=== PATIENT | female | born 1970 | race Hispanic/Latino ===

== ENCOUNTER 2017-02-13 13:48 | Emergency (ER) | payer MEDICAID, OTHER ==
[2017-02-13 13:48] VITALS: BMI 29.8
[2017-02-13 14:06] VITALS: RESP 18; O2SAT 100
[2017-02-13] MEDS ORDERED: Oxycodone/Acetaminophen 5/325 mg Tab PO STA (16:06)
--- NOTE | 2017-02-13 16:08 | ED PDOC ---
Arrival/HPI - General Chief Complaint: Female Genitourinary Time Seen by Provider: 02/13/17 14:59 Historian: Patient - History of Present Illness Narrative History of Present Illness (Text): 02/13/17 18:07 Patient past medical history of hypertension, UTI, kidney stones, migraine headaches, complains of sudden onset of bilateral flank and low back pain which started today when she was at the pharmacy picking up her prescription for Cipro. Patient states that she was recently seen yesterday at [facility]. States that she was evaluated for migraine headache and flank pain, states she had a CT done which showed small kidney stones, and was diagnosed with UTI, was prescribed Cipro. Patient states that she was not given any prescription for pain medication upon discharge yesterday. Otherwise: (+) nausea , (-) vomiting, (-) diarrhea, (-) fever, (+) hematuria, (-) melena, (-) hematochezia, (-) paresthesias, (-) weakness, (-) acute bowel or bladder dysfunction, (-) fall, (-) trauma. Of note patient's blood pressure is elevated at 182/122, patient admits taking her blood pressure medication today Norvasc and metoprolol today. Reports no chest pain, palpitations, shortness of breath, dizziness or headache. PMD Sayed Past Medical History - Provider Review Nursing Documentation Reviewed: Yes - Infectious Disease Hx of Infectious Diseases: None - Tetanus Immunization Tetanus Immunization: Unknown - Cardiac Hx Hypertension: Yes - Pulmonary Hx Asthma: Yes Hx Pneumonia: Yes - Neurological Hx Migraine: Yes Hx Seizures: No - HEENT Hx HEENT Disorder: Yes - Renal Hx Renal Disorder: Yes Hx Kidney Stones: Yes - Endocrine/Metabolic Hx Endocrine Disorders: Yes - Hematological/Oncological Hx Anemia: Yes - Integumentary Hx Dermatological Disorder: No - Musculoskeletal/Rheumatological Hx Arthritis: Yes (KNEE,HIP,SHOULDER) Hx Fractures: Yes (right hand 2009) - Gastrointestinal Hx Crohn's Disease: Yes Hx Gastritis: Yes Hx Gastrointestinal Ulcer: Yes - Genitourinary/Gynecological Hx Sexually Transmitted Diseases: No - Psychiatric Hx Anxiety: Yes Hx Depression: Yes Hx Substance Use: No - Surgical History Hx Section: Yes Hx Orthopedic Surgery: Yes (right wrist surgery) - Anesthesia Hx Anesthesia: Yes Hx Anesthesia Reactions: No Hx Malignant Hyperthermia: No - Suicidal Assessment Feels Threatened In Home Enviroment: No Family/Social History - Physician Review Nursing Documentation Reviewed: Yes Family/Social History: No Known Family HX Smoking Status: Never Smoked Hx Alcohol Use: No Hx Substance Use: No Hx Substance Use Treatment: No Allergies/Home Meds Allergies/Adverse Reactions: Allergies amoxicillin Allergy (Verified 01/29/17 07:55) RASH metronidazole [From Flagyl] Allergy (Verified 01/29/17 07:55) RASH NSAIDS (Non-Steroidal Anti-Inflamma Allergy (Verified 01/29/17 07:55) SWELLING peanut Allergy (Verified 01/29/17 07:55) ANAPHYLAXIS Home Medications: Home Meds Medication Instructions Recorded Confirmed amLODIPine [Norvasc] 20 mg PO DAILY #0 10/01/14 01/28/17 Topiramate [Topamax] 200 mg PO DAILY 01/09/16 01/28/17 Famotidine [Pepcid] 40 mg PO Q12 PRN 09/11/16 01/28/17 buPROPion [Wellbutrin] 1 tab PO DAILY 12/01/16 01/28/17 Review of Systems - Review of Systems Constitutional: Normal. absent: Fatigue, Weight Change, Fevers Respiratory: Normal. absent: SOB, Cough Cardiovascular: Normal. absent: Chest Pain, Palpitations, Edema Gastrointestinal: Normal, Other (flank pain). absent: Abdominal Pain, Stool Changes, Appetite Changes Genitourinary Female: Normal, Dysuria, Hematuria. absent: Frequency Musculoskeletal: Normal. absent: Arthralgias, Back Pain Skin: Normal. absent: Rash, Pruritis, Skin Lesions Neurological: Normal, Headache (h/o migraines). absent: Dizziness, Focal Weakness Physical Exam - Physical Exam Narrative Physical Exam (Text): 02/13/17 18:15 GENERAL APPEARANCE: Patient is awake, alert, oriented x 3, in no acute distress. SKIN: Warm, dry; (-) cyanosis. EYES: (-) conjunctival pallor, (-) scleral icterus. ENMT: Mucous membranes moist. NECK: (-) tenderness, (-) stiffness, (-) lymphadenopathy. CHEST AND RESPIRATORY: (-) rales, (-) rhonchi, (-) wheezes; breath sounds equal bilaterally. HEART AND CARDIOVASCULAR: (-) irregularity; (-) murmur, (-) gallop. ABDOMEN AND GI: (-) distention. Bowel sounds active; (-) tenderness, (+) mild flank tenderness, (-) guarding, (-) rebound, (-) palpable masses, (-) CVA tenderness. EXTREMITIES: (-) deformity, (-) edema, (+) distal pulses. NEURO AND PSYCH: Mental status as above; (-) focal findings. Vital Signs Temp Pulse Resp BP Pulse Ox 02/13/17 17:56 98.2 F 93 H 18 168/89 H 100 02/13/17 15:50 68 18 176/96 H 100 02/13/17 14:05 98.1 F 71 18 182/122 H 100 Medical Decision Making ED Course and Treatment: 02/13/17 16:07 46 yo F presents with back pain, and flank pain, was recently dx with UTI yesterday was Rx cipro. Previous medical records reviewed, patient was seen yesterday at [facility], had urine test and a CAT scan done of head and abdomen, was diagnosed with UTI and was prescribed Cipro and Tylenol. CT head showed no acute findings, CT of abdomen and pelvis showed nonobstructing renal calculus. Of note, the physician that saw her yesterday had stated on their note that the patient had recently filled 20 tabs tramadol on 02/10/17 and on 01/31 she filled 60 tabs vicodin and 120 tabs tramadol. Patient advised that she will be medicated with pain medication while she is in the emergency room however no narcotic medications will be prescribed or further medications will be dispensed to the patient. Patient medicated with Phenergan IM and Percocet by mouth. Repeat VS T 98.2 P 93 BP 168/87. On reevaluation, patient reports improvement of pain and denies any nausea, headache, chest pain or abdominal pain. Abdomen remains soft with no tenderness, no CVA tenderness. Based on history, exam and recent diagnostic results plan will be for outpatient follow-up. Patient states she fully agrees with and understands discharge instructions. States that she agrees with the plan and disposition. Verbalized and repeated discharge instructions and plan. I have given the patient opportunity to ask any additional questions. Follow up with primary care physician and urologist in 1-2 days without fail. Advised to take medication as prescribed. Return to the emergency room at any time for any new or worsening symptoms. - Medication Orders Current Medication Orders: Discontinued Medications Oxycodone/Acetaminophen (Percocet 5/325 Mg Tab) 1 tab PO STAT STA Stop: 02/13/17 16:07 Last Admin: 02/13/17 17:13 Dose: 1 tab Promethazine HCl (Phenergan Inj) 25 mg IM STAT STA Stop: 02/13/17 16:07 Last Admin: 02/13/17 17:13 Dose: 25 mg - PA / ATHLETIC MONITOR / Resident Statement MD/DO has reviewed & agrees with the documentation as recorded. Disposition/Present on Arrival - Present on Arrival Any Indicators Present on Arrival: No History of DVT/PE: No History of Uncontrolled Diabetes: No Urinary Catheter: No History of Decub. Ulcer: No History Surgical Site Infection Following: None - Disposition Have Diagnosis and Disposition been Completed?: Yes Diagnosis: Flank pain Disposition: HOME/ ROUTINE Disposition Time: 16:15 Patient Plan: Discharge Condition: STABLE Discharge Instructions (ExitCare): Flank Pain (ED) Print Language: CZECH Additional Instructions: Thank you for letting us take care of you today. You were treated for flank pain. The emergency medical care you received today was directed at your acute symptoms. Continue antibiotics and take pain medications that you have at home. It may take several days for your symptoms to resolve. Return to the Emergency Department if your symptoms worsen, do not improve, or if you have any other problems. Please contact your primary care doctor and urologist in 2 days for re- evaluation and follow up. Bring any paperwork you were given at discharge with you along with any medications you are taking to your follow up visit. Our treatment cannot replace ongoing medical care by a primary care provider (PCP) outside of the emergency department. Thank you for allowing the [facility] team to be part of your care today. Referrals: Mae Garsia MD [Primary Care Provider] - Follow up with primary
[2017-02-13 17:57] VITALS: BP 168/89
[2017-02-13 18:15] VITALS: PULSE 93; TEMP 98.2
== END 2017-02-13 18:45 | disposition home or self-care (01) ==
LOC: ED 13:48
DX: R10.9 Unspecified abdominal pain (principal); I10 Essential (primary) hypertension
CPT/HCPCS: 96372; 99283; J2550

== ENCOUNTER 2017-03-29 07:50 | Emergency (ER) | payer MEDICAID, OTHER ==
[2017-03-29 07:50] VITALS: BMI 29.8
[2017-03-29 08:25] VITALS: RESP 16
[2017-03-29 08:35] LABS: URINE BILIRUBIN NEGATIVE (NEGATIVE); URINE BLOOD LARGE (NEGATIVE); URINE GLUCOSE (UA) NEGATIVE (NEGATIVE); URINE KETONE NEGATIVE (NEGATIVE); URINE LEUKOCYTE ESTERASE TRACE Leu/uL (NEGATIVE); URINE PROTEIN TRACE mg/dL (<30 mg/dL); URINE UROBILINOGEN 0.2 E.U./dL (<1 E.U./dL)
[2017-03-29 08:37] LABS: URINE APPEARANCE TURBID (CLEAR); URINE COLOR YELLOW (YELLOW)
[2017-03-29 08:43] LABS: URINE RBC TNTC /hpf (0-2)
--- NOTE | 2017-03-29 09:58 | ED PDOC ---
Arrival/HPI - General Chief Complaint: Female Genitourinary Time Seen by Provider: 03/29/17 07:55 Historian: Patient - History of Present Illness Narrative History of Present Illness (Text): 03/29/17 09:54 Patient is a 46 year old female whose past medical history includes migraines, kidney stones, UTI presents to the emergency department complaining of worsening right flank pain for the past week. Patient was seen multiple times in the past week at [facility] for similar complaint. Patient states she finished her Cipro but did not fill her Macrobid due to insurance coverage issues. Patient reports one episode of non-bloody vomiting last night and discomfort when urinating. She states she has had urinary symptoms for over one month. No fevers or chills. Pain not colicky. Reports pain crampy. Denies vaginal bleeding or discharge, states that she has not had menstrual period for several months, denies being . States she has had multiple visits to [facility] over past several weeks for SIMILAR SYMPTOMS, denies change in character or location. Time/Duration: > week Symptom Onset: Gradual Symptom Course: Worsening Context: Home Past Medical History - Provider Review Nursing Documentation Reviewed: Yes - Infectious Disease Hx of Infectious Diseases: None - Tetanus Immunization Tetanus Immunization: Unknown - Cardiac Hx Hypertension: Yes - Pulmonary Hx Asthma: Yes Hx Pneumonia: Yes - Neurological Hx Migraine: Yes Hx Seizures: No - HEENT Hx HEENT Disorder: Yes - Renal Hx Renal Disorder: Yes Hx Kidney Stones: Yes - Endocrine/Metabolic Hx Endocrine Disorders: No - Hematological/Oncological Hx Anemia: Yes - Integumentary Hx Dermatological Disorder: No - Musculoskeletal/Rheumatological Hx Arthritis: Yes (KNEE,HIP,SHOULDER) Hx Fractures: Yes (right hand 2010) - Gastrointestinal Hx Crohn's Disease: Yes Hx Gastritis: Yes Hx Gastrointestinal Ulcer: Yes - Genitourinary/Gynecological Hx Sexually Transmitted Diseases: No - Psychiatric Hx Anxiety: Yes Hx Depression: Yes Hx Substance Use: No - Surgical History Hx Orthopedic Surgery: Yes - Anesthesia Hx Anesthesia: Yes Hx Anesthesia Reactions: No Hx Malignant Hyperthermia: No - Suicidal Assessment Feels Threatened In Home Enviroment: No Family/Social History - Physician Review Nursing Documentation Reviewed: Yes Family/Social History: Unknown Family HX Smoking Status: Former Smoker Hx Alcohol Use: No Hx Substance Use: No Hx Substance Use Treatment: No Allergies/Home Meds Allergies/Adverse Reactions: Allergies amoxicillin Allergy (Verified 03/29/17 08:23) RASH metronidazole [From Flagyl] Allergy (Verified 03/29/17 08:23) RASH NSAIDS (Non-Steroidal Anti-Inflamma Allergy (Verified 03/29/17 08:23) SWELLING peanut Allergy (Verified 03/29/17 08:23) ANAPHYLAXIS Home Medications: Home Meds Medication Instructions Recorded Confirmed amLODIPine [Norvasc] 20 mg PO DAILY #0 10/01/14 01/28/17 Topiramate [Topamax] 200 mg PO DAILY 01/09/16 01/28/17 Famotidine [Pepcid] 40 mg PO Q12 PRN 09/11/16 01/28/17 buPROPion [Wellbutrin] 1 tab PO DAILY 12/01/16 01/28/17 Review of Systems - Review of Systems Constitutional: absent: Fatigue, Fevers Eyes: absent: Vision Changes, Eye Pain ENT: absent: Hearing Changes, Tinnitus Respiratory: absent: SOB, Cough, Sputum Cardiovascular: absent: Chest Pain, Palpitations, Calf Pain, MAURER Gastrointestinal: Abdominal Pain, Vomiting Genitourinary Female: Dysuria. absent: Frequency, Hematuria, Urine Output Changes, Vaginal Bleeding, Vaginal Discharge Musculoskeletal: Back Pain, Other (Right flank pain). absent: Neck Pain Skin: absent: Rash Neurological: absent: Headache, Dizziness, Focal Weakness Endocrine: absent: Diaphoresis Hemo/Lymphatic: absent: Easy Bleeding Psychiatric: absent: Depression, Suicidal Ideation Physical Exam - Physical Exam Narrative Physical Exam (Text): Head: Atraumatic. Normocephalic. Eyes: PERRL. EOMI. Conjunctivae are not pale. ENT: Mucous membranes are moist and intact. Oropharynx is clear and symmetric. Neck: Supple. Full ROM. No JVD. No lymphadenopathy. Cardiovascular: Regular rate. Regular rhythm. No murmurs, rubs, or gallops. Distal pulses are 2+ and symmetric. Pulmonary/Chest: No evidence of respiratory distress. Clear to auscultation bilaterally. No wheezing, rales or rhonchi. Abdominal: Soft and non-distended. Very mild RUQ pain on palpation, negative Liu's signs. No rebound, guarding, or rigidity. No organomegaly. Good bowel sounds. Back: No CVA tenderness. Palpable paraspinal right sided back pain, worse with palpation. Patient with no midline pain or deformity. Patient with no pain with straight leg testing. Pelvic: patient deferred, denies vaginal discharge or bleeding Rectal: no gross blood reported Extremities: No edema. No cyanosis. No clubbing. Full range of motion in all extremities. No calf tenderness. Skin: Skin is warm and dry. No petechiae. No purpura. Neurological: Alert, awake, and oriented to person, place, time, and situation. Normal speech. Motor and sensory exam intact. Psychiatric: Good eye contact. Normal interaction, affect, and behavior. 03/29/17 17:58 Vital Signs Reviewed: Yes Vital Signs Temp Pulse Resp BP Pulse Ox 03/29/17 12:30 98.6 F 80 16 160/88 H 99 03/29/17 10:32 74 16 150/89 100 03/29/17 08:07 98.3 F 85 16 160/96 H 100 Temperature: Afebrile Pulse: Regular Respiratory Rate: Normal Appearance: Positive for: Non-Toxic Pain Distress: Mild Mental Status: Positive for: Alert and Oriented X 3 Medical Decision Making ED Course and Treatment: Differential Diagnosis include but are not limited to: kidney stone, UTI, cystitis, muscle strain, gastritis, biliary disease Plan: Will obtain ultrasound, administer Zofran and dose of Tramadol, and check labs. Prior Visits: Notes and results from previous visits were reviewed. As per previous note, patient's records were reviewed on [employer] which showed patient filled a prescription for 120 tablets of Tramadol on March and 78 prescriptions for monitor medications in the past year. She has had multiple recent ER evaluations at [facility] which I have reviewed. I have reviewed recent UA results from [facility] as well as recent urine cultures over past week which have been unremarkable. She had CT abdomen on 03/23 at [facility]: Previous CT reports from the past month showed the following: CT Abdomen and Pelvis without Oral or IV contrast. Neurologist : Silva Sheffield MD Report Date : 03/23/2017 12:43:54 IMPRESSION: 3 mm nonobstructing left lower pole calculus. No hydronephrosis identified Distended urinary bladder, otherwise unremarkable. Mild to moderate constipation. Moderate hiatal hernia. CT HEAD WITHOUT CONTRAST Neurologist : Frank Sanchez MD Report Date : 03/10/2017 16:22:42 IMPRESSION: No intracranial mass, hemorrhage or evidence of acute infarct. Progress Notes: Patient denies headache on current exam, is alert and oriented with no fever or meningeal signs. I have reviewed with her her symptoms, reported as similar in character and location as multiple recent prior visits. Denies urinary retention or vaginal discharge. UA negative. Given multiple recent CTs, I have discussed risks of persistent radiation, as symptoms similar in character but persistent, ultrasound ordered: Transvaginal Ultrasound Neurologist : Vira Pavon MD Report Date : 03/29/2017 11:24:23 IMPRESSION: No evidence of fibroid uterus or adnexal mass. Both ovaries are not visualized. Abdominal Ultrasound Neurologist : Vira Pavon MD Report Date : 03/29/2017 11:22:54 IMPRESSION: 1. Mild hepatomegaly. Diffuse increased echogenicity in the liver may reflect hepatic steatosis however parenchymal infectious/ inflammatory etiologies cannot be entirely excluded. Clinical and laboratory correlation is advised. 2. Gallbladder is contracted. No sonographic evidence for cholelithiasis. 03/29/17 18:02 I have discussed ultrasound findings with patient in laymen's terms as well as need for follow-up. UA reveals microscopic blood, I HAVE STRESSED TO PATIENT NEED FOR UROLOGIC AND GYNECOLOGY FOLLOW-UP. I HAVE DISCUSSED WITH HER HER URINALYSIS RESULTS INCLUDING blood, but no gross blood reported. No chest pain or sob. No fever in ED. She is comfortable on re-evaluation, tolerating po, with no nausea on discharge. Risks/side effects of medication reviewed with patient, risks of noncompliance with gynecologic and urologic follow-up d/w patient. Treatment plan reviewed in depth with patient. Anemia noted to be chornic when compared to previous labs, no active bleeding noted. Not hypotensive or tachycardic. - Lab Interpretations Lab Results: 03/29/17 11:00 03/29/17 11:00 Lab Results 03/29/17 11:00: Sodium 141, Potassium 3.9, Chloride 109 H, Carbon Dioxide 25, Anion Gap 11, BUN 12, Creatinine 0.7, Est GFR ( Amer) > 60, Est GFR (Non- Af Amer) > 60, Random Glucose 78, Calcium 9.2, Total Bilirubin 0.2, AST 16, ALT 26, Alkaline Phosphatase 70, Total Protein 6.5, Albumin 3.9, Globulin 2.6, Albumin/Globulin Ratio 1.5 03/29/17 11:00: WBC 4.7 D, RBC 3.88, Hgb 9.2 L, Hct 30.2 L, MCV 77.8 L, MCH 23.7 L, MCHC 30.5 L, RDW 15.0 H, Plt Count 251, MPV 8.5, Gran % 56.8, Lymph % ( Auto) 32.0, [place] % (Auto) 5.5, Eos % (Auto) 5.1 H, Baso % (Auto) 0.6, Gran # 2.66, Lymph # 1.5, [place] # 0.3, Eos # 0.2, Baso # 0.03 03/29/17 08:25: Urine Color Yellow, Urine Appearance Turbid, Urine pH 6.0, Ur Specific [place] >= 1.030, Urine Protein Trace H, Urine Glucose (UA) Negative, Urine Ketones Negative, Urine Blood Large H, Urine Nitrate Negative, Urine Bilirubin Negative, Urine Urobilinogen 0.2, Ur Leukocyte Esterase Trace H, Urine RBC Tntc, Urine WBC 2 - 5, Ur Epithelial Cells 3 - 4, Urine HCG, Qual Negative - RAD Interpretation Radiology Orders: 03/29/17 09:05 ABDOMEN COMPLETE [US] Stat TRANSVAGINAL [US] Stat - Medication Orders Current Medication Orders: Discontinued Medications Ondansetron HCl (Zofran Odt) 4 mg PO STAT STA Stop: 03/29/17 09:06 Last Admin: 03/29/17 09:15 Dose: 4 mg Tramadol HCl (Ultram) 50 mg PO STAT STA Stop: 03/29/17 09:07 Last Admin: 03/29/17 09:14 Dose: 50 mg Tramadol HCl (Ultram) 25 mg PO STAT STA Stop: 03/29/17 12:50 Last Admin: 03/29/17 13:09 Dose: 25 mg - Juliannaibe Statement The provider has reviewed the documentation as recorded by the Gurinder Wright Provider Scribe Attestation: All medical record entries made by the Juliannaibsoledad were at my direction and personally dictated by me. I have reviewed the chart and agree that the record accurately reflects my personal performance of the history, physical exam, medical decision making, and the department course for this patient. I have also personally directed, reviewed, and agree with the discharge instructions and disposition. Disposition/Present on Arrival - Present on Arrival Any Indicators Present on Arrival: No History of DVT/PE: No History of Uncontrolled Diabetes: No Urinary Catheter: No History of Decub. Ulcer: No History Surgical Site Infection Following: None - Disposition Have Diagnosis and Disposition been Completed?: Yes Diagnosis: Flank pain, Anemia, Abdominal pain Disposition: HOME/ ROUTINE Disposition Time: 12:38 Patient Plan: Discharge Condition: GOOD Discharge Instructions (ExitCare): Flank Pain (ED) Additional Instructions: For any fevers, any chest pain or shortness of breath, any abdominal pain, any abnormal vaginal bleeding, any rash, any lightheadedness or dizziness, any urinary symptoms, get rechecked. For any persistence, change, or worsening of any symptoms get rechecked. Follow-up with your tourism radio presenter in the next 2-3 days, follow-up with your primary care doctor to re-evaluate abdominal ultrasound findings. Take your Macrobid antibtiotic as directed. Prescriptions: Ondansetron ODT [Zofran ODT] 4 mg PO Q8 PRN #6 odt PRN Reason: Nausea/Vomiting Referrals: [facility] [Outside] - [facility] [Outside] - Follow up with primary
[2017-03-29 11:16] LABS: ADD MANUAL DIFF? NO
[2017-03-29 11:22] LABS: BASO # 0.03 K/mm3 (0.0-2.0); BASO % 0.6 % (0.0-3.0); EOS # 0.2 (0.0-0.7); EOS % 5.1 % (1.5-5.0); GRAN # 2.66 (1.4-6.5); GRAN % 56.8 % (50.0-68.0); HEMATOCRIT 30.2 % (36.0-48.0); LYMPH # 1.5 (1.2-3.4); MEAN CELL VOLUME 77.8 fL (80.0-105.0); MEAN CORPUSCULAR HEMOGLOBIN 23.7 pg (25.0-35.0); MEAN CORPUSCULAR HGB CONC 30.5 g/dl (31.0-37.0); MEAN PLATELET VOLUME 8.5 fl (7.0-11.0); MONO # 0.3 (0.1-0.6); MONO % 5.5 % (1.0-6.0); PLATELET COUNT 251 10^3/uL (120.0-450.0); WHITE BLOOD COUNT 4.7 10^3/ul (4.5-11.0)
--- NOTE | 2017-03-29 11:24 | US ---
HISTORY: upper abdominal pain COMPARISON: None. TECHNIQUE: Grayscale imaging was performed. FINDINGS: LIVER: Measures 16.6 cm. There is diffuse increased echogenicity of the liver parenchyma. No mass. No intrahepatic bile duct dilatation. GALLBLADDER: The gallbladder is contracted. No gallstones. COMMON BILE DUCT: Measures 5.4 mm. No stones. No dilatation. PANCREAS: Unremarkable as visualized. No mass. No ductal dilatation. RIGHT KIDNEY: Measures 12.0cm. Normal echogenicity. No calculus, mass, or hydronephrosis. LEFT KIDNEY: Measures 12.0cm. Normal echogenicity. No calculus, mass, or hydronephrosis. SPLEEN: Normal in size and contour. No mass. AORTA: No aneurysmal dilatation. IVC: Unremarkable. OTHER FINDINGS: None. IMPRESSION: 1. Mild hepatomegaly. Diffuse increased echogenicity in the liver may reflect hepatic steatosis however parenchymal infectious/ inflammatory etiologies cannot be entirely excluded. Clinical and laboratory correlation is advised. 2. Gallbladder is contracted. No sonographic evidence for cholelithiasis.
--- NOTE | 2017-03-29 11:26 | US ---
HISTORY: Abdominal pain COMPARISON: None available. TECHNIQUE: Transvaginal pelvic ultrasound was performed. FINDINGS: UTERUS: Measures 8.6 x 3.2 x 4.1 cm. Retroverted, normal in size and appearance. No fibroid or other mass lesion seen. ENDOMETRIUM: Measures 5.0 mm in diameter. Normal in appearance. CERVIX: No cervical abnormality identified. RIGHT OVARY: Not visualized. LEFT OVARY: Not visualized. FREE FLUID: No significant free fluid noted. OTHER FINDINGS: None. IMPRESSION: No evidence of fibroid uterus or adnexal mass. Both ovaries are not visualized.
[2017-03-29 11:31] LABS: ALB/GLOB RATIO 1.5 (1.1-1.8); ALKALINE PHOSPHATASE 70 U/L (38-133); ALT/SGPT 26 U/L (7-56); AST/SGOT 16 U/L (15-39); BILIRUBIN,TOTAL 0.2 mg/dL (0.2-1.3); BLOOD UREA NITROGEN 12 mg/dL (7-21); CALCIUM 9.2 mg/dL (8.4-10.5); CARBON DIOXIDE 25 mmol/L (21-33); CHLORIDE 109 mmol/L (98-107); GFR AFRICAN-AMERICAN > 60; GLUCOSE,RANDOM 78 mg/dL (70-110); POTASSIUM 3.9 mmol/L (3.6-5.0); SODIUM 141 mmol/L (132-148); TOTAL PROTEIN 6.5 g/dL (5.8-8.3)
[2017-03-29 13:16] VITALS: BP 160/88; PULSE 80; TEMP 98.6; O2SAT 99
== END 2017-03-29 13:16 | disposition home or self-care (01) ==
LOC: ED 07:50
DX: R10.9 Unspecified abdominal pain (principal); D64.9 Anemia, unspecified

== ENCOUNTER 2017-06-07 14:17 | Observation (INO) | payer MEDICAID ==
[2017-06-07 14:39] VITALS: BMI 29.8
--- NOTE | 2017-06-07 17:18 | ED PDOC ---
Arrival/HPI - General Chief Complaint: Abdominal Pain Time Seen by Provider: 06/07/17 17:13 Historian: Patient - History of Present Illness Narrative History of Present Illness (Text): 06/07/17 17:14 A 46 year old female, whose past medical history includes crohn's disease, presents to the emergency department complaining of intermittent right flank discomfort for the past 2 days. Patient notes nausea and non-bilious non-bloody vomiting. She reports she was seen at [facility] 2 days ago and had a CT done which showed a non-obstructing stone. Patient denies any fever, chills, diarrhea or any other complaints. Time/Duration: Other (2 days) Symptom Course: Intermittent Quality: Other Context: Home Past Medical History - Provider Review Nursing Documentation Reviewed: Yes - Infectious Disease Hx of Infectious Diseases: None - Tetanus Immunization Tetanus Immunization: Unknown - Cardiac Hx Cardiac Disorders: Yes Hx Hypertension: Yes - Pulmonary Hx Asthma: Yes Hx Pneumonia: Yes - Neurological Hx Migraine: Yes Hx Seizures: No - HEENT Hx HEENT Disorder: Yes - Renal Hx Renal Disorder: Yes Hx Kidney Stones: Yes - Endocrine/Metabolic Hx Endocrine Disorders: No - Hematological/Oncological Hx Anemia: Yes - Integumentary Hx Dermatological Disorder: No - Musculoskeletal/Rheumatological Hx Arthritis: Yes (KNEE,HIP,SHOULDER) Hx Fractures: Yes (right hand 2009) - Gastrointestinal Hx Crohn's Disease: Yes Hx Gastritis: Yes Hx Gastrointestinal Ulcer: Yes - Genitourinary/Gynecological Hx Sexually Transmitted Diseases: No - Psychiatric Hx Psychophysiologic Disorder: Yes Hx Anxiety: Yes Hx Depression: Yes Hx Substance Use: No - Surgical History Hx Orthopedic Surgery: Yes - Anesthesia Hx Anesthesia: Yes Hx Anesthesia Reactions: No Hx Malignant Hyperthermia: No - Suicidal Assessment Feels Threatened In Home Enviroment: No Family/Social History - Physician Review Nursing Documentation Reviewed: Yes Family/Social History: No Known Family HX Smoking Status: Former Smoker Hx Alcohol Use: No Hx Substance Use: No Hx Substance Use Treatment: No Allergies/Home Meds Allergies/Adverse Reactions: Allergies amoxicillin Allergy (Verified 06/07/17 14:39) RASH metronidazole [From Flagyl] Allergy (Verified 06/07/17 14:39) RASH NSAIDS (Non-Steroidal Anti-Inflamma Allergy (Verified 06/07/17 14:39) SWELLING peanut Allergy (Verified 06/07/17 14:39) ANAPHYLAXIS Home Medications: Home Meds Medication Instructions Recorded Confirmed amLODIPine [Norvasc] 20 mg PO DAILY #0 10/01/14 06/07/17 Topiramate [Topamax] 200 mg PO DAILY 01/09/16 06/07/17 SUMAtriptan [Imitrex] 50 mg PO DAILY PRN 06/07/17 06/07/17 Physical Exam - Physical Exam Narrative Physical Exam (Text): - Review of Systems Constitutional: Normal. absent: Fatigue, Weight Change, Fevers Eyes: Normal ENT: denies sore throat, denies tristhmus Respiratory: Normal. absent: SOB, Cough, Sputum Cardiovascular: absent: Chest Pain, Palpitations, Syncope Gastrointestinal: (+) Nausea, Vomiting absent: Abdominal Pain, Diarrhea Genitourinary: Normal. absent: Dysuria, Frequency, Hematuria, vaginal bleeding Musculoskeletal: (+) Right sided flank pain absent: Arthralgias, Neck Pain Skin: no rashes, no erythema Neurological: absent: Focal Weakness Endocrine: Normal Hemo/Lymphatic: Normal Psychiatric: No suicidal or homicidal ideations Physical exam Patient appears age appropriate in no distress, speaking full sentences without difficulty - Systems Exam Head: Present: Atraumatic, Normocephalic Pupils: Present: PERRL Extroacular Muscles: Present: EOMI Conjunctiva: Present: Normal Mouth: Present: Moist Mucous Membranes Neck: Present: Normal Range of Motion. No: MIDLINE TENDERNESS, Paraspinal Tenderness Respiratory/Chest: Present: Clear to Auscultation, Good Air Exchange. No: Respiratory Distress, Accessory Muscle Use, Tachypneic Cardiovascular: Present: Regular Rate and Rhythm, Normal S1, S2, Peripheal Pulses Present. No: Murmurs Abdomen: Present: Normal Bowel Sounds. No: Tenderness, Distention, Peritoneal Signs, Rebound, Guarding Back: Present: Normal Inspection. No: Midline Tenderness, Paraspinal Tenderness Upper Extremity: Present: Normal Inspection. No: Cyanosis, Edema Lower Extremity: Present: Normal Inspection. No: Edema Neurological: Present: GCS=15, Speech Normal, cranial nerves II through XII fully intact with no cerebellar abnormality, neurosensory fully intact. No focal neurological deficits. Skin: Present: Warm, Dry, Normal Color. No: Rashes Lymphatic: Present: OX3, NI, NC Psychiatric: Present: Alert, Oriented x 3, Normal Insight, Normal Concentration Vital Signs Reviewed: Yes Vital Signs Temp Pulse Resp BP Pulse Ox 06/07/17 14:42 98.3 F 68 18 167/93 H 99 Temperature: Afebrile Blood Pressure: Hypertensive Pulse: Regular Respiratory Rate: Normal Appearance: Positive for: Well-Appearing, Non-Toxic, Comfortable Pain Distress: None Mental Status: Positive for: Alert and Oriented X 3 Medical Decision Making ED Course and Treatment: 06/07/17 17:14 Impression: A 46 year old female with right sided flank pain, nausea and vomiting. Patients recent CT at [facility] showed a non-obstructing stone. pt is a vasculopath, states very difficult to get IV access attempted US guided UE b/l under sterile conditions, no success Plan: -- Abdomen and pelvis CT -- Labs -- Urinalysis -- Morphine, Reglan and Zofran -- Reassess and disposition Progress Notes: 06/07/17 20:59 pt still c/o nausea more anti-emetics ordered Report Date: 06/07/17 21:38 EXAM: CT Abdomen and Pelvis Without Intravenous Contrast Dictated and Authenticated by: James Hernandez MD IMPRESSION: 1. There is a stable moderate size hiatal hernia identified. 2. There is a small nonobstructing left renal calculus measuring 2 mm. 3. There is wall thickening of the right hemicolon, suggestive of incomplete distention or colitis. There is mild gaseous and fecal distention of the rectum. 4. Additional CT findings described above. 06/07/17 22:42 pt continues to have nausea and vomiting states she does not feel comfortable being dc'd home hernan resident, aware of admission Dr. Pavon paged 06/07/17 22:44 hernan Pavon, accepted admission - Lab Interpretations Lab Results: 06/07/17 18:42 06/07/17 18:42 Lab Results 06/07/17 18:42: Sodium 145, Potassium 3.3 L, Chloride 111 H, Carbon Dioxide 23, Anion Gap 14, BUN 13, Creatinine 0.7, Est GFR ( Amer) > 60, Est GFR (Non- Af Amer) > 60, Random Glucose 94, Calcium 9.1, Total Bilirubin 0.3, AST 43 H, ALT 37, Alkaline Phosphatase 79, Total Protein 7.2, Albumin 4.2, Globulin 2.9, Albumin/Globulin Ratio 1.4 06/07/17 18:42: PT 10.7, INR 0.99, APTT 23.3 L 06/07/17 18:42: WBC 5.8 D, RBC 4.18, Hgb 9.1 L, Hct 31.6 L, MCV 75.6 L, MCH 21.8 L, MCHC 28.8 L, RDW 15.8 H, Plt Count 269, MPV 9.3, Gran % 64.9, Lymph % ( Auto) 27.8, [place] % (Auto) 6.6 H, Eos % (Auto) 0.5 L, Baso % (Auto) 0.2, Gran # 3.76, Lymph # 1.6, [place] # 0.4, Eos # 0.0, Baso # 0.01 - RAD Interpretation Radiology Orders: 06/07/17 17:49 ABD & PELVIS W/O PO OR IV CONT [CT] Stat - Medication Orders Current Medication Orders: Discontinued Medications Metoclopramide HCl (Reglan) 10 mg IM STAT STA Stop: 06/07/17 20:54 Last Admin: 06/07/17 21:20 Dose: 10 mg Morphine Sulfate (Morphine) 4 mg IM STAT STA Stop: 06/07/17 19:00 Last Admin: 06/07/17 19:33 Dose: 4 mg Ondansetron HCl (Zofran Odt) 4 mg PO STAT STA Stop: 06/07/17 17:50 Last Admin: 06/07/17 18:36 Dose: 4 mg Ondansetron HCl (Zofran Odt) 4 mg PO STAT STA Stop: 06/07/17 19:32 Last Admin: 06/07/17 19:33 Dose: 4 mg - Scribe Statement The provider has reviewed the documentation as recorded by the Gurinder Yee Provider Scribe Attestation: All medical record entries made by the Juliannaibsoledad were at my direction and personally dictated by me. I have reviewed the chart and agree that the record accurately reflects my personal performance of the history, physical exam, medical decision making, and the department course for this patient. I have also personally directed, reviewed, and agree with the discharge instructions and disposition. Disposition/Present on Arrival - Present on Arrival Any Indicators Present on Arrival: No History of DVT/PE: No History of Uncontrolled Diabetes: No Urinary Catheter: No History of Decub. Ulcer: No History Surgical Site Infection Following: None - Disposition Have Diagnosis and Disposition been Completed?: Yes Diagnosis: Intractable nausea and vomiting Disposition: HOSPITALIZED Disposition Time: 22:45 Patient Plan: Admission Condition: FAIR Referrals: Mae Garsia MD [Primary Care Provider] - Follow up with primary Forms: [employer] (Albanian)
[2017-06-07 18:52] LABS: BASO # 0.01 K/mm3 (0.0-2.0); BASO % 0.2 % (0.0-3.0); EOS % 0.5 % (1.5-5.0); GRAN # 3.76 (1.4-6.5); GRAN % 64.9 % (50.0-68.0); HEMATOCRIT 31.6 % (36.0-48.0); LYMPH # 1.6 (1.2-3.4); LYMPH % 27.8 % (22.0-35.0); MEAN CELL VOLUME 75.6 fl (80.0-105.0); MEAN CORPUSCULAR HEMOGLOBIN 21.8 pg (25.0-35.0); MEAN CORPUSCULAR HGB CONC 28.8 g/dl (31.0-37.0); MEAN PLATELET VOLUME 9.3 fl (7.0-11.0); MONO # 0.4 (0.1-0.6); MONO % 6.6 % (1.0-6.0); RED CELL DISTRIBUTION WIDTH 15.8 % (11.5-14.5); WHITE BLOOD COUNT 5.8 10^3/ul (4.5-11.0)
[2017-06-07 18:57] LABS: INR 0.99 (0.93-1.08); PARTIAL THROMBOPLASTIN TIME 23.3 Seconds (23.7-30.8)
[2017-06-07] MEDS ORDERED: Morphine 4 mg/ml ISec IM STA (18:59)
[2017-06-07 19:03] LABS: ALB/GLOB RATIO 1.4 (1.1-1.8); ALKALINE PHOSPHATASE 79 U/L (38-126); ALT/SGPT 37 U/L (7-56); AST/SGOT 43 U/L (14-36); BILIRUBIN,TOTAL 0.3 mg/dL (0.2-1.3); BLOOD UREA NITROGEN 13 mg/dL (7-21); CALCIUM 9.1 mg/dL (8.4-10.5); CARBON DIOXIDE 23 mmol/L (21-33); CHLORIDE 111 mmol/L (98-107); GFR AFRICAN-AMERICAN > 60; GLUCOSE,RANDOM 94 mg/dL (70-110); POTASSIUM 3.3 mmol/L (3.6-5.0); SODIUM 145 mmol/L (132-148); TOTAL PROTEIN 7.2 g/dL (5.8-8.3)
--- NOTE | 2017-06-07 21:38 | CT ---
EXAM: CT Abdomen and Pelvis Without Intravenous Contrast EXAM DATE/TIME: 06/07/2017 5:49 PM CLINICAL HISTORY: The patient age is 46 years old and is female; Pain; Abdominal pain; Colic; Additional info: Renal colic Facility exam id and description: Ct abdpelscon abd pelvis w/o po or iv cont TECHNIQUE: Axial computed tomography images of the abdomen and pelvis without intravenous contrast. All CT scans at this facility use one or more dose reduction techniques, viz.: automated exposure control; ma/kV adjustment per patient size (including targeted exams where dose is matched to indication; i.e. head); or iterative reconstruction technique. Coronal and sagittal reformatted images were created and reviewed. COMPARISON: CT - ABD PELVIS PO IV CONTRAST 07/30/2015 1:45:46 AM FINDINGS: Lower thorax: There is a moderate size hiatal hernia identified. ABDOMEN: Liver: Unremarkable. No mass. Gallbladder and bile ducts: No calcified stones. No ductal dilation. Pancreas: Normal contour. No ductal dilation. Spleen: No splenomegaly. Adrenals: No mass. Kidneys and ureters: There is a small nonobstructing left renal calculus measuring 2 mm. There is no hydronephrosis bilaterally. Stomach and bowel: There is wall thickening of the right hemicolon, suggestive of incomplete distention or colitis. There is mild gaseous and fecal distention of the rectum. Evaluation of bowel is limited by the absence of oral contrast. Appendix: No findings to suggest acute appendicitis. PELVIS: Bladder: No stones. Reproductive: A small calcification is identified in the region of the cervix. This is stable. ABDOMEN and PELVIS: Intraperitoneal space: No free air. Bones/joints: Hypertrophic degenerative changes are noted within the spine. There is slight retrolisthesis of L5 on S1. Vasculature: No abdominal aortic aneurysm. Lymph nodes: No enlarged lymph nodes. IMPRESSION: 1. There is a stable moderate size hiatal hernia identified. 2. There is a small nonobstructing left renal calculus measuring 2 mm. 3. There is wall thickening of the right hemicolon, suggestive of incomplete distention or colitis. There is mild gaseous and fecal distention of the rectum. 4. Additional CT findings described above.
[2017-06-08] MEDS ORDERED: HYDROmorphone 0.5 mg/0.5 ml ISec IVP STA (00:50)
[2017-06-08 00:57] LABS: PH,URINE 6.5 (4.7-8.0); URINE BILIRUBIN NEGATIVE (NEGATIVE); URINE BLOOD LARGE (NEGATIVE); URINE GLUCOSE (UA) NEGATIVE (NEGATIVE); URINE KETONE NEGATIVE (NEGATIVE); URINE LEUKOCYTE ESTERASE NEGATIVE Leu/uL (NEGATIVE); URINE PROTEIN TRACE mg/dL (<30 mg/dL); URINE UROBILINOGEN 0.2 E.U./dL (<1 E.U./dL)
--- NOTE | 2017-06-08 00:58 | CP.PCM.PN ---
Subjective - Date & Time of Evaluation Date of Evaluation: 06/08/17 Time of Evaluation: 00:55 - Subjective Subjective: S:It was requested by ER nurse to insert a heparin lock. Complains of abdominal pain. No other complaints now. Pertinent medical record was reviewed. O: Last Vital Signs 3 Temp 98.3 F 06/07/17 14:42 Pulse 69 06/07/17 23:28 Resp 16 06/07/17 23:28 BP 172/103 H 06/07/17 23:28 Pulse Ox 97 06/07/17 23:28 Awake, alert , not in distress. LUNGS: Normal breathing pattern. A: Poor venous access. abdominal pain. Crohn's disease. P: # 22 angiocath was inserted in left hand dorsum. Dilaudid 0.5 mg IV now. Objective - Vital Signs/Intake and Output Vital Signs (last 24 hours): Temp Pulse Resp BP Pulse Ox 98.3 F 69 16 172/103 H 97 06/07/17 14:42 06/07/17 23:28 06/07/17 23:28 06/07/17 23:28 06/07/17 23:28 - Labs Labs: PT 10.7 Seconds (9.9-11.8) 06/07/17 18:42 INR 0.99 (0.93-1.08) 06/07/17 18:42 APTT 23.3 Seconds (23.7-30.8) L 06/07/17 18:42
--- NOTE | 2017-06-08 01:01 | CP.PCM.HP ---
<Marquise Suarez - Last Filed: 06/08/17 00:48> History of Present Illness - History of Present Illness History of Present Illness: 46 y/o F with PMH of HTN, Asthma, avascular necrosis of the right hip?, Migraines, and Crohns disease for 3 day hx of right sided flank pain. Pt states she gets chronic UTI's and her symptoms currently are similar to her symptoms when she has a UTI. Pt states she gradually developed right sided flank pain wrapping around to her right groin which she now rates a 10/10. Pt describes pain as sharp. There are no alleviating or exacerbating factors. Pt did go to [facility] [place] several days ago and they did not give her anything for her pain. In addition to her abdominal pain, pt states she has been nauseous and vomiting multiple times daily. Vomit is nonbloody, nonbilious in nature. She admits to decreased PO intake during this time secondary to dehydration. Pt states when she gets these symptoms she goes on a course of abx and it usually goes away. Pt does mention she has been under a great deal of stress with her job and partner recently. Pt denies pyuria, hematuria, or increased urinary frequency, but admits to mild discomfort when urinating. No changes in bowel habits. Denies CP, SOB, diarrhea, syncope, recent sick contacts, fever, chills, changes in vision. PMH: HTN, Asthma, avascular necrosis of the right hip?, Migraines, and Crohns disease Surgical Hx: C- section, Sinus surgery FMH: Breast Cancer, CAD Social Hx: Former smoker, 10 years x 1ppd. Denies alcohol or illicit drug use. One sexual partner Allergies: NSAIDS (Hives), Nuts (Anaphylaxis), Flagyl, Amoxicillin Medications: Reviewed, as per MAR Present on Admission - Present on Admission Any Indicators Present on Admission: No Review of Systems - Review of Systems Review of Systems: 12 point review of systems as per HPI, otherwise negative Past Patient History - Infectious Disease Hx of Infectious Diseases: None - Tetanus Immunizations Tetanus Immunization: Unknown - Past Medical History & Family History Past Medical History?: Yes - Past Social History Smoking Status: Former Smoker - CARDIAC Hx Cardiac Disorders: Yes Hx Hypertension: Yes - PULMONARY Hx Asthma: Yes Hx Pneumonia: Yes - NEUROLOGICAL Hx Migraine: Yes Hx Seizures: No - HEENT Hx HEENT Problems: Yes - RENAL Hx Chronic Kidney Disease: Yes Hx Kidney Stones: Yes - ENDOCRINE/METABOLIC Hx Endocrine Disorders: No - HEMATOLOGICAL/ONCOLOGICAL Hx Anemia: Yes - INTEGUMENTARY Hx Dermatological Problems: No - MUSCULOSKELETAL/RHEUMATOLOGICAL Hx Arthritis: Yes (KNEE,HIP,SHOULDER) Hx Fractures: Yes (right hand 2010) - GASTROINTESTINAL Hx Crohn's Disease: Yes Hx Gastritis: Yes - GENITOURINARY/GYNECOLOGICAL Hx Sexually Transmitted Disorders: No - PSYCHIATRIC Hx Psychophysiologic Disorder: Yes Hx Anxiety: Yes Hx Depression: Yes Hx Substance Use: No - SURGICAL HISTORY Hx Orthopedic Surgery: Yes - ANESTHESIA Hx Anesthesia: Yes Hx Anesthesia Reactions: No Hx Malignant Hyperthermia: No Meds Allergies/Adverse Reactions: Allergies Allergy/AdvReac Type Severity Reaction Status Date / Time amoxicillin Allergy RASH Verified 06/07/17 14:39 metronidazole [From Flagyl] Allergy RASH Verified 06/07/17 14:39 NSAIDS (Non-Steroidal Allergy SWELLING Verified 06/07/17 14:39 Anti-Inflamma peanut Allergy ANAPHYLAXIS Verified 06/07/17 14:39 Physical Exam - Constitutional Appears: Non-toxic, No Acute Distress - Head Exam Head Exam: ATRAUMATIC, NORMAL INSPECTION - Eye Exam Eye Exam: EOMI - ENT Exam ENT Exam: Mucous Membranes Moist - Neck Exam Neck exam: Positive for: Normal Inspection. Negative for: Lymphadenopathy - Respiratory Exam Respiratory Exam: Clear to Auscultation Bilateral, NORMAL BREATHING PATTERN. absent: Rales, Rhonchi, Wheezes - Cardiovascular Exam Cardiovascular Exam: RRR, +S1, +S2 - GI/Abdominal Exam GI & Abdominal Exam: Normal Bowel Sounds, Soft, Tenderness (Right groin/flank tenderness). absent: Distended, Guarding - Extremities Exam Extremities exam: Positive for: normal inspection. Negative for: calf tenderness, pedal edema - Back Exam Back exam: CVA tenderness (R) - Neurological Exam Neurological exam: Alert, CN II-XII Intact, Oriented x3 - Psychiatric Exam Psychiatric exam: Normal Affect, Normal Mood - Skin Skin Exam: Intact, Normal Color, Warm Results - Vital Signs Recent Vital Signs: Last Vital Signs Temp 98.3 F 06/07/17 14:42 Pulse 69 06/07/17 23:28 Resp 16 06/07/17 23:28 BP 172/103 H 06/07/17 23:28 Pulse Ox 97 06/07/17 23:28 - Labs Result Diagrams: 06/07/17 18:42 06/07/17 18:42 Assessment & Plan - Assessment and Plan (Free Text) Plan: 46 y/o F with PMH of HTN, Asthma, avascular necrosis of the right hip?, Migraines, and Crohns disease for dehydration and intractable pain. Pt found to have nonobstructing 2 mm renal calculus on the left, which can be seen on previous Abdomen/Pelvis CT's dating back to 2013. In addition, these CT scans also show colonic changes consistent with recent findings. UA does not indicate any infection. Patient will be observed overnight and receive IV hydration as well as pain medication. 1. Dehydration NS @ 100 Zofran for N/V Replete electrolytes as needed 2. Left Nonobstructing stone, Chronic IVF Morphine 1 mg q4h prn for pain 3. HTN Restart home meds 4. Migraines Restart home meds 5. PPX Protonix Zofran Heparin Daniela, PGY-2 <Tiburcio Pavon - Last Filed: 06/08/17 08:49> Results - Vital Signs Recent Vital Signs: Last Vital Signs Temp 97.8 F 06/08/17 02:04 Pulse 68 06/08/17 02:04 Resp 18 06/08/17 02:04 BP 180/114 H 06/08/17 02:04 Pulse Ox 97 06/07/17 23:28 - Labs Result Diagrams: 06/08/17 06:45 06/08/17 06:45 Labs: Laboratory Results - last 24 hr 06/08/17 06/08/17 06/08/17 00:30 06:45 06:45 WBC 3.9 L D RBC 3.68 Hgb 8.0 L Hct 27.7 L MCV 75.3 L MCH 21.7 L MCHC 28.9 L RDW 15.7 H Plt Count 223 MPV 8.9 Sodium 146 Potassium 3.0 L Chloride 115 H Carbon Dioxide 23 Anion Gap 11 BUN 11 Creatinine 0.6 Est GFR ( Amer) > 60 Est GFR (Non-Af Amer) > 60 Random Glucose 88 Calcium 8.3 L Total Bilirubin 0.1 L AST 32 ALT 43 Alkaline Phosphatase 66 Total Protein 6.0 Albumin 3.4 Globulin 2.5 Albumin/Globulin Ratio 1.4 Urine Color Dark yellow Urine Appearance Cloudy Urine pH 6.5 Ur Specific [place] 1.025 Urine Protein Trace H Urine Glucose (UA) Negative Urine Ketones Negative Urine Blood Large H Urine Nitrate Negative Urine Bilirubin Negative Urine Urobilinogen 0.2 Ur Leukocyte Esterase Negative Urine RBC Tntc Urine WBC 0 - 2 Ur Epithelial Cells 0 - 2 Attending/Attestation - Attestation I have personally seen and examined this patient.: Yes I have fully participated in the care of the patient.: Yes I have reviewed all pertinent clinical information: Yes Notes (Text): 06/08/17 08:49 Patient was seen when she was in bed ## [phone]. Agree with history ,physical examination, assessment and plan.
[2017-06-08 01:04] LABS: URINE APPEARANCE CLOUDY (CLEAR); URINE COLOR DARK YELLOW (YELLOW)
[2017-06-08 01:05] LABS: URINE EPITHELIAL CELLS 0 - 2 /hpf (0-5); URINE RBC TNTC /hpf (0-2); URINE WBC 0 - 2 /hpf (0-6)
[2017-06-08] MEDS ORDERED: Potassium Chloride 40 mEq/30 ml LIQ UD PO STA (02:10)
[2017-06-08] MEDS: Sodium Chloride 0.9% 1,000 ML IV SCH ×2 (02:30→20:34)
[2017-06-08] MEDS: Morphine 2 mg/ml ISec IVP PRN ×4 (02:49→20:33)
[2017-06-08] MEDS: Pantoprazole 40 mg EC Tab PO SCH (06:56)
[2017-06-08 07:15] LABS: HEMATOCRIT 27.7 % (36.0-48.0); MEAN CELL VOLUME 75.3 fl (80.0-105.0); MEAN CORPUSCULAR HEMOGLOBIN 21.7 pg (25.0-35.0); MEAN CORPUSCULAR HGB CONC 28.9 g/dl (31.0-37.0); MEAN PLATELET VOLUME 8.9 fl (7.0-11.0); RED CELL DISTRIBUTION WIDTH 15.7 % (11.5-14.5); WHITE BLOOD COUNT 3.9 10^3/ul (4.5-11.0)
[2017-06-08 07:26] LABS: ALB/GLOB RATIO 1.4 (1.1-1.8); ALKALINE PHOSPHATASE 66 U/L (38-126); ALT/SGPT 43 U/L (7-56); AST/SGOT 32 U/L (14-36); BILIRUBIN,TOTAL 0.1 mg/dL (0.2-1.3); BLOOD UREA NITROGEN 11 mg/dL (7-21); CALCIUM 8.3 mg/dL (8.4-10.5); CARBON DIOXIDE 23 mmol/L (21-33); CHLORIDE 115 mmol/L (98-107); GFR AFRICAN-AMERICAN > 60; GLUCOSE,RANDOM 88 mg/dL (70-110); SODIUM 146 mmol/L (132-148)
[2017-06-08] MEDS: DiphenhydrAMINE 50 mg/ml Inj IVP PRN ×3 (08:08→22:25)
--- NOTE | 2017-06-08 09:15 | CP.PCM.CON ---
<Kyrie Turk - Last Filed: 06/08/17 13:49> History of Present Illness - History of Present Illness History of Present Illness: GI Consult Note: 46 F with PMH of non compliance, HTN, Asthma, Migraines, and Crohn's disease ( non compliant to Apriso) presents with 4-5 days of R flank pain and severe abd pain. Pt states that her pain was initially very severe and she went to [facility] 4 days ago which told her she has a renal stone and was sent home. Now she states that her flank pain has got significantly worse. The pain is sharp, starts from her R flank and radiates to her suprapubic region and is 9/10 in severity. Denies alleviating or exacerbating factors. Pt does complains of 10 episodes of NBNB vomiting in the past 2 days and complains of 3 episodes of diarrhea x 1 day. Pt denies pyuria, hematuria, or increased urinary frequency. Denies fever , chills, CP, SOB, palpitations. 12 Point ROS performed and negative other than stated above. PMH: HTN, Asthma, Migraines, and Crohn's disease Surgical Hx: C- section, Sinus surgery, hand surgery Allergies: NSAIDS (Hives), Nuts (Anaphylaxis), Flagyl, Amoxicillin Medications: per [facility]: father with Crohns dx, Breast Cancer, CAD Social Hx: Former smoker of 1PPF x 10 years. Denies alcohol or drug use. Endo Hx: 08/20/15 - mod size hiatal hernia and gastric ulcer with clean base Review of Systems - Review of Systems All systems: reviewed and no additional remarkable complaints except (HPI) Past Patient History - Infectious Disease Hx of Infectious Diseases: None - Tetanus Immunizations Tetanus Immunization: Unknown - Past Medical History & Family History Past Medical History?: Yes - Past Social History Smoking Status: Former Smoker - CARDIAC Hx Cardiac Disorders: Yes Hx Hypertension: Yes - PULMONARY Hx Asthma: Yes Hx Pneumonia: Yes - NEUROLOGICAL Hx Migraine: Yes - HEENT Hx HEENT Problems: Yes - RENAL Hx Chronic Kidney Disease: Yes Hx Kidney Stones: Yes - ENDOCRINE/METABOLIC Hx Endocrine Disorders: No - HEMATOLOGICAL/ONCOLOGICAL Hx Anemia: Yes - INTEGUMENTARY Hx Dermatological Problems: No - MUSCULOSKELETAL/RHEUMATOLOGICAL Hx Falls: No - GASTROINTESTINAL Hx Crohn's Disease: Yes - GENITOURINARY/GYNECOLOGICAL Hx Sexually Transmitted Disorders: No - PSYCHIATRIC Hx Psychophysiologic Disorder: Yes Hx Anxiety: Yes Hx Depression: Yes - SURGICAL HISTORY Hx Orthopedic Surgery: Yes - ANESTHESIA Hx Anesthesia: Yes Hx Anesthesia Reactions: No Hx Malignant Hyperthermia: No Meds Allergies/Adverse Reactions: Allergies Allergy/AdvReac Type Severity Reaction Status Date / Time amoxicillin Allergy RASH Verified 06/07/17 14:39 metronidazole [From Flagyl] Allergy RASH Verified 06/07/17 14:39 NSAIDS (Non-Steroidal Allergy SWELLING Verified 06/07/17 14:39 Anti-Inflamma peanut Allergy ANAPHYLAXIS Verified 06/07/17 14:39 - Medications Medications: Current Medications Amlodipine Besylate (Norvasc) 20 mg PO DAILY [facility] Diphenhydramine HCl (Benadryl) 25 mg IVP Q6H PRN PRN Reason: Allergy symptoms Last Admin: 06/08/17 08:08 Dose: 25 mg Heparin Sodium (Porcine) (Heparin) 5,000 units SC Q12 [facility] PRN Reason: Protocol Sodium Chloride (Sodium Chloride 0.9%) 1,000 mls @ 100 mls/hr IV .Q10H [facility] Last Admin: 06/08/17 02:30 Dose: 100 mls/hr Metoprolol Tartrate (Lopressor) 25 mg PO DAILY [facility] Morphine Sulfate (Morphine) 1 mg IVP Q4H PRN PRN Reason: Pain, moderate (4-7) Last Admin: 06/08/17 08:02 Dose: 1 mg Ondansetron HCl (Zofran Inj) 4 mg IVP Q4H PRN PRN Reason: Nausea/Vomiting Last Admin: 06/08/17 02:48 Dose: 4 mg Pantoprazole Sodium (Protonix Ec Tab) 40 mg PO 0600 [facility] Last Admin: 06/08/17 06:56 Dose: 40 mg Sumatriptan Succinate (Imitrex Tab) 50 mg PO DAILY PRN PRN Reason: Headache Topiramate (Topamax) 200 mg PO DAILY [facility] PRN Reason: Protocol Physical Exam - Constitutional Appears: No Acute Distress - Head Exam Head Exam: ATRAUMATIC, NORMOCEPHALIC - Eye Exam Eye Exam: EOMI, PERRL - ENT Exam ENT Exam: Mucous Membranes Moist - Neck Exam Neck exam: Negative for: Tenderness - Respiratory Exam Respiratory Exam: Clear to Auscultation Bilateral. absent: Rales, Wheezes - Cardiovascular Exam Cardiovascular Exam: REGULAR RHYTHM, RRR, +S1, +S2 - GI/Abdominal Exam GI & Abdominal Exam: Normal Bowel Sounds, Soft, Tenderness Additional comments: Suprapubic region tenderness - Extremities Exam Extremities exam: Negative for: calf tenderness, pedal edema - Back Exam Back exam: CVA tenderness (R). absent: paraspinal tenderness, tenderness, vertebral tenderness - Neurological Exam Neurological exam: Alert, CN II-XII Intact, Oriented x3 - Psychiatric Exam Psychiatric exam: Normal Affect, Normal Mood - Skin Skin Exam: Dry, Intact, Normal Color, Warm Results - Vital Signs Recent Vital Signs: Last Vital Signs Temp 97.8 F 06/08/17 02:04 Pulse 68 06/08/17 02:04 Resp 18 06/08/17 02:04 BP 180/114 H 06/08/17 02:04 Pulse Ox 97 06/07/17 23:28 - Labs Result Diagrams: 06/08/17 06:45 06/08/17 06:45 Labs: Laboratory Results - last 24 hr 06/08/17 06/08/17 06/08/17 00:30 06:45 06:45 WBC 3.9 L D RBC 3.68 Hgb 8.0 L Hct 27.7 L MCV 75.3 L MCH 21.7 L MCHC 28.9 L RDW 15.7 H Plt Count 223 MPV 8.9 Sodium 146 Potassium 3.0 L Chloride 115 H Carbon Dioxide 23 Anion Gap 11 BUN 11 Creatinine 0.6 Est GFR ( Amer) > 60 Est GFR (Non-Af Amer) > 60 Random Glucose 88 Calcium 8.3 L Total Bilirubin 0.1 L AST 32 ALT 43 Alkaline Phosphatase 66 Total Protein 6.0 Albumin 3.4 Globulin 2.5 Albumin/Globulin Ratio 1.4 Urine Color Dark yellow Urine Appearance Cloudy Urine pH 6.5 Ur Specific [place] 1.025 Urine Protein Trace H Urine Glucose (UA) Negative Urine Ketones Negative Urine Blood Large H Urine Nitrate Negative Urine Bilirubin Negative Urine Urobilinogen 0.2 Ur Leukocyte Esterase Negative Urine RBC Tntc Urine WBC 0 - 2 Ur Epithelial Cells 0 - 2 Assessment & Plan - Assessment and Plan (Free Text) Assessment: 46 F with PMH of non compliance, HTN, Asthma, Migraines, and Crohn's disease ( non compliant to Apriso) presents with 4-5 days of R flank pain and severe lower abd pain found to have 2mm non obstructing R renal stone. - Cont medical management as per primary - Pain control - IV fluids - Stool infectious work up for diarrhea - Out pt GI work up for possible CT or MR enterography, endoscopy, and colonoscopy - Continue Protonix 40mg daily Case and plan was reviewed and discussed in detail with GI team. Thank you for allowing us to participate in the care of the patient. <Maikel Reed MD - Last Filed: 06/08/17 16:34> Meds - Medications Medications: Current Medications Amlodipine Besylate (Norvasc) 20 mg PO DAILY [facility] Last Admin: 06/08/17 10:58 Dose: 20 mg Diphenhydramine HCl (Benadryl) 25 mg IVP Q6H PRN PRN Reason: Allergy symptoms Last Admin: 06/08/17 16:26 Dose: 25 mg Heparin Sodium (Porcine) (Heparin) 5,000 units SC Q12 [facility] PRN Reason: Protocol Last Admin: 06/08/17 11:02 Dose: Not Given Sodium Chloride (Sodium Chloride 0.9%) 1,000 mls @ 100 mls/hr IV .Q10H [facility] Last Admin: 06/08/17 02:30 Dose: 100 mls/hr Metoprolol Tartrate (Lopressor) 25 mg PO DAILY [facility] Last Admin: 06/08/17 10:58 Dose: 25 mg Morphine Sulfate (Morphine) 1 mg IVP Q4H PRN PRN Reason: Pain, moderate (4-7) Last Admin: 06/08/17 16:21 Dose: 1 mg Ondansetron HCl (Zofran Inj) 4 mg IVP Q4H PRN PRN Reason: Nausea/Vomiting Last Admin: 06/08/17 02:48 Dose: 4 mg Pantoprazole Sodium (Protonix Ec Tab) 40 mg PO 0600 [facility] Last Admin: 06/08/17 06:56 Dose: 40 mg Sumatriptan Succinate (Imitrex Tab) 50 mg PO DAILY PRN PRN Reason: Headache Tamsulosin HCl (Flomax) 0.4 mg PO DAILY [facility] Topiramate (Topamax) 200 mg PO DAILY [facility] PRN Reason: Protocol Last Admin: 06/08/17 10:51 Dose: 200 mg Results - Vital Signs Recent Vital Signs: Last Vital Signs Temp 98 F 06/08/17 07:00 Pulse 79 06/08/17 10:58 Resp 20 06/08/17 07:00 BP 171/108 H 06/08/17 10:58 Pulse Ox 97 06/08/17 07:00 - Labs Result Diagrams: 06/08/17 06:45 06/08/17 06:45 Labs: Laboratory Results - last 24 hr 06/08/17 06/08/17 06/08/17 00:30 06:45 06:45 WBC 3.9 L D RBC 3.68 Hgb 8.0 L Hct 27.7 L MCV 75.3 L MCH 21.7 L MCHC 28.9 L RDW 15.7 H Plt Count 223 MPV 8.9 Sodium 146 Potassium 3.0 L Chloride 115 H Carbon Dioxide 23 Anion Gap 11 BUN 11 Creatinine 0.6 Est GFR ( Amer) > 60 Est GFR (Non-Af Amer) > 60 Random Glucose 88 Calcium 8.3 L Total Bilirubin 0.1 L AST 32 ALT 43 Alkaline Phosphatase 66 Total Protein 6.0 Albumin 3.4 Globulin 2.5 Albumin/Globulin Ratio 1.4 Urine Color Dark yellow Urine Appearance Cloudy Urine pH 6.5 Ur Specific [place] 1.025 Urine Protein Trace H Urine Glucose (UA) Negative Urine Ketones Negative Urine Blood Large H Urine Nitrate Negative Urine Bilirubin Negative Urine Urobilinogen 0.2 Ur Leukocyte Esterase Negative Urine RBC Tntc Urine WBC 0 - 2 Ur Epithelial Cells 0 - 2 Urine Bacteria 06/08/17 13:00 WBC RBC Hgb Hct MCV MCH MCHC RDW Plt Count MPV Sodium Potassium Chloride Carbon Dioxide Anion Gap BUN Creatinine Est GFR ( Amer) Est GFR (Non-Af Amer) Random Glucose Calcium Total Bilirubin AST ALT Alkaline Phosphatase Total Protein Albumin Globulin Albumin/Globulin Ratio Urine Color Yellow Urine Appearance Clear Urine pH 8.0 Ur Specific [place] 1.010 Urine Protein Trace H Urine Glucose (UA) Negative Urine Ketones Negative Urine Blood Trace-intact H Urine Nitrate Negative Urine Bilirubin Negative Urine Urobilinogen 0.2 Ur Leukocyte Esterase Trace H Urine RBC 0 - 2 Urine WBC 1 - 3 Ur Epithelial Cells 1 - 3 Urine Bacteria Few Attending/Attestation - Attestation I have personally seen and examined this patient.: Yes I have fully participated in the care of the patient.: Yes I have reviewed all pertinent clinical information: Yes Notes (Text): 06/08/17 16:31 This is a 46 year old F with PMH of non compliance, HTN, Asthma, Migraines, and Crohn's disease (non compliant to Apriso and colonoscopies) presents with 4-5 days of R flank pain and severe lower abdominal pain found to have 2cmm non obstructing R renal stone. Most of her pain is back flank related to renal calculi. Denies abdominal pain linked to Crohns flare. Tolerating regular diet. If has loose stools will benefit from stool infectious work up. Supportive care. Outpatient MRE or CTE recommnded with her primary GI and an updated colonoscopy
[2017-06-08] MEDS ORDERED: Morphine 2 mg/ml ISec IM ONE (11:20)
[2017-06-08] MEDS ORDERED: Potassium Chloride 40 mEq/30 ml LIQ UD PO ONE (11:28)
[2017-06-08] MEDS ORDERED: Morphine 2 mg/ml ISec IVP ONE (11:42)
[2017-06-08] MEDS ORDERED: Morphine 2 mg/ml ISec IVP SCH (11:45)
[2017-06-08 13:13] LABS: URINE APPEARANCE CLEAR (CLEAR); URINE BILIRUBIN NEGATIVE (NEGATIVE); URINE BLOOD TRACE-INTACT (NEGATIVE); URINE COLOR YELLOW (YELLOW); URINE GLUCOSE (UA) NEGATIVE (NEGATIVE); URINE KETONE NEGATIVE (NEGATIVE); URINE LEUKOCYTE ESTERASE TRACE Leu/uL (NEGATIVE); URINE PROTEIN TRACE mg/dL (<30 mg/dL); URINE UROBILINOGEN 0.2 E.U./dL (<1 E.U./dL)
[2017-06-08 13:25] LABS: URINE BACTERIA FEW (NEG); URINE RBC 0 - 2 /hpf (0-2)
[2017-06-09 00:15] VITALS: RESP 20
[2017-06-09] MEDS: Morphine 2 mg/ml ISec IVP PRN ×6 (01:10→20:46)
[2017-06-09] MEDS: Sodium Chloride 0.9% 1,000 ML IV SCH (05:24)
[2017-06-09] MEDS: DiphenhydrAMINE 50 mg/ml Inj IVP PRN ×3 (05:25→20:46)
[2017-06-09] MEDS: Pantoprazole 40 mg EC Tab PO SCH (05:33)
--- NOTE | 2017-06-09 07:48 | CP.PCM.PN ---
<Kyrie Turk - Last Filed: 06/09/17 09:39> Subjective - Date & Time of Evaluation Date of Evaluation: 06/09/17 Time of Evaluation: 07:15 - Subjective Subjective: GI progress note: Pt seen and examined at bedside. No acute events overnight. Pt c/o of 9/10 flank and abd pain. Still complains of few episodes of non bloody diarrhea. 12 Point ROS performed and negative other than stated above. Objective - Vital Signs/Intake and Output Vital Signs (last 24 hours): Temp Pulse Resp BP Pulse Ox 98.3 F 70 20 171/108 H 97 06/09/17 07:24 06/09/17 07:24 06/09/17 07:24 06/09/17 07:24 06/09/17 07:24 Intake and Output: 06/09/17 06/09/17 06:59 18:59 Intake Total 3260 Balance 3260 - Medications Medications: Current Medications Amlodipine Besylate (Norvasc) 20 mg PO DAILY [facility] Last Admin: 06/08/17 10:58 Dose: 20 mg Diphenhydramine HCl (Benadryl) 25 mg IVP Q6H PRN PRN Reason: Allergy symptoms Last Admin: 06/09/17 05:25 Dose: 25 mg Heparin Sodium (Porcine) (Heparin) 5,000 units SC Q12 [facility] PRN Reason: Protocol Last Admin: 06/08/17 22:23 Dose: Not Given Sodium Chloride (Sodium Chloride 0.9%) 1,000 mls @ 100 mls/hr IV .Q10H [facility] [place] Last Admin: 06/09/17 05:24 Dose: 100 mls/hr Metoprolol Tartrate (Lopressor) 25 mg PO DAILY [facility] [place] Last Admin: 06/09/17 06:56 Dose: 25 mg Morphine Sulfate (Morphine) 1 mg IVP Q4H PRN PRN Reason: Pain, moderate (4-7) Last Admin: 06/09/17 05:25 Dose: 1 mg Ondansetron HCl (Zofran Inj) 4 mg IVP Q4H PRN PRN Reason: Nausea/Vomiting Last Admin: 06/08/17 02:48 Dose: 4 mg Pantoprazole Sodium (Protonix Ec Tab) 40 mg PO 0600 [facility] [place] Last Admin: 06/09/17 05:33 Dose: 40 mg Sumatriptan Succinate (Imitrex Tab) 50 mg PO DAILY PRN PRN Reason: Headache Tamsulosin HCl (Flomax) 0.4 mg PO DAILY [facility] Topiramate (Topamax) 200 mg PO DAILY [facility] PRN Reason: Protocol Last Admin: 06/08/17 10:51 Dose: 200 mg - Labs Labs: PT 10.7 Seconds (9.9-11.8) 06/07/17 18:42 INR 0.99 (0.93-1.08) 06/07/17 18:42 APTT 23.3 Seconds (23.7-30.8) L 06/07/17 18:42 - Constitutional Appears: No Acute Distress - Head Exam Head Exam: ATRAUMATIC, NORMOCEPHALIC - Eye Exam Eye Exam: EOMI, PERRL - ENT Exam ENT Exam: Mucous Membranes Moist - Respiratory Exam Respiratory Exam: Clear to Ausculation Bilateral. absent: Rales, Rhonchi, Wheezes - Cardiovascular Exam Cardiovascular Exam: REGULAR RHYTHM, RRR, +S1, +S2 - GI/Abdominal Exam GI & Abdominal Exam: Soft. absent: Distended, Tenderness - Extremities Exam Extremities Exam: absent: Calf Tenderness, Pedal Edema - Neurological Exam Neurological Exam: Alert, Awake, Oriented x3 - Psychiatric Exam Psychiatric exam: Normal Affect, Normal Mood - Skin Skin Exam: Dry, Intact, Warm Assessment and Plan - Assessment and Plan (Free Text) Assessment: 46 F with PMH of non compliance, HTN, Asthma, Migraines, and Crohn's disease ( non compliant to Apriso) presents with 4-5 days of R flank pain and severe lower abd pain. - Continue supportive care - Follow up with stool infectious work up for diarrhea - IV fluids - NS @ 100 - Pain control - Out pt GI work up for possible CT or MR enterography, endoscopy, and colonoscopy - Continue Protonix 40mg daily - Cont medical management as per primary Case and plan was reviewed and discussed in detail with GI team. <Haider Goodman - Last Filed: 06/09/17 19:37> Objective - Vital Signs/Intake and Output Vital Signs (last 24 hours): Temp Pulse Resp BP Pulse Ox 98.8 F 86 20 152/96 H 97 06/09/17 16:00 06/09/17 16:00 06/09/17 16:00 06/09/17 16:00 06/09/17 16:00 Intake and Output: 06/09/17 06/10/17 18:59 06:59 Intake Total 540 Output Total 1 Balance 539 - Medications Medications: Current Medications Amlodipine Besylate (Norvasc) 20 mg PO DAILY [facility] Last Admin: 06/09/17 10:04 Dose: 20 mg Diphenhydramine HCl (Benadryl) 25 mg IVP Q6H PRN PRN Reason: Allergy symptoms Last Admin: 06/09/17 12:41 Dose: 25 mg Gabapentin (Neurontin) 300 mg PO DAILY [facility] PRN Reason: Protocol Heparin Sodium (Porcine) (Heparin) 5,000 units SC Q12 [facility] PRN Reason: Protocol Last Admin: 06/09/17 10:03 Dose: 5,000 units Metoprolol Tartrate (Lopressor) 25 mg PO DAILY [facility] [place] Last Admin: 06/09/17 10:03 Dose: Not Given Morphine Sulfate (Morphine) 2 mg IVP Q4H PRN PRN Reason: Pain, severe (8-10) Last Admin: 06/09/17 16:45 Dose: 2 mg Ondansetron HCl (Zofran Inj) 4 mg IVP Q4H PRN PRN Reason: Nausea/Vomiting Last Admin: 06/08/17 02:48 Dose: 4 mg Pantoprazole Sodium (Protonix Ec Tab) 40 mg PO 0600 [facility] [place] Last Admin: 06/09/17 05:33 Dose: 40 mg Sumatriptan Succinate (Imitrex Tab) 50 mg PO DAILY PRN PRN Reason: Headache Last Admin: 06/09/17 16:34 Dose: 50 mg Tamsulosin HCl (Flomax) 0.4 mg PO DAILY [facility] Last Admin: 06/09/17 09:59 Dose: 0.4 mg Topiramate (Topamax) 200 mg PO DAILY [facility] PRN Reason: Protocol Last Admin: 06/09/17 09:59 Dose: 200 mg - Labs Labs: 06/09/17 08:30 06/09/17 08:30 PT 10.7 Seconds (9.9-11.8) 06/07/17 18:42 INR 0.99 (0.93-1.08) 06/07/17 18:42 APTT 23.3 Seconds (23.7-30.8) L 06/07/17 18:42 Attending/Attestation - Attestation I have personally seen and examined this patient.: Yes I have fully participated in the care of the patient.: Yes I have reviewed all pertinent clinical information, including history, physical exam and plan: Yes Notes (Text): 06/09/17 19:35 46 year old female with h/o HTN, Asthma, Crohn's diseae, migraines admitted with abdominal pain, unremarkable CT scan, nephrolithiasis. 1. Abdominal pain 2. History of Crohn's disease Plan: -CT abdomen unremarkable -abdominal pain doesn't appear consistent with nephrolithisis -possible drug seeking behavior -recommend supportive measures -stool studies to r/o infectious diarrhea -outpatient follow up re: Crohn's -she may restart apriso outpatient with her GI
[2017-06-09 09:01] LABS: HEMATOCRIT 31.2 % (36.0-48.0); MEAN CELL VOLUME 76.5 fl (80.0-105.0); MEAN CORPUSCULAR HEMOGLOBIN 22.3 pg (25.0-35.0); MEAN CORPUSCULAR HGB CONC 29.2 g/dl (31.0-37.0); MEAN PLATELET VOLUME 9.6 fl (7.0-11.0); RED CELL DISTRIBUTION WIDTH 15.8 % (11.5-14.5); WHITE BLOOD COUNT 4.5 10^3/ul (4.5-11.0)
[2017-06-09 09:14] LABS: ALB/GLOB RATIO 1.3 (1.1-1.8); ALKALINE PHOSPHATASE 76 U/L (38-126); ALT/SGPT 32 U/L (7-56); AST/SGOT 35 U/L (14-36); BILIRUBIN,TOTAL 0.4 mg/dL (0.2-1.3); BLOOD UREA NITROGEN 7 mg/dL (7-21); CALCIUM 9.1 mg/dL (8.4-10.5); CARBON DIOXIDE 18 mmol/L (21-33); CHLORIDE 113 mmol/L (98-107); GFR AFRICAN-AMERICAN > 60; GLUCOSE,RANDOM 103 mg/dL (70-110); POTASSIUM 3.7 mmol/L (3.6-5.0); SODIUM 143 mmol/L (132-148); TOTAL PROTEIN 6.8 g/dL (5.8-8.3)
--- NOTE | 2017-06-09 18:25 | CP.PCM.PN ---
"<Britta Castro - Last Filed: 06/09/17 18:20> Subjective - Date & Time of Evaluation Date of Evaluation: 06/09/17 Time of Evaluation: 18:21 - Subjective Subjective: Patient has been seen and examined. She still complains of suprapubic tenderness and CVA tenderness that has not improved. SHe also complains of a headache. Patient denies fever, chills, N/V, and constipation. She does complain of loose stools. Objective - Vital Signs/Intake and Output Vital Signs (last 24 hours): Temp Pulse Resp BP Pulse Ox 98.8 F 86 20 152/96 H 97 06/09/17 16:00 06/09/17 16:00 06/09/17 16:00 06/09/17 16:00 06/09/17 16:00 Intake and Output: 06/09/17 06/09/17 06:59 18:59 Intake Total 3260 540 Output Total 1 Balance 3260 539 - Medications Medications: Current Medications Amlodipine Besylate (Norvasc) 20 mg PO DAILY [facility] Last Admin: 06/09/17 10:04 Dose: 20 mg Diphenhydramine HCl (Benadryl) 25 mg IVP Q6H PRN PRN Reason: Allergy symptoms Last Admin: 06/09/17 12:41 Dose: 25 mg Gabapentin (Neurontin) 300 mg PO DAILY [facility] PRN Reason: Protocol Heparin Sodium (Porcine) (Heparin) 5,000 units SC Q12 [facility] PRN Reason: Protocol Last Admin: 06/09/17 10:03 Dose: 5,000 units Metoprolol Tartrate (Lopressor) 25 mg PO DAILY [facility] Last Admin: 06/09/17 10:03 Dose: Not Given Morphine Sulfate (Morphine) 2 mg IVP Q4H PRN PRN Reason: Pain, severe (8-10) Last Admin: 06/09/17 16:45 Dose: 2 mg Ondansetron HCl (Zofran Inj) 4 mg IVP Q4H PRN PRN Reason: Nausea/Vomiting Last Admin: 06/08/17 02:48 Dose: 4 mg Pantoprazole Sodium (Protonix Ec Tab) 40 mg PO 0600 [facility] Last Admin: 06/09/17 05:33 Dose: 40 mg Sumatriptan Succinate (Imitrex Tab) 50 mg PO DAILY PRN PRN Reason: Headache Last Admin: 06/09/17 16:34 Dose: 50 mg Tamsulosin HCl (Flomax) 0.4 mg PO DAILY [facility] Last Admin: 06/09/17 09:59 Dose: 0.4 mg Topiramate (Topamax) 200 mg PO DAILY [facility] PRN Reason: Protocol Last Admin: 06/09/17 09:59 Dose: 200 mg - Labs Labs: 06/09/17 08:30 06/09/17 08:30 PT 10.7 Seconds (9.9-11.8) 06/07/17 18:42 INR 0.99 (0.93-1.08) 06/07/17 18:42 APTT 23.3 Seconds (23.7-30.8) L 06/07/17 18:42 - Constitutional Appears: Non-toxic, In Acute Distress - Head Exam Head Exam: ATRAUMATIC, NORMAL INSPECTION, NORMOCEPHALIC - Eye Exam Eye Exam: EOMI, Normal appearance - Respiratory Exam Respiratory Exam: Clear to Ausculation Bilateral, NORMAL BREATHING PATTERN. absent: Rales, Rhonchi, Wheezes, Stridor - Cardiovascular Exam Cardiovascular Exam: +S1, +S2. absent: Tachycardia, Murmur - GI/Abdominal Exam GI & Abdominal Exam: Soft, Tenderness, Normal Bowel Sounds - Back Exam Back Exam: CVA tenderness (L), CVA tenderness (R) - Neurological Exam Neurological Exam: Alert, Awake, Oriented x3 - Psychiatric Exam Psychiatric exam: Normal Affect, Normal Mood Assessment and Plan - Assessment and Plan (Free Text) Assessment: 46 y/o F with PMH of HTN, Asthma, Migraines, and Crohns disease admitted for dehydration and intractable pain. Pt found to have non-obstructing 2 mm renal calculus on the left, which can be seen on previous Abdomen/Pelvis CT's dating back to 2013. In addition, these CT scans also show colonic changes consistent with recent findings. UA does not indicate any infection. Patient will be observed overnight and receive IV hydration as well as pain medication. Plan: 1. Abdominal Pain 2/2 possible Colitis (Chronic) -Zofran for N/V -Morphine 2 Q4 | Benadryl for morphine associated pruritus -Protonix -Gamaliel OvA/parasite/Cdiff and toxin/Culture per GI 2. Left 2mm Nonobstructing stone, Chronic -Fluids -Morphine for pain control -Urine Culture normal -UA showed trace Leuk Es, blood, protein -Urine Strain for Calculi 3. HTN Restart home meds: -Norvasc 20, Metoprolol 25mg Daily. 4. Migraines -Sumatriptan 50 mg PO Daily PRN -Topamax 200 -Tylenol 5. PPX Protonix Zofran Heparin Dispo: Patient showing some pain med seeking behavior. Started Neurontin. GI signed of and recommended OP CRE, MRE, and colonoscopy. Possibly readjustment of BP medications if patients remains hypertensive on current ones. Patient seen, reviewed, and discussed with Attending Britta Castro PGY-1 <Juan Celeste - Last Filed: 06/18/17 15:27> Objective - Vital Signs/Intake and Output Vital Signs (last 24 hours): Temp Pulse Resp BP Pulse Ox 97.2 F L 74 20 121/64 99 06/10/17 07:30 06/10/17 07:30 06/10/17 07:30 06/10/17 09:30 06/10/17 07:30 - Labs Labs: 06/09/17 08:30 06/09/17 08:30 PT 10.7 Seconds (9.9-11.8) 06/07/17 18:42 INR 0.99 (0.93-1.08) 06/07/17 18:42 APTT 23.3 Seconds (23.7-30.8) L 06/07/17 18:42 Attending/Attestation - Attestation I have personally seen and examined this patient.: Yes I have fully participated in the care of the patient.: Yes I have reviewed all pertinent clinical information, including history, physical exam and plan: Yes Notes (Text): I have seen and examined patient at bedside. Agree with the above note with the following additions/ exceptions: Briefly this is 46 year old female with history of HTN, asthma, migraines, crohn's disease who was admitted for dehydration and intractable abdominal pain. She was found to have non obstructing 2 mm stone. Urine culture is negative. Patient reports that she has diarrhea however nursing staff has not witnessed that. Stool studies are pending. GI recommended CRE, MRE and colonoscopy as an outpatient. Patient states that pain is severe and is requesting to have pain medications increased. Patient is showing pain medication seeking behavior. Dr Juan Celeste"
[2017-06-10] MEDS: Morphine 2 mg/ml ISec IVP PRN ×4 (00:55→13:39)
[2017-06-10] MEDS: DiphenhydrAMINE 50 mg/ml Inj IVP PRN ×2 (05:28→13:39)
[2017-06-10] MEDS: Pantoprazole 40 mg EC Tab PO SCH (05:39)
[2017-06-10 07:39] VITALS: PULSE 74; TEMP 97.2; O2SAT 99
[2017-06-10 09:36] VITALS: BP 121/64
--- NOTE | 2017-06-10 16:45 | CP.PCM.DIS ---
<Britta Castro - Last Filed: 06/10/17 16:42> Provider - Provider Date of Admission: 06/08/17 19:03 Attending physician: Juan Celeste MD Primary care physician: Mae Garsia MD Time Spent in preparation of Discharge (in minutes): 45 Diagnosis - Discharge Diagnosis (1) Intractable nausea and vomiting Status: Acute (2) Abdominal pain Status: Acute Hospital Course - Lab Results Lab Results: Micro Results 06/09/17 13:30 Stool C. difficile Antigen & Toxin A,B (M - Final Most Recent Lab Values WBC 4.5 10^3/ul (4.5-11.0) 06/09/17 08:30 RBC 4.08 10^6/uL (3.5-6.1) 06/09/17 08:30 Hgb 9.1 g/dL (12.0-16.0) L 06/09/17 08:30 Hct 31.2 % (36.0-48.0) L 06/09/17 08:30 MCV 76.5 fl (80.0-105.0) L 06/09/17 08:30 MCH 22.3 pg (25.0-35.0) L 06/09/17 08:30 MCHC 29.2 g/dl (31.0-37.0) L 06/09/17 08:30 RDW 15.8 % (11.5-14.5) H 06/09/17 08:30 Plt Count 191 10^3/uL (120.0-450.0) 06/09/17 08:30 MPV 9.6 fl (7.0-11.0) 06/09/17 08:30 Gran % 64.9 % (50.0-68.0) 06/07/17 18:42 Lymph % (Auto) 27.8 % (22.0-35.0) 06/07/17 18:42 [place] % (Auto) 6.6 % (1.0-6.0) H 06/07/17 18:42 Eos % (Auto) 0.5 % (1.5-5.0) L 06/07/17 18:42 Baso % (Auto) 0.2 % (0.0-3.0) 06/07/17 18:42 Gran # 3.76 (1.4-6.5) 06/07/17 18:42 Lymph # 1.6 (1.2-3.4) 06/07/17 18:42 [place]gle # 0.4 (0.1-0.6) 06/07/17 18:42 Eos # 0.0 (0.0-0.7) 06/07/17 18:42 Baso # 0.01 K/mm3 (0.0-2.0) 06/07/17 18:42 PT 10.7 Seconds (9.9-11.8) 06/07/17 18:42 INR 0.99 (0.93-1.08) 06/07/17 18:42 APTT 23.3 Seconds (23.7-30.8) L 06/07/17 18:42 Sodium 143 mmol/L (132-148) 06/09/17 08:30 Potassium 3.7 mmol/L (3.6-5.0) 06/09/17 08:30 Chloride 113 mmol/L (98-107) H 06/09/17 08:30 Carbon Dioxide 18 mmol/L (21-33) L 06/09/17 08:30 Anion Gap 16 (10-20) 06/09/17 08:30 BUN 7 mg/dL (7-21) 06/09/17 08:30 Creatinine 0.5 mg/dL (0.5-1.4) 06/09/17 08:30 Est GFR ( Amer) > 60 06/09/17 08:30 Est GFR (Non-Af Amer) > 60 06/09/17 08:30 Random Glucose 103 mg/dL (70-110) 06/09/17 08:30 Calcium 9.1 mg/dL (8.4-10.5) 06/09/17 08:30 Total Bilirubin 0.4 mg/dL (0.2-1.3) 06/09/17 08:30 AST 35 U/L (14-36) 06/09/17 08:30 ALT 32 U/L (7-56) 06/09/17 08:30 Alkaline Phosphatase 76 U/L (38-126) 06/09/17 08:30 Total Protein 6.8 g/dL (5.8-8.3) 06/09/17 08:30 Albumin 3.9 g/dL (3.0-4.8) 06/09/17 08:30 Globulin 2.9 gm/dL 06/09/17 08:30 Albumin/Globulin Ratio 1.3 (1.1-1.8) 06/09/17 08:30 Urine Color Yellow (YELLOW) 06/08/17 13:00 Urine Appearance Clear (CLEAR) 06/08/17 13:00 Urine pH 8.0 (4.7-8.0) 06/08/17 13:00 Ur Specific [place] 1.010 (1.005-1.035) 06/08/17 13:00 Urine Protein Trace mg/dL (<30 mg/dL) H 06/08/17 13:00 Urine Glucose (UA) Negative mg/dL (NEGATIVE) 06/08/17 13:00 Urine Ketones Negative mg/dL (NEGATIVE) 06/08/17 13:00 Urine Blood Trace-intact (NEGATIVE) H 06/08/17 13:00 Urine Nitrate Negative (NEGATIVE) 06/08/17 13:00 Urine Bilirubin Negative (NEGATIVE) 06/08/17 13:00 Urine Urobilinogen 0.2 E.U./dL (<1 E.U./dL) 06/08/17 13:00 Ur Leukocyte Esterase Trace Clarita/uL (NEGATIVE) H 06/08/17 13:00 Urine RBC 0 - 2 /hpf (0-2) 06/08/17 13:00 Urine WBC 1 - 3 /hpf (0-6) 06/08/17 13:00 Ur Epithelial Cells 1 - 3 /hpf (0-5) 06/08/17 13:00 Urine Bacteria Few (NEG) 06/08/17 13:00 Stool Occult Blood Negative (NEGATIVE) 06/09/17 13:30 - Hospital Course Hospital Course: Pt is a 46 yo F with PMH significant for recurrent kidney stones, Crohn's disease noncompliant on medications, HTN, asthma, migraines, and DJD of the hip , who presented to the hospital for complaints of R sided flank pain x 3 days. Pt has a history of chronic UTI's and reported that symptoms felt similar. She state that she gradually developed R sided flank pain wrapping around to the groin that became very severe and sharp. She was reportedly [place] [facility] [place] prior but was no given anything for her pain at that time. Pt additionally reported nausea and nonbloody, nonbilious vomiting of multiple episodes daily, causing her to have decreased PO intake. She reported slight discomfort when urinating, but denied pyuria, hematuria, or increased urinary frequency at that time. Pt was given IV Zofran, Reglan, and Morphine in the ED, had a CT of the abdomen showing a 2mm nonobstructing L renal calculus, and was admitted for IV fluids and pain control. Pt was given IVF and Morphine 1 mg IV for pain, which was increased to 2 mg due to persistent pain. She was given Flomax for nephrolithiasis in addition to her usual home medications. Pt was also followed by GI team who recommended continued fluids and pain control, ordered stool infectious work up for diarrhea , continued Protonix, outpatient GI workup for possible CT, or MR enterography, endoscopy, and colonoscopy, and continue Apriso outpatient for Crohn's disease. At the time of discharge, patient reports improvement of pain, including decreased flank pain and decreased abdominal pain. She denies N/V/D/F/C/CP/SOB at the time of discharge. CBC remained stable (no leukocytosis, Hgb 9.1 but unchanged from the time of admission), electrolytes WNL. Repeat UA showed trace protein, trace blood (improved), and trace leukocyte esterase. Stool occult blood was negative. Urine cx was negative, and stool cx was negative for C- diff. Vital signs remain stable, pt is afebrile, nontachycardic, normotensive, non-hypoxic. CT abdomen/pelvis: 1. There is a stable moderate size hiatal hernia identified 2. There is a small nonobstructing left renal calculus measuring 2 mm 3. There is wall thickening of the right hemicolon, suggestive of incomplete distention or colitis. There is mild gaseous and fecal distention of the rectum. 4. Additional findings: Kidneys and ureters: There is a small nonobstructing left renal calculus measuring 2mm. There is no hydronephrosis bilaterally. Patient seen, examined, and discussed with Attending Britta Castro PGY-1 - Date & Time of H&P Date of H&P: 06/10/17 Time of H&P: 16:42 Discharge Exam - Head Exam Head Exam: ATRAUMATIC, NORMAL INSPECTION, NORMOCEPHALIC - Eye Exam Eye Exam: EOMI, Normal appearance - ENT Exam ENT Exam: Mucous Membranes Moist - Neck Exam Neck exam: Normal Inspection - Respiratory Exam Respiratory Exam: Clear to PA & Lateral - Cardiovascular Exam Cardiovascular Exam: RRR, +S1, +S2 - GI/Abdominal Exam GI & Abdominal Exam: Soft Additional comments: improved tenderness - Back Exam Additional comments: improved CVA tenderness - Neurological Exam Neurological exam: Alert, Oriented x3 - Psychiatric Exam Psychiatric exam: Normal Affect, Normal Mood - Skin Skin Exam: Dry, Intact, Normal Color, Warm Discharge Plan - Follow Up Plan Condition: FAIR Disposition: HOME/ ROUTINE Instructions: Chronic Pain (DC), Fall Prevention (DC) Additional Instructions: Follow up with your primary physician within 1 week Please follow up with GI physician within 1-2 weeks. Referrals: Haider Goodman MD [Staff Provider] - Mae Garsia MD [Primary Care Provider] - <Juan Celeste - Last Filed: 06/18/17 15:32> Provider - Provider Date of Admission: 06/07/17 22:45 Attending physician: Juan Celeste MD Primary care physician: Mae Garsia MD Hospital Course - Lab Results Lab Results: Micro Results 06/09/17 13:30 Stool Stool Culture - Final NO SALMONELLA, SHIGELLA OR CAMPYLOBACTER ISOLATED. 06/09/17 13:30 Stool C. difficile Antigen & Toxin A,B (M - Final 06/08/17 13:00 Urine Urine Culture - Final No Growth (<1,000 CFU/ML) Most Recent Lab Values WBC 4.5 10^3/ul (4.5-11.0) 06/09/17 08:30 RBC 4.08 10^6/uL (3.5-6.1) 06/09/17 08:30 Hgb 9.1 g/dL (12.0-16.0) L 06/09/17 08:30 Hct 31.2 % (36.0-48.0) L 06/09/17 08:30 MCV 76.5 fl (80.0-105.0) L 06/09/17 08:30 MCH 22.3 pg (25.0-35.0) L 06/09/17 08:30 MCHC 29.2 g/dl (31.0-37.0) L 06/09/17 08:30 RDW 15.8 % (11.5-14.5) H 06/09/17 08:30 Plt Count 191 10^3/uL (120.0-450.0) 06/09/17 08:30 MPV 9.6 fl (7.0-11.0) 06/09/17 08:30 Gran % 64.9 % (50.0-68.0) 06/07/17 18:42 Lymph % (Auto) 27.8 % (22.0-35.0) 06/07/17 18:42 Ogle % (Auto) 6.6 % (1.0-6.0) H 06/07/17 18:42 Eos % (Auto) 0.5 % (1.5-5.0) L 06/07/17 18:42 Baso % (Auto) 0.2 % (0.0-3.0) 06/07/17 18:42 Gran # 3.76 (1.4-6.5) 06/07/17 18:42 Lymph # 1.6 (1.2-3.4) 06/07/17 18:42 Ogle # 0.4 (0.1-0.6) 06/07/17 18:42 Eos # 0.0 (0.0-0.7) 06/07/17 18:42 Baso # 0.01 K/mm3 (0.0-2.0) 06/07/17 18:42 PT 10.7 Seconds (9.9-11.8) 06/07/17 18:42 INR 0.99 (0.93-1.08) 06/07/17 18:42 APTT 23.3 Seconds (23.7-30.8) L 06/07/17 18:42 Sodium 143 mmol/L (132-148) 06/09/17 08:30 Potassium 3.7 mmol/L (3.6-5.0) 06/09/17 08:30 Chloride 113 mmol/L (98-107) H 06/09/17 08:30 Carbon Dioxide 18 mmol/L (21-33) L 06/09/17 08:30 Anion Gap 16 (10-20) 06/09/17 08:30 BUN 7 mg/dL (7-21) 06/09/17 08:30 Creatinine 0.5 mg/dL (0.5-1.4) 06/09/17 08:30 Est GFR ( Amer) > 60 06/09/17 08:30 Est GFR (Non-Af Amer) > 60 06/09/17 08:30 Random Glucose 103 mg/dL (70-110) 06/09/17 08:30 Calcium 9.1 mg/dL (8.4-10.5) 06/09/17 08:30 Total Bilirubin 0.4 mg/dL (0.2-1.3) 06/09/17 08:30 AST 35 U/L (14-36) 06/09/17 08:30 ALT 32 U/L (7-56) 06/09/17 08:30 Alkaline Phosphatase 76 U/L (38-126) 06/09/17 08:30 Total Protein 6.8 g/dL (5.8-8.3) 06/09/17 08:30 Albumin 3.9 g/dL (3.0-4.8) 06/09/17 08:30 Globulin 2.9 gm/dL 06/09/17 08:30 Albumin/Globulin Ratio 1.3 (1.1-1.8) 06/09/17 08:30 Urine Color Yellow (YELLOW) 06/08/17 13:00 Urine Appearance Clear (CLEAR) 06/08/17 13:00 Urine pH 8.0 (4.7-8.0) 06/08/17 13:00 Ur Specific [place] 1.010 (1.005-1.035) 06/08/17 13:00 Urine Protein Trace mg/dL (<30 mg/dL) H 06/08/17 13:00 Urine Glucose (UA) Negative mg/dL (NEGATIVE) 06/08/17 13:00 Urine Ketones Negative mg/dL (NEGATIVE) 06/08/17 13:00 Urine Blood Trace-intact (NEGATIVE) H 06/08/17 13:00 Urine Nitrate Negative (NEGATIVE) 06/08/17 13:00 Urine Bilirubin Negative (NEGATIVE) 06/08/17 13:00 Urine Urobilinogen 0.2 E.U./dL (<1 E.U./dL) 06/08/17 13:00 Ur Leukocyte Esterase Trace Clarita/uL (NEGATIVE) H 06/08/17 13:00 Urine RBC 0 - 2 /hpf (0-2) 06/08/17 13:00 Urine WBC 1 - 3 /hpf (0-6) 06/08/17 13:00 Ur Epithelial Cells 1 - 3 /hpf (0-5) 06/08/17 13:00 Urine Bacteria Few (NEG) 06/08/17 13:00 Stool Occult Blood Negative (NEGATIVE) 06/09/17 13:30 Attending/Attestation - Attestation I have personally seen and examined this patient.: Yes I have fully participated in the care of the patient.: Yes I have reviewed all pertinent clinical information, including history, physical exam and plan: Yes Notes (Text): I have seen and examined patient at bedside. Agree with the above note with the following additions/ exceptions: Briefly this is 46 year old female with history of HTN, asthma, migraines, crohn's disease who was admitted for dehydration and intractable abdominal pain. She was found to have non obstructing 2 mm stone. Urine culture is negative. Patient reports that she had diarrhea yesterday however nursing staff has not witnessed that. Stool studies were not sent. GI recommended CRE, MRE and colonoscopy as an outpatient. Patient states that pain is better today. She is agreeable to go home today. Patient is showing pain medication seeking behavior. Counselling provided. Upon discharge patient will follow up with Dr Mae Garsia and Dr Goodman. Dr Juan Celeste
== END 2017-06-10 18:18 | disposition home or self-care (01) ==
LOC: ED 14:17 → ERH 22:45 → 5RNO 06-08 01:53 → OBSVTOIN 06-08 19:03 → INTOOBSV 06-08 19:03
PROVIDERS: ADMIT Internal Medicine; ATTEND Hospitalist
DX: K50.90 Crohn's disease, unspecified, without complications (principal); N20.0 Calculus of kidney; E86.0 Dehydration; I10 Essential (primary) hypertension; K44.9 Diaphragmatic hernia without obstruction or gangrene; G43.909 Migraine, unspecified, not intractable, without status migrainosus; M16.10 Unilateral primary osteoarthritis, unspecified hip; J45.909 Unspecified asthma, uncomplicated; Z87.11 Personal history of peptic ulcer disease; Z87.01 Personal history of pneumonia (recurrent); Z91.19 Patient's noncompliance with other medical treatment and regimen; Z87.891 Personal history of nicotine dependence; Z80.3 Family history of malignant neoplasm of breast; Z82.49 Family history of ischemic heart disease and other diseases of the circulatory system
CPT/HCPCS: 36415; 74176; 80053; 81001; 85025; 85027; 85610; 85730; 87045; 87086; 87324; 96372; 96374; 99284; G0328; G0378; J0360; J1170; J1200; J1644; J2270; J2405; J2765; J3480; J7040

== ENCOUNTER 2017-06-29 13:55 | Emergency (ER) | payer MEDICAID ==
[2017-06-29 13:55] VITALS: BMI 29.8
[2017-06-29 14:07] VITALS: RESP 18; TEMP 98.2
[2017-06-29] MEDS ORDERED: TraMADol/Apap 37.5/325 mg Tab PO STA (14:24)
[2017-06-29] MEDS ORDERED: Sodium Chloride 0.9% 1,000 ML IV STA (14:25)
--- NOTE | 2017-06-29 14:51 | ED PDOC ---
Arrival/HPI - General Chief Complaint: GI Problem Time Seen by Provider: 06/29/17 14:08 Historian: Patient - History of Present Illness Narrative History of Present Illness (Text): 06/29/17 14:35 46 year old female, whose past medical history includes chronic knee pain, presents to the emergency department complaining of abdominal pain, diarrhea, vomiting (vomited yesterday, not today), and joint pains, including jaw pain. Patient states she has been experiencing symptoms for the past few days. She reports today she was at [employer], she began to experience generalized weakness and nausea. Patient then fell, hitting the wall and hitting the ground. Patient denies any head trauma, LOC, or any other complaints. Also, patient mentions she has kept herself hydrated and has been taking medications prescribed to her by PMD. PMD: Dr. Mae Garsia Strip Machine Operator: Dr. Feliciano Nascimento Time/Duration: Prior to Arrival, Other ([facility]) Symptom Onset: Sudden Symptom Course: Unchanged Past Medical History - Provider Review Nursing Documentation Reviewed: Yes - Infectious Disease Hx of Infectious Diseases: None - Tetanus Immunization Tetanus Immunization: Unknown - Cardiac Hx Hypertension: Yes - Pulmonary Hx Asthma: Yes Hx Pneumonia: Yes - Neurological Hx Migraine: Yes Hx Seizures: No - HEENT Hx HEENT Disorder: No - Renal Hx Renal Disorder: Yes Hx Kidney Stones: Yes - Endocrine/Metabolic Hx Endocrine Disorders: No - Hematological/Oncological Hx Anemia: Yes - Integumentary Hx Dermatological Disorder: No - Musculoskeletal/Rheumatological Hx Arthritis: Yes (KNEE,HIP,SHOULDER) Hx Fractures: Yes (right hand 2009) - Gastrointestinal Hx Crohn's Disease: Yes Hx Gastritis: Yes Hx Gastrointestinal Ulcer: Yes - Genitourinary/Gynecological Hx Sexually Transmitted Diseases: No - Psychiatric Hx Anxiety: Yes Hx Depression: Yes Hx Substance Use: No - Surgical History Hx Orthopedic Surgery: Yes - Anesthesia Hx Anesthesia: Yes Hx Anesthesia Reactions: No Hx Malignant Hyperthermia: No - Suicidal Assessment Feels Threatened In Home Enviroment: No Family/Social History - Physician Review Nursing Documentation Reviewed: Yes Family/Social History: No Known Family HX Smoking Status: Former Smoker Hx Alcohol Use: No Hx Substance Use: No Hx Substance Use Treatment: No Allergies/Home Meds Allergies/Adverse Reactions: Allergies amoxicillin Allergy (Verified 06/29/17 14:07) RASH metronidazole [From Flagyl] Allergy (Verified 06/29/17 14:07) RASH NSAIDS (Non-Steroidal Anti-Inflamma Allergy (Verified 06/29/17 14:07) SWELLING peanut Allergy (Verified 06/29/17 14:07) ANAPHYLAXIS chickpeas Allergy (Uncoded 06/29/17 14:07) RASH Home Medications: Home Meds Medication Instructions Recorded Confirmed amLODIPine [Norvasc] 10 mg PO DAILY #0 10/01/14 06/29/17 Topiramate [Topamax] 200 mg PO BID 01/09/16 06/29/17 SUMAtriptan [Imitrex] 50 mg PO PRN PRN 06/07/17 06/29/17 Metoprolol Tartrate 25 mg PO BID 06/29/17 06/29/17 traMADol [Ultram] 100 mg PO Q6 PRN 06/29/17 06/29/17 Review of Systems - Physician Review All systems were reviewed & negative as marked: Yes - Review of Systems Constitutional: absent: Other (no head trauma) Gastrointestinal: Abdominal Pain, Diarrhea, Nausea, Vomiting Neurological: Focal Weakness. absent: Other (no LOC) Physical Exam Vital Signs Reviewed: Yes Vital Signs Temp Pulse Resp BP Pulse Ox 06/29/17 16:16 79 18 155/84 H 98 06/29/17 14:04 98.2 F 82 18 157/90 H 99 Temperature: Afebrile Blood Pressure: Hypertensive Pulse: Regular Respiratory Rate: Normal Appearance: Positive for: Well-Appearing Pain Distress: None Mental Status: Positive for: Alert and Oriented X 3 - Systems Exam Head: Present: Atraumatic, Normocephalic Pupils: Present: PERRL Conjunctiva: Present: Normal Mouth: Present: Moist Mucous Membranes Pharnyx: Present: Normal. No: ERYTHEMA, EXUDATE Neck: Present: Normal Range of Motion Respiratory/Chest: Present: Clear to Auscultation, Good Air Exchange. No: Respiratory Distress, Accessory Muscle Use Cardiovascular: Present: Regular Rate and Rhythm, Normal S1, S2. No: Murmurs Abdomen: Present: Normal Bowel Sounds. No: Tenderness, Distention, Peritoneal Signs Back: Present: Normal Inspection Upper Extremity: Present: Normal Inspection. No: Cyanosis, Edema Lower Extremity: Present: Normal Inspection. No: Edema Neurological: Present: GCS=15, CN II-XII Intact, Speech Normal Skin: Present: Warm, Dry, Normal Color. No: Rashes Psychiatric: Present: Alert, Oriented x 3, Normal Insight, Normal Concentration Medical Decision Making ED Course and Treatment: 06/29/17 14:40 Impression: 46 year old female with abdominal pain, nausea, vomiting, diarrhea, and weakness. No acute findings in physical exam. Plan: -- EKG -- Labs -- Urinalysis -- Protonix -- Ultracet -- IV Fluids -- Reassess and disposition Prior Visits: Notes and results from previous visits were reviewed. Patient was last seen in the emergency department on 06/14/2017 for itchiness on chest and back. Patient was dicharged home. Progress Notes: EKG: Ordered, reviewed, and independently interpreted the EKG. Rate : 80 BPM Rhythm : NSR Interpretation : No ST-segment elevations or depressions, no T-wave inversions, normal intervals. Comparison : No previous EKG for comparison. 06/29/17 16:46 [place] [employer] FINISHER checked on patient: she received 120 tramadol tabs on 06/21 and has been receiving that amount nearly every two weeks since 04/17. She also received 60 hydrocodone tabs on 06/16 and 06/02. Patient with noted history with no acute findings on exam and nontender abdomen. Blood work was unremarkable with baseline anemia. Urine suggests UTI. IV was not established on patient; offered to have midline placement for IVF, but she refused. The patient was seen in the hospital about 3 weeks ago, and at that time, CT a/p was done as well as GI consult with a recommendation to continue meds and f/u outpatient GI for further management, but the patient admits today that she still has not done that. Patient on pain meds as noted, per TEXTILE FINISHER - will need to f/u pain management outpatient. She is not vomiting and abdomen is nontender with unremarkable vitals - no indication for admission or further workup at this time - ok for d/c to f/u her GI doctor. - Lab Interpretations Lab Results: 06/29/17 15:20 06/29/17 15:20 Lab Results 06/29/17 15:20: Sodium 147, Potassium 3.8, Chloride 114 H, Carbon Dioxide 19 L, Anion Gap 18, BUN 13, Creatinine 0.7, Est GFR ( Amer) > 60, Est GFR (Non- Af Amer) > 60, Random Glucose 94, Calcium 9.1, Total Bilirubin 0.3, AST 21, ALT 29, Alkaline Phosphatase 79, Total Protein 6.9, Albumin 4.2, Globulin 2.7, Albumin/Globulin Ratio 1.6, Amylase 76, Lipase 135 06/29/17 15:20: Urine Color Yellow, Urine Appearance Sl cloudy, Urine pH 6.0, Ur Specific [place] >= 1.030, Urine Protein Negative, Urine Glucose (UA) Negative, Urine Ketones Negative, Urine Blood Moderate H, Urine Nitrate Negative , Urine Bilirubin Negative, Urine Urobilinogen 0.2, Ur Leukocyte Esterase Trace H, Urine RBC 5 - 10, Urine WBC 5 - 10, Ur Epithelial Cells 6 - 8, Calcium Oxalate Crystal Occ, Urine Bacteria Few 06/29/17 15:20: WBC 5.8 D, RBC 4.16, Hgb 9.0 L, Hct 31.2 L, MCV 75.0 L, MCH 21.6 L, MCHC 28.8 L, RDW 16.3 H, Plt Count 303, MPV 9.2, Gran % 70.1 H, Lymph % (Auto) 22.6, [place] % (Auto) 6.0, Eos % (Auto) 1.0 L, Baso % (Auto) 0.3, Gran # 4.08, Lymph # 1.3, [place] # 0.4, Eos # 0.1, Baso # 0.02 I have reviewed the lab results: Yes - Medication Orders Current Medication Orders: Famotidine (Pepcid) 40 mg PO STAT STA Stop: 06/29/17 16:42 Nitrofurantoin Macrocrystals (Macrobid) 100 mg PO Q12 STA Stop: 06/29/17 16:41 Discontinued Medications Sodium Chloride (Sodium Chloride 0.9%) 1,000 mls @ 999 mls/hr IV .Q1H1M STA Stop: 06/29/17 15:25 Pantoprazole Sodium (Protonix Inj) 40 mg IVP ONCE STA Stop: 06/29/17 14:26 Tramadol/Acetaminophen (Ultracet 37.5/325 Mg) 2 tab PO STAT STA Stop: 06/29/17 14:25 Last Admin: 06/29/17 15:55 Dose: 2 tab MAR Pain Assessment Document 06/29/17 15:55 IT (Rec: 06/29/17 15:55 IT [id number]) Pain Reassessment Is this a pain reassessment? No Sleep Is patient sleeping during reassessment? No Presence of Pain Presence of Pain Yes Pain Scale Used Pain Scale Used Numeric Location Left, Right or Bilateral Bilateral Pain Location Body Site Abdomen Description Description Intermittent Intensity of Pain at present 8 - Scribe Statement The provider has reviewed the documentation as recorded by the Juliannaibe Christiane Li Provider Scribe Attestation: All medical record entries made by the Scribe were at my direction and personally dictated by me. I have reviewed the chart and agree that the record accurately reflects my personal performance of the history, physical exam, medical decision making, and the department course for this patient. I have also personally directed, reviewed, and agree with the discharge instructions and disposition. Disposition/Present on Arrival - Present on Arrival Any Indicators Present on Arrival: No History of DVT/PE: No History of Uncontrolled Diabetes: No Urinary Catheter: No History of Decub. Ulcer: No History Surgical Site Infection Following: None - Disposition Have Diagnosis and Disposition been Completed?: Yes Diagnosis: UTI (urinary tract infection), Abdominal pain Disposition: HOME/ ROUTINE Disposition Time: 16:50 Patient Plan: Discharge Condition: GOOD Discharge Instructions (ExitCare): Crohn Disease (ED) Additional Instructions: Drink plenty of fluids and take the medications as prescribed. Follow up with your GI doctor for further management as well as pain medicine. Return to the emergency department if any new concerning symptoms. Prescriptions: Nitrofurantoin Macrocrystals [Macrobid] 100 mg PO BID #14 cap Referrals: Mae Garsia MD [Primary Care Provider] - Follow up with primary Feliciano Nascimento Jr., MD [Medical Doctor] - Follow up with primary Forms: [employer] (Cameroonian)
[2017-06-29 15:40] LABS: URINE BILIRUBIN NEGATIVE (NEGATIVE); URINE BLOOD MODERATE (NEGATIVE); URINE GLUCOSE (UA) NEGATIVE (NEGATIVE); URINE KETONE NEGATIVE (NEGATIVE); URINE LEUKOCYTE ESTERASE TRACE Leu/uL (NEGATIVE); URINE PROTEIN NEGATIVE mg/dL (<30 mg/dL); URINE UROBILINOGEN 0.2 E.U./dL (<1 E.U./dL)
[2017-06-29 15:41] LABS: BASO # 0.02 K/mm3 (0.0-2.0); BASO % 0.3 % (0.0-3.0); EOS # 0.1 (0.0-0.7); GRAN # 4.08 (1.4-6.5); GRAN % 70.1 % (50.0-68.0); HEMATOCRIT 31.2 % (36.0-48.0); LYMPH # 1.3 (1.2-3.4); LYMPH % 22.6 % (22.0-35.0); MEAN CORPUSCULAR HEMOGLOBIN 21.6 pg (25.0-35.0); MEAN CORPUSCULAR HGB CONC 28.8 g/dl (31.0-37.0); MEAN PLATELET VOLUME 9.2 fl (7.0-11.0); MONO # 0.4 (0.1-0.6); RED CELL DISTRIBUTION WIDTH 16.3 % (11.5-14.5); WHITE BLOOD COUNT 5.8 10^3/ul (4.5-11.0)
[2017-06-29 15:43] LABS: URINE APPEARANCE SL CLOUDY (CLEAR); URINE COLOR YELLOW (YELLOW)
[2017-06-29 15:48] LABS: ALB/GLOB RATIO 1.6 (1.1-1.8); ALKALINE PHOSPHATASE 79 U/L (38-126); ALT/SGPT 29 U/L (7-56); AMYLASE 76 U/L (35-125); AST/SGOT 21 U/L (14-36); BILIRUBIN,TOTAL 0.3 mg/dL (0.2-1.3); BLOOD UREA NITROGEN 13 mg/dL (7-21); CALCIUM 9.1 mg/dL (8.4-10.5); CARBON DIOXIDE 19 mmol/L (21-33); CHLORIDE 114 mmol/L (98-107); GFR AFRICAN-AMERICAN > 60; GLUCOSE,RANDOM 94 mg/dL (70-110); LIPASE 135 U/L (23-300); POTASSIUM 3.8 mmol/L (3.6-5.0); SODIUM 147 mmol/L (132-148); TOTAL PROTEIN 6.9 g/dL (5.8-8.3)
[2017-06-29 16:04] LABS: URINE BACTERIA FEW (NEG); URINE CALCIUM OXALATE CRYSTALS OCC /hpf
[2017-06-29 16:16] VITALS: O2SAT 98
[2017-06-29 17:20] VITALS: BP 150/72; PULSE 80
--- NOTE | 2017-06-30 08:45 | CARD ---
APPROVED REPORT EKG Measurement Heart [id number] <Conclusion> Normal sinus rhythm Normal ECG No change
== END 2017-06-29 17:23 | disposition home or self-care (01) ==
LOC: ED 13:55
DX: N39.0 Urinary tract infection, site not specified (principal); R10.9 Unspecified abdominal pain; I10 Essential (primary) hypertension; Z87.891 Personal history of nicotine dependence

== ENCOUNTER 2017-07-07 20:21 | Inpatient (IN) | payer MEDICAID ==
--- NOTE | 2017-07-07 20:56 | ED PDOC ---
Arrival/HPI - General Historian: Patient - History of Present Illness Symptom Onset: Gradual Symptom Course: Unchanged <Cameron Alvarez - Last Filed: 07/07/17 22:19> <Luis E Vasques - Last Filed: 07/08/17 00:37> - General Chief Complaint: Shortness Of Breath Time Seen by Provider: 07/07/17 20:29 - History of Present Illness Narrative History of Present Illness (Text): 07/07/17 20:45 A 46 year old female, whose past medical history includes chronic knee pain, presents to the emergency department complaining of shortness of breath. Patient states a while ago, she was running, had tripped, and hit onto concrete ground. Since then, her right eye developed a blackened bruise with associated pressure behind the eye. Also, she had been feeling fatigue for 1 week. Patient states later she was experiencing a fever and became concerned. On her way to visit PMD for fever, she began experiencing shortness of breath. Patient then was brought to ER for complaint. She has no other complaints at this time. PMD: Dr. Salvatore Pollack (Cameron Alvarez) Past Medical History - Provider Review Nursing Documentation Reviewed: Yes - Infectious Disease Hx of Infectious Diseases: None - Tetanus Immunization Tetanus Immunization: Unknown - Cardiac Hx Hypertension: Yes - Pulmonary Hx Asthma: Yes Hx Pneumonia: Yes - Neurological Hx Migraine: Yes Hx Seizures: No - HEENT Hx HEENT Disorder: No - Renal Hx Renal Disorder: Yes Hx Kidney Stones: Yes - Endocrine/Metabolic Hx Endocrine Disorders: No - Hematological/Oncological Hx Anemia: Yes - Integumentary Hx Dermatological Disorder: No - Musculoskeletal/Rheumatological Hx Arthritis: Yes (KNEE,HIP,SHOULDER) Hx Fractures: Yes (right hand 2009) - Gastrointestinal Hx Crohn's Disease: Yes Hx Gastritis: Yes Hx Gastrointestinal Ulcer: Yes - Genitourinary/Gynecological Hx Sexually Transmitted Diseases: No - Psychiatric Hx Anxiety: Yes Hx Depression: Yes Hx Substance Use: No - Surgical History Hx Orthopedic Surgery: Yes - Anesthesia Hx Anesthesia: Yes Hx Anesthesia Reactions: No Hx Malignant Hyperthermia: No - Suicidal Assessment Feels Threatened In Home Enviroment: No <Cameron Alvarez - Last Filed: 07/07/17 22:19> Family/Social History - Physician Review Nursing Documentation Reviewed: Yes Family/Social History: No Known Family HX Smoking Status: Former Smoker Hx Alcohol Use: No Hx Substance Use: No Hx Substance Use Treatment: No <Cameron Alvarez - Last Filed: 07/07/17 22:19> Allergies/Home Meds <Cameron Alvarez - Last Filed: 07/07/17 22:19> <VasquesRon colerodriguez Shetty - Last Filed: 07/08/17 00:37> Allergies/Adverse Reactions: Allergies amoxicillin Allergy (Verified 06/29/17 14:07) RASH metronidazole [From Flagyl] Allergy (Verified 06/29/17 14:07) RASH NSAIDS (Non-Steroidal Anti-Inflamma Allergy (Verified 06/29/17 14:07) SWELLING peanut Allergy (Verified 06/29/17 14:07) ANAPHYLAXIS chickpeas Allergy (Uncoded 06/29/17 14:07) RASH Home Medications: Home Meds Medication Instructions Recorded Confirmed amLODIPine [Norvasc] 10 mg PO DAILY #0 10/01/14 07/07/17 Topiramate [Topamax] 200 mg PO BID 01/09/16 07/07/17 SUMAtriptan [Imitrex] 50 mg PO PRN PRN 06/07/17 07/07/17 Metoprolol Tartrate 25 mg PO BID 06/29/17 07/07/17 traMADol [Ultram] 100 mg PO Q6 PRN 06/29/17 07/07/17 Review of Systems - Physician Review All systems were reviewed & negative as marked: Yes - Review of Systems Constitutional: Fevers Eyes: Other (pressure behind the eye) Respiratory: SOB, Cough <Cameron Alvarez - Last Filed: 07/07/17 22:19> Physical Exam Vital Signs Reviewed: Yes Temperature: Afebrile Blood Pressure: Normal Pulse: Regular Respiratory Rate: Normal Appearance: Positive for: Well-Appearing Pain Distress: None Mental Status: Positive for: Alert and Oriented X 3 - Systems Exam Head: Present: Ecchymosis (right eye) Pupils: Present: PERRL Extroacular Muscles: Present: EOMI Conjunctiva: Present: Normal Mouth: Present: Moist Mucous Membranes Neck: Present: Normal Range of Motion Respiratory/Chest: Present: Decreased Breath Sounds (diffused breathing) Cardiovascular: Present: Regular Rate and Rhythm, Normal S1, S2. No: Murmurs Abdomen: Present: Normal Bowel Sounds. No: Tenderness, Distention, Peritoneal Signs Back: Present: Normal Inspection Upper Extremity: Present: Normal Inspection. No: Cyanosis, Edema Lower Extremity: Present: Normal Inspection. No: Edema Neurological: Present: GCS=15, CN II-XII Intact, Speech Normal Skin: Present: Warm, Dry, Normal Color. No: Rashes Psychiatric: Present: Alert, Oriented x 3, Normal Insight, Normal Concentration <Cameron Alvarez - Last Filed: 07/07/17 22:19> Vital Signs Temp Pulse Resp BP Pulse Ox 07/07/17 20:22 97.9 F 90 20 149/88 97 Medical Decision Making - Lab Interpretations I have reviewed the lab results: Yes <Cameron Alvarez - Last Filed: 07/07/17 22:19> <Luis E Vasques - Last Filed: 07/08/17 00:37> ED Course and Treatment: 07/07/17 20:49 Impression: 46 year old female with shortness of breath. Physical exam shows ecchymosis to right eye; diffused breathing. Plan: -- EKG -- Head CT -- Maxillofacial CT -- Chest X-ray -- Labs -- Urinalysis -- Duoneb -- Solu-Medrol -- Reassess and disposition Prior Visits: Notes and results from previous visits were reviewed. Patient was last seen in the emergency department on 06/29/2017 for abdominal pain, diarrhea, vomiting, and joint pains, inlcuding jaw pain. Patient was discharged home. Progress Notes: EKG: Ordered, reviewed, and independently interpreted the EKG. Rate : 85 BPM Rhythm : NSR Interpretation : No ST-segment elevations or depressions, no T-wave inversions, normal intervals. Comparison : No previous EKG for comparison. 07/07/17 22:19 pt wheezing improving, but persistent. (Cameron Alvarez) 07/08/17 00:31 On reexamination the patient still dyspneic with diffuse wheezing.. A CAT scan of the head and face are negative. Chest x-ray is also negative. We will admit for asthma observation she is asking for any chest for headache which is reasonable. (Luis E Vasques) - Lab Interpretations Lab Results: 07/07/17 21:10 07/07/17 21:10 Lab Results 07/07/17 21:10: Sodium 144, Potassium 3.2 L, Chloride 111 H, Carbon Dioxide 21, Anion Gap 15, BUN 11, Creatinine 0.7, Est GFR ( Amer) > 60, Est GFR (Non- Af Amer) > 60, Random Glucose 122 H, Calcium 8.5, Magnesium 1.9, Total Bilirubin 0.2, AST 28, ALT 36, Alkaline Phosphatase 77, Lactate Dehydrogenase 599, Total Creatine Kinase 124, Troponin I < 0.01, Total Protein 6.7, Albumin 3.9, Globulin 2.8, Albumin/Globulin Ratio 1.4 07/07/17 21:10: PT 10.3, INR 0.95, APTT 23.9 07/07/17 21:10: WBC 5.6, RBC 3.67, Hgb 8.0 L, Hct 28.1 L, MCV 76.6 L, MCH 21.8 L , MCHC 28.5 L, RDW 17.5 H, Plt Count 240, MPV 9.1, Gran % 67.3, Lymph % (Auto) 19.3 L, [place] % (Auto) 7.5 H, Eos % (Auto) 5.7 H, Baso % (Auto) 0.2, Gran # 3.78 , Lymph # 1.1 L, [place] # 0.4, Eos # 0.3, Baso # 0.01 - RAD Interpretation Radiology Orders: 07/07/17 20:44 CHEST PORTABLE [RAD] Stat 07/07/17 20:46 HEAD W/O CONTRAST [CT] Stat MAXILLOFACIAL W/O CONTRAST [CT] Stat - Medication Orders Current Medication Orders: Discontinued Medications Acetaminophen (Tylenol 325mg Tab) 650 mg PO STAT STA Stop: 07/07/17 20:54 Last Admin: 07/07/17 23:42 Dose: 650 mg MAR Pain/Vitals Document 07/07/17 23:42 YP (Rec: 07/07/17 23:42 YP [id number] Pain Reassessment Is This A Pain ReAssessment? Yes Sleep Is patient sleeping during reassessment? No Presence of Pain Presence of Pain Yes Albuterol/Ipratropium (Duoneb 3 Mg/0.5 Mg (3 Ml) Ud) 3 ml IH Q15M SUZAN Stop: 07/07/17 21:16 Last Admin: 07/07/17 21:20 Dose: 3 ml Methylprednisolone (Solu-Medrol) 125 mg IVP STAT STA Stop: 07/07/17 20:46 Last Admin: 07/07/17 21:15 Dose: 125 mg IVP Administration Document 07/07/17 21:15 YP (Rec: 07/07/17 23:44 YP [id number] Charges for Administration # of IVP Administrations 1 Potassium Chloride (K-Dur 20 Meq Er Tab) 40 meq PO STAT STA Stop: 07/07/17 21:40 - Scribe Statement The provider has reviewed the documentation as recorded by the Scribe <Cameron Alvarez - Last Filed: 07/07/17 22:19> <Luis E Vasques - Last Filed: 07/08/17 00:37> - Scribe Statement Christiane Li Provider Scribe Attestation: All medical record entries made by the Scribe were at my direction and personally dictated by me. I have reviewed the chart and agree that the record accurately reflects my personal performance of the history, physical exam, medical decision making, and the department course for this patient. I have also personally directed, reviewed, and agree with the discharge instructions and disposition. (Cameron Alvarez) Disposition/Present on Arrival - Present on Arrival History of DVT/PE: No History of Uncontrolled Diabetes: No Urinary Catheter: No History of Decub. Ulcer: No History Surgical Site Infection Following: None <aCmeron Alvarez - Last Filed: 07/07/17 22:19> - Present on Arrival Any Indicators Present on Arrival: No History of DVT/PE: No History of Uncontrolled Diabetes: No Urinary Catheter: No History of Decub. Ulcer: No - Disposition Have Diagnosis and Disposition been Completed?: Yes Disposition Time: 00:32 Patient Plan: Observation <Luis E Vasques - Last Filed: 07/08/17 00:37> - Disposition Diagnosis: Migraine, Acute asthma exacerbation, Asthmatic bronchitis Condition: STABLE Referrals: Salvatore Pollack MD [Primary Care Provider] - Follow up with primary Forms: [employer] (J[place]ican)
[2017-07-07] MEDS: Albuterol-Ipratrop 3 mg / 0.5 (3 ml) UD IH SCH (21:20)
[2017-07-07 21:26] LABS: BASO # 0.01 K/mm3 (0.0-2.0); BASO % 0.2 % (0.0-3.0); EOS # 0.3 (0.0-0.7); EOS % 5.7 % (1.5-5.0); GRAN # 3.78 (1.4-6.5); GRAN % 67.3 % (50.0-68.0); HEMATOCRIT 28.1 % (36.0-48.0); LYMPH # 1.1 (1.2-3.4); LYMPH % 19.3 % (22.0-35.0); MEAN CELL VOLUME 76.6 fl (80.0-105.0); MEAN CORPUSCULAR HEMOGLOBIN 21.8 pg (25.0-35.0); MEAN CORPUSCULAR HGB CONC 28.5 g/dl (31.0-37.0); MEAN PLATELET VOLUME 9.1 fl (7.0-11.0); MONO # 0.4 (0.1-0.6); MONO % 7.5 % (1.0-6.0); RED CELL DISTRIBUTION WIDTH 17.5 % (11.5-14.5); WHITE BLOOD COUNT 5.6 10^3/ul (4.5-11.0)
[2017-07-07 21:31] LABS: ALB/GLOB RATIO 1.4 (1.1-1.8); ALKALINE PHOSPHATASE 77 U/L (38-126); ALT/SGPT 36 U/L (7-56); AST/SGOT 28 U/L (14-36); BILIRUBIN,TOTAL 0.2 mg/dL (0.2-1.3); BLOOD UREA NITROGEN 11 mg/dL (7-21); CALCIUM 8.5 mg/dL (8.4-10.5); CARBON DIOXIDE 21 mmol/L (21-33); CHLORIDE 111 mmol/L (98-107); GFR AFRICAN-AMERICAN > 60; GLUCOSE,RANDOM 122 mg/dL (70-110); MAGNESIUM 1.9 mg/dL (1.7-2.2); POTASSIUM 3.2 mmol/L (3.6-5.0); SODIUM 144 mmol/L (132-148); TOTAL PROTEIN 6.7 g/dL (5.8-8.3)
[2017-07-07 21:32] LABS: INR 0.95 (0.93-1.08); PARTIAL THROMBOPLASTIN TIME 23.9 Seconds (23.7-30.8)
[2017-07-07] MEDS ORDERED: Potassium Chloride 20 mEq ER Tab PO STA (21:39)
[2017-07-07 21:50] LABS: TROPONIN I < 0.01 ng/mL
--- NOTE | 2017-07-08 00:13 | CT ---
EXAM: CT Head Without Intravenous Contrast CLINICAL HISTORY: 46 years old, female; Injury or trauma; Fall; Initial encounter; Concussion / head injury TECHNIQUE: Axial computed tomography images of the head/brain without intravenous contrast. All CT scans at this facility use one or more dose reduction techniques, viz.: automated exposure control; ma/kV adjustment per patient size (including targeted exams where dose is matched to indication; i.e. head); or iterative reconstruction technique. COMPARISON: No relevant prior studies available. FINDINGS: Brain: No acute intracranial hemorrhage. No significant white matter disease. No edema. Ventricles: No significant ventriculomegaly. Bones: No acute displaced fracture. Sinuses: Unremarkable as visualized. No acute sinusitis. Mastoid air cells: Unremarkable as visualized. No mastoid effusion. IMPRESSION: No acute intracranial hemorrhage, or suspicious mass effect.
--- NOTE | 2017-07-08 00:22 | CT ---
EXAM: CT Maxillofacial Without Intravenous Contrast CLINICAL HISTORY: 46 years old, female; Injury or trauma; Fall; Initial encounter; Concussion /head injury; Loss of consciousness not known TECHNIQUE: Axial computed tomography images of the face without intravenous contrast. All CT scans at this facility use one or more dose reduction techniques, viz.: automated exposure control; ma/kV adjustment per patient size (including targeted exams where dose is matched to indication; i.e. head); or iterative reconstruction technique. Coronal and sagittal reformatted images were created and reviewed. COMPARISON: No relevant prior studies available. FINDINGS: Bones/joints: No acute fracture. Soft tissues: Symmetric. Orbits: Preservation of the retro-orbital fat. The globes are intact. Sinuses: Mucoperiosteal thickening within the left ethmoid sinuses. No air-fluid levels. IMPRESSION: Inflammatory sinus disease. No acute fracture.
[2017-07-08] MEDS ORDERED: Albuterol 0.5% Inhal Sol (5 mg/ ml) 20 ml IH STA (00:32)
[2017-07-08] MEDS: Albuterol-Ipratrop 3 mg / 0.5 (3 ml) UD IH SCH ×3 (02:51→20:19)
--- NOTE | 2017-07-08 03:17 | CP.PCM.HP ---
<Jeramie Augustin - Last Filed: 07/08/17 07:09> History of Present Illness - History of Present Illness History of Present Illness: Chief Complaint Shortness of breath HPI Patient is a 46 year old female with a past medical history of asthma and chronic migraines who presents to [facility] 07/07/17 with complaints of shortness of breath. Patient went to her PMD Dr. Pollack today for further evaluation of sob. Patient states she received two breathing treatments in the outpatient setting. Due to no relief of symptoms s/p administration of breathing treatments , ambulance was called by patient's PMD. She states that three days prior, she was running at a park and tripped and fell face down on concrete without losing consciousness. Patient states she didn't have any bleeding and decided to not go for further evaluation. Patient states that three days later after trauma, she began experiencing pressure behind her right eye as well as swelling. Patient also complaints of a right sided migraine admitting that she hasn't taken her migraine medications which include topomax and imitrex since the night of 07/06/17. Patient denies dizziness, n/v/d, abdominal pain, weakness, chest pain. PMD: Dr. Pollack Surgical history: , Sinus surgery FMH: Breast Cancer, CAD Social history: former smoker, 10 years x 1 ppd. Denies alcohol or illicit drug use Allergies: NSAIDs (hives), Flagyl, Amoxicillin Present on Admission - Present on Admission Any Indicators Present on Admission: No Review of Systems - Constitutional Constitutional: Headache (right sided). absent: Chills, Fever - EENT Eyes: Pain (periorbital). absent: Blurred Vision, Change in Vision - Cardiovascular Cardiovascular: absent: Chest Pain, Dyspnea - Respiratory Respiratory: Cough, Dyspnea, Wheezing - Gastrointestinal Gastrointestinal: absent: Abdominal Pain, Diarrhea, Nausea, Vomiting - Genitourinary Genitourinary: absent: Difficulty Urinating, Dysuria - Musculoskeletal Musculoskeletal: Arthralgias (right knee). absent: Neck Pain, Numbness - Integumentary Integumentary: absent: Bleeding Lesions, Dry Skin - Neurological Neurological: Headaches. absent: Dizziness, Numbness, Focal Weakness, Weakness - Psychiatric Psychiatric: absent: Behavioral Changes, Hallucinations - Endocrine Endocrine: absent: Fatigue, Polydipsia Past Patient History - Infectious Disease Hx of Infectious Diseases: None - Tetanus Immunizations Tetanus Immunization: Unknown - Past Medical History & Family History Past Medical History?: Yes - Past Social History Smoking Status: Former Smoker - CARDIAC Hx Hypertension: Yes - PULMONARY Hx Asthma: Yes Hx Pneumonia: Yes - NEUROLOGICAL Hx Migraine: Yes Hx Seizures: No - HEENT Hx HEENT Problems: No - RENAL Hx Chronic Kidney Disease: Yes Hx Kidney Stones: Yes - ENDOCRINE/METABOLIC Hx Endocrine Disorders: No - HEMATOLOGICAL/ONCOLOGICAL Hx Anemia: Yes - INTEGUMENTARY Hx Dermatological Problems: No - MUSCULOSKELETAL/RHEUMATOLOGICAL Hx Arthritis: Yes (KNEE,HIP,SHOULDER) Hx Fractures: Yes (right hand 2010) - GASTROINTESTINAL Hx Crohn's Disease: Yes Hx Gastritis: Yes - GENITOURINARY/GYNECOLOGICAL Hx Sexually Transmitted Disorders: No - PSYCHIATRIC Hx Anxiety: Yes Hx Depression: Yes Hx Substance Use: No - SURGICAL HISTORY Hx Orthopedic Surgery: Yes - ANESTHESIA Hx Anesthesia: Yes Hx Anesthesia Reactions: No Hx Malignant Hyperthermia: No Meds Allergies/Adverse Reactions: Allergies Allergy/AdvReac Type Severity Reaction Status Date / Time amoxicillin Allergy RASH Verified 06/29/17 14:07 metronidazole [From Flagyl] Allergy RASH Verified 06/29/17 14:07 NSAIDS (Non-Steroidal Allergy SWELLING Verified 06/29/17 14:07 Anti-Inflamma peanut Allergy ANAPHYLAXIS Verified 06/29/17 14:07 chickpeas Allergy RASH Uncoded 06/29/17 14:07 Physical Exam - Constitutional Appears: Non-toxic - Head Exam Head Exam: ATRAUMATIC, NORMAL INSPECTION, NORMOCEPHALIC - Eye Exam Eye Exam: EOMI. absent: Normal appearance (periorbital ecchymoses of right eye) Pupil Exam: NORMAL ACCOMODATION, PERRL - ENT Exam ENT Exam: Mucous Membranes Moist, Normal Exam - Neck Exam Neck exam: Positive for: Normal Inspection - Respiratory Exam Respiratory Exam: Wheezes (B/L upper and lower lobes). absent: Clear to Auscultation Bilateral - Cardiovascular Exam Cardiovascular Exam: REGULAR RHYTHM, +S1, +S2 - GI/Abdominal Exam GI & Abdominal Exam: Normal Bowel Sounds, Soft - Extremities Exam Extremities exam: Positive for: normal inspection - Expanded Lower Extremities Exam Right Knee exam: deformity (fixed flexion deformity) - Back Exam Back exam: NORMAL INSPECTION - Neurological Exam Neurological exam: Alert, CN II-XII Intact, Oriented x3 - Psychiatric Exam Psychiatric exam: Normal Affect, Normal Mood - Skin Skin Exam: Normal Color, Warm Results - Vital Signs Recent Vital Signs: Last Vital Signs Temp 97.6 F 07/08/17 02:43 Pulse 92 H 07/08/17 02:43 Resp 20 07/08/17 02:43 BP 151/87 H 07/08/17 02:43 Pulse Ox 96 07/08/17 02:43 - Labs Result Diagrams: 07/07/17 21:10 07/07/17 21:10 Assessment & Plan - Assessment and Plan (Free Text) Plan: Assessment 46 year old female with history of poorly controlled asthma presenting with shortness of breath Plan 1. Asthma Exacerbation - duonebs - solu-medrol - NC O2 as needed 2. HTN - Norvasc - Metoprolol 3. Chronic Migraines - Topomax 4. Anemia - H&H 8&28.1 - Type and Screen - Monitor, administer PRBC if hematocrit <8 5. Hypokalemic - Potassium level 3.2 - KDUR, f/u on levels DVT/GI prophylaxis - Lovenox/Protonix <Delilah Ring - Last Filed: 07/08/17 09:17> Results - Vital Signs Recent Vital Signs: Last Vital Signs Temp 98.0 F 07/08/17 08:00 Pulse 97 H 07/08/17 08:00 Resp 20 07/08/17 08:00 BP 130/80 07/08/17 08:00 Pulse Ox 95 07/08/17 08:00 - Labs Result Diagrams: 07/08/17 07:36 07/08/17 07:36 Labs: Laboratory Results - last 24 hr 07/08/17 07/08/17 07:36 07:36 WBC 5.1 RBC 3.67 Hgb 8.1 L Hct 28.1 L MCV 76.6 L MCH 22.1 L MCHC 28.8 L RDW 17.5 H Plt Count 275 MPV 9.5 Gran % 86.3 H Lymph % (Auto) 9.6 L [place] % (Auto) 3.9 Eos % (Auto) 0.2 L Baso % (Auto) 0.0 Gran # 4.42 Lymph # 0.5 L [place] # 0.2 Eos # 0.0 Baso # 0.00 Sodium 144 Potassium 4.4 Chloride 111 H Carbon Dioxide 21 Anion Gap 16 BUN 10 Creatinine 0.6 L Est GFR ( Amer) > 60 Est GFR (Non-Af Amer) > 60 Random Glucose 148 H Calcium 8.9 Attending/Attestation - Attestation I have personally seen and examined this patient.: Yes I have fully participated in the care of the patient.: Yes I have reviewed all pertinent clinical information: Yes Notes (Text): 07/08/17 09:14 Agree with documentation and plan. Ordered work up for anemia.
[2017-07-08] MEDS ORDERED: Oxycodone/Acetaminophen 5/325 mg Tab PO STA (03:46)
[2017-07-08] MEDS ORDERED: MethylPREDNISolone 40 mg Vial IVP STA (03:55)
[2017-07-08] MEDS ORDERED: Albuterol 0.5% Inhal Sol (2.5 mg/0.5 ml) UD IH PRN (03:56)
[2017-07-08] MEDS ORDERED: Albuterol-Ipratrop 3 mg / 0.5 (3 ml) UD IH SCH (04:00)
[2017-07-08 05:14] VITALS: BMI 30.7
[2017-07-08] MEDS: Sodium Chloride 0.9% 1,000 ML IV SCH ×3 (06:31→14:58)
[2017-07-08 07:39] LABS: EOS % 0.2 % (1.5-5.0); GRAN # 4.42 (1.4-6.5); GRAN % 86.3 % (50.0-68.0); HEMATOCRIT 28.1 % (36.0-48.0); LYMPH # 0.5 (1.2-3.4); LYMPH % 9.6 % (22.0-35.0); MEAN CELL VOLUME 76.6 fl (80.0-105.0); MEAN CORPUSCULAR HEMOGLOBIN 22.1 pg (25.0-35.0); MEAN CORPUSCULAR HGB CONC 28.8 g/dl (31.0-37.0); MEAN PLATELET VOLUME 9.5 fl (7.0-11.0); MONO # 0.2 (0.1-0.6); MONO % 3.9 % (1.0-6.0); RED CELL DISTRIBUTION WIDTH 17.5 % (11.5-14.5); WHITE BLOOD COUNT 5.1 10^3/ul (4.5-11.0)
[2017-07-08 07:50] LABS: BLOOD UREA NITROGEN 10 mg/dL (7-21); CALCIUM 8.9 mg/dL (8.4-10.5); CARBON DIOXIDE 21 mmol/L (21-33); CHLORIDE 111 mmol/L (98-107); GFR AFRICAN-AMERICAN > 60; GLUCOSE,RANDOM 148 mg/dL (70-110); POTASSIUM 4.4 mmol/L (3.6-5.0); SODIUM 144 mmol/L (132-148)
--- NOTE | 2017-07-08 08:26 | RAD ---
HISTORY: sob COMPARISON: 11/02/2014 FINDINGS: LUNGS: No active pulmonary disease. PLEURA: No significant pleural effusion identified, no pneumothorax apparent. CARDIOVASCULAR: Normal. OSSEOUS STRUCTURES: No significant abnormalities. VISUALIZED UPPER ABDOMEN: Normal. OTHER FINDINGS: None. IMPRESSION: No active disease.
[2017-07-08 09:59] LABS: BASO # 0.01 K/mm3 (0.0-2.0); BASO % 0.2 % (0.0-3.0); EOS % 0.2 % (1.5-5.0); GRAN # 4.12 (1.4-6.5); GRAN % 91.6 % (50.0-68.0); HEMATOCRIT 28.9 % (36.0-48.0); LYMPH # 0.3 (1.2-3.4); LYMPH % 5.6 % (22.0-35.0); MEAN CELL VOLUME 76.7 fl (80.0-105.0); MEAN CORPUSCULAR HEMOGLOBIN 21.5 pg (25.0-35.0); MEAN PLATELET VOLUME 9.2 fl (7.0-11.0); MONO # 0.1 (0.1-0.6); MONO % 2.4 % (1.0-6.0); PLATELET COUNT 268 10^3/uL (120.0-450.0); RED CELL DISTRIBUTION WIDTH 17.4 % (11.5-14.5); WHITE BLOOD COUNT 4.5 10^3/ul (4.5-11.0)
[2017-07-08 10:15] LABS: IRON 22 ug/dL (45-180)
[2017-07-08] MEDS ORDERED: Albuterol-Ipratrop 3 mg / 0.5 (3 ml) UD IH PRN (10:39)
[2017-07-08] MEDS ORDERED: MethylPREDNISolone 40 mg Vial IVP SCH (10:45)
[2017-07-08] MEDS: levoFLOXacin 500 mg in D5W 500 MG/100 ML BAG IVPB SCH (11:11)
[2017-07-08 11:13] LABS: NEUTROPHIL 90 % (50.0-70.0)
[2017-07-08] MEDS: oxyCODONE 5 mg Immediate Release Tab PO PRN ×3 (11:13→23:56)
[2017-07-08 11:14] LABS: ANISOCYTOSIS 1+; HYPOCHROMIA 1+; MICROCYTOSIS 1+; OVALOCYTES SLIGHT; PLATELET ESTIMATE NORMAL (NORMAL); POIKILOCYTOSIS SLIGHT; POLYCHROMASIA SLIGHT; TEAR DROP CELLS SLIGHT
[2017-07-08] MEDS: MethylPREDNISolone 40 mg Vial IVP SCH ×2 (14:51→23:08)
--- NOTE | 2017-07-08 23:02 | CARD ---
APPROVED REPORT EKG Measurement Heart [id number] <Conclusion> Normal sinus rhythm Normal ECG
[2017-07-09] MEDS: Albuterol-Ipratrop 3 mg / 0.5 (3 ml) UD IH SCH ×4 (01:18→20:07)
[2017-07-09] MEDS: MethylPREDNISolone 40 mg Vial IVP SCH ×3 (05:42→21:06)
[2017-07-09] MEDS: oxyCODONE 5 mg Immediate Release Tab PO PRN ×2 (05:46→21:06)
[2017-07-09] MEDS ORDERED: MethylPREDNISolone 40 mg Vial IM SCH (10:00)
[2017-07-09] MEDS: levoFLOXacin 500 mg in D5W 500 MG/100 ML BAG IVPB SCH (11:27)
[2017-07-09] MEDS: Oxycodone/Acetaminophen 10/325 mg Tab PO PRN ×3 (12:02→23:46)
[2017-07-09] MEDS: guaiFENesin 100 mg/5 ml Syrup UD PO PRN ×3 (12:08→23:46)
--- NOTE | 2017-07-09 12:10 | CP.PCM.PN ---
<Marquise Suarez - Last Filed: 07/09/17 12:05> Subjective - Date & Time of Evaluation Date of Evaluation: 07/09/17 Time of Evaluation: 12:05 - Subjective Subjective: Pt seen and examined at beside. Pt with no acute complaints overnight. Pt complaining of worsening back pain this morning. Also states, no improvement in her breathing. Denies CP, N/V/D, fever, chills. Objective - Vital Signs/Intake and Output Vital Signs (last 24 hours): Temp Pulse Resp BP Pulse Ox 97.6 F 69 20 120/75 100 07/09/17 08:12 07/09/17 08:12 07/09/17 08:12 07/09/17 08:12 07/09/17 08:12 Intake and Output: 07/09/17 07/09/17 06:59 18:59 Intake Total 960 Balance 960 - Medications Medications: Current Medications Acetaminophen (Tylenol 325mg Tab) 650 mg PO Q4H PRN PRN Reason: Pain, Mild (1-3) Albuterol/Ipratropium (Duoneb 3 Mg/0.5 Mg (3 Ml) Ud) 3 ml IH [id number] [facility] Last Admin: 07/09/17 09:26 Dose: 3 ml Albuterol/Ipratropium (Duoneb 3 Mg/0.5 Mg (3 Ml) Ud) 3 ml IH Q2H PRN PRN Reason: Shortness of Breath Amlodipine Besylate (Norvasc) 10 mg PO DAILY [facility] Last Admin: 07/08/17 11:10 Dose: 10 mg Gabapentin (Neurontin) 800 mg PO TID [facility] PRN Reason: Protocol Last Admin: 07/08/17 17:31 Dose: 800 mg Guaifenesin (Robitussin) 100 mg PO Q4H PRN PRN Reason: Cough Sodium Chloride (Sodium Chloride 0.9%) 1,000 mls @ 100 mls/hr IV .Q10H [facility] Last Admin: 07/08/17 14:58 Dose: Not Given Levofloxacin/Dextrose (Levaquin 500mg) 500 mg in 100 mls @ 100 mls/hr IVPB DAILY [facility] Last Admin: 07/08/17 11:11 Dose: 100 mls/hr Methylprednisolone (Solu-Medrol) 40 mg IVP Q8 [facility] Last Admin: 07/09/17 05:42 Dose: 40 mg Metoprolol Tartrate (Lopressor) 25 mg PO BID [facility] Last Admin: 07/08/17 17:31 Dose: 25 mg Oxycodone HCl (Oxycodone Immediate Release Tab) 5 mg PO Q6H PRN PRN Reason: Pain, moderate (4-7) Last Admin: 07/09/17 05:46 Dose: 5 mg Oxycodone/Acetaminophen (Percocet 10/325 Mg Tab) 1 tab PO Q6H PRN PRN Reason: Pain, severe (8-10) Pantoprazole Sodium (Protonix Inj) 40 mg IVP DAILY [facility] Last Admin: 07/08/17 11:13 Dose: 40 mg Sumatriptan Succinate (Imitrex Tab) 50 mg PO Q6 PRN PRN Reason: Headache Topiramate (Topamax) 200 mg PO BID [facility] PRN Reason: Protocol Last Admin: 07/08/17 17:31 Dose: 200 mg - Labs Labs: 07/08/17 09:45 07/08/17 07:36 PT 10.3 Seconds (9.9-11.8) 07/07/17 21:10 INR 0.95 (0.93-1.08) 07/07/17 21:10 APTT 23.9 Seconds (23.7-30.8) 07/07/17 21:10 - Constitutional Appears: Non-toxic, No Acute Distress - Head Exam Head Exam: ATRAUMATIC, NORMAL INSPECTION, NORMOCEPHALIC - Respiratory Exam Respiratory Exam: Wheezes (diffuse b/l), NORMAL BREATHING PATTERN. absent: Rales, Rhonchi - Cardiovascular Exam Cardiovascular Exam: RRR, +S1, +S2 - GI/Abdominal Exam GI & Abdominal Exam: Soft, Normal Bowel Sounds. absent: Tenderness - Extremities Exam Extremities Exam: Normal Inspection. absent: Calf Tenderness, Pedal Edema - Neurological Exam Neurological Exam: Alert, Awake, Oriented x3 - Psychiatric Exam Psychiatric exam: Normal Affect, Normal Mood - Skin Skin Exam: Intact, Normal Color, Warm Assessment and Plan - Assessment and Plan (Free Text) Plan: 46 y/o F PMH of poorly controlled asthma, HTN, anemia, and chronic back pain presenting with asthma exacerbation. Pt started on IV steroids at this time and will continue breathing treatments. Pt will have pain medication increased for chronic back pain. Will continue to monitor closely. 1. Asthma Exacerbation - duonebs - solu-medrol 40 mg q8h - Robitussin added - Continue NC O2 prn 2. HTN - Continue Norvasc - Continue Metoprolol 3. Chronic Migraines - Topomax - Imitrex restared 4. Anemia - hg 8.1 - Will order Venofer today - Monitor closely 5. Chronic back pain - Percocet added 6. DVT/GI prophylaxis - Lovenox - Protonix Daniela, PGY-2 <Huber Orosco - Last Filed: 07/09/17 14:31> Objective - Vital Signs/Intake and Output Vital Signs (last 24 hours): Temp Pulse Resp BP Pulse Ox 97.6 F 69 20 120/75 100 07/09/17 08:12 07/09/17 11:52 07/09/17 08:12 07/09/17 11:52 07/09/17 08:12 - Medications Medications: Current Medications Acetaminophen (Tylenol 325mg Tab) 650 mg PO Q4H PRN PRN Reason: Pain, Mild (1-3) Albuterol/Ipratropium (Duoneb 3 Mg/0.5 Mg (3 Ml) Ud) 3 ml IH [id number] [facility] Last Admin: 07/09/17 09:26 Dose: 3 ml Albuterol/Ipratropium (Duoneb 3 Mg/0.5 Mg (3 Ml) Ud) 3 ml IH Q2H PRN PRN Reason: Shortness of Breath Amlodipine Besylate (Norvasc) 10 mg PO DAILY [facility] Last Admin: 07/09/17 11:38 Dose: 10 mg Gabapentin (Neurontin) 800 mg PO TID [facility] PRN Reason: Protocol Last Admin: 07/09/17 14:14 Dose: 800 mg Guaifenesin (Robitussin) 100 mg PO Q4H PRN PRN Reason: Cough Last Admin: 07/09/17 12:08 Dose: 100 mg Levofloxacin/Dextrose (Levaquin 500mg) 500 mg in 100 mls @ 100 mls/hr IVPB DAILY [facility] Last Admin: 07/09/17 11:27 Dose: 100 mls/hr Methylprednisolone (Solu-Medrol) 40 mg IVP Q8 [facility] Last Admin: 07/09/17 14:14 Dose: 40 mg Metoprolol Tartrate (Lopressor) 25 mg PO BID [facility] Last Admin: 07/09/17 11:52 Dose: 25 mg Oxycodone/Acetaminophen (Percocet 10/325 Mg Tab) 1 tab PO Q6H PRN PRN Reason: Pain, severe (8-10) Last Admin: 07/09/17 12:02 Dose: 1 tab Pantoprazole Sodium (Protonix Inj) 40 mg IVP DAILY [facility] Last Admin: 07/09/17 11:53 Dose: 40 mg Sumatriptan Succinate (Imitrex Tab) 50 mg PO Q6 PRN PRN Reason: Headache Last Admin: 07/09/17 11:36 Dose: 50 mg Topiramate (Topamax) 200 mg PO BID [facility] PRN Reason: Protocol Last Admin: 07/09/17 11:37 Dose: 200 mg - Labs Labs: PT 10.3 Seconds (9.9-11.8) 07/07/17 21:10 INR 0.95 (0.93-1.08) 07/07/17 21:10 APTT 23.9 Seconds (23.7-30.8) 07/07/17 21:10 Attending/Attestation - Attestation I have personally seen and examined this patient.: Yes I have fully participated in the care of the patient.: Yes I have reviewed all pertinent clinical information, including history, physical exam and plan: Yes Notes (Text): 07/09/17 14:29 Attending note: Patient seen and examined with resident. Patient is a 46-year-old female admitted with acute asthma exacerbation. Continue DuoNeb and IV Solu-Medrol. Started on Robitussin. Status post fall; CT head and maxillary sinus is negative for any fracture. Chronic opiate dependency. Monitor closely. Upon discharge the patient will follow-up with PMD Dr. Pollack. 07/09/17 14:31
[2017-07-10] MEDS: Albuterol-Ipratrop 3 mg / 0.5 (3 ml) UD IH SCH ×4 (01:25→20:10)
[2017-07-10] MEDS: oxyCODONE 5 mg Immediate Release Tab PO PRN ×4 (03:51→21:38)
[2017-07-10] MEDS: Oxycodone/Acetaminophen 10/325 mg Tab PO PRN ×3 (06:08→18:37)
[2017-07-10] MEDS: MethylPREDNISolone 40 mg Vial IVP SCH ×3 (06:09→21:37)
[2017-07-10] MEDS: levoFLOXacin 500 mg in D5W 500 MG/100 ML BAG IVPB SCH (09:38)
[2017-07-10] MEDS: guaiFENesin 100 mg/5 ml Syrup UD PO PRN (09:39)
--- NOTE | 2017-07-10 11:17 | CP.PCM.PN ---
<Marquise Suarez - Last Filed: 07/10/17 11:13> Subjective - Date & Time of Evaluation Date of Evaluation: 07/10/17 Time of Evaluation: 11:13 - Subjective Subjective: Pt seen and examined at bedside. Pt doing well overnight with no acute events. Pt complaining of increased cough despite Robitussin. Admits to mild improvement of SOB. Denies CP, N/V/D, fever, chills. Objective - Vital Signs/Intake and Output Vital Signs (last 24 hours): Temp Pulse Resp BP Pulse Ox 97.7 F 69 20 121/73 99 07/10/17 07:34 07/10/17 09:41 07/10/17 07:34 07/10/17 09:41 07/10/17 07:34 Intake and Output: 07/10/17 07/10/17 06:59 18:59 Intake Total 740 Balance 740 - Medications Medications: Current Medications Acetaminophen (Tylenol 325mg Tab) 650 mg PO Q4H PRN PRN Reason: Pain, Mild (1-3) Albuterol/Ipratropium (Duoneb 3 Mg/0.5 Mg (3 Ml) Ud) 3 [id number] Last Admin: 07/10/17 09:30 Dose: 3 ml Albuterol/Ipratropium (Duoneb 3 Mg/0.5 Mg (3 Ml) Ud) 3 ml IH Q2H PRN PRN Reason: Shortness of Breath Amlodipine Besylate (Norvasc) 10 mg PO DAILY [facility] Last Admin: 07/10/17 09:40 Dose: 10 mg Gabapentin (Neurontin) 800 mg PO TID [facility] PRN Reason: Protocol Last Admin: 07/10/17 09:40 Dose: 800 mg Guaifenesin (Robitussin) 100 mg PO Q4H PRN PRN Reason: Cough Last Admin: 07/10/17 09:39 Dose: 100 mg Levofloxacin/Dextrose (Levaquin 500mg) 500 mg in 100 mls @ 100 mls/hr IVPB DAILY [facility] Last Admin: 07/10/17 09:38 Dose: 100 mls/hr Iron Sucrose 200 mg/ Sodium (Chloride) 110 mls @ 110 mls/hr IVPB ONCE ONE Stop: 07/10/17 11:18 Methylprednisolone (Solu-Medrol) 30 mg IVP Q8 [facility] Metoprolol Tartrate (Lopressor) 25 mg PO BID [facility] Last Admin: 07/10/17 09:41 Dose: 25 mg Oxycodone HCl (Oxycodone Immediate Release Tab) 5 mg PO Q6H PRN PRN Reason: Pain, moderate (4-7) Last Admin: 07/10/17 09:39 Dose: 5 mg Oxycodone/Acetaminophen (Percocet 10/325 Mg Tab) 1 tab PO Q6H PRN PRN Reason: Pain, severe (8-10) Last Admin: 07/10/17 06:08 Dose: 1 tab Pantoprazole Sodium (Protonix Inj) 40 mg IVP DAILY [facility] Last Admin: 07/10/17 09:38 Dose: 40 mg Promethazine HCl (Phenergan Syrup) 12.5 mg PO Q4H PRN PRN Reason: Cough Sumatriptan Succinate (Imitrex Tab) 50 mg PO Q6 PRN PRN Reason: Headache Last Admin: 07/09/17 11:36 Dose: 50 mg Topiramate (Topamax) 200 mg PO BID [facility] PRN Reason: Protocol Last Admin: 07/10/17 09:39 Dose: 200 mg - Labs Labs: PT 10.3 Seconds (9.9-11.8) 07/07/17 21:10 INR 0.95 (0.93-1.08) 07/07/17 21:10 APTT 23.9 Seconds (23.7-30.8) 07/07/17 21:10 - Constitutional Appears: Non-toxic, No Acute Distress - Head Exam Head Exam: ATRAUMATIC, NORMAL INSPECTION, NORMOCEPHALIC - Respiratory Exam Respiratory Exam: Clear to Ausculation Bilateral, Rhonchi, Wheezes, NORMAL BREATHING PATTERN. absent: Rales Additional comments: Improving wheezes and rhonchi - Cardiovascular Exam Cardiovascular Exam: RRR, +S1, +S2 - GI/Abdominal Exam GI & Abdominal Exam: Soft, Normal Bowel Sounds. absent: Tenderness - Extremities Exam Extremities Exam: absent: Calf Tenderness, Pedal Edema - Neurological Exam Neurological Exam: Alert, Awake, Oriented x3 - Psychiatric Exam Psychiatric exam: Normal Affect, Normal Mood - Skin Skin Exam: Intact, Normal Color, Warm Assessment and Plan - Assessment and Plan (Free Text) Plan: 46 y/o F PMH of poorly controlled asthma, HTN, anemia, and chronic back pain presenting with asthma exacerbation. Pt on IV steroids at this time and will begin to taper. We will continue breathing treatments as needed. Pt will have pain medication increased for chronic back pain. Pt with improvement in breathing status, will continue to monitor. 1. Asthma Exacerbation - Continue duonebs - solu-medrol tapered to 30 mg q8h - Robitussin and Pro - Continue NC O2 prn 2. HTN - BP stable - Continue Norvasc - Continue Metoprolol 3. Chronic Migraines - Topomax - Imitrex restared 4. Anemia - Hg stable - Received Venofer yesterday 5. Chronic back pain - Percocet added, dosage increased to 6. DVT/GI prophylaxis - Lovenox - Protonix Daniela, PGY-2 <Huber Orosco - Last Filed: 07/10/17 14:22> Objective - Vital Signs/Intake and Output Vital Signs (last 24 hours): Temp Pulse Resp BP Pulse Ox 97.7 F 69 20 121/73 99 07/10/17 07:34 07/10/17 09:41 07/10/17 07:34 07/10/17 09:41 07/10/17 07:34 Intake and Output: 07/10/17 07/10/17 06:59 18:59 Intake Total 740 Balance 740 - Medications Medications: Current Medications Acetaminophen (Tylenol 325mg Tab) 650 mg PO Q4H PRN PRN Reason: Pain, Mild (1-3) Albuterol/Ipratropium (Duoneb 3 Mg/0.5 Mg (3 Ml) Ud) 3 ml IH [id number] [facility] Last Admin: 07/10/17 09:30 Dose: 3 ml Albuterol/Ipratropium (Duoneb 3 Mg/0.5 Mg (3 Ml) Ud) 3 ml IH Q2H PRN PRN Reason: Shortness of Breath Amlodipine Besylate (Norvasc) 10 mg PO DAILY [facility] Last Admin: 07/10/17 09:40 Dose: 10 mg Gabapentin (Neurontin) 800 mg PO TID [facility] PRN Reason: Protocol Last Admin: 07/10/17 13:43 Dose: 800 mg Guaifenesin (Robitussin) 100 mg PO Q4H PRN PRN Reason: Cough Last Admin: 07/10/17 09:39 Dose: 100 mg Levofloxacin/Dextrose (Levaquin 500mg) 500 mg in 100 mls @ 100 mls/hr IVPB DAILY [facility] Last Admin: 07/10/17 09:38 Dose: 100 mls/hr Methylprednisolone (Solu-Medrol) 30 mg IVP Q8 [facility] Metoprolol Tartrate (Lopressor) 25 mg PO BID [facility] Last Admin: 07/10/17 09:41 Dose: 25 mg Oxycodone HCl (Oxycodone Immediate Release Tab) 5 mg PO Q6H PRN PRN Reason: Pain, moderate (4-7) Last Admin: 07/10/17 09:39 Dose: 5 mg Oxycodone/Acetaminophen (Percocet 10/325 Mg Tab) 1 tab PO Q6H PRN PRN Reason: Pain, severe (8-10) Last Admin: 07/10/17 12:28 Dose: 1 tab Pantoprazole Sodium (Protonix Inj) 40 mg IVP DAILY [facility] Last Admin: 07/10/17 09:38 Dose: 40 mg Promethazine HCl (Phenergan Syrup) 12.5 mg PO Q4H PRN PRN Reason: Cough Last Admin: 07/10/17 12:22 Dose: 12.5 mg Sumatriptan Succinate (Imitrex Tab) 50 mg PO Q6 PRN PRN Reason: Headache Last Admin: 07/09/17 11:36 Dose: 50 mg Topiramate (Topamax) 200 mg PO BID [facility] PRN Reason: Protocol Last Admin: 07/10/17 09:39 Dose: 200 mg - Labs Labs: PT 10.3 Seconds (9.9-11.8) 07/07/17 21:10 INR 0.95 (0.93-1.08) 07/07/17 21:10 APTT 23.9 Seconds (23.7-30.8) 07/07/17 21:10 Attending/Attestation - Attestation I have personally seen and examined this patient.: Yes I have fully participated in the care of the patient.: Yes I have reviewed all pertinent clinical information, including history, physical exam and plan: Yes Notes (Text): 07/10/17 14:21 Attending note: Patient seen and examined with resident. Patient is a 46-year-old female admitted with acute asthma exacerbation. Continue DuoNeb and IV Solu-Medrol. on tapering dose of steroids. on Robitussin. Status post fall; CT head and maxillary sinus is negative for any fracture. Chronic opiate dependency. possible discharge home tomorrow if patient is clinically stable. Upon discharge the patient will follow-up with PMD Dr. Pollack.
[2017-07-10] MEDS: Promethazine 6.25 MG/5 ML CUP PO PRN ×2 (12:22→20:49)
[2017-07-11] MEDS: Promethazine 6.25 MG/5 ML CUP PO PRN ×4 (00:46→21:30)
[2017-07-11] MEDS: Oxycodone/Acetaminophen 10/325 mg Tab PO PRN ×4 (00:46→21:25)
[2017-07-11] MEDS: Albuterol-Ipratrop 3 mg / 0.5 (3 ml) UD IH SCH ×4 (01:23→21:00)
[2017-07-11] MEDS: oxyCODONE 5 mg Immediate Release Tab PO PRN ×4 (05:05→23:29)
[2017-07-11] MEDS: MethylPREDNISolone 40 mg Vial IVP SCH ×3 (05:05→21:25)
[2017-07-11] MEDS: Pantoprazole 40 mg EC Tab PO SCH (05:05)
[2017-07-11 07:35] LABS: HEMATOCRIT 31.1 % (36.0-48.0); MEAN CELL VOLUME 77.6 fl (80.0-105.0); MEAN CORPUSCULAR HEMOGLOBIN 22.2 pg (25.0-35.0); MEAN CORPUSCULAR HGB CONC 28.6 g/dl (31.0-37.0); MEAN PLATELET VOLUME 9.9 fl (7.0-11.0); RED CELL DISTRIBUTION WIDTH 18.4 % (11.5-14.5); WHITE BLOOD COUNT 10.5 10^3/ul (4.5-11.0)
[2017-07-11 07:40] LABS: ALB/GLOB RATIO 1.6 (1.1-1.8); ALKALINE PHOSPHATASE 86 U/L (38-126); ALT/SGPT 124 U/L (7-56); AST/SGOT 62 U/L (14-36); BILIRUBIN,TOTAL 0.3 mg/dL (0.2-1.3); BLOOD UREA NITROGEN 15 mg/dL (7-21); CALCIUM 9.4 mg/dL (8.4-10.5); CARBON DIOXIDE 19 mmol/L (21-33); CHLORIDE 111 mmol/L (98-107); GFR AFRICAN-AMERICAN > 60; GLUCOSE,RANDOM 113 mg/dL (70-110); POTASSIUM 4.4 mmol/L (3.6-5.0); SODIUM 143 mmol/L (132-148); TOTAL PROTEIN 6.7 g/dL (5.8-8.3)
[2017-07-11] MEDS: levoFLOXacin 500 MG TAB PO SCH (09:03)
--- NOTE | 2017-07-11 11:28 | CP.PCM.PN ---
<Meseret Alonso - Last Filed: 07/11/17 13:36> Subjective - Date & Time of Evaluation Date of Evaluation: 07/11/17 Time of Evaluation: 11:25 - Subjective Subjective: Hospitalist Service Progress Note: Patient seen and examined at bedside. Per nursing no acute events overnight. Patient still wheezing, coughing and short of breath. States that when walking yesterday in the hallway it was hard to breath after a few steps. Still having headache but chronic. Offers no other complaints at this time. Denies dizziness , cp, palpitations, urinary symptoms, changes in bowel habits. Objective - Vital Signs/Intake and Output Vital Signs (last 24 hours): Temp Pulse Resp BP Pulse Ox 97.1 F L 75 18 127/75 97 07/11/17 07:37 07/11/17 09:03 07/11/17 07:37 07/11/17 09:03 07/11/17 07:37 Intake and Output: 07/11/17 07/11/17 06:59 18:59 Intake Total 1040 400 Balance 1040 400 - Medications Medications: Current Medications Acetaminophen (Tylenol 325mg Tab) 650 mg PO Q4H PRN PRN Reason: Pain, Mild (1-3) Albuterol/Ipratropium (Duoneb 3 Mg/0.5 Mg (3 Ml) Ud) 3 ml IH [id number] [facility] Last Admin: 07/11/17 07:17 Dose: 3 ml Albuterol/Ipratropium (Duoneb 3 Mg/0.5 Mg (3 Ml) Ud) 3 ml IH Q2H PRN PRN Reason: Shortness of Breath Amlodipine Besylate (Norvasc) 10 mg PO DAILY [facility] Last Admin: 07/11/17 09:03 Dose: 10 mg Gabapentin (Neurontin) 800 mg PO TID [facility] PRN Reason: Protocol Last Admin: 07/11/17 09:02 Dose: 800 mg Guaifenesin (Robitussin) 100 mg PO Q4H PRN PRN Reason: Cough Last Admin: 07/10/17 09:39 Dose: 100 mg Levofloxacin (Levaquin) 500 mg PO DAILY [facility] Last Admin: 07/11/17 09:03 Dose: 500 mg Methylprednisolone (Solu-Medrol) 30 mg IVP Q8 [facility] Last Admin: 07/11/17 05:05 Dose: 30 mg Oxycodone HCl (Oxycodone Immediate Release Tab) 5 mg PO Q6H PRN PRN Reason: Pain, moderate (4-7) Last Admin: 07/11/17 11:21 Dose: 5 mg Oxycodone/Acetaminophen (Percocet 10/325 Mg Tab) 1 tab PO Q6H PRN PRN Reason: Pain, severe (8-10) Last Admin: 07/11/17 08:10 Dose: 1 tab Pantoprazole Sodium (Protonix Ec Tab) 40 mg PO 0600 [facility] Last Admin: 07/11/17 05:05 Dose: 40 mg Promethazine HCl (Phenergan Syrup) 12.5 mg PO Q4H PRN PRN Reason: Cough Last Admin: 07/11/17 08:11 Dose: 12.5 mg Sumatriptan Succinate (Imitrex Tab) 50 mg PO Q6 PRN PRN Reason: Headache Last Admin: 07/11/17 11:22 Dose: 50 mg Topiramate (Topamax) 200 mg PO BID [facility] PRN Reason: Protocol Last Admin: 07/11/17 09:02 Dose: 200 mg - Labs Labs: 07/11/17 07:20 07/11/17 06:45 PT 10.3 Seconds (9.9-11.8) 07/07/17 21:10 INR 0.95 (0.93-1.08) 07/07/17 21:10 APTT 23.9 Seconds (23.7-30.8) 07/07/17 21:10 - Constitutional Appears: Non-toxic, No Acute Distress - Head Exam Head Exam: ATRAUMATIC, NORMAL INSPECTION - Eye Exam Eye Exam: EOMI, Normal appearance Pupil Exam: NORMAL ACCOMODATION Additional comments: R Periorbital bruising - improving - ENT Exam ENT Exam: Mucous Membranes Moist - Neck Exam Neck Exam: Full ROM - Respiratory Exam Respiratory Exam: Rhonchi, Wheezes. absent: Decreased Breath Sounds, Rales, Respiratory Distress - Cardiovascular Exam Cardiovascular Exam: REGULAR RHYTHM, +S1, +S2 - GI/Abdominal Exam GI & Abdominal Exam: Soft, Normal Bowel Sounds. absent: Guarding, Rigid, Tenderness - Extremities Exam Extremities Exam: Full ROM, Normal Inspection. absent: Calf Tenderness, Tenderness - Back Exam Back Exam: NORMAL INSPECTION - Neurological Exam Neurological Exam: Alert, Awake, Normal Gait, Oriented x3 - Psychiatric Exam Psychiatric exam: Normal Affect, Normal Mood - Skin Skin Exam: Normal Color, Warm Assessment and Plan - Assessment and Plan (Free Text) Assessment: 46 y/o F PMH of poorly controlled asthma, HTN, anemia, and chronic back pain presenting with asthma exacerbation. Pt on IV steroids at this time and will begin to taper. We will continue breathing treatments as needed. Pt will have pain medication increased for chronic back pain. Pt with improvement in breathing status, will continue to monitor. Plan: 1. Asthma Exacerbation - Continue Duonebs - Continue Solu-medrol 30 mg q8h - CT chest ordered, f/u results - Robitussin and Pro - Continue NC O2 prn - Mag sulfate 2gm ordered 2. Sinusitis - CT maxillofacial showing inflammatory sinsus disease - On levofloxacin (day 4) 3. HTN - BP stable - Continue Norvasc - Discontinue Metoprolol for bronchospasm 4. Chronic Migraines - Continue Topomax - Continue Imitrex 5. Anemia - Hg stable - Received Venofer over the weekend 6. Chronic back pain - Percocet 10/325 prn - Oxycodone prn - Gabapentin 800mg TID 7. DVT/GI prophylaxis - Lovenox - Protonix <Juan Celeste - Last Filed: 07/11/17 18:35> Objective - Vital Signs/Intake and Output Vital Signs (last 24 hours): Temp Pulse Resp BP Pulse Ox 98.2 F 69 18 139/83 99 07/11/17 16:00 07/11/17 16:00 07/11/17 16:00 07/11/17 16:00 07/11/17 16:00 Intake and Output: 07/11/17 07/11/17 06:59 18:59 Intake Total 1040 400 Balance 1040 400 - Medications Medications: Current Medications Acetaminophen (Tylenol 325mg Tab) 650 mg PO Q4H PRN PRN Reason: Pain, Mild (1-3) Albuterol/Ipratropium (Duoneb 3 Mg/0.5 Mg (3 Ml) Ud) 3 ml IH [id number] [facility] Last Admin: 07/11/17 14:16 Dose: 3 ml Albuterol/Ipratropium (Duoneb 3 Mg/0.5 Mg (3 Ml) Ud) 3 ml IH Q2H PRN PRN Reason: Shortness of Breath Amlodipine Besylate (Norvasc) 10 mg PO DAILY [facility] Last Admin: 07/11/17 09:03 Dose: 10 mg Gabapentin (Neurontin) 800 mg PO TID [facility] PRN Reason: Protocol Last Admin: 07/11/17 16:59 Dose: 800 mg Guaifenesin (Robitussin) 100 mg PO Q4H PRN PRN Reason: Cough Last Admin: 07/10/17 09:39 Dose: 100 mg Levofloxacin (Levaquin) 500 mg PO DAILY [facility] Last Admin: 07/11/17 09:03 Dose: 500 mg Methylprednisolone (Solu-Medrol) 40 mg IVP Q12 [facility] Oxycodone HCl (Oxycodone Immediate Release Tab) 5 mg PO Q6H PRN PRN Reason: Pain, moderate (4-7) Last Admin: 07/11/17 17:21 Dose: 5 mg Oxycodone/Acetaminophen (Percocet 10/325 Mg Tab) 1 tab PO Q6H PRN PRN Reason: Pain, severe (8-10) Last Admin: 07/11/17 14:56 Dose: 1 tab Pantoprazole Sodium (Protonix Ec Tab) 40 mg PO 0600 [facility] Last Admin: 07/11/17 05:05 Dose: 40 mg Promethazine HCl (Phenergan Syrup) 12.5 mg PO Q4H PRN PRN Reason: Cough Last Admin: 07/11/17 14:57 Dose: 12.5 mg Sumatriptan Succinate (Imitrex Tab) 50 mg PO Q6 PRN PRN Reason: Headache Last Admin: 07/11/17 11:22 Dose: 50 mg Topiramate (Topamax) 200 mg PO BID [facility] PRN Reason: Protocol Last Admin: 07/11/17 16:59 Dose: 200 mg - Labs Labs: 07/11/17 07:20 07/11/17 06:45 PT 10.3 Seconds (9.9-11.8) 07/07/17 21:10 INR 0.95 (0.93-1.08) 07/07/17 21:10 APTT 23.9 Seconds (23.7-30.8) 07/07/17 21:10 Attending/Attestation - Attestation I have personally seen and examined this patient.: Yes I have fully participated in the care of the patient.: Yes I have reviewed all pertinent clinical information, including history, physical exam and plan: Yes Notes (Text): I have seen and examined the patient at bedside. Agree with the above note with the following additions/ exceptions: Briefly this is 46 year old female with history of HTN, asthma, migraines, crohn's disease, opiate seeking behavior, former tobacco user who was admitted for evaluation of acute asthma exacerbation vs COPD exacerbation. Patient continues to have wheezing. Continue DuoNeb and taper IV Solu-Medrol. Mag was also given. CT chest ordered. Plan to dc patient home in 1-2 days. Upon discharge the patient will follow-up with PMD Dr. Pollack. Dr Juan Celeste
[2017-07-11] MEDS ORDERED: Magnesium Sulfate 2 GM in Sodium Chloride 0.9% 100 ML IVPB ONE (11:50)
--- NOTE | 2017-07-11 14:21 | CT ---
PROCEDURE: CT Chest without contrast HISTORY: sob COMPARISON: None. TECHNIQUE: Contiguous axial images were obtained through the chest without intravenous contrast enhancement. Sagittal and coronal reconstructions were performed. Radiation dose (DLP): 388 mGy-cm. This CT exam was performed using one or more of the following dose reduction techniques: Automated exposure control, adjustment of the mA and/or kV according to patient size, and/or use of iterative reconstruction technique. FINDINGS: LUNGS: Clear lungs. Visualized airway clear. There is a minimal ground-glass density in the right upper lobe seen on image 65 series 4. This is of doubtful significance. MEDIASTINUM: Unremarkable thoracic aorta. No aneurysm. Normal sized heart. Main pulmonary artery unremarkable. No vascular congestion. No lymphadenopathy. PLEURA: No pleural fluid. No pneumothorax. BONES: No fracture. No destructive lesion. UPPER ABDOMEN: Grossly unremarkable. OTHER FINDINGS: None. IMPRESSION: No acute findings
[2017-07-11] MEDS: guaiFENesin 100 mg/5 ml Syrup UD PO PRN (21:25)
[2017-07-12] MEDS: Oxycodone/Acetaminophen 10/325 mg Tab PO PRN ×4 (03:06→22:05)
[2017-07-12] MEDS: Albuterol-Ipratrop 3 mg / 0.5 (3 ml) UD IH SCH ×4 (03:07→21:15)
[2017-07-12] MEDS: Pantoprazole 40 mg EC Tab PO SCH (05:36)
[2017-07-12] MEDS: oxyCODONE 5 mg Immediate Release Tab PO PRN ×3 (05:38→19:20)
[2017-07-12 07:07] LABS: BASO # 0.01 K/mm3 (0.0-2.0); BASO % 0.1 % (0.0-3.0); EOS % 0.1 % (1.5-5.0); GRAN # 8.77 (1.4-6.5); GRAN % 78.2 % (50.0-68.0); HEMATOCRIT 32.5 % (36.0-48.0); LYMPH # 1.6 (1.2-3.4); LYMPH % 14.6 % (22.0-35.0); MEAN CELL VOLUME 77.6 fl (80.0-105.0); MEAN CORPUSCULAR HGB CONC 28.3 g/dl (31.0-37.0); MEAN PLATELET VOLUME 9.4 fl (7.0-11.0); MONO # 0.8 (0.1-0.6); RED CELL DISTRIBUTION WIDTH 18.4 % (11.5-14.5); WHITE BLOOD COUNT 11.2 10^3/ul (4.5-11.0)
[2017-07-12 07:21] LABS: ALB/GLOB RATIO 1.5 (1.1-1.8); ALKALINE PHOSPHATASE 96 U/L (38-126); ALT/SGPT 149 U/L (7-56); AST/SGOT 56 U/L (14-36); BILIRUBIN,TOTAL 0.2 mg/dL (0.2-1.3); BLOOD UREA NITROGEN 17 mg/dL (7-21); CARBON DIOXIDE 23 mmol/L (21-33); CHLORIDE 110 mmol/L (98-107); GFR AFRICAN-AMERICAN > 60; GLUCOSE,RANDOM 107 mg/dL (70-110); MAGNESIUM 2.1 mg/dL (1.7-2.2); POTASSIUM 3.7 mmol/L (3.6-5.0); SODIUM 144 mmol/L (132-148); TOTAL PROTEIN 6.5 g/dL (5.8-8.3)
[2017-07-12 07:37] VITALS: RESP 20
[2017-07-12] MEDS ORDERED: POLYETHYLENE GLYCOL 3350 17 GM/Dose PACKET PO ONE (08:35)
[2017-07-12] MEDS: MethylPREDNISolone 40 mg Vial IVP SCH ×2 (09:19→22:04)
[2017-07-12] MEDS: levoFLOXacin 500 MG TAB PO SCH (09:20)
[2017-07-12] MEDS: Promethazine 6.25 MG/5 ML CUP PO PRN ×3 (09:22→22:05)
[2017-07-12] MEDS ORDERED: Benzocaine/Menthol (Cepacol) Lozenge MT PRN (11:13)
--- NOTE | 2017-07-12 16:07 | CP.PCM.DIS ---
Provider - Provider Date of Admission: 07/09/17 13:27 Attending physician: Juan Celeste MD Primary care physician: Salvatore Pollack MD Consults: Neurology: [place] Time Spent in preparation of Discharge (in minutes): 31 Hospital Course - Lab Results Lab Results: Most Recent Lab Values WBC 11.2 10^3/ul (4.5-11.0) H 07/12/17 06:44 RBC 4.19 10^6/uL (3.5-6.1) 07/12/17 06:44 Hgb 9.2 g/dL (12.0-16.0) L 07/12/17 06:44 Hct 32.5 % (36.0-48.0) L 07/12/17 06:44 MCV 77.6 fl (80.0-105.0) L 07/12/17 06:44 MCH 22.0 pg (25.0-35.0) L 07/12/17 06:44 MCHC 28.3 g/dl (31.0-37.0) L 07/12/17 06:44 RDW 18.4 % (11.5-14.5) H 07/12/17 06:44 Plt Count 293 10^3/uL (120.0-450.0) 07/12/17 06:44 MPV 9.4 fl (7.0-11.0) 07/12/17 06:44 Gran % 78.2 % (50.0-68.0) H 07/12/17 06:44 Lymph % (Auto) 14.6 % (22.0-35.0) L 07/12/17 06:44 [place] % (Auto) 7.0 % (1.0-6.0) H 07/12/17 06:44 Eos % (Auto) 0.1 % (1.5-5.0) L 07/12/17 06:44 Baso % (Auto) 0.1 % (0.0-3.0) 07/12/17 06:44 Gran # 8.77 (1.4-6.5) H 07/12/17 06:44 Lymph # 1.6 (1.2-3.4) 07/12/17 06:44 [place] # 0.8 (0.1-0.6) H 07/12/17 06:44 Eos # 0.0 (0.0-0.7) 07/12/17 06:44 Baso # 0.01 K/mm3 (0.0-2.0) 07/12/17 06:44 Neutrophils % (Manual) 90 % (50.0-70.0) H 07/08/17 09:45 Lymphocytes % (Manual) 6 % (22.0-35.0) L 07/08/17 09:45 Monocytes % (Manual) 4 % (1.0-6.0) 07/08/17 09:45 Platelet Evaluation Normal (NORMAL) 07/08/17 09:45 Polychromasia Slight 07/08/17 09:45 Hypochromasia 1+ 07/08/17 09:45 Poikilocytosis (manual Slight 07/08/17 09:45 Anisocytosis (manual) 1+ 07/08/17 09:45 Microcytosis (manual) 1+ 07/08/17 09:45 Tear Drop Cells Slight 07/08/17 09:45 Ovalocytes Slight 07/08/17 09:45 PT 10.3 Seconds (9.9-11.8) 07/07/17 21:10 INR 0.95 (0.93-1.08) 07/07/17 21:10 APTT 23.9 Seconds (23.7-30.8) 07/07/17 21:10 Sodium 144 mmol/L (132-148) 07/12/17 06:44 Potassium 3.7 mmol/L (3.6-5.0) 07/12/17 06:44 Chloride 110 mmol/L (98-107) H 07/12/17 06:44 Carbon Dioxide 23 mmol/L (21-33) 07/12/17 06:44 Anion Gap 15 (10-20) 07/12/17 06:44 BUN 17 mg/dL (7-21) 07/12/17 06:44 Creatinine 0.6 mg/dL (0.7-1.2) L 07/12/17 06:44 Est GFR ( Amer) > 60 07/12/17 06:44 Est GFR (Non-Af Amer) > 60 07/12/17 06:44 Random Glucose 107 mg/dL (70-110) 07/12/17 06:44 Calcium 9.0 mg/dL (8.4-10.5) 07/12/17 06:44 Phosphorus 4.0 mg/dL (2.5-4.5) 07/12/17 06:44 Magnesium 2.1 mg/dL (1.7-2.2) 07/12/17 06:44 Iron 22 ug/dL (45-180) L 07/08/17 09:45 TIBC 338 ug/dL (265-497) 07/08/17 09:45 % Saturation 7 % (20-55) L 07/08/17 09:45 Ferritin 5.4 ng/mL 07/08/17 09:45 Total Bilirubin 0.2 mg/dL (0.2-1.3) 07/12/17 06:44 AST 56 U/L (14-36) H 07/12/17 06:44 ALT 149 U/L (7-56) H 07/12/17 06:44 Alkaline Phosphatase 96 U/L (38-126) 07/12/17 06:44 Lactate Dehydrogenase 599 U/L (333-699) 07/07/17 21:10 Total Creatine Kinase 124 U/L (35-230) 07/07/17 21:10 Troponin I < 0.01 ng/mL 07/07/17 21:10 Total Protein 6.5 g/dL (5.8-8.3) 07/12/17 06:44 Albumin 3.9 g/dL (3.0-4.8) 07/12/17 06:44 Globulin 2.6 gm/dL 07/12/17 06:44 Albumin/Globulin Ratio 1.5 (1.1-1.8) 07/12/17 06:44 Blood Type B POSITIVE 07/08/17 09:45 Antibody Screen Negative 07/08/17 09:45 BBK History Checked Patient has bt 07/08/17 09:45 - Hospital Course Hospital Course: Patient is a 46 year old female with history of HTN, asthma, anemia, chronic migraines, crohn's disease, opiate seeking behavior, former tobacco user who was admitted for evaluation of acute asthma exacerbation vs COPD exacerbation. Patient was wheezing and coughing on admission. CXR showed Patient was started on Solu-medrol, IV magnesium was also given. Duonebs was added. Mag was also given. CT maxillofacial showed inflammatory sinuses. Patient was started on Levaquin 500mg daily. Patient was still wheezing, CT chest ordered and showed no acute findings. Peak flow was 280 pre treatment and 330 post treatment. For chronic migraine, patient was started on Imitrex and Topiramate. Hgb on admission was 8.0, anemia workup ordered. Patient was given IV iron with improvement. Liver enzymes were elevated during admission, currently stable. Hepatitis panel ordered and was negative. PT was ordered to evaluate ambulatory 02 sats. While ambulating with PT, patient was having dizziness. Neurology consulted. Orthostatics ordered and were within normal limits. Percocet discontinued. On day of discharge, patient was requesting more pain medication. Informed the patient that percocet was discontinued due to dizziness and elevated LFTs. Patient requesting increasing oxycodone however advised patient that it was necessary to avoid giving more pain medication. Patient was medically stable and clear for discharge home. Medications were reconciled. Prescriptions for Doxycycline, Ventolin, Protonix, Medrol dose pack, promethazine were sent to pharmacy. Upon discharge the patient will follow-up with PMD Dr. Pollack. Patient also to follow up with Neurology. All questions and concerns were addressed Discharge Exam - Head Exam Head Exam: ATRAUMATIC, NORMAL INSPECTION - Eye Exam Eye Exam: EOMI, Normal appearance Pupil Exam: NORMAL ACCOMODATION - ENT Exam ENT Exam: Mucous Membranes Moist - Neck Exam Neck exam: Full Rom - Respiratory Exam Respiratory Exam: Rhonchi, Wheezes, NORMAL BREATHING PATTERN. absent: Decreased Breath Sounds, Clear to PA & Lateral, Respiratory Distress, UNREMARKABLE - Cardiovascular Exam Cardiovascular Exam: REGULAR RHYTHM, +S1, +S2 - GI/Abdominal Exam GI & Abdominal Exam: Normal Bowel Sounds, Soft. absent: Guarding, Rebound, Rigid, Tenderness - Rectal Exam Rectal Exam: Deferred - Extremities Exam Extremities exam: normal inspection, pedal pulses present - Back Exam Back exam: NORMAL INSPECTION - Neurological Exam Neurological exam: Alert, Oriented x3 - Psychiatric Exam Psychiatric exam: Normal Affect, Normal Mood - Skin Skin Exam: Normal Color, Warm Discharge Plan - Discharge Medications Prescriptions: Albuterol HFA [Ventolin HFA 90 mcg/actuation (8 g)] 2 puff IH Q6H PRN #1 inhaler PRN Reason: Shortness Of Breath Doxycycline Hyclate [Doryx] 100 mg PO BID #6 cap Methylprednisolone [Medrol Dose Pack (21 tabs)] 4 mg PO DAILY #21 mg Pantoprazole [Protonix EC Tab] 40 mg PO 0600 #30 ect Promethazine [Phenergan Syrup] 12.5 mg PO Q6H PRN #1 dose PRN Reason: Cough - Follow Up Plan Condition: STABLE Disposition: HOME/ ROUTINE Instructions: Asthma (DC), Pneumococcal Vaccine for Adults (DC) Additional Instructions: 1. Patient to follow up with PMD within 1 week 2. Advised to avoid asthma/COPD triggers (avoid being around people who smoke cigarettes) 3. Continue Medrol dose pack, continue Doxycycline 100mg BID x 3 days 4. Continue Protonix 40mg daily 5. Repeat LFTs in 1 week; avoid drinking alcohol/tylenol use 6. Please Hold Metoprolol at this time, f/u with PMD Referrals: Salvatore Pollack MD [Primary Care Provider] -
--- NOTE | 2017-07-12 16:23 | CP.PCM.PN ---
Subjective - Date & Time of Evaluation Date of Evaluation: 07/12/17 Time of Evaluation: 16:21 - Subjective Subjective: Hospitalist Service Progress Note: Patient seen and examined at bedside. Per nursing no acute event overnight. Patient is doing well, shortness of breath and coughing improving. Does complain of sore throat. Denies headaches, dizziness, cp, palpitations, abdominal pain, urinary symptoms. Objective - Vital Signs/Intake and Output Vital Signs (last 24 hours): Temp Pulse Resp BP Pulse Ox 97.6 F 81 20 146/85 97 07/12/17 07:30 07/12/17 07:30 07/12/17 07:30 07/12/17 09:19 07/12/17 07:30 Intake and Output: 07/12/17 07/12/17 06:59 18:59 Intake Total 1240 540 Balance 1240 540 - Medications Medications: Current Medications Acetaminophen (Tylenol 325mg Tab) 650 mg PO Q4H PRN PRN Reason: Pain, Mild (1-3) Albuterol/Ipratropium (Duoneb 3 Mg/0.5 Mg (3 Ml) Ud) 3 ml IH [id number] [facility] Last Admin: 07/12/17 13:31 Dose: 3 ml Albuterol/Ipratropium (Duoneb 3 Mg/0.5 Mg (3 Ml) Ud) 3 ml IH Q2H PRN PRN Reason: Shortness of Breath Amlodipine Besylate (Norvasc) 10 mg PO DAILY [facility] Last Admin: 07/12/17 09:19 Dose: 10 mg Benzocaine/Menthol (Cepacol Sore Throat) 1 pascual MT Q2H PRN PRN Reason: Sore Throat Last Admin: 07/12/17 12:33 Dose: 1 pascual Gabapentin (Neurontin) 800 mg PO TID SUZAN PRN Reason: Protocol Last Admin: 07/12/17 14:28 Dose: 800 mg Guaifenesin (Robitussin) 100 mg PO Q4H PRN PRN Reason: Cough Last Admin: 07/10/17 09:39 Dose: 100 mg Levofloxacin (Levaquin) 500 mg PO DAILY [facility] Last Admin: 07/12/17 09:20 Dose: 500 mg Methylprednisolone (Solu-Medrol) 40 mg IVP Q12 [facility] Last Admin: 07/12/17 09:19 Dose: 40 mg Oxycodone HCl (Oxycodone Immediate Release Tab) 5 mg PO Q6H PRN PRN Reason: Pain, moderate (4-7) Last Admin: 07/12/17 11:53 Dose: 5 mg Oxycodone/Acetaminophen (Percocet 10/325 Mg Tab) 1 tab PO Q6H PRN PRN Reason: Pain, severe (8-10) Last Admin: 07/12/17 14:36 Dose: 1 tab Pantoprazole Sodium (Protonix Ec Tab) 40 mg PO 0600 SUZAN Last Admin: 07/12/17 05:36 Dose: 40 mg Promethazine HCl (Phenergan Syrup) 12.5 mg PO Q4H PRN PRN Reason: Cough Last Admin: 07/12/17 14:36 Dose: 12.5 mg Topiramate (Topamax) 200 mg PO BID SUZAN PRN Reason: Protocol Last Admin: 07/12/17 09:20 Dose: 200 mg - Labs Labs: 07/12/17 06:44 07/12/17 06:44 PT 10.3 Seconds (9.9-11.8) 07/07/17 21:10 INR 0.95 (0.93-1.08) 07/07/17 21:10 APTT 23.9 Seconds (23.7-30.8) 07/07/17 21:10 - Constitutional Appears: Non-toxic, No Acute Distress - Head Exam Head Exam: ATRAUMATIC, NORMAL INSPECTION - Eye Exam Eye Exam: EOMI, Normal appearance Pupil Exam: NORMAL ACCOMODATION - ENT Exam ENT Exam: Mucous Membranes Moist - Neck Exam Neck Exam: Full ROM - Respiratory Exam Respiratory Exam: Rhonchi, Wheezes, NORMAL BREATHING PATTERN. absent: Clear to Ausculation Bilateral, Respiratory Distress - Cardiovascular Exam Cardiovascular Exam: REGULAR RHYTHM, +S1, +S2 - GI/Abdominal Exam GI & Abdominal Exam: Soft. absent: Guarding, Rigid, Tenderness, Rebound - Extremities Exam Extremities Exam: Normal Inspection. absent: Calf Tenderness - Back Exam Back Exam: NORMAL INSPECTION - Neurological Exam Neurological Exam: Alert, Awake, Normal Gait, Oriented x3 - Psychiatric Exam Psychiatric exam: Normal Affect, Normal Mood - Skin Skin Exam: Normal Color, Warm Assessment and Plan - Assessment and Plan (Free Text) Assessment: 46 y/o F PMH of poorly controlled asthma, HTN, anemia, and chronic back pain presenting with asthma exacerbation. Pt on IV steroids at this time and will begin to taper. We will continue breathing treatments as needed. Pt will have pain medication increased for chronic back pain. Pt with improvement in breathing status, will continue to monitor. Plan: 1. Asthma/COPD Exacerbation - Continue Duonebs Q6H SUZAN, Q2H prn - Continue Solu-medrol 40 mg q12H - CT chest showing no active disease - Robitussin and Pro - Continue NC O2 prn - PT to evaluate ambulatory 02 sats - [place] ordered for sore throat 2. Sinusitis - CT maxillofacial showing inflammatory sinsus disease - On levofloxacin (day 5) 3. HTN - BP stable - Continue Norvasc - Metoprolol held for bronchospasm 4. Chronic Migraines - Continue Topomax - Continue Imitrex 5. Anemia - Hg stable 6. Chronic back pain - Percocet 10/325 prn - Oxycodone prn - Gabapentin 800mg TID 7. Transaminitis - AST/ALT 56/149 - Will continue to monitor 8. DVT/GI prophylaxis - Lovenox - Protonix
[2017-07-13] MEDS: oxyCODONE 5 mg Immediate Release Tab PO PRN ×3 (01:43→15:14)
[2017-07-13] MEDS: Albuterol-Ipratrop 3 mg / 0.5 (3 ml) UD IH SCH ×3 (02:50→13:24)
[2017-07-13] MEDS: Oxycodone/Acetaminophen 10/325 mg Tab PO PRN (03:31)
[2017-07-13] MEDS: Promethazine 6.25 MG/5 ML CUP PO PRN (03:31)
[2017-07-13 06:53] LABS: BASO # 0.01 K/mm3 (0.0-2.0); BASO % 0.1 % (0.0-3.0); EOS % 0.1 % (1.5-5.0); GRAN # 6.34 (1.4-6.5); GRAN % 76.5 % (50.0-68.0); LYMPH # 1.4 (1.2-3.4); LYMPH % 16.4 % (22.0-35.0); MEAN CELL VOLUME 77.8 fl (80.0-105.0); MEAN CORPUSCULAR HEMOGLOBIN 22.2 pg (25.0-35.0); MEAN CORPUSCULAR HGB CONC 28.5 g/dl (31.0-37.0); MEAN PLATELET VOLUME 9.1 fl (7.0-11.0); MONO # 0.6 (0.1-0.6); MONO % 6.9 % (1.0-6.0); RED CELL DISTRIBUTION WIDTH 19.1 % (11.5-14.5); WHITE BLOOD COUNT 8.3 10^3/ul (4.5-11.0)
[2017-07-13 07:08] LABS: ALB/GLOB RATIO 1.4 (1.1-1.8); ALKALINE PHOSPHATASE 79 U/L (38-126); ALT/SGPT 179 U/L (7-56); AST/SGOT 65 U/L (14-36); BILIRUBIN,TOTAL 0.3 mg/dL (0.2-1.3); BLOOD UREA NITROGEN 14 mg/dL (7-21); CALCIUM 9.2 mg/dL (8.4-10.5); CARBON DIOXIDE 24 mmol/L (21-33); CHLORIDE 108 mmol/L (98-107); GFR AFRICAN-AMERICAN > 60; GLUCOSE,RANDOM 102 mg/dL (70-110); POTASSIUM 4.1 mmol/L (3.6-5.0); SODIUM 145 mmol/L (132-148); TOTAL PROTEIN 6.7 g/dL (5.8-8.3)
[2017-07-13 08:30] VITALS: PULSE 85; TEMP 98.1; O2SAT 98
--- NOTE | 2017-07-13 09:21 | CP.PCM.CON ---
<Lois Wen - Last Filed: 07/13/17 12:34> History of Present Illness - History of Present Illness History of Present Illness: Neurology Consult Note for Jaelyn Baez PGY2 Reason for consult: Dizziness This is a 47Y F with PMH asthma, HTN and chronic migraines who was admitted to [facility] on 07/08/17 for asthma exacerbation. Patient was walking with physical therapy yesterday and became dizzy. She reports that she felt light headed, but it was transient. She did not pass out or hit her head. She reports she was feeling "de-conditioned" because she has not been out of bed that much since her hospitalization and felt "overwhelmed" when she was getting up to walk. She denies having any vertigo, sensation of passing out, CP, SOB, n/v/d, numbness/ tingling, headache, vision changes or weakness. She reports that she does see Dr. Gudino for her migraines. PMH: Asthma, chronic migraines, HTN PSH: , Sinus surgery Home meds: As per MAR All: NSAIDs, Flagyl, Amoxicillin, peanuts SH: Former smoker (10 pack yr), Denies EtOH or drug use FH: CAD, breast cancer Neurologist: Dr. Gudino Review of Systems - Review of Systems All systems: reviewed and no additional remarkable complaints except Review of Systems: + dizziness Past Patient History - Infectious Disease Hx of Infectious Diseases: None - Tetanus Immunizations Tetanus Immunization: Unknown - Past Medical History & Family History Past Medical History?: Yes - Past Social History Smoking Status: Former Smoker Alcohol: None Drugs: Denies - CARDIAC Hx Hypertension: Yes - PULMONARY Hx Asthma: Yes Hx Pneumonia: Yes - NEUROLOGICAL Hx Migraine: Yes Hx Seizures: No - HEENT Hx HEENT Problems: No - RENAL Hx Chronic Kidney Disease: Yes Hx Kidney Stones: Yes - ENDOCRINE/METABOLIC Hx Endocrine Disorders: No - HEMATOLOGICAL/ONCOLOGICAL Hx Anemia: Yes - INTEGUMENTARY Hx Dermatological Problems: No - MUSCULOSKELETAL/RHEUMATOLOGICAL Hx Arthritis: Yes (KNEE,HIP,SHOULDER) - GASTROINTESTINAL Hx Crohn's Disease: Yes Hx Gastritis: Yes - GENITOURINARY/GYNECOLOGICAL Hx Sexually Transmitted Disorders: No - PSYCHIATRIC Hx Anxiety: Yes Hx Depression: Yes Hx Substance Use: No - SURGICAL HISTORY Hx Orthopedic Surgery: Yes - ANESTHESIA Hx Anesthesia: Yes Hx Anesthesia Reactions: No Hx Malignant Hyperthermia: No Meds Home Medications: Home Medication List Medication Instructions Recorded Confirmed Type Albuterol HFA [Ventolin HFA 90 2 puff IH Q6H PRN #1 inhaler 07/12/17 Rx mcg/actuation (8 g)] Doxycycline Hyclate [Doryx] 100 mg PO BID #6 cap 07/12/17 Rx Gabapentin [Neurontin] 800 mg PO TID cap 07/12/17 Rx Methylprednisolone [Medrol Dose 4 mg PO DAILY #21 mg 07/12/17 Rx Pack (21 tabs)] Pantoprazole [Protonix EC Tab] 40 mg PO 0600 #30 ect 07/12/17 Rx Promethazine [Phenergan Syrup] 12.5 mg PO Q6H PRN #1 dose 07/13/17 Rx Allergies/Adverse Reactions: Allergies Allergy/AdvReac Type Severity Reaction Status Date / Time amoxicillin Allergy RASH Verified 06/29/17 14:07 metronidazole [From Flagyl] Allergy RASH Verified 06/29/17 14:07 NSAIDS (Non-Steroidal Allergy SWELLING Verified 06/29/17 14:07 Anti-Inflamma peanut Allergy ANAPHYLAXIS Verified 06/29/17 14:07 chickpeas Allergy RASH Uncoded 06/29/17 14:07 - Medications Medications: Current Medications Albuterol/Ipratropium (Duoneb 3 Mg/0.5 Mg (3 Ml) Ud) 3 ml IH [id number] [facility] Last Admin: 07/13/17 07:32 Dose: 3 ml Albuterol/Ipratropium (Duoneb 3 Mg/0.5 Mg (3 Ml) Ud) 3 ml IH Q2H PRN PRN Reason: Shortness of Breath Amlodipine Besylate (Norvasc) 10 mg PO DAILY [facility] Last Admin: 07/12/17 09:19 Dose: 10 mg Benzocaine/Menthol (Cepacol Sore Throat) 1 pascual MT Q2H PRN PRN Reason: Sore Throat Last Admin: 07/12/17 12:33 Dose: 1 pascual Gabapentin (Neurontin) 800 mg PO TID [facility] PRN Reason: Protocol Last Admin: 07/12/17 19:19 Dose: 800 mg Guaifenesin (Robitussin) 100 mg PO Q4H PRN PRN Reason: Cough Last Admin: 07/10/17 09:39 Dose: 100 mg Levofloxacin (Levaquin) 500 mg PO DAILY [facility] Last Admin: 07/12/17 09:20 Dose: 500 mg Methylprednisolone (Solu-Medrol) 40 mg IVP DAILY [facility] Oxycodone HCl (Oxycodone Immediate Release Tab) 5 mg PO Q6H PRN PRN Reason: Pain, moderate (4-7) Last Admin: 07/13/17 08:43 Dose: 5 mg Pantoprazole Sodium (Protonix Ec Tab) 40 mg PO 0600 [facility] Last Admin: 07/12/17 05:36 Dose: 40 mg Topiramate (Topamax) 200 mg PO BID [facility] PRN Reason: Protocol Last Admin: 07/12/17 09:20 Dose: 200 mg Physical Exam - Constitutional Appears: No Acute Distress - Head Exam Head Exam: ATRAUMATIC, NORMAL INSPECTION, NORMOCEPHALIC - Eye Exam Eye Exam: Normal appearance, PERRL Pupil Exam: NORMAL ACCOMODATION, PERRL - ENT Exam ENT Exam: Mucous Membranes Moist - Neck Exam Neck exam: Positive for: Normal Inspection - Respiratory Exam Respiratory Exam: Wheezes (RUL ), NORMAL BREATHING PATTERN. absent: Rales, Rhonchi - Cardiovascular Exam Cardiovascular Exam: REGULAR RHYTHM, +S1, +S2. absent: Gallop, Rubs, Systolic Murmur - GI/Abdominal Exam GI & Abdominal Exam: Normal Bowel Sounds, Soft. absent: Rebound, Rigid, Tenderness - Extremities Exam Extremities exam: Positive for: normal inspection. Negative for: calf tenderness, pedal edema - Neurological Exam Neurological exam: Alert, CN II-XII Intact, Oriented x3 - Psychiatric Exam Psychiatric exam: Normal Affect, Normal Mood - Skin Skin Exam: Dry, Intact, Normal Color, Warm Results - Vital Signs Recent Vital Signs: Last Vital Signs Temp 98.1 F 07/13/17 08:00 Pulse 85 07/13/17 08:00 Resp 20 07/13/17 08:00 BP 128/81 07/13/17 08:00 Pulse Ox 98 07/13/17 08:00 - Labs Result Diagrams: 07/13/17 05:00 07/13/17 06:47 Labs: Laboratory Results - last 24 hr 07/13/17 07/13/17 05:00 06:47 WBC 8.3 D RBC 4.24 Hgb 9.4 L Hct 33.0 L MCV 77.8 L MCH 22.2 L MCHC 28.5 L RDW 19.1 H Plt Count 273 MPV 9.1 Gran % 76.5 H Lymph % (Auto) 16.4 L [place] % (Auto) 6.9 H Eos % (Auto) 0.1 L Baso % (Auto) 0.1 Gran # 6.34 Lymph # 1.4 [place] # 0.6 Eos # 0.0 Baso # 0.01 Sodium 145 Potassium 4.1 Chloride 108 H Carbon Dioxide 24 Anion Gap 17 BUN 14 Creatinine 0.6 L Est GFR ( Amer) > 60 Est GFR (Non-Af Amer) > 60 Random Glucose 102 Calcium 9.2 Phosphorus 4.0 Magnesium 2.0 Total Bilirubin 0.3 AST 65 H ALT 179 H Alkaline Phosphatase 79 Total Protein 6.7 Albumin 3.9 Globulin 2.8 Albumin/Globulin Ratio 1.4 Assessment & Plan - Assessment and Plan (Free Text) Assessment: This is a 47Y F with PMH asthma, HTN and chronic migraines who was admitted to [facility] on 07/08/17 for asthma exacerbation. Patient was walking with physical therapy yesterday and became dizzy. Dizziness can be secondary to orthostatic hypotension versus side effect of pain medication. Plan: - Will obtain orthostatics - Avoid over sedation with pain medication - Continue physical therapy No further neurological work up at this time. Patient has follow up appointment with Dr. Gudino tomorrow. Thank you for this consultation. Will sign off. Please re-consult if needed. Case seen, discussed and reviewed with Dr. Monteiro. Jaelyn Wen PGY2 - Date & Time Date: 07/13/17 Time: 09:24 <Michael Monteiro - Last Filed: 07/13/17 13:46> Meds - Medications Medications: Current Medications Albuterol/Ipratropium (Duoneb 3 Mg/0.5 Mg (3 Ml) Ud) 3 ml IH [id number] [facility] Last Admin: 07/13/17 13:24 Dose: 3 ml Albuterol/Ipratropium (Duoneb 3 Mg/0.5 Mg (3 Ml) Ud) 3 ml IH Q2H PRN PRN Reason: Shortness of Breath Amlodipine Besylate (Norvasc) 10 mg PO DAILY [facility] Last Admin: 07/13/17 10:00 Dose: 10 mg Benzocaine/Menthol (Cepacol Sore Throat) 1 pascual MT Q2H PRN PRN Reason: Sore Throat Last Admin: 07/12/17 12:33 Dose: 1 pascual Gabapentin (Neurontin) 800 mg PO TID [facility] PRN Reason: Protocol Last Admin: 07/13/17 13:33 Dose: 800 mg Guaifenesin (Robitussin) 100 mg PO Q4H PRN PRN Reason: Cough Last Admin: 07/10/17 09:39 Dose: 100 mg Levofloxacin (Levaquin) 500 mg PO DAILY [facility] Last Admin: 07/13/17 09:58 Dose: 500 mg Methylprednisolone (Solu-Medrol) 40 mg IVP DAILY [facility] Last Admin: 07/13/17 09:59 Dose: 40 mg Oxycodone HCl (Oxycodone Immediate Release Tab) 5 mg PO Q6H PRN PRN Reason: Pain, moderate (4-7) Last Admin: 07/13/17 08:43 Dose: 5 mg Pantoprazole Sodium (Protonix Ec Tab) 40 mg PO 0600 [facility] Last Admin: 07/12/17 05:36 Dose: 40 mg Promethazine HCl (Phenergan Syrup) 12.5 mg PO Q4H PRN PRN Reason: Cough Last Admin: 07/13/17 12:01 Dose: 12.5 mg Topiramate (Topamax) 200 mg PO BID [facility] PRN Reason: Protocol Last Admin: 07/13/17 09:58 Dose: 200 mg Results - Vital Signs Recent Vital Signs: Last Vital Signs Temp 98.1 F 07/13/17 08:00 Pulse 85 07/13/17 08:00 Resp 20 07/13/17 08:00 BP 163/101 H 07/13/17 10:00 Pulse Ox 98 07/13/17 08:00 - Labs Result Diagrams: 07/13/17 05:00 07/13/17 06:47 Labs: Laboratory Results - last 24 hr 07/13/17 07/13/17 07/13/17 05:00 06:47 08:39 WBC 8.3 D RBC 4.24 Hgb 9.4 L Hct 33.0 L MCV 77.8 L MCH 22.2 L MCHC 28.5 L RDW 19.1 H Plt Count 273 MPV 9.1 Gran % 76.5 H Lymph % (Auto) 16.4 L [place] % (Auto) 6.9 H Eos % (Auto) 0.1 L Baso % (Auto) 0.1 Gran # 6.34 Lymph # 1.4 [place] # 0.6 Eos # 0.0 Baso # 0.01 Sodium 145 Potassium 4.1 Chloride 108 H Carbon Dioxide 24 Anion Gap 17 BUN 14 Creatinine 0.6 L Est GFR ( Amer) > 60 Est GFR (Non-Af Amer) > 60 Random Glucose 102 Calcium 9.2 Phosphorus 4.0 Magnesium 2.0 Total Bilirubin 0.3 AST 65 H ALT 179 H Alkaline Phosphatase 79 Total Protein 6.7 Albumin 3.9 Globulin 2.8 Albumin/Globulin Ratio 1.4 Hepatitis A IgM Ab Negative Hep Bs Antigen Negative Hep B Core IgM Ab Negative Hepatitis C Antibody Negative Attending/Attestation - Attestation I have personally seen and examined this patient.: Yes I have fully participated in the care of the patient.: Yes I have reviewed all pertinent clinical information: Yes
[2017-07-13] MEDS: levoFLOXacin 500 MG TAB PO SCH (09:58)
[2017-07-13] MEDS ORDERED: MethylPREDNISolone 40 mg Vial IVP SCH (10:00)
[2017-07-13 10:03] VITALS: BP 163/101
[2017-07-13] MEDS ORDERED: Promethazine 6.25 MG/5 ML CUP PO PRN (11:16)
== END 2017-07-13 18:31 | disposition home or self-care (01) | DRG 96 ==
LOC: ED 20:21 → ERH 07-08 00:45 → 5RSO 07-08 03:59 → OBSVTOIN 07-09 13:27 → 5RNO 07-12 10:28
PROVIDERS: ADMIT Internal Medicine; ATTEND Hospitalist
PROC: 3E0F7GC Introduction of Other Therapeutic Substance into Respiratory Tract, Via Natural or Artificial Opening (ICD-10-PCS; principal; 2017-07-08)
DX: J45.901 Unspecified asthma with (acute) exacerbation (principal); E87.6 Hypokalemia; F11.20 Opioid dependence, uncomplicated; I10 Essential (primary) hypertension; K50.90 Crohn's disease, unspecified, without complications; G43.909 Migraine, unspecified, not intractable, without status migrainosus; D64.9 Anemia, unspecified; M54.9 Dorsalgia, unspecified; G89.29 Other chronic pain; J32.9 Chronic sinusitis, unspecified; J02.9 Acute pharyngitis, unspecified; Z91.81 History of falling; Z87.891 Personal history of nicotine dependence; Z87.01 Personal history of pneumonia (recurrent); Z79.899 Other long term (current) drug therapy; Z82.49 Family history of ischemic heart disease and other diseases of the circulatory system; Z80.3 Family history of malignant neoplasm of breast

== ENCOUNTER 2017-07-25 16:26 | Emergency (ER) | payer MEDICAID ==
[2017-07-25 16:27] VITALS: BMI 30.7
[2017-07-25 16:38] VITALS: BP 168/114; PULSE 83; RESP 18; TEMP 97.6; O2SAT 100
--- NOTE | 2017-07-25 16:54 | ED PDOC ---
Arrival/HPI - General Chief Complaint: Medical Clearance Time Seen by Provider: 07/25/17 16:30 - History of Present Illness Narrative History of Present Illness (Text): 07/25/17 16:52 47 yo female, hx of anemia, crogns disease, presents with back pain/right hip pain after fall. pt states she slipped and fell. pt also reports "dizziness" and "dark stool", although later states she is "unsure of the dark stool". noted pt with multiple visits for similar. pt also had neuro eval from recent admission for dizziness. pt refuses rectal exam in er. no fevers, no n/v, no abdominal painno other complaints. 07/25/17 18:04 07/25/17 18:07 Past Medical History - Infectious Disease Hx of Infectious Diseases: None - Tetanus Immunization Tetanus Immunization: Unknown - Reproductive Menopause: Yes - Cardiac Hx Hypertension: Yes - Pulmonary Hx Asthma: Yes Hx Pneumonia: Yes - Neurological Hx Migraine: Yes Hx Seizures: No - HEENT Hx HEENT Disorder: No - Renal Hx Renal Disorder: Yes Hx Kidney Stones: Yes - Endocrine/Metabolic Hx Endocrine Disorders: No - Hematological/Oncological Hx Anemia: Yes - Integumentary Hx Dermatological Disorder: No - Musculoskeletal/Rheumatological Hx Arthritis: Yes (KNEE,HIP,SHOULDER) - Gastrointestinal Hx Crohn's Disease: Yes Hx Gastritis: Yes - Genitourinary/Gynecological Hx Sexually Transmitted Diseases: No - Psychiatric Hx Anxiety: Yes Hx Depression: Yes Hx Substance Use: No - Surgical History Hx Orthopedic Surgery: Yes - Anesthesia Hx Anesthesia: Yes Hx Anesthesia Reactions: No Hx Malignant Hyperthermia: No - Suicidal Assessment Feels Threatened In Home Enviroment: No Family/Social History - Physician Review Nursing Documentation Reviewed: Yes Family/Social History: Unknown Family HX Smoking Status: Former Smoker Hx Alcohol Use: No Hx Substance Use: No Hx Substance Use Treatment: No Allergies/Home Meds Allergies/Adverse Reactions: Allergies amoxicillin Allergy (Verified 06/29/17 14:07) RASH metronidazole [From Flagyl] Allergy (Verified 06/29/17 14:07) RASH NSAIDS (Non-Steroidal Anti-Inflamma Allergy (Verified 06/29/17 14:07) SWELLING peanut Allergy (Verified 06/29/17 14:07) ANAPHYLAXIS chickpeas Allergy (Uncoded 06/29/17 14:07) RASH Home Medications: Home Meds Medication Instructions Recorded Confirmed amLODIPine [Norvasc] 10 mg PO DAILY #0 10/01/14 07/25/17 Topiramate [Topamax] 200 mg PO BID 01/09/16 07/25/17 SUMAtriptan [Imitrex Tab] 50 mg PO PRN PRN 06/07/17 07/25/17 traMADol [Ultram] 100 mg PO Q6 PRN 06/29/17 07/25/17 Review of Systems - Review of Systems Constitutional: Normal Eyes: Normal ENT: Normal Respiratory: Normal Cardiovascular: Normal Gastrointestinal: Normal Genitourinary Female: Normal Musculoskeletal: Back Pain Skin: Normal Neurological: Dizziness Endocrine: Normal Hemo/Lymphatic: Normal Psychiatric: Normal Physical Exam Vital Signs Temp Pulse Resp BP Pulse Ox 07/25/17 16:37 97.6 F 83 18 168/114 H 100 Temperature: Afebrile Blood Pressure: Normal Pulse: Regular Respiratory Rate: Normal Appearance: Positive for: Well-Appearing, Non-Toxic, Comfortable Pain Distress: None Mental Status: Positive for: Alert and Oriented X 3 - Systems Exam Head: Present: Atraumatic, Normocephalic Pupils: Present: PERRL Extroacular Muscles: Present: EOMI Conjunctiva: Present: Normal Mouth: Present: Moist Mucous Membranes Neck: Present: Normal Range of Motion Respiratory/Chest: Present: Clear to Auscultation, Good Air Exchange. No: Respiratory Distress, Accessory Muscle Use Cardiovascular: Present: Regular Rate and Rhythm, Normal S1, S2. No: Murmurs Abdomen: Present: Normal Bowel Sounds. No: Tenderness, Distention, Peritoneal Signs Rectal: Present: Other (refused rectal) Upper Extremity: Present: Normal Inspection. No: Cyanosis, Edema Lower Extremity: Present: Normal Inspection. No: Edema Neurological: Present: GCS=15, CN II-XII Intact, Speech Normal Skin: Present: Warm, Dry, Normal Color. No: Rashes Psychiatric: Present: Alert, Oriented x 3, Normal Insight, Normal Concentration Medical Decision Making ED Course and Treatment: r/o fx, r/o anemia, - pt later states "she did not have dark stool" and refuses rectal exam. bun/cr and h/h not consistent with gi bleed. abd soft no ttp. pt with numerous visits for various complaints. njrx shows multiple narcotic rx. review of recent inpt record exhibit multiple documentation of narcotic seeking behavior. pt upon arrival specically requesting narcotic medication. advised pt will be treated with non narcotic medication in er. imaging neg as read by me. advise outpt f/u 07/25/17 18:12 pt observed in nad watching tv. abd sof tno ttp. 07/26/17 10:11 - Lab Interpretations Microbiology Results: Microbiology Results 07/25/17 17:10 Urine,Clean Catch Urine Culture - Final Gram Positive Cocci Lab Results: 07/25/17 17:29 07/25/17 17:29 Lab Results 07/25/17 17:29: Sodium 143, Potassium 3.7, Chloride 112 H, Carbon Dioxide 21, Anion Gap 14, BUN 12, Creatinine 1.0, Est GFR ( Amer) > 60, Est GFR (Non- Af Amer) 60, Random Glucose 100, Calcium 9.2, Total Bilirubin 0.2, AST 31, ALT 43, Alkaline Phosphatase 73, Total Protein 7.1, Albumin 4.4, Globulin 2.8, Albumin/Globulin Ratio 1.6, Lipase 260 07/25/17 17:29: Urine Color Yellow, Urine Appearance Cloudy, Urine pH 7.5, Ur Specific [place] 1.015, Urine Protein Negative, Urine Glucose (UA) Negative, Urine Ketones Negative, Urine Blood Trace-intact H, Urine Nitrate Negative, Urine Bilirubin Negative, Urine Urobilinogen 0.2, Ur Leukocyte Esterase Trace H , Urine RBC 0 - 2, Urine WBC 0 - 2, Ur Epithelial Cells 3 - 4, Amorphous Sediment Many, Urine Bacteria Trace, Urine HCG, Qual Negative 07/25/17 17:29: PT 10.8, INR 0.99, APTT 23.0 L 07/25/17 17:29: WBC 6.1 D, RBC 4.41, Hgb 10.4 L, Hct 35.4 L, MCV 80.3, MCH 23.6 L, MCHC 29.4 L, RDW 22.1 H, Plt Count 315, MPV 9.2, Gran % 61.2, Lymph % ( Auto) 26.3, [place] % (Auto) 9.1 H, Eos % (Auto) 2.9, Baso % (Auto) 0.5, Gran # 3.75, Lymph # 1.6, [place] # 0.6, Eos # 0.2, Baso # 0.03 - RAD Interpretation Radiology Orders: 07/25/17 16:49 HIP MIN 2V W/ PELVIS RT [RAD] Stat SACRUM &/or COCCYX (MIN 2VW) [RAD] Stat - Medication Orders Current Medication Orders: Discontinued Medications Cyclobenzaprine HCl (Flexeril) 10 mg PO STAT STA Stop: 07/25/17 17:46 Last Admin: 07/25/17 18:06 Dose: 10 mg Famotidine (Pepcid) 20 mg IVP STAT STA Stop: 07/25/17 17:55 Last Admin: 07/25/17 18:20 Dose: Famotidine (Pepcid) 20 mg PO STAT STA Stop: 07/25/17 18:08 Last Admin: 07/25/17 18:22 Dose: 20 mg Disposition/Present on Arrival - Present on Arrival Any Indicators Present on Arrival: No History of DVT/PE: No History of Uncontrolled Diabetes: No Urinary Catheter: No History of Decub. Ulcer: No History Surgical Site Infection Following: None - Disposition Have Diagnosis and Disposition been Completed?: Yes Diagnosis: Dizziness Disposition: HOME/ ROUTINE Disposition Time: 06:30 Condition: STABLE Discharge Instructions (ExitCare): Fall Prevention for Older Adults (ED), Acute Low Back Pain (ED), Dizziness (ED), Hip Pain (ED) Additional Instructions: please follow up with your doctor/specialist. return to er with worsening symptoms or concerns. Prescriptions: Cyclobenzaprine [Cyclobenzaprine HCl] 10 mg PO DAILY #7 tab Referrals: Salvatore Pollack MD [Primary Care Provider] - Follow up with primary Niru Madison MD [Staff Provider] - Follow up with primary Karthik Mendez MD [Staff Provider] - Follow up with primary Forms: [employer] (Slovenian)
[2017-07-25 17:35] LABS: BASO # 0.03 K/mm3 (0.0-2.0); BASO % 0.5 % (0.0-3.0); EOS # 0.2 (0.0-0.7); EOS % 2.9 % (1.5-5.0); GRAN # 3.75 (1.4-6.5); GRAN % 61.2 % (50.0-68.0); HEMATOCRIT 35.4 % (36.0-48.0); LYMPH # 1.6 (1.2-3.4); LYMPH % 26.3 % (22.0-35.0); MEAN CELL VOLUME 80.3 fl (80.0-105.0); MEAN CORPUSCULAR HEMOGLOBIN 23.6 pg (25.0-35.0); MEAN CORPUSCULAR HGB CONC 29.4 g/dl (31.0-37.0); MEAN PLATELET VOLUME 9.2 fl (7.0-11.0); MONO # 0.6 (0.1-0.6); MONO % 9.1 % (1.0-6.0); RED CELL DISTRIBUTION WIDTH 22.1 % (11.5-14.5); WHITE BLOOD COUNT 6.1 10^3/ul (4.5-11.0)
[2017-07-25 17:36] LABS: PH,URINE 7.5 (4.7-8.0); URINE BILIRUBIN NEGATIVE (NEGATIVE); URINE BLOOD TRACE-INTACT (NEGATIVE); URINE GLUCOSE (UA) NEGATIVE (NEGATIVE); URINE KETONE NEGATIVE (NEGATIVE); URINE LEUKOCYTE ESTERASE TRACE Leu/uL (NEGATIVE); URINE PROTEIN NEGATIVE mg/dL (<30 mg/dL); URINE UROBILINOGEN 0.2 E.U./dL (<1 E.U./dL)
[2017-07-25 17:37] LABS: URINE APPEARANCE CLOUDY (CLEAR); URINE COLOR YELLOW (YELLOW)
[2017-07-25 17:42] LABS: URINE AMORPHOUS SEDIMENT MANY; URINE BACTERIA TRACE (NEG); URINE RBC 0 - 2 /hpf (0-2); URINE WBC 0 - 2 /hpf (0-6)
[2017-07-25 17:48] LABS: INR 0.99 (0.93-1.08)
[2017-07-25 17:54] LABS: ALB/GLOB RATIO 1.6 (1.1-1.8); ALKALINE PHOSPHATASE 73 U/L (38-126); ALT/SGPT 43 U/L (7-56); AST/SGOT 31 U/L (14-36); BILIRUBIN,TOTAL 0.2 mg/dL (0.2-1.3); BLOOD UREA NITROGEN 12 mg/dL (7-21); CALCIUM 9.2 mg/dL (8.4-10.5); CARBON DIOXIDE 21 mmol/L (21-33); CHLORIDE 112 mmol/L (98-107); GFR AFRICAN-AMERICAN > 60; GLUCOSE,RANDOM 100 mg/dL (70-110); LIPASE 260 U/L (23-300); POTASSIUM 3.7 mmol/L (3.6-5.0); SODIUM 143 mmol/L (132-148); TOTAL PROTEIN 7.1 g/dL (5.8-8.3)
--- NOTE | 2017-07-26 08:28 | RAD ---
PROCEDURE: Right Hip and pelvis Radiographs. HISTORY: trauma COMPARISON: None. FINDINGS: BONES: Normal. No fracture. JOINTS: Normal. SOFT TISSUES: Normal. OTHER FINDINGS: None. IMPRESSION: Negative study
--- NOTE | 2017-07-26 08:31 | RAD ---
PROCEDURE: Radiographs of the Sacrum and Coccyx HISTORY: trauma COMPARISON: None available. TECHNIQUE: Frontal and lateral views of the sacrum and coccyx FINDINGS: BONES: Sacrum and coccyx unremarkable. No fracture or focal lesion. SACROILIAC JOINTS: Unremarkable. OTHER FINDINGS: None. IMPRESSION: Unremarkable radiographs of the sacrum and coccyx.
== END 2017-07-25 18:28 | disposition home or self-care (01) ==
LOC: ED 16:26
DX: R42 Dizziness and giddiness (principal); I10 Essential (primary) hypertension; Z87.891 Personal history of nicotine dependence

== ENCOUNTER 2017-07-27 16:30 | Emergency (ER) | payer MEDICAID ==
[2017-07-27 16:30] VITALS: BMI 30.7
[2017-07-27 16:47] VITALS: O2SAT 98
--- NOTE | 2017-07-27 17:17 | ED PDOC ---
Arrival/HPI - General Chief Complaint: Lower Extremity Problem/Injury Time Seen by Provider: 07/27/17 16:50 Historian: Patient - History of Present Illness Narrative History of Present Illness (Text): 07/27/17 17:14 47yo female with Past medical history of chron's disease, hypertension, lower extremity neuropathy, avascular necrosis, chronic pain, present with complaint of right leg pain. Notes that she had trauma 3days ago and was seen here s/p. Xray was negative and she was discharged with Flexeril. Notes taking the Flexeril without relieve. States she have appointment with her pain management tomorrow. Ran out of her Neurontin and pain mediation. She was also seen earlier at [place] for same complaint. She describes pain as burning and constant. Came to emergency department requesting Neurotin and pain medication. Denies any new trauma, focal weakness, back pain, any other complaint. Past Medical History - Provider Review Nursing Documentation Reviewed: Yes - Infectious Disease Hx of Infectious Diseases: None - Tetanus Immunization Tetanus Immunization: Unknown - Cardiac Hx Cardiac Disorders: Yes Hx Hypertension: Yes - Pulmonary Hx Asthma: Yes Hx Pneumonia: Yes - Neurological Hx Migraine: Yes Hx Seizures: No - HEENT Hx HEENT Disorder: No - Renal Hx Renal Disorder: Yes Hx Kidney Stones: Yes - Endocrine/Metabolic Hx Endocrine Disorders: No - Hematological/Oncological Hx Anemia: Yes Hx Blood Transfusions: Yes Hx Blood Transfusion Reaction: No - Integumentary Hx Dermatological Disorder: No - Musculoskeletal/Rheumatological Hx Arthritis: Yes (KNEE,HIP,SHOULDER) Hx Fractures: Yes (right hand 2009) - Gastrointestinal Hx Crohn's Disease: Yes Hx Gastritis: Yes Hx Gastrointestinal Ulcer: Yes - Genitourinary/Gynecological Hx Sexually Transmitted Diseases: No - Psychiatric Hx Anxiety: Yes Hx Depression: Yes Hx Substance Use: No - Surgical History Hx Orthopedic Surgery: Yes - Anesthesia Hx Anesthesia: Yes Hx Anesthesia Reactions: No Hx Malignant Hyperthermia: No - Suicidal Assessment Feels Threatened In Home Enviroment: No Family/Social History - Physician Review Nursing Documentation Reviewed: Yes Family/Social History: Unknown Family HX Smoking Status: Former Smoker Hx Alcohol Use: No Hx Substance Use: No Hx Substance Use Treatment: No Allergies/Home Meds Allergies/Adverse Reactions: Allergies amoxicillin Allergy (Verified 07/27/17 16:43) RASH metronidazole [From Flagyl] Allergy (Verified 07/27/17 16:43) RASH NSAIDS (Non-Steroidal Anti-Inflamma Allergy (Verified 07/27/17 16:43) SWELLING peanut Allergy (Verified 07/27/17 16:43) ANAPHYLAXIS chickpeas Allergy (Uncoded 07/27/17 16:43) RASH Home Medications: Home Meds Medication Instructions Recorded Confirmed amLODIPine [Norvasc] 10 mg PO DAILY #0 10/01/14 07/27/17 Topiramate [Topamax] 200 mg PO BID 01/09/16 07/27/17 SUMAtriptan [Imitrex Tab] 50 mg PO PRN PRN 06/07/17 07/27/17 traMADol [Ultram] 100 mg PO Q6 PRN 06/29/17 07/27/17 Review of Systems - Physician Review All systems were reviewed & negative as marked: Yes - Review of Systems Constitutional: Normal Eyes: Normal ENT: Normal Respiratory: Normal Cardiovascular: Normal Gastrointestinal: Normal Genitourinary Female: Normal Musculoskeletal: Arthralgias (right leg pain) Skin: Normal Neurological: Normal Endocrine: Normal Hemo/Lymphatic: Normal Psychiatric: Normal Physical Exam Vital Signs Reviewed: Yes Vital Signs Temp Pulse Resp BP Pulse Ox 07/27/17 16:43 98.4 F 99 H 18 157/117 H 98 Temperature: Afebrile Blood Pressure: Hypertensive Pulse: Regular Respiratory Rate: Normal Appearance: Positive for: Well-Appearing, Non-Toxic, Comfortable Pain Distress: None Mental Status: Positive for: Alert and Oriented X 3 - Systems Exam Head: Present: Atraumatic, Normocephalic Pupils: Present: PERRL Extroacular Muscles: Present: EOMI Conjunctiva: Present: Normal Mouth: Present: Moist Mucous Membranes Neck: Present: Normal Range of Motion Respiratory/Chest: Present: Clear to Auscultation, Good Air Exchange. No: Respiratory Distress, Accessory Muscle Use Cardiovascular: Present: Regular Rate and Rhythm, Normal S1, S2. No: Murmurs Abdomen: Present: Normal Bowel Sounds. No: Tenderness, Distention, Peritoneal Signs Back: Present: Normal Inspection Upper Extremity: Present: Normal Inspection. No: Cyanosis, Edema Lower Extremity: Present: NORMAL PULSES, Normal ROM, Neurovascularly Intact. No : Edema, CALF TENDERNESS, Tenderness, Erythema Neurological: Present: GCS=15, CN II-XII Intact, Speech Normal Skin: Present: Warm, Dry, Normal Color. No: Rashes Psychiatric: Present: Alert, Oriented x 3, Normal Insight, Normal Concentration Medical Decision Making - Medication Orders Current Medication Orders: Discontinued Medications Gabapentin (Neurontin) 600 mg PO ONCE STA PRN Reason: Protocol Stop: 07/27/17 17:10 Tramadol HCl (Ultram) 50 mg PO STAT STA Stop: 07/27/17 17:09 Disposition/Present on Arrival - Present on Arrival Any Indicators Present on Arrival: No History of DVT/PE: No History of Uncontrolled Diabetes: No Urinary Catheter: No History of Decub. Ulcer: No History Surgical Site Infection Following: None - Disposition Have Diagnosis and Disposition been Completed?: Yes Diagnosis: Chronic pain, Leg pain Disposition: HOME/ ROUTINE Disposition Time: 17:35 Patient Plan: Discharge Patient Problems: Current Active Problems Problem Status Onset Chronic pain Acute Leg pain Acute Condition: STABLE Discharge Instructions (ExitCare): Leg Pain (ED) Additional Instructions: Follow up with your doctor/pain management Return to emergency department for any new symptoms Referrals: [facility] [place] [Outside] - Follow up with primary Forms: [employer] (Amharic)
[2017-07-27 18:13] VITALS: BP 159/90; PULSE 89; RESP 17; TEMP 98.2
== END 2017-07-27 18:13 | disposition home or self-care (01) ==
LOC: ED 16:30
DX: G89.29 Other chronic pain (principal); M79.604 Pain in right leg

== ENCOUNTER 2017-08-23 15:52 | Emergency (ER) | payer MEDICAID ==
[2017-08-23 15:53] VITALS: BMI 30.7
[2017-08-23 16:05] VITALS: TEMP 97.5
--- NOTE | 2017-08-23 16:49 | ED PDOC ---
Arrival/HPI - General Chief Complaint: Back Pain Time Seen by Provider: 08/23/17 16:33 Historian: Patient - History of Present Illness Narrative History of Present Illness (Text): 08/23/17 16:46 47yo female with history of hypertension and chronic back pain present with right shoulder and back pain . states pain started after pushing her vehicle last night and this morning. Note that she took her Tramadol this morning this morning with some relieve. Came to ED for the persistent pain. Denies focal weakness, parethesia, urinary/fecal incontinence, urinary symptoms, dizziness, abdominal pain, chest pain, any other complaint. Past Medical History - Provider Review Nursing Documentation Reviewed: Yes - Infectious Disease Hx of Infectious Diseases: None - Tetanus Immunization Tetanus Immunization: Unknown - Cardiac Hx Cardiac Disorders: Yes Hx Hypertension: Yes - Pulmonary Hx Asthma: Yes Hx Pneumonia: Yes - Neurological Hx Migraine: Yes Hx Seizures: No - HEENT Hx HEENT Disorder: No - Renal Hx Renal Disorder: Yes Hx Kidney Stones: Yes - Endocrine/Metabolic Hx Endocrine Disorders: No - Hematological/Oncological Hx Anemia: Yes Hx Blood Transfusions: Yes Hx Blood Transfusion Reaction: No - Integumentary Hx Dermatological Disorder: No - Musculoskeletal/Rheumatological Hx Arthritis: Yes (KNEE,HIP,SHOULDER) Hx Fractures: Yes (right hand 2009) - Gastrointestinal Hx Crohn's Disease: Yes Hx Gastritis: Yes Hx Gastrointestinal Ulcer: Yes - Genitourinary/Gynecological Hx Sexually Transmitted Diseases: No - Psychiatric Hx Anxiety: Yes Hx Depression: Yes Hx Substance Use: No - Surgical History Hx Orthopedic Surgery: Yes - Anesthesia Hx Anesthesia: Yes Hx Anesthesia Reactions: No Hx Malignant Hyperthermia: No - Suicidal Assessment Feels Threatened In Home Enviroment: No Family/Social History - Physician Review Nursing Documentation Reviewed: Yes Family/Social History: Unknown Family HX Smoking Status: Former Smoker Hx Alcohol Use: No Hx Substance Use: No Hx Substance Use Treatment: No Allergies/Home Meds Allergies/Adverse Reactions: Allergies amoxicillin Allergy (Verified 08/23/17 16:05) RASH metronidazole [From Flagyl] Allergy (Verified 08/23/17 16:05) RASH NSAIDS (Non-Steroidal Anti-Inflamma Allergy (Verified 08/23/17 16:05) SWELLING peanut Allergy (Verified 08/23/17 16:05) ANAPHYLAXIS chickpeas Allergy (Uncoded 08/23/17 16:05) RASH Home Medications: Home Meds Medication Instructions Recorded Confirmed amLODIPine [Norvasc] 10 mg PO DAILY #0 10/01/14 08/23/17 Topiramate [Topamax] 200 mg PO BID 01/09/16 08/23/17 SUMAtriptan [Imitrex Tab] 50 mg PO PRN PRN 06/07/17 08/23/17 traMADol [Ultram] 100 mg PO Q6 PRN 06/29/17 08/23/17 Review of Systems - Physician Review All systems were reviewed & negative as marked: Yes - Review of Systems Constitutional: Normal Eyes: Normal ENT: Normal Respiratory: Normal Cardiovascular: Normal Gastrointestinal: Normal Genitourinary Female: Normal Musculoskeletal: Arthralgias (Right shoulder pain), Back Pain Skin: Normal Neurological: Normal Endocrine: Normal Hemo/Lymphatic: Normal Psychiatric: Normal Physical Exam Vital Signs Reviewed: Yes Vital Signs Temp Pulse Resp BP Pulse Ox 08/23/17 16:11 131/101 H 08/23/17 16:05 97.5 F L 103 H 20 145/125 H 100 08/23/17 16:03 97.5 F L 103 H 20 145/125 H 100 Temperature: Afebrile Blood Pressure: Hypertensive Pulse: Regular Respiratory Rate: Normal Appearance: Positive for: Well-Appearing, Non-Toxic, Comfortable Pain Distress: None Mental Status: Positive for: Alert and Oriented X 3 - Systems Exam Head: Present: Atraumatic, Normocephalic Pupils: Present: PERRL Extroacular Muscles: Present: EOMI Conjunctiva: Present: Normal Mouth: Present: Moist Mucous Membranes Neck: Present: Normal Range of Motion Respiratory/Chest: Present: Clear to Auscultation, Good Air Exchange. No: Respiratory Distress, Accessory Muscle Use Cardiovascular: Present: Regular Rate and Rhythm, Normal S1, S2. No: Murmurs Abdomen: Present: Normal Bowel Sounds. No: Tenderness, Distention, Peritoneal Signs Back: Present: Midline Tenderness, Pain with Leg Raise (Right leg). No: Paraspinal Tenderness Upper Extremity: Present: Normal ROM, NORMAL PULSES, Tenderness (Right shoulder AC joint), Neurovascularly Intact. No: Cyanosis, Edema, Swelling, Erythema, Temperature Abnormalties, Deformity Lower Extremity: Present: Normal Inspection. No: Edema Neurological: Present: GCS=15, CN II-XII Intact, Speech Normal Skin: Present: Warm, Dry, Normal Color. No: Rashes Psychiatric: Present: Alert, Oriented x 3, Normal Insight, Normal Concentration Medical Decision Making - Medication Orders Current Medication Orders: Baclofen (Lioresal) 10 mg PO ONCE STA Stop: 08/23/17 16:45 Tramadol HCl (Ultram) 50 mg PO STAT STA Stop: 08/23/17 16:45 Disposition/Present on Arrival - Present on Arrival Any Indicators Present on Arrival: No History of DVT/PE: No History of Uncontrolled Diabetes: No Urinary Catheter: No History of Decub. Ulcer: No History Surgical Site Infection Following: None - Disposition Have Diagnosis and Disposition been Completed?: Yes Diagnosis: Shoulder pain, Back pain Disposition: HOME/ ROUTINE Disposition Time: 16:55 Patient Plan: Discharge Condition: STABLE Discharge Instructions (ExitCare): Shoulder Pain (ED), Chronic Back Pain (ED) Additional Instructions: Follow up with your doctor Return to Ed for any new symptoms Referrals: Salvatore Pollack MD [Primary Care Provider] - Follow up with primary
[2017-08-23 17:47] VITALS: BP 130/93; PULSE 89; RESP 16; O2SAT 99
== END 2017-08-23 17:46 | disposition home or self-care (01) ==
LOC: ED 15:52
DX: M54.9 Dorsalgia, unspecified (principal); M25.511 Pain in right shoulder

== ENCOUNTER 2017-09-20 12:16 | Emergency (ER) | payer MEDICAID ==
[2017-09-20 12:18] VITALS: BMI 28.2
[2017-09-20] MEDS ORDERED: Sodium Chloride 0.9% 1,000 ML IV STA (12:49)
[2017-09-20] MEDS ORDERED: Magnesium Sulfate 1 gm in D5W 1 GM/100 ML BAG IVPB ONE (12:50)
[2017-09-20] MEDS ORDERED: DiphenhydrAMINE 50 mg/ml Inj IVP STA (12:50)
--- NOTE | 2017-09-20 13:03 | ED PDOC ---
Arrival/HPI - General Chief Complaint: Medical Clearance Time Seen by Provider: 09/20/17 12:46 Historian: Patient - History of Present Illness Narrative History of Present Illness (Text): 09/20/17 12:43 A 47 year old female, whose past medical history includes anemia, anxiety, arthritis, asthma, Crohn's Disease, depression, gastritis, kidney stones, presents to the emergency department complaining of cough, migraine, and left flank pain. Patient reports last night she was coughing and coughed on her 's shirt. In the morning, patient found 's shirt to have spots of blood on it. Patient believes she may have coughed up blood. Also, patient notes she has been experiencing wheezing and coughing when laying down in bed at night. Mentions also experiencing migraines on left-side of head for approximately 1 week and left flank pain for several days now. Patient mentions having been intubated on due to pecan allergy, and has been experiencing chest pain and sore throat since incident. Patient denies of any other complaints at this time. Also, she states having taken 2 doses of Tylenol for flank pain; as well as Tramadol. PMD has been seen less than 2 weeks ago. PMD: Dr. Salvatore Pollack Time/Duration: < week Symptom Onset: Sudden Symptom Course: Unchanged Past Medical History - Provider Review Nursing Documentation Reviewed: Yes - Infectious Disease Hx of Infectious Diseases: None - Tetanus Immunization Tetanus Immunization: Unknown - Reproductive Menopause: Yes - Cardiac Hx Hypertension: Yes - Pulmonary Hx Asthma: Yes Hx Pneumonia: Yes - Neurological Hx Migraine: Yes Hx Seizures: No - HEENT Hx HEENT Disorder: No - Renal Hx Renal Disorder: Yes Hx Kidney Stones: Yes - Endocrine/Metabolic Hx Endocrine Disorders: No - Hematological/Oncological Hx Anemia: Yes - Integumentary Hx Dermatological Disorder: No - Musculoskeletal/Rheumatological Hx Arthritis: Yes (KNEE,HIP,SHOULDER) Hx Fractures: Yes (right hand 2010) - Gastrointestinal Hx Crohn's Disease: Yes Hx Gastritis: Yes Hx Gastrointestinal Ulcer: Yes - Genitourinary/Gynecological Hx Sexually Transmitted Diseases: No - Psychiatric Hx Anxiety: Yes Hx Depression: Yes Hx Substance Use: No - Surgical History Hx Orthopedic Surgery: Yes - Anesthesia Hx Anesthesia: Yes Hx Anesthesia Reactions: No Hx Malignant Hyperthermia: No - Suicidal Assessment Feels Threatened In Home Enviroment: No Family/Social History - Physician Review Nursing Documentation Reviewed: Yes Family/Social History: No Known Family HX Smoking Status: Former Smoker Hx Alcohol Use: No Hx Substance Use: No Hx Substance Use Treatment: No Allergies/Home Meds Allergies/Adverse Reactions: Allergies amoxicillin Allergy (Verified 09/20/17 12:18) RASH metronidazole [From Flagyl] Allergy (Verified 09/20/17 12:18) RASH NSAIDS (Non-Steroidal Anti-Inflamma Allergy (Verified 09/20/17 12:18) SWELLING peanut Allergy (Verified 09/20/17 12:18) ANAPHYLAXIS chickpeas Allergy (Uncoded 09/20/17 12:18) RASH Home Medications: Home Meds Medication Instructions Recorded Confirmed amLODIPine [Norvasc] 10 mg PO DAILY #0 10/01/14 09/20/17 Topiramate [Topamax] 200 mg PO BID 01/09/16 09/20/17 SUMAtriptan [Imitrex Tab] 50 mg PO PRN PRN 06/07/17 09/20/17 traMADol [Ultram] 100 mg PO Q6 PRN 06/29/17 09/20/17 Review of Systems - Physician Review All systems were reviewed & negative as marked: Yes - Review of Systems Respiratory: Cough, Wheezing Musculoskeletal: Other (left flank pain) Neurological: Headache Physical Exam Vital Signs Reviewed: Yes Vital Signs Temp Pulse Resp BP Pulse Ox 09/20/17 19:30 89 18 145/87 100 09/20/17 18:01 97.9 F 89 16 117/82 98 09/20/17 15:38 89 18 155/96 H 97 09/20/17 13:54 98 H 18 158/102 H 97 09/20/17 12:26 98.9 F 102 H 20 161/115 H 97 09/20/17 12:21 98.9 F 102 H 18 161/115 H 97 Temperature: Afebrile Blood Pressure: Hypertensive Pulse: Regular Respiratory Rate: Normal Appearance: Positive for: Well-Appearing, Other (uncomfortable, mild distress due to general pain, alert/awake, GCS = 15, oriented x 3) Pain Distress: Mild Mental Status: Positive for: Alert and Oriented X 3 - Systems Exam Head: Present: Atraumatic, Normocephalic Pupils: Present: PERRL Extroacular Muscles: Present: EOMI Conjunctiva: Present: Normal Mouth: Present: Moist Mucous Membranes, Normal Teeth. No: Dry Pharnyx: Present: Normal Neck: Present: Normal Range of Motion Respiratory/Chest: Present: Clear to Auscultation, Good Air Exchange. No: Respiratory Distress, Accessory Muscle Use Cardiovascular: Present: Regular Rate and Rhythm, Normal S1, S2. No: Murmurs Abdomen: Present: Normal Bowel Sounds, Other (well nourished female, no focal tenderness, no bruno's sign, no mcburney's point tenderness, no masses/rebound/ guarding/rigidity). No: Tenderness, Distention, Peritoneal Signs Back: Present: Normal Inspection, CVA Tenderness, Other (b/l cvat b/l, left >> right; no midline tenderness, no step off, no gross deformities, + ambulatory). No: Midline Tenderness Upper Extremity: Present: Normal Inspection, Normal ROM, NORMAL PULSES, Capillary Refill < 2s. No: Cyanosis, Edema Lower Extremity: Present: Normal Inspection, NORMAL PULSES, Capillary Refill < 2 s. No: Edema Neurological: Present: GCS=15, CN II-XII Intact, Speech Normal Skin: Present: Warm, Dry, Normal Color. No: Rashes Psychiatric: Present: Alert, Oriented x 3, Normal Insight, Normal Concentration Medical Decision Making ED Course and Treatment: 09/20/17 12:46 Impression: 47 year old female with cough, left flank pain, and migraine. Plan: -- EKG -- Chest X-ray -- Bladder Ultrasound -- Renal Ultrasound -- Labs -- Benadryl -- Reglan -- IV Fluids -- Magnesium Sulfate IV Fluids -- Urinalysis -- Reassess and disposition Prior Visits: Notes and results from previous visits were reviewed. Patient was last seen in the emergency department on 09/07/2017 for migraine. Patient was d/c home. Progress Notes: 09/20/2017 15:19 Chest X-ray IMPRESSION: No active disease. Dictator: Frank Sanchez MD 09/20/17 20:47 pt with extensive medical complaints as well as prior ED visits/hospitalizations pt complains of left flank pain and is requesting pain medications i expressed to the patient my concern for pt to receive further opioids, but patient states its the only thing that can work/help her pt's headache is much improved however pt is made aware of her medical results pt is encouraged fluids pt will f/u as directed pt will be discharged home Reassessment Condition: Improving,but remains with symptoms - Lab Interpretations Lab Results: 09/20/17 13:38 09/20/17 19:30 Lab Results 09/20/17 19:30: Sodium 144, Potassium 3.5 L, Chloride 113 H, Carbon Dioxide 21, Anion Gap 14, BUN 9, Creatinine 0.7, Est GFR ( Amer) > 60, Est GFR (Non- Af Amer) > 60, Random Glucose 109, Calcium 9.2, Total Bilirubin < 0.1 L, AST 21 , ALT 29, Alkaline Phosphatase 67, Troponin I < 0.01, Total Protein 7.1, Albumin 4.0, Globulin 3.1, Albumin/Globulin Ratio 1.3, Lipase 111 09/20/17 14:02: Urine Color Yellow, Urine Appearance Clear, Urine pH 7.0, Ur Specific [place] 1.015, Urine Protein Negative, Urine Glucose (UA) Negative, Urine Ketones Negative, Urine Blood Large H, Urine Nitrate Negative, Urine Bilirubin Negative, Urine Urobilinogen 0.2, Ur Leukocyte Esterase Moderate H, Urine RBC 25 - 30, Urine WBC 1 - 3, Ur Epithelial Cells 6 - 8, Amorphous Sediment Few, Urine Bacteria Mod 09/20/17 13:38: WBC 4.4 L D, RBC 4.57, Hgb 11.3 L, Hct 37.7, MCV 82.5, MCH 24.7 L, MCHC 30.0 L, RDW 18.5 H, Plt Count 347, MPV 9.5, Gran % 59.2, Lymph % (Auto) 30.7, Haralson % (Auto) 6.6 H, Eos % (Auto) 3.0, Baso % (Auto) 0.5, Gran # 2.61, Lymph # 1.4, Haralson # 0.3, Eos # 0.1, Baso # 0.02 I have reviewed the lab results: Yes (ABNL U/A) Interpretation: Abnormal lab values - RAD Interpretation Radiology Orders: 09/20/17 12:47 CHEST TWO VIEWS (PA/LAT) [RAD] Stat 09/20/17 12:48 BLADDER ONLY/RESIDUAL URINE [US] Stat RENAL [US] Stat CXR: FINDINGS: LUNGS: No active pulmonary disease. PLEURA: No significant pleural effusion identified. No pneumothorax apparent. CARDIOVASCULAR: Normal. OSSEOUS STRUCTURES: No significant abnormalities. VISUALIZED UPPER ABDOMEN: Normal. OTHER FINDINGS: None. IMPRESSION: No active disease. U/S: FINDINGS: RIGHT KIDNEY: Measures: 12.0 cm. Normal in size, contour and echogenicity. No stone, solid mass lesion or hydronephrosis visualized. LEFT KIDNEY: Measures: 11.5 cm. Normal in size, contour and echogenicity. 4 mm nonobstructing calculus lower pole left kidney. No hydronephrosis. No mass. OTHER FINDINGS: None. IMPRESSION: 4 mm nonobstructing left lower pole renal calculus. Graphic Art Designer: Radiologist - EKG Interpretation EKG Interpretation (Text): 09/20/17 20:51 EKG: NSR at 90 bpm, normal axis, no ectopy, no st-t changes, NORMAL EKG; unchanged compare with prior EKG, 07/2017 Interpreted by ED Physician: Yes Type: 12 lead EKG Comparison: Similar to previous EKG - Medication Orders Current Medication Orders: Discontinued Medications Diphenhydramine HCl (Benadryl) 25 mg IVP STAT STA Stop: 09/20/17 12:51 Last Admin: 09/20/17 14:11 Dose: 25 mg IVP Administration Document 09/20/17 14:11 MS (Rec: 09/20/17 14:11 [email or web address] Charges for Administration # of IVP Administrations 1 Hydromorphone HCl (Dilaudid) 1 mg IVP STAT STA Stop: 09/20/17 16:28 Last Admin: 09/20/17 17:17 Dose: 1 mg MAR Pain Assessment Document 09/20/17 17:17 [facility] (Rec: 09/20/17 17[id number] Pain Reassessment Is this a pain reassessment? Yes Sleep Is patient sleeping during reassessment? No Presence of Pain Presence of Pain Yes Pain Scale Used Pain Scale Used Numeric IVP Administration Document 09/20/17 17:17 [facility] (Rec: 09/20/17 17:17 [id number] Charges for Administration # of IVP Administrations 1 Magnesium Sulfate/Dextrose (Magnesium Sulfate 1 Gm/100 Ml D5w) 1 gm in 100 mls @ 100 mls/hr IVPB ONCE ONE Stop: 09/20/17 13:49 Last Admin: 09/20/17 14:12 Dose: 100 mls/hr eMAR Start Stop Document 09/20/17 14:12 MS (Rec: 09/20/17 14:12 MS [email or web address]) Intravenous Solution Start Date 09/20/17 Start Time 14:12 Sodium Chloride (Sodium Chloride 0.9%) 1,000 mls @ 999 mls/hr IV .Q1H1M STA Stop: 09/20/17 13:49 Last Admin: 09/20/17 14:11 Dose: 999 mls/hr eMAR Start Stop Document 09/20/17 14:11 MS (Rec: 09/20/17 14:12 MS [email or web address]) Intravenous Solution Start Date 09/20/17 Start Time 14:11 End Date 09/20/17 End time 15:11 Total Infusion Time 60 Ceftriaxone Sodium (Rocephin 1 Gram Ivpb (D5w)) 1 gm in 100 mls @ 200 mls/hr IVPB STAT STA PRN Reason: Protocol Stop: 09/20/17 19:53 Last Admin: 09/20/17 20:10 Dose: 200 mls/hr eMAR Start Stop Document 09/20/17 20:10 REEDJ (Rec: 09/20/17 20:19 REEDJ [id number]) Intravenous Solution Start Date 09/20/17 Start Time 20:19 Metoclopramide HCl (Reglan) 10 mg IVP STAT STA Stop: 09/20/17 12:51 Last Admin: 09/20/17 14:11 Dose: 10 mg IVP Administration Document 09/20/17 14:11 MS (Rec: 09/20/17 14:11 MS [email or web address] Charges for Administration # of IVP Administrations 1 Sumatriptan Succinate (Imitrex Inj) 6 mg SC STAT STA Stop: 09/20/17 12:53 Last Admin: 09/20/17 14:11 Dose: 6 mg Subcutaneous Administrations Document 09/20/17 14:11 MS (Rec: 09/20/17 14:11 MS [email or web address] Injection Site MAR Injection Site Right Deltoid Charges for Administration # of Subcutaneous Administrations 1 - Scribe Statement The provider has reviewed the documentation as recorded by the Gurinder Li Provider Scribe Attestation: All medical record entries made by the Scribe were at my direction and personally dictated by me. I have reviewed the chart and agree that the record accurately reflects my personal performance of the history, physical exam, medical decision making, and the department course for this patient. I have also personally directed, reviewed, and agree with the discharge instructions and disposition. Disposition/Present on Arrival - Present on Arrival Any Indicators Present on Arrival: No History of DVT/PE: No History of Uncontrolled Diabetes: No Urinary Catheter: No History of Decub. Ulcer: No History Surgical Site Infection Following: None - Disposition Have Diagnosis and Disposition been Completed?: Yes Diagnosis: Cough, Acute flank pain, Elevated blood pressure reading, UTI (urinary tract infection) Disposition: HOME/ ROUTINE Disposition Time: 20:55 Patient Plan: Discharge Condition: FAIR Discharge Instructions (ExitCare): Hypertension (ED), Hemoptysis (ED), Flank Pain (ED), Urinary Tract Infection in Women (ED), Hypertension (DC) Print Language: ICELANDIC Additional Instructions: Make sure to see your doctor in 1-2 days DRINK PLENTY OF FLUIDS take your medications as prescribed AVOID smoking if you smoke RETURN TO ED IF worse pain, cant breath, persistent vomiting, high fever >101- 102 for hours, altered behavior, unable to urinate, heavy/persistent bleeding, passing out, chest pain, or other medical emergencies Prescriptions: Cephalexin [Keflex] 500 mg PO BID #20 capsule oxyCODONE/Acetaminophen [Percocet 5/325 mg Tab] 1 tab PO QID #12 tab Referrals: Salvatore Pollack MD [Primary Care Provider] - Follow up with primary Forms: [employer] (Turkmen)
[2017-09-20 13:48] LABS: BASO # 0.02 K/mm3 (0.0-2.0); BASO % 0.5 % (0.0-3.0); EOS # 0.1 (0.0-0.7); GRAN # 2.61 (1.4-6.5); GRAN % 59.2 % (50.0-68.0); HEMATOCRIT 37.7 % (36.0-48.0); LYMPH # 1.4 (1.2-3.4); LYMPH % 30.7 % (22.0-35.0); MEAN CELL VOLUME 82.5 fl (80.0-105.0); MEAN CORPUSCULAR HEMOGLOBIN 24.7 pg (25.0-35.0); MEAN PLATELET VOLUME 9.5 fl (7.0-11.0); MONO # 0.3 (0.1-0.6); MONO % 6.6 % (1.0-6.0); RED CELL DISTRIBUTION WIDTH 18.5 % (11.5-14.5); WHITE BLOOD COUNT 4.4 10^3/ul (4.5-11.0)
[2017-09-20 14:15] LABS: URINE BILIRUBIN NEGATIVE (NEGATIVE); URINE BLOOD LARGE (NEGATIVE); URINE GLUCOSE (UA) NEGATIVE (NEGATIVE); URINE KETONE NEGATIVE (NEGATIVE); URINE LEUKOCYTE ESTERASE MODERATE Leu/uL (NEGATIVE); URINE PROTEIN NEGATIVE mg/dL (<30 mg/dL); URINE UROBILINOGEN 0.2 E.U./dL (<1 E.U./dL)
[2017-09-20 14:17] LABS: URINE APPEARANCE CLEAR (CLEAR); URINE COLOR YELLOW (YELLOW)
[2017-09-20 14:26] LABS: URINE AMORPHOUS SEDIMENT FEW; URINE BACTERIA MOD (NEG); URINE RBC 25 - 30 /hpf (0-2)
--- NOTE | 2017-09-20 15:21 | RAD ---
HISTORY: chest pain; cough up blood COMPARISON: 07/07/2017 TECHNIQUE: Chest PA and lateral FINDINGS: LUNGS: No active pulmonary disease. PLEURA: No significant pleural effusion identified. No pneumothorax apparent. CARDIOVASCULAR: Normal. OSSEOUS STRUCTURES: No significant abnormalities. VISUALIZED UPPER ABDOMEN: Normal. OTHER FINDINGS: None. IMPRESSION: No active disease.
[2017-09-20] MEDS ORDERED: HYDROmorphone 1 mg/ml ISec IVP STA (16:27)
--- NOTE | 2017-09-20 16:41 | US ---
PROCEDURE: Ultrasound of the Kidneys HISTORY: left flank pain, hx of stones COMPARISON: None available. TECHNIQUE: Sonogram of the kidneys. FINDINGS: RIGHT KIDNEY: Measures: 12.0 cm. Normal in size, contour and echogenicity. No stone, solid mass lesion or hydronephrosis visualized. LEFT KIDNEY: Measures: 11.5 cm. Normal in size, contour and echogenicity. 4 mm nonobstructing calculus lower pole left kidney. No hydronephrosis. No mass. OTHER FINDINGS: None. IMPRESSION: 4 mm nonobstructing left lower pole renal calculus.
[2017-09-20 18:02] VITALS: TEMP 97.9
[2017-09-20] MEDS ORDERED: cefTRIAXone 1 gm 1 GM/100 ML BAG IVPB STA (19:24)
[2017-09-20 20:01] LABS: ALB/GLOB RATIO 1.3 (1.1-1.8); ALKALINE PHOSPHATASE 67 U/L (38-126); ALT/SGPT 29 U/L (7-56); AST/SGOT 21 U/L (14-36); BILIRUBIN,TOTAL < 0.1 mg/dL (0.2-1.3); BLOOD UREA NITROGEN 9 mg/dL (7-21); CALCIUM 9.2 mg/dL (8.4-10.5); CARBON DIOXIDE 21 mmol/L (21-33); CHLORIDE 113 mmol/L (98-107); GFR AFRICAN-AMERICAN > 60; GLUCOSE,RANDOM 109 mg/dL (70-110); LIPASE 111 U/L (23-300); SODIUM 144 mmol/L (132-148); TOTAL PROTEIN 7.1 g/dL (5.8-8.3)
[2017-09-20 20:12] LABS: POTASSIUM 3.5 mmol/L (3.6-5.0); TROPONIN I < 0.01 ng/mL
[2017-09-20 20:24] VITALS: RESP 18
[2017-09-20] MEDS ORDERED: Oxycodone/Acetaminophen 5/325 mg Tab PO STA (20:44)
[2017-09-20 21:10] VITALS: BP 152/83; PULSE 87; O2SAT 96
--- NOTE | 2017-09-21 10:35 | CARD ---
APPROVED REPORT EKG Measurement Heart [id number] <Conclusion> Normal sinus rhythm Normal ECG
== END 2017-09-20 21:11 | disposition home or self-care (01) ==
LOC: ED 12:16
DX: R05 Cough (principal); N39.0 Urinary tract infection, site not specified; R10.9 Unspecified abdominal pain; I10 Essential (primary) hypertension; Z87.891 Personal history of nicotine dependence
CPT/HCPCS: 71020; 76770; 80053; 81001; 83690; 84484; 85025; 87086; 93005; 96361; 96372; 96374; 96375; 99284; J0696; J1170; J1200; J2765; J3030; J3475; J7040

== ENCOUNTER 2017-10-03 10:24 | Inpatient (IN) | payer MEDICAID ==
[2017-10-03] MEDS ORDERED: Morphine 4 mg/ml ISec IVP STA (11:28)
--- NOTE | 2017-10-03 11:29 | ED PDOC ---
Arrival/HPI <Salomon Baltazar - Last Filed: 10/03/17 17:10> - General Historian: Patient - History of Present Illness Time/Duration: Other (see hpi) Context: Home <Galindo Da Silva - Last Filed: 10/03/17 20:26> - General Chief Complaint: Abdominal Pain Time Seen by Provider: 10/03/17 11:23 - History of Present Illness Narrative History of Present Illness (Text): 10/03/17 11:28 This 47 yo female with pmh htn, chron's, anemia, presents to this ED c/o diarrhea x 7 days, and urinary symptoms x 3 days. Patient also stated nausea, and vomiting x 1 day. Patient denies fever, sob, cp, rectal bleeding, dizziness or abnormal gait. (Galindo Da Silva) Past Medical History - Provider Review Nursing Documentation Reviewed: Yes - Infectious Disease Hx of Infectious Diseases: None - Tetanus Immunization Tetanus Immunization: Unknown - Reproductive Menopause: Yes - Cardiac Hx Hypertension: Yes - Pulmonary Hx Respiratory Disorders: Yes Hx Asthma: Yes Hx Pneumonia: Yes - Neurological Hx Migraine: Yes Hx Seizures: No - HEENT Hx HEENT Disorder: No - Renal Hx Renal Disorder: Yes Hx Kidney Stones: Yes - Endocrine/Metabolic Hx Endocrine Disorders: No - Hematological/Oncological Hx Anemia: Yes - Integumentary Hx Dermatological Disorder: No - Musculoskeletal/Rheumatological Hx Arthritis: Yes (KNEE,HIP,SHOULDER) Hx Fractures: Yes (right hand 2009) - Gastrointestinal Hx Crohn's Disease: Yes Hx Gastritis: Yes Hx Gastrointestinal Ulcer: Yes - Genitourinary/Gynecological Hx Sexually Transmitted Diseases: No - Psychiatric Hx Psychophysiologic Disorder: Yes Hx Anxiety: Yes Hx Depression: Yes Hx Substance Use: No - Surgical History Hx Orthopedic Surgery: Yes (R WRIST) - Anesthesia Hx Anesthesia: Yes Hx Anesthesia Reactions: No Hx Malignant Hyperthermia: No - Suicidal Assessment Feels Threatened In Home Enviroment: No <Galindo Da Silva - Last Filed: 10/03/17 20:26> Family/Social History - Physician Review Nursing Documentation Reviewed: Yes Family/Social History: Other (noncontributory) Smoking Status: Former Smoker Hx Alcohol Use: No Hx Substance Use: No Hx Substance Use Treatment: No <Galindo Da Silva - Last Filed: 10/03/17 20:26> Allergies/Home Meds <Salomon Baltazar - Last Filed: 10/03/17 17:10> <Galindo Da Silva - Last Filed: 10/03/17 20:26> Allergies/Adverse Reactions: Allergies amoxicillin Allergy (Verified 10/03/17 10:31) RASH metronidazole [From Flagyl] Allergy (Verified 10/03/17 10:31) RASH NSAIDS (Non-Steroidal Anti-Inflamma Allergy (Verified 10/03/17 10:31) SWELLING peanut Allergy (Verified 10/03/17 10:31) ANAPHYLAXIS chickpeas Allergy (Uncoded 10/03/17 10:31) RASH Home Medications: Home Meds Medication Instructions Recorded Confirmed amLODIPine [Norvasc] 10 mg PO DAILY #0 10/01/14 10/03/17 Topiramate [Topamax] 200 mg PO BID 01/09/16 10/03/17 SUMAtriptan [Imitrex Tab] 50 mg PO PRN PRN 06/07/17 10/03/17 traMADol [Ultram] 100 mg PO Q6 PRN 06/29/17 10/03/17 Review of Systems - Review of Systems Constitutional: Normal. absent: Fatigue, Weight Change, Fevers Eyes: Normal ENT: Normal Respiratory: Normal. absent: SOB, Cough Cardiovascular: Normal. absent: Chest Pain, Palpitations Gastrointestinal: Abdominal Pain, Diarrhea, Nausea, Vomiting Genitourinary Female: Frequency, Other (see hpi) Musculoskeletal: Normal Skin: Normal Neurological: Normal Endocrine: Normal Hemo/Lymphatic: Normal Psychiatric: Normal <Galindo Da Silva - Last Filed: 10/03/17 20:26> Physical Exam Temperature: Afebrile Blood Pressure: Normal Pulse: Regular Respiratory Rate: Normal Appearance: Positive for: Well-Appearing, Non-Toxic, Comfortable Pain Distress: None Mental Status: Positive for: Alert and Oriented X 3 - Systems Exam Head: Present: Atraumatic, Normocephalic Pupils: Present: PERRL Extroacular Muscles: Present: EOMI Conjunctiva: Present: Normal Mouth: Present: Moist Mucous Membranes Neck: Present: Normal Range of Motion Respiratory/Chest: Present: Clear to Auscultation, Good Air Exchange. No: Respiratory Distress, Accessory Muscle Use Cardiovascular: Present: Regular Rate and Rhythm, Normal S1, S2. No: Murmurs Abdomen: Present: Normal Bowel Sounds. No: Tenderness, Distention, Peritoneal Signs, Rebound, Guarding Back: Present: Normal Inspection. No: CVA Tenderness Upper Extremity: Present: Normal Inspection, Normal ROM, NORMAL PULSES, Neurovascularly Intact. No: Cyanosis, Edema Lower Extremity: Present: Normal Inspection, NORMAL PULSES, Normal ROM. No: Edema, CALF TENDERNESS Neurological: Present: GCS=15, CN II-XII Intact, Speech Normal, Motor Func Grossly Intact, Normal Sensory Function, Normal Cerebellar Funct, Gait Normal Skin: Present: Warm, Dry, Normal Color. No: Rashes Psychiatric: Present: Alert, Oriented x 3, Normal Insight, Normal Concentration <Da SilvaChelsie goodsonskyler hSetty - Last Filed: 10/03/17 20:26> Vital Signs Temp Pulse Resp BP Pulse Ox 10/03/17 12:24 97.6 F 82 16 150/99 H 100 10/03/17 10:33 98.7 F 84 18 162/111 H 98 10/03/17 10:24 98.6 F 80 16 151/103 H 100 Medical Decision Making <Salomon Baltazar - Last Filed: 10/03/17 17:10> Re-evaluation Time: 18:05 Reassessment Condition: Re-examined, Improving,but remains with symptoms - EKG Interpretation Interpreted by ED Physician: Yes (NSR @ 71 bpm. Normal interval) Type: 12 lead EKG Comparison: No previous EKG avail. <Chelsie Da Silvaskyler Shetty - Last Filed: 10/03/17 20:26> ED Course and Treatment: 10/03/17 17:10 Progress Notes: PROCEDURE: CENTRAL LINE PLACEMENT Performed by the emergency provider, Time: 16:55 - 17:09 Consent: Discussion of the risks, benefits, and alternatives to the procedure, along with informed consent was precluded by the urgency of the procedure and the patient condition. Timeout: A timeout to verify the correct patient, procedure, and site was performed. Indication: Anesthesia: Local anesthesia: See MAR for details. Skin Preparation: Hand hygiene performed prior to central venous catheter insertion. Sterile field, sterile drape, sterile technique, and cap and gown were used. The area was cleansed with 2% Chlorhexidine. Patient position: Location: Right Femoral Ultrasound guidance: {YES / NO } Technique: The landmarks for the line placement were identified. The vessel was cannulated and a non-tunneled 7.0 Fr triple lumen was placed using the Seldinger technique. Successful placement: {YES / NO }. Attempted 3 times. Line sutured with silk and appropriate dressing applied. Assessment: Good patency and blood return through all three lumens. The ports were appropriately flushed. See post procedure X-Ray interpretation. Post-procedure: Patient tolerated the procedure well with no immediate complications, minimal blood loss < 5 cc. (Salomon Baltazar) 10/03/17 18:[address] Celeste Hospitalist regarding patient symptoms,. We reviewed labs. pending CT abdomen and pelvis. Dr. Celeste agreed with plan for observation for intractable abdominal pain, and cystitis. 10/03/17 18:45 Patient requested Imitrex for HOROWITZ. Patient stated she takes Imitrex at home PRN for HOROWITZ. (Galindo Da Silva) - Lab Interpretations Lab Results: 10/03/17 17:00 10/03/17 17:00 Lab Results 10/03/17 17:00: Sodium 142, Potassium 3.3 L, Chloride 108 H, Carbon Dioxide 25, Anion Gap 12, BUN 9, Creatinine 0.6 L, Est GFR ( Amer) > 60, Est GFR (Non -Af Amer) > 60, Random Glucose 91, Calcium 9.2, Total Bilirubin 0.2, AST 23, ALT 37, Alkaline Phosphatase 62, Total Protein 6.3, Albumin 3.8, Globulin 2.6, Albumin/Globulin Ratio 1.5 10/03/17 17:00: WBC 3.9 L, RBC 3.56, Hgb 8.8 L D, Hct 28.8 L, MCV 80.9, MCH 24.7 L, MCHC 30.6 L, RDW 16.9 H, Plt Count 259, MPV 9.2, Gran % 49.5 L, Lymph % (Auto) 38.3 H, [place] % (Auto) 8.6 H, Eos % (Auto) 3.3, Baso % (Auto) 0.3, Gran # 1.95, Lymph # 1.5, [place] # 0.3, Eos # 0.1, Baso # 0.01 10/03/17 12:15: Urine Color Yellow, Urine Appearance Sl cloudy, Urine pH 6.0, Ur Specific [place] >= 1.030, Urine Protein Trace H, Urine Glucose (UA) Negative , Urine Ketones Negative, Urine Blood Large H, Urine Nitrate Negative, Urine Bilirubin Negative, Urine Urobilinogen 0.2, Ur Leukocyte Esterase Negative, Urine RBC Tntc, Urine WBC 5 - 10, Ur Epithelial Cells 6 - 8, Urine Bacteria Mod - RAD Interpretation Radiology Orders: 10/03/17 17:55 ABD & PELVIS W/O PO OR IV CONT [CT] Stat 10/03/17 17:56 CHEST PORTABLE [RAD] Stat - Medication Orders Current Medication Orders: Discontinued Medications Hydromorphone HCl (Dilaudid) 1 mg IVP STAT STA Stop: 10/03/17 17:04 Last Admin: 10/03/17 17:34 Dose: 1 mg MAR Pain Assessment Document 10/03/17 17:34 AB (Rec: 10/03/17 17:[id number] Pain Reassessment Is this a pain reassessment? Yes Sleep Is patient sleeping during reassessment? No Presence of Pain Presence of Pain Yes Pain Scale Used Pain Scale Used Numeric Location Pain Location Body Site Back Description Description Constant Intensity of Pain at present 8 Pain Behavior Moaning Aggravating Factors ADL's Alleviating Factors/Management Medication Techniques IVP Administration Document 10/03/17 17:34 AB (Rec: 10/03/17 17:38 [id number] Charges for Administration # of IVP Administrations 1 Sodium Chloride (Sodium Chloride 0.9%) 1,000 mls @ 999 mls/hr IV .Q1H1M STA Stop: 10/03/17 12:27 Last Admin: 10/03/17 17:33 Dose: 999 mls/hr eMAR Start Stop Document 10/03/17 17:33 AB (Rec: 10/03/17 17:[id number] Intravenous Solution Start Date 10/03/17 Start Time 17:34 End Date 10/03/17 End time 18:34 Total Infusion Time 60 Morphine Sulfate (Morphine) 4 mg IM STAT STA Stop: 10/03/17 14:32 Last Admin: 10/03/17 14:48 Dose: 4 mg MAR Pain Assessment Document 10/03/17 14:48 AB (Rec: 10/03/17 14:49 AB [id number]) Pain Reassessment Is this a pain reassessment? Yes Sleep Is patient sleeping during reassessment? No Presence of Pain Presence of Pain Yes Pain Scale Used Pain Scale Used Numeric Location Pain Location Body Site Back Description Description Constant Intensity of Pain at present 7 Pain Behavior Guarding Aggravating Factors ADL's Alleviating Factors/Management Medication Techniques IM Administration Charges Document 10/03/17 14:48 AB (Rec: 10/03/17 14:49 AB [id number]) Injection Site MAR Injection Site Left Deltoid Charges for Administration # of IM Administrations 1 Nitrofurantoin Macrocrystals (Macrobid) 100 mg PO STAT STA Stop: 10/03/17 18:49 Last Admin: 10/03/17 19:07 Dose: 100 mg Ondansetron HCl (Zofran Inj) 4 mg IVP STAT STA Stop: 10/03/17 11:28 Last Admin: 10/03/17 14:49 Dose: Ondansetron HCl (Zofran Odt) 8 mg PO STAT STA Stop: 10/03/17 14:32 Last Admin: 10/03/17 14:49 Dose: 8 mg Potassium Chloride (K-Dur 20 Meq Er Tab) 40 meq PO STAT STA Stop: 10/03/17 18:00 Last Admin: 10/03/17 19:06 Dose: 40 meq Sumatriptan Succinate (Imitrex Inj) 6 mg SC STAT STA Stop: 10/03/17 18:46 Last Admin: 10/03/17 19:07 Dose: 6 mg Subcutaneous Administrations Document 10/03/17 19:07 AB (Rec: 10/03/17 19:07 AB [id number]) Injection Site MAR Injection Site Left Deltoid Charges for Administration # of Subcutaneous Administrations 1 - Scribe Statement The provider has reviewed the documentation as recorded by the Scribe <Salomon Baltazar - Last Filed: 10/03/17 17:10> <Galindo Da Silva - Last Filed: 10/03/17 20:26> - Scribe Statement Aniyah Painter Provider Scribe Attestation: All medical record entries made by the Scribe were at my direction and personally dictated by me. I have reviewed the chart and agree that the record accurately reflects my personal performance of the history, physical exam, medical decision making, and the department course for this patient. I have also personally directed, reviewed, and agree with the discharge instructions and disposition. (Salomon Baltazar) Disposition/Present on Arrival <Salomon Baltazar - Last Filed: 10/03/17 17:10> - Present on Arrival Any Indicators Present on Arrival: No History of DVT/PE: No History of Uncontrolled Diabetes: No Urinary Catheter: No History of Decub. Ulcer: No History Surgical Site Infection Following: None - Disposition Have Diagnosis and Disposition been Completed?: Yes Disposition Time: 19:25 Patient Plan: Observation <Galindo Da Silva - Last Filed: 10/03/17 20:26> - Disposition Diagnosis: Intractable abdominal pain, Cystitis, Intractable nausea and vomiting Disposition: HOSPITALIZED Condition: STABLE
[2017-10-03 12:32] LABS: URINE BILIRUBIN NEGATIVE (NEGATIVE); URINE BLOOD LARGE (NEGATIVE); URINE GLUCOSE (UA) NEGATIVE (NEGATIVE); URINE LEUKOCYTE ESTERASE NEGATIVE Leu/uL (NEGATIVE); URINE NITRATE NEGATIVE (NEGATIVE); URINE PROTEIN TRACE mg/dL (<30 mg/dL); URINE UROBILINOGEN 0.2 E.U./dL (<1 E.U./dL)
[2017-10-03 12:34] LABS: URINE APPEARANCE SL CLOUDY (CLEAR); URINE COLOR YELLOW (YELLOW)
[2017-10-03 12:42] LABS: URINE BACTERIA MOD (NEG); URINE RBC TNTC /hpf (0-2)
[2017-10-03] MEDS ORDERED: Morphine 4 mg/ml ISec IM STA (14:31)
[2017-10-03] MEDS: Sodium Chloride 0.9% 1,000 ML IV STA ×2 (14:49→17:33)
[2017-10-03] MEDS ORDERED: HYDROmorphone 1 mg/ml ISec IVP STA (17:03)
[2017-10-03 17:53] LABS: BASO # 0.01 K/mm3 (0.0-2.0); BASO % 0.3 % (0.0-3.0); EOS # 0.1 (0.0-0.7); EOS % 3.3 % (1.5-5.0); GRAN # 1.95 (1.4-6.5); GRAN % 49.5 % (50.0-68.0); HEMOGLOBIN 8.8 g/dL (12.0-16.0); LYMPH # 1.5 (1.2-3.4); LYMPH % 38.3 % (22.0-35.0); MEAN CELL VOLUME 80.9 fl (80.0-105.0); MEAN CORPUSCULAR HEMOGLOBIN 24.7 pg (25.0-35.0); MEAN CORPUSCULAR HGB CONC 30.6 g/dl (31.0-37.0); MEAN PLATELET VOLUME 9.2 fl (7.0-11.0); MONO # 0.3 (0.1-0.6); MONO % 8.6 % (1.0-6.0); RBC 3.56 10^6/uL (3.5-6.1); RED CELL DISTRIBUTION WIDTH 16.9 % (11.5-14.5); WHITE BLOOD COUNT 3.9 10^3/ul (4.5-11.0)
[2017-10-03 17:58] LABS: ALB/GLOB RATIO 1.5 (1.1-1.8); ALBUMIN 3.8 g/dL (3.0-4.8); ALT/SGPT 37 U/L (7-56); AST/SGOT 23 U/L (14-36); BLOOD UREA NITROGEN 9 mg/dL (7-21); CALCIUM 9.2 mg/dL (8.4-10.5); GFR AFRICAN-AMERICAN > 60; GFR NON-AFRICAN AMERICAN > 60
[2017-10-03] MEDS ORDERED: Potassium Chloride 20 mEq ER Tab PO STA (17:59)
--- NOTE | 2017-10-03 19:09 | CT ---
EXAM: CT Abdomen and Pelvis Without Intravenous Contrast EXAM DATE/TIME: 10/03/2017 5:55 PM CLINICAL HISTORY: 47 years old, female; Pain; Abdominal pain; Acute; Additional info: Generalized abdominal pain TECHNIQUE: Axial computed tomography images of the abdomen and pelvis without intravenous contrast. All CT scans at this facility use one or more dose reduction techniques, viz.: automated exposure control; ma/kV adjustment per patient size (including targeted exams where dose is matched to indication; i.e. head); or iterative reconstruction technique. Coronal and sagittal reformatted images were created and reviewed. COMPARISON: CT - ABD PELVIS W/O PO OR IV CONT 2017-06-07 19:49 FINDINGS: Lower thorax: Heart size is normal. There is decreased attenuation of blood pool versus myocardium There is moderate size hiatal hernia. Lung bases are hyperinflated. There is minimal dependent atelectasis. ABDOMEN: Liver: unremarkable Gallbladder and bile ducts: unremarkable Pancreas: unremarkable Spleen: unremarkable Adrenals: unremarkable Kidneys and ureters: There is a small nonobstructing left renal stone There are no right renal stones. There are no ureteral stones There is no pelvocaliectasis or ureterectasis. Stomach and bowel: Stomach is incompletely distended. There is a small amount of radiopaque material in the stomach. Rotation is normal. There is fluid and air throughout the small bowel. There is no obstruction. Ileocecal region is unremarkable. Appendix and terminal ileum are unremarkable.Colon is incompletely distended which limits evaluation. Appendix: See stomach and bowel PELVIS: Bladder: unremarkable Reproductive: Uterus and adnexal structures are unremarkable. ABDOMEN and PELVIS: Intraperitoneal space: There is no free air. There is no free fluid. Bones/joints: There are degenerative changes in the osseus structures. Soft tissues: There is a small fat containing umbilical hernia. Vasculature: Vascular structures are unremarkable. Lymph nodes: There is no pathologic adenopathy. Tubes, lines and devices: There is a right femoral venous catheter tip in the right external iliac vein. IMPRESSION: Possible anemia; nonobstructing left renal stone, no ureteral stones or hydronephrosis; hiatal hernia; no acute solid visceral or bowel abnormality; right femoral venous catheter
--- NOTE | 2017-10-03 21:29 | CP.PCM.HP ---
<Allen Man - Last Filed: 10/04/17 20:15> History of Present Illness - History of Present Illness History of Present Illness: Ms. Soriano is a 47 year old female with a past medical history significant for HTN, Asthma, Chronic Migraines, Recurrent UTI's and Crohns disease who presented to [facility] with a chief complaint of intractable left sided abdominal and suprapubic pain with intermittent radiation to left flank and with associated nausea, vomiting and diarrhea for a duration of two days. Patient reports that two weeks ago (09/20/17) she was prescribed a two week course of Keflex for a UTI and that after she finished this medication two days ago, she began to have the abdominal pain described above. She reports that the pain is constant but fluctuates in intensity between an 8/10 and a 2/10 with no reported alleviating or aggravating factors. She reports 10 episodes of non-bloody emesis as well as 10 episodes of non-bloody watery and yellow colored diarrhea in association with her abdominal pain during this time with reported inability to tolerate PO intake. She also reports that during the course of her abdominal pain, she has had dysuria with some red colored urine intermittently. She denies any fever, chills, new headaches, changes in her vision, rhinorrhea, sore throat, dysphagia , chest pain, palpitations, SOB, cough, wheezing, hematemesis, hematochezia, melena, pyuria, vaginal discharge/bleeding, any rashes, joint pain or any numbness/tingling/weakness of any of her extremities. PMH: HTN, Asthma, Chronic Migraines, and Crohns disease PSH: C- section, Sinus surgery Family History: Breast Cancer, CAD Social History: Former tobacco smoker with 10 year pack smoking history and denies any alcohol or illicit drug use Allergies: NSAIDS (Hives), Nuts (Anaphylaxis), Flagyl, Amoxicillin Medications: Reviewed, as per [facility] PMD: Dr. Pollack GI: Dr. Roberts Present on Admission - Present on Admission Any Indicators Present on Admission: No Review of Systems - Review of Systems Review of Systems: As per HPI, otherwise negative Past Patient History - Infectious Disease Hx of Infectious Diseases: None - Tetanus Immunizations Tetanus Immunization: Unknown - Past Medical History & Family History Past Medical History?: Yes - Past Social History Smoking Status: Former Smoker - CARDIAC Hx Hypertension: Yes - PULMONARY Hx Respiratory Disorders: Yes Hx Asthma: Yes Hx Pneumonia: Yes - NEUROLOGICAL Hx Migraine: Yes Hx Seizures: No - HEENT Hx HEENT Problems: No - RENAL Hx Chronic Kidney Disease: Yes Hx Kidney Stones: Yes - ENDOCRINE/METABOLIC Hx Endocrine Disorders: No - HEMATOLOGICAL/ONCOLOGICAL Hx Anemia: Yes - INTEGUMENTARY Hx Dermatological Problems: No - MUSCULOSKELETAL/RHEUMATOLOGICAL Hx Arthritis: Yes (KNEE,HIP,SHOULDER) Hx Fractures: Yes (right hand 2010) - GASTROINTESTINAL Hx Crohn's Disease: Yes Hx Gastritis: Yes - GENITOURINARY/GYNECOLOGICAL Hx Sexually Transmitted Disorders: No - PSYCHIATRIC Hx Psychophysiologic Disorder: Yes Hx Anxiety: Yes Hx Depression: Yes Hx Substance Use: No - SURGICAL HISTORY Hx Orthopedic Surgery: Yes (R WRIST) - ANESTHESIA Hx Anesthesia: Yes Hx Anesthesia Reactions: No Hx Malignant Hyperthermia: No Meds Home Medications: Home Medication List Medication Instructions Recorded Confirmed Type Acetaminophen/Butalbital/Caf 1 tab PO BID 7 Days #14 tab 10/06/17 Rx [Fioricet] Gabapentin [Neurontin] 300 mg PO TID #0 cap 10/06/17 10/03/17 Rx Omeprazole 40 mg PO DAILY 28 Days #28 10/06/17 Rx capsule. Prednisone [Radha] See Taper PO DAILY 28 Days #28 10/06/17 Rx tablet. Allergies/Adverse Reactions: Allergies Allergy/AdvReac Type Severity Reaction Status Date / Time amoxicillin Allergy RASH Verified 10/03/17 10:31 metronidazole [From Flagyl] Allergy RASH Verified 10/03/17 10:31 NSAIDS (Non-Steroidal Allergy SWELLING Verified 10/03/17 10:31 Anti-Inflamma peanut Allergy ANAPHYLAXIS Verified 10/03/17 10:31 chickpeas Allergy RASH Uncoded 10/03/17 10:31 Physical Exam - Constitutional Appears: Non-toxic, No Acute Distress - Head Exam Head Exam: ATRAUMATIC, NORMAL INSPECTION, NORMOCEPHALIC - Eye Exam Eye Exam: EOMI, Normal appearance, PERRL Pupil Exam: NORMAL ACCOMODATION, PERRL - ENT Exam ENT Exam: Mucous Membranes Moist, Normal Exam - Neck Exam Neck exam: Positive for: Full Rom, Normal Inspection. Negative for: Lymphadenopathy, Meningismus, Tenderness, Thyromegaly - Respiratory Exam Respiratory Exam: Wheezes (Expiratory; Upper lobes bilaterally), NORMAL BREATHING PATTERN. absent: Accessory Muscle Use, Chest Wall Tenderness, Decreased Breath Sounds, Clear to Auscultation Bilateral, Prolonged Expiratory Phase, Rales, Rhonchi, Respiratory Distress, Stridor - Cardiovascular Exam Cardiovascular Exam: REGULAR RHYTHM, RRR, +S1, +S2. absent: Bradycardia, Tachycardia, Diastolic murmur, Irregular Rhythm, JVD, +S4, Systolic Murmur - GI/Abdominal Exam GI & Abdominal Exam: Normal Bowel Sounds, Soft, Tenderness (Tenderness to deep palpation in LLQ and suprapubic regions ). absent: Bruit, Diminished Bowel Sounds, Distended, Firm, Guarding, Hernia, Hyperactive Bowel Sounds, Hypoactive Bowel Sounds, Mass, Organomegaly, Pulsatile Mass, Rebound, Rigid - Rectal Exam Rectal Exam: Deferred - Extremities Exam Extremities exam: Positive for: full ROM, normal capillary refill, normal inspection, pedal pulses present. Negative for: calf tenderness, joint swelling , pedal edema, tenderness - Back Exam Back exam: FULL ROM, NORMAL INSPECTION. absent: CVA tenderness (L), CVA tenderness (R), muscle spasm, paraspinal tenderness, rash noted, tenderness, vertebral tenderness - Neurological Exam Neurological exam: Alert, CN II-XII Intact, Normal Gait, Oriented x3 - Psychiatric Exam Psychiatric exam: Normal Affect, Normal Mood - Skin Skin Exam: Dry, Intact, Normal Color, Warm Results - Vital Signs Recent Vital Signs: Last Vital Signs Temp 97.6 F 10/03/17 12:24 Pulse 82 10/03/17 12:24 Resp 16 10/03/17 12:24 BP 150/99 H 10/03/17 12:24 Pulse Ox 100 10/03/17 12:24 - Labs Result Diagrams: 10/04/17 07:00 10/04/17 07:00 - EKG Data EKG Interpreted by: Myself EKG shows normal: Sinus rhythm (NSR) Assessment & Plan - Assessment and Plan (Free Text) Assessment: 47 year old female with a past medical history significant for HTN, Asthma, Chronic Migraines, Recurrent UTI's and Crohns disease who presented to [facility] with a chief complaint of intractable left sided abdominal and suprapubic pain with intermittent radiation to left flank and with associated nausea, vomiting and diarrhea for a duration of two days. Patient found to have nonobstructing left renal stone, no ureteral stones, no hydronephrosis, and no acute solid visceral/ bowel abnormality on CT abdomen/pelvis and large blood on UA. Plan: 1. Abdominal Pain with associated Nausea/Vomiting/Diarrhea -CT Abdomen/Pelvis showed nonobstructing left renal stone, no ureteral stones, no hydronephrosis, and no acute solid visceral/bowel abnormality -Etiologies Considered: Nonobstructing stone, Crohn's flare-up, C.Diff Colitis, or gastroenteritis -Dilaudid 0.5mg IVP Q4H PRN for pain control -Zofran 4mg Q4H IVP PRN for N/V -NS at 100mls/hr -Vitamin A/D ointment PRN for dry mouth -FOBT, Fecal Leukocytes, Stool Culture, Blood Culture, C. Diff Toxin/Antigen, ESR and Procalcitonin -NPO diet -Daily CBC and CMP -GI consulted 2. Hematuria -UA showing large blood -Etiologies Considered: Nonobstructing renal stone -Urine Culture pending -Urology Consulted 3. History of Asthma -Duonebs 3ml IH Q4H PRN -Continue home Albuterol inhaler 4. History of HTN -Hydralazine 10mg IVP Q6 GI Prophylaxis: Protonix DVT Prophylaxis: SCD's Patient seen and case discussed with attending, Dr. Karoline Celeste. - Date & Time Date: 10/03/17 Time: 23:17 Decision To Admit - Pt Status Changed To: Hospital Disposition Of: Observation - . Bed Request Type: Med/Surg <Karoline Celeste N - Last Filed: 10/08/17 03:40> Results - Vital Signs Recent Vital Signs: Last Vital Signs Temp 99 F 10/06/17 06:00 Pulse 100 H 10/06/17 06:10 Resp 20 10/06/17 06:00 BP 161/93 H 10/06/17 11:45 Pulse Ox 98 10/06/17 06:00 - Labs Result Diagrams: 10/06/17 06:45 10/06/17 06:45
[2017-10-03] MEDS ORDERED: HYDROmorphone 0.5 mg/0.5 ml ISec IVP PRN (22:31)
[2017-10-03] MEDS ORDERED: Albuterol HFA 90 mcg/actuation (8 g) IH PRN (22:34)
[2017-10-03] MEDS ORDERED: Vitamins A & D Oint UD Foilpak TOP PRN (22:43)
[2017-10-03] MEDS ORDERED: Albuterol 0.083% Inhal Sol (2.5 mg/3 mL) UD IH PRN (22:48)
[2017-10-03 22:54] VITALS: BMI 29.0
[2017-10-03] MEDS ORDERED: Pneumococcal 23-Valent Vaccine IM ONE (22:54)
[2017-10-03] MEDS ORDERED: Influenza Vaccine 60 mcg/0.5 mL SYR (4YR UP) IM ONE (22:54)
[2017-10-03] MEDS: Sodium Chloride 0.9% 1,000 ML IV SCH (22:57)
[2017-10-03] MEDS: Albuterol-Ipratrop 3 mg / 0.5 (3 ml) UD IH SCH (23:17)
[2017-10-04] MEDS ORDERED: HYDROmorphone 1 mg/ml ISec IVP PRN (00:10)
[2017-10-04] MEDS: Albuterol-Ipratrop 3 mg / 0.5 (3 ml) UD IH SCH ×5 (05:15→20:35)
[2017-10-04] MEDS: HYDROmorphone 0.5 mg/0.5 ml ISec IVP PRN ×3 (05:22→14:19)
[2017-10-04] MEDS ORDERED: metroNIDAZOLE IV 500 mg/100 ml 500 MG/100 ML BAG IVPB SCH (06:00)
[2017-10-04 07:29] LABS: BASO # 0.01 K/mm3 (0.0-2.0); BASO % 0.2 % (0.0-3.0); EOS # 0.1 (0.0-0.7); GRAN # 3.01 (1.4-6.5); GRAN % 67.5 % (50.0-68.0); HEMOGLOBIN 8.6 g/dL (12.0-16.0); LYMPH % 22.9 % (22.0-35.0); MEAN CELL VOLUME 81.7 fl (80.0-105.0); MEAN CORPUSCULAR HEMOGLOBIN 24.6 pg (25.0-35.0); MEAN CORPUSCULAR HGB CONC 30.2 g/dl (31.0-37.0); MEAN PLATELET VOLUME 9.1 fl (7.0-11.0); MONO # 0.3 (0.1-0.6); MONO % 7.4 % (1.0-6.0); RBC 3.49 10^6/uL (3.5-6.1); WHITE BLOOD COUNT 4.5 10^3/ul (4.5-11.0)
[2017-10-04 07:51] LABS: ALB/GLOB RATIO 1.4 (1.1-1.8); ALBUMIN 3.5 g/dL (3.0-4.8); ALT/SGPT 29 U/L (7-56); AST/SGOT 22 U/L (14-36); BLOOD UREA NITROGEN 10 mg/dL (7-21); CALCIUM 8.9 mg/dL (8.4-10.5); GFR AFRICAN-AMERICAN > 60; GFR NON-AFRICAN AMERICAN > 60; MAGNESIUM 1.6 mg/dL (1.7-2.2)
--- NOTE | 2017-10-04 08:37 | RAD ---
HISTORY: Cough COMPARISON: 1919. FINDINGS: LUNGS: The lungs are well inflated. PLEURA: No significant pleural effusion identified, no pneumothorax apparent. CARDIOVASCULAR: Normal. OSSEOUS STRUCTURES: No significant abnormalities. VISUALIZED UPPER ABDOMEN: Normal. OTHER FINDINGS: None. IMPRESSION: No active pulmonary disease.
[2017-10-04] MEDS ORDERED: Magnesium Sulfate 1 gm in D5W 1 GM/100 ML BAG IVPB ONE (09:14)
--- NOTE | 2017-10-04 09:49 | CARD ---
APPROVED REPORT EKG Measurement Heart [id number] <Conclusion> Normal sinus rhythm Normal ECG
[2017-10-04] MEDS ORDERED: levoFLOXacin 500 mg in D5W 500 MG/100 ML BAG IVPB SCH (10:00)
[2017-10-04 11:58] LABS: BARBITURATES, UR POSITIVE (NEGATIVE); BENZODIAZEPINES, UR NEGATIVE (NEGATIVE); OPIATES, UR POSITIVE (NEGATIVE); PHENCYCLIDINE, UR NEGATIVE (NEGATIVE)
--- NOTE | 2017-10-04 12:45 | CP.PCM.PN ---
Subjective - Date & Time of Evaluation Date of Evaluation: 10/04/17 Time of Evaluation: 06:45 - Subjective Subjective: Patient seen and examined at bedside this morning stating she has a severe headache. Patient states that the headache is causing her to vomit. Patient also endorses left sided abdominal/flank pain which radiates to the groin, hematuria x4 days, dysuria, and difficulty producing urine, and migraines. Patient denies chest pain, shortness of breath, and cough. Objective - Vital Signs/Intake and Output Vital Signs (last 24 hours): Temp Pulse Resp BP Pulse Ox 98.4 F 83 20 173/102 H 98 10/03/17 23:37 10/04/17 05:22 10/03/17 23:37 10/04/17 05:22 10/03/17 23:37 - Medications Medications: Current Medications Albuterol Sulfate (Albuterol 0.083% Inhal Keira (2.5 Mg/3 Ml) Ud) 2.5 mg IH [id number] PRN PRN Reason: Cough and congestion Albuterol/Ipratropium (Duoneb 3 Mg/0.5 Mg (3 Ml) Ud) 3 ml IH [id number] SUZAN Last Admin: 10/04/17 11:21 Dose: Not Given Amlodipine Besylate (Norvasc) 10 mg PO DAILY SUZAN Gabapentin (Neurontin) 300 mg PO TID SUZAN PRN Reason: Protocol Hydralazine HCl (Apresoline) 10 mg IVP Q6 SUZAN Last Admin: 10/04/17 05:22 Dose: 10 mg Hydromorphone HCl (Dilaudid) 1 mg IVP Q4H PRN PRN Reason: pain Last Admin: 10/04/17 09:37 Dose: 1 mg Sodium Chloride (Sodium Chloride 0.9%) 1,000 mls @ 100 mls/hr IV .Q10H [facility] Last Admin: 10/03/17 22:57 Dose: 100 mls/hr Levofloxacin/Dextrose (Levaquin 500mg) 500 mg in 100 mls @ 100 mls/hr IVPB DAILY SUZAN PRN Reason: Protocol Stop: 10/07/17 23:59 Last Admin: 10/04/17 10:03 Dose: 100 mls/hr Metoclopramide HCl (Reglan) 5 mg IVP ONCE STA Stop: 10/04/17 12:45 Ondansetron HCl (Zofran Inj) 4 mg IVP Q4H PRN PRN Reason: Nausea/Vomiting Last Admin: 10/04/17 09:37 Dose: 4 mg Pantoprazole Sodium (Protonix Inj) 40 mg IVP DAILY SUZAN Last Admin: 10/04/17 09:37 Dose: 40 mg Topiramate (Topamax) 200 mg PO BID SUZAN PRN Reason: Protocol Vitamin A (Vitamin A & D Oint Ud Foilpak) 1 ea TOP Q2 PRN PRN Reason: Dry mouth - Labs Labs: 10/04/17 07:00 10/04/17 07:00 - Constitutional Appears: Non-toxic, No Acute Distress - Head Exam Head Exam: ATRAUMATIC, NORMAL INSPECTION, NORMOCEPHALIC - ENT Exam ENT Exam: Mucous Membranes Moist, Normal Exam - Neck Exam Neck Exam: Normal Inspection - Respiratory Exam Respiratory Exam: Wheezes (B/L upper and lower lobes), NORMAL BREATHING PATTERN. absent: Clear to Ausculation Bilateral, Rhonchi - Cardiovascular Exam Cardiovascular Exam: REGULAR RHYTHM, +S1, +S2. absent: Murmur - GI/Abdominal Exam GI & Abdominal Exam: Soft, Tenderness (right upper and lower quadrants, left upper and lower quadrants, suprapubic region). absent: Firm, Guarding, Rigid - Extremities Exam Extremities Exam: absent: Calf Tenderness, Pedal Edema - Back Exam Back Exam: CVA tenderness (L), NORMAL INSPECTION - Neurological Exam Neurological Exam: Alert, Awake, Oriented x3 - Skin Skin Exam: Intact, Normal Color, Warm Assessment and Plan - Assessment and Plan (Free Text) Assessment: 47 year old female with a past medical history significant for HTN, Asthma, Chronic Migraines, Recurrent UTI's and Crohns disease who presented [place] [facility] a chief complaint of intractable left sided abdominal and suprapubic pain with intermittent radiation to left flank and with associated nausea, vomiting and diarrhea for a duration of two days. Patient found to have nonobstructing left renal stone, no ureteral stones, no hydronephrosis, and no acute solid visceral/ bowel abnormality on CT abdomen/pelvis and large blood on UA. Plan: 1. Abdominal Pain with associated Nausea/Vomiting/Diarrhea -CT Abdomen/Pelvis showed nonobstructing left renal stone, no ureteral stones, no hydronephrosis, and no acute solid visceral/bowel abnormality -Morphine 4mg IVP Q4H PRN for pain control -Zofran 4mg Q4H IVP PRN for N/V; Trial of Reglan, consider switching from zofran to reglan if better response -NS at 100mls/hr -Vitamin A/D ointment PRN for dry mouth -FOBT; results pending -Fecal Leukocytes; results pending -Stool Culture; results pending -Blood Culture; results pending -C. Diff Toxin/Antigen; results pending -ESR 10 and Procalcitonin: 0.05 -Will continue with NPO diet as patient is still unable to tolerate PO, will consider advancing diet based on patient's improvements. -Daily CBC and CMP -GI consulted 2. Hematuria -UA showing large blood -Etiologies Considered: Nonobstructing renal stone 4 mm -Urine Culture; final no growth -Urology Consulted; recommendations appreciated 3. History of Asthma -Duonebs 3ml IH Q4H PRN -Continue home Albuterol inhaler 4. History of HTN -Hydralazine 10mg IVP Q6; amlodipine placed on hold due to patient unable to tolerate PO 5. Migraines - Will hold imitrex and restart Topomax 200 mg BID 6. Anemia - Hgb on last admission on 09/20/17 was 11.3, currently 8.6 - Iron workup ordered; results pending - Vitamin B12 and Folate; results pending GI Prophylaxis: Protonix DVT Prophylaxis: SCD's Patient seen and case discussed with attending, Dr. Celeste.
[2017-10-04] MEDS: Sodium Chloride 0.9% 1,000 ML IV SCH (15:05)
[2017-10-04] MEDS: Morphine 4 mg/ml ISec IVP PRN (18:00)
[2017-10-04] MEDS ORDERED: HYDROmorphone 0.5 mg/0.5 ml ISec IVP STA (21:21)
[2017-10-04 21:26] LABS: FERRITIN 5.2 ng/mL
[2017-10-04 21:57] LABS: FOLATE 10.8 ng/mL
[2017-10-05] MEDS: Morphine 4 mg/ml ISec IVP PRN ×3 (00:09→07:18)
[2017-10-05] MEDS: Albuterol-Ipratrop 3 mg / 0.5 (3 ml) UD IH SCH ×7 (02:36→23:30)
[2017-10-05] MEDS ORDERED: Morphine 2 mg/ml ISec IVP PRN (07:48)
--- NOTE | 2017-10-05 08:25 | CON ---
DATE: 10/04/2017 HISTORY OF PRESENT ILLNESS: I saw Ms. Soriano this morning. She is a 47-year-old white female known to consultants with past medical history of hypertension, asthma, migraines, recurrent urinary tract infection, inflammatory bowel disease, presented with chief complaint of intractable abdominal pain, nausea and vomiting, which has been going on basically over the past 3 weeks. This will be different than noted in past H and P. She reported recurrent episodes of nausea, also flank pain. She has been undergoing treatment for a urinary tract infection with Macrobid several weeks with no resolution. Note that there has been no rectal bleeding or any hematemesis. The abdomen is distended. She has been having trouble eating through symptoms. PHYSICAL EXAMINATION: VITAL SIGNS: I reviewed this patient's vital signs. HEENT: Significant for dry mouth. LUNGS: Decreased breath sounds, basilar. HEART: Irregular rhythm. ABDOMEN: Mildly distended. She tender in the epigastric area as well as in the left upper quadrant, subcostal. There is some mild distention in the periumbilical area with periumbilical tenderness. Tenderness also extends to the right periumbilical, the left periumbilical and the left lower quadrant as well as suprapubic. Palpation of the left flank especially is tender. LABORATORY DATA: I reviewed this patient's laboratory data which includes white count 3.9, H and H of 8.8 and 28 with platelet count 259. Chemistry significant for potassium 3.3, rest noncontributory. Urine indicates with trace protein, some urine wbcs and moderate bacteria. Review of the abdomen and pelvis CT indicate a hiatal hernia, which she has had in the past, atelectasis, food in the small bowel, incomplete distention of the colon. There was also an nonobstructing left renal stone without hydronephrosis. OVERALL ASSESSMENT: This is a 47-year-old white female who appears to have been suffering a flare of inflammatory bowel disease over the past couple of weeks in addition to urinary tract infection. Patient is taking anything prophylactically for inflammatory bowel situation in the form of mesalamine, 6-MP, steroid, etc. In view of the orders she is on nitrofurantoin plus pantoprazole daily as well as IV fluid as well as Zofran. Since I have had experienced with this patient on multiple occasions prior, I will initiate Levaquin and Flagyl, which has been effective for this patient previously. We could also use Rocephin and Flagyl for similar response. Note that if the symptoms resolve some degree, I might initiate a very small volume of liquid diet later in the day. Dom Roberts DO
[2017-10-05 08:26] LABS: BASO # 0.01 K/mm3 (0.0-2.0); BASO % 0.2 % (0.0-3.0); EOS % 0.5 % (1.5-5.0); GRAN # 4.45 (1.4-6.5); GRAN % 76.9 % (50.0-68.0); LYMPH # 0.8 (1.2-3.4); LYMPH % 14.5 % (22.0-35.0); MEAN CELL VOLUME 81.7 fl (80.0-105.0); MEAN CORPUSCULAR HEMOGLOBIN 24.5 pg (25.0-35.0); MEAN PLATELET VOLUME 9.1 fl (7.0-11.0); MONO # 0.5 (0.1-0.6); MONO % 7.9 % (1.0-6.0); RBC 3.67 10^6/uL (3.5-6.1); WHITE BLOOD COUNT 5.8 10^3/ul (4.5-11.0)
[2017-10-05 08:34] LABS: IRON 12 ug/dL (45-180)
[2017-10-05 08:39] LABS: ALB/GLOB RATIO 1.4 (1.1-1.8); ALBUMIN 3.6 g/dL (3.0-4.8); ALT/SGPT 36 U/L (7-56); AST/SGOT 23 U/L (14-36); BLOOD UREA NITROGEN 9 mg/dL (7-21); GFR AFRICAN-AMERICAN > 60; GFR NON-AFRICAN AMERICAN > 60
--- NOTE | 2017-10-05 08:42 | CON ---
DATE: 10/04/2017 CONSULTATION CHIEF COMPLAINT: Abdominal pain and vomiting. HISTORY OF PRESENT ILLNESS: This is a 47-year-old female with a history of Crohn disease who presented to [facility] with complaint of left-sided abdominal pain and suprapubic pain for the past 3 days. The patient also had associated nausea and vomiting. She reports vomiting this morning and complaining of a severe headache. She denies any fever or chills, but does report taking antibiotic recently for a urinary tract infection. Pain is moderate to severe. There are no obvious aggravating or alleviating factors. She did have dysuria which improved with the antibiotics, but denies any gross hematuria. She does have mild frequency and occasional urgency. She has multiple other somatic complaints. PAST MEDICAL HISTORY: Significant for Crohn disease, migraine headaches, hypertension, asthma. MEDICATIONS: Include albuterol, hydralazine, DuoNeb, Levaquin, morphine, Neurontin, Norvasc, Protonix, Reglan, Topamax and the ointment Zofran. ALLERGIES: ALLERGIC TO AMOXICILLIN, METRONIDAZOLE, NONSTEROIDALS, AND NUTS. FAMILY HISTORY: Noncontributory for this acute problem. SOCIAL HISTORY: Positive for smoking in the past but quit. Denies any EtOH or other drugs. REVIEW OF SYSTEMS: Positive for abdominal pain, positive for urinary frequency. Positive for back pain, left flank pain. Positive for nausea. Positive for vomiting. Positive for weakness and lethargy. Positive for headache. Other systems are negative. PHYSICAL EXAMINATION: GENERAL: The patient is awake and alert and answering questions. She is lying in her bed at [facility]. VITAL SIGNS: Show she is afebrile. Temperature of 98.4 last night, pulse is currently 82, respirations 18. NECK: Supple. There is no adenopathy. CHEST: Reveals normal inspiratory effort. CARDIAC: Showed positive S1, S2. There is some trace peripheral edema. ABDOMEN: The abdomen is soft. There is mild diffuse tenderness worse in the left upper quadrant. There is some mild left CVA tenderness and there is positive low back tenderness. EXTREMITIES: There is no cyanosis with trace edema. LABORATORY DATA: WBC count 4.5, hemoglobin 8.6, BUN of 10 with a creatinine of 0.5. GFR greater than 60. Urinalysis showed large blood, too numerous to count RBCs, 5-10 WBCs, positive epithelial cells, trace protein. Urine culture showed no growth. On radiologic exam, the patient had a CT scan of the abdomen and pelvis without oral or IV contrast. In the kidneys, there was a small nonobstructing left renal stone. There are no right renal stones. There is no pelvocaliectasis or ureterectasis. Bladder was unremarkable. There are no noted bowel abnormalities. IMPRESSION AND PLAN: The patient does not appear to have renal colic. CT scan shows a small nonobstructing stone. This would not be responsible for the patient's clinical symptoms. There is no hydronephrosis or no dilation of the ureter. It is possible that the patient passed a small stone previously, although this is unlikely. Possibly, the patient had a urinary infection with pyelonephritis which was treated with the outpatient Keflex she was taking. More likely, the patient's symptoms are bowel and GI related, and she does have a history of Crohn disease. There are no obvious bowel issues noted on the CT scan as well. The etiology of her pain remains obscure at this point. The patient having severe migraine headaches which could possibly be causing her vomiting and worsening her pain. Plan will be continue IV fluids and antibiotics she is currently on. RECOMMENDATIONS: Recommend a GI consultation. Hopefully, the patient's symptoms will improve with conservative management. I discussed with the patient that she does have hematuria which is likely from the prior urinary infection, and I would recommend the patient have outpatient urologic followup as she does have a small stone and hematuria. No acute urologic intervention appears necessary at this time. Thank you for allowing me to participate the care of this patient. We will follow her with you. Chris Lew MD
[2017-10-05 08:43] LABS: TOTAL IRON BINDING CAPACITY 288 ug/dL (265-497)
[2017-10-05 08:44] LABS: % IRON SATURATION 4 % (20-55)
[2017-10-05] MEDS: Sodium Chloride 0.9% 1,000 ML IV SCH ×2 (11:25→22:12)
--- NOTE | 2017-10-05 11:36 | PN ---
DATE: 10/05/2017 SUBJECTIVE: I saw Ms. Soriano this morning. This is a 47-year-old white female, known to the consultants, admitted with complaints of nausea, vomiting, abdominal pain, diarrhea, which has been going on over the past several weeks. It is probably attributed to flare of her inflammatory bowel disease. dose of Levaquin yesterday, which has helped in the past; however, she noted no relief, so this will be discontinued. At the bedside this morning, she still indicates severe abdominal pain, which is diffuse, nauseous as well. Abdomen is still distended. PHYSICAL EXAMINATION: VITAL SIGNS: I reviewed this patient's vital signs. HEENT: Significant for dry mouth. LUNGS: Clear to auscultation. HEART: Regular rhythm. ABDOMEN: Soft, tender diffusely especially periumbilical, left upper quadrant, left lower quadrant, epigastric area. ASSESSMENT: This is a 47-year-old white female, admitted with quite possibly a flare of Crohn's disease, not responding to IV antibiotics. Since she has responded to doses of moderate-dose steroids in the past, we will initiate the same today. She did have 2 doses of hydrocortisone 100 mg to be started this morning. Dom Roberts DO
[2017-10-05] MEDS: Morphine 2 mg/ml ISec IVP PRN ×2 (15:21→19:51)
--- NOTE | 2017-10-05 20:12 | CP.PCM.PN ---
<Jeramie Augustin - Last Filed: 10/06/17 05:52> Subjective - Date & Time of Evaluation Date of Evaluation: 10/05/17 Time of Evaluation: 07:00 - Subjective Subjective: Patient seen and examined at bedside this morning. Objective - Vital Signs/Intake and Output Vital Signs (last 24 hours): Temp Pulse Resp BP Pulse Ox 98.9 F 90 16 153/83 H 100 10/05/17 08:00 10/05/17 18:36 10/05/17 08:00 10/05/17 18:36 10/05/17 08:00 - Medications Medications: Current Medications Albuterol Sulfate (Albuterol 0.083% Inhal Keira (2.5 Mg/3 Ml) Ud) 2.5 mg IH [id number] PRN PRN Reason: Cough and congestion Albuterol/Ipratropium (Duoneb 3 Mg/0.5 Mg (3 Ml) Ud) 3 ml IH [id number] [facility] Last Admin: 10/05/17 17:49 Dose: 3 ml Amlodipine Besylate (Norvasc) 10 mg PO DAILY [facility] Last Admin: 10/04/17 10:00 Dose: Not Given Gabapentin (Neurontin) 300 mg PO TID SUZAN PRN Reason: Protocol Last Admin: 10/05/17 15:44 Dose: Not Given Hydralazine HCl (Apresoline) 10 mg IVP Q6 [facility] Last Admin: 10/05/17 18:36 Dose: 10 mg Sodium Chloride (Sodium Chloride 0.9%) 1,000 mls @ 100 mls/hr IV .Q10H [facility] Last Admin: 10/05/17 11:25 Dose: 100 mls/hr Metoclopramide HCl (Reglan) 5 mg IVP Q6 [facility] Last Admin: 10/05/17 18:37 Dose: 5 mg Morphine Sulfate (Morphine) 1 mg IVP Q4 PRN PRN Reason: Pain, severe (8-10) Last Admin: 10/05/17 19:51 Dose: 1 mg Pantoprazole Sodium (Protonix Inj) 40 mg IVP DAILY [facility] Last Admin: 10/05/17 09:32 Dose: 40 mg Topiramate (Topamax) 200 mg PO BID SUZAN PRN Reason: Protocol Last Admin: 10/05/17 10:00 Dose: Not Given Vitamin A (Vitamin A & D Oint Ud Foilpak) 1 ea TOP Q2 PRN PRN Reason: Dry mouth - Labs Labs: 10/05/17 08:00 10/05/17 08:00 Assessment and Plan - Assessment and Plan (Free Text) Assessment: 47 year old female with a past medical history significant for HTN, Asthma, Chronic Migraines, Recurrent UTI's and Crohns disease who presented to [facility] [place] with a chief complaint of intractable left sided abdominal and suprapubic pain with intermittent radiation to left flank and with associated nausea, vomiting and diarrhea for a duration of two days. Patient found to have nonobstructing left renal stone, no ureteral stones, no hydronephrosis, and no acute solid visceral/ bowel abnormality on CT abdomen/pelvis and large blood on UA. Plan: 1. Abdominal Pain with associated Nausea/Vomiting/Diarrhea -CT Abdomen/Pelvis showed nonobstructing left renal stone, no ureteral stones, no hydronephrosis, and no acute solid visceral/bowel abnormality -Morphine 4mg IVP Q4H PRN for pain control -Reglan 5 mg q6h -NS at 100mls/hr -Vitamin A/D ointment PRN for dry mouth -Blood Culture; no growth after 24 hours -ESR 10 and Procalcitonin: 0.05 -Will continue advance patient's diet to clear liquids and see if patient tolerates -Daily CBC and CMP -GI on board; recommends levaquin and flagyl 2. Hematuria -UA showing large blood -Etiologies Considered: Nonobstructing renal stone 4 mm -Urine Culture; final no growth 3. History of Asthma -Duonebs 3ml IH Q4H PRN -Continue home Albuterol inhaler 4. History of HTN -Hydralazine 10mg IVP Q6; amlodipine placed on hold due to patient unable to tolerate PO 5. Migraines - Topomax BID; patient states she cannot tolerate PO at the moment - Reglan is treating patient's migraines/nausea/vomiting/pain currently as per patient 6. Anemia - Hgb on last admission on 09/20/17 was 11.3, currently 8.6 - Iron workup ordered; anemia of chronic disease - Vitamin B12; low, Folate; normal GI Prophylaxis: Protonix DVT Prophylaxis: SCD's Patient seen and case discussed with attending, Dr. Bouchra Augustin PGY1 <Shailesh Shook - Last Filed: 10/06/17 14:30> Objective - Vital Signs/Intake and Output Vital Signs (last 24 hours): Temp Pulse Resp BP Pulse Ox 99 F 100 H 20 161/93 H 98 10/06/17 06:00 10/06/17 06:10 10/06/17 06:00 10/06/17 11:45 10/06/17 06:00 Intake and Output: 10/06/17 10/06/17 06:59 18:59 Intake Total 3480 700 Balance 3480 700 - Medications Medications: Current Medications Albuterol Sulfate (Albuterol 0.083% Inhal Keira (2.5 Mg/3 Ml) Ud) 2.5 mg IH [id number] PRN PRN Reason: Cough and congestion Albuterol/Ipratropium (Duoneb 3 Mg/0.5 Mg (3 Ml) Ud) 3 ml IH [id number] [facility] Last Admin: 10/06/17 11:21 Dose: 3 ml Amlodipine Besylate (Norvasc) 10 mg PO DAILY [facility] Last Admin: 10/06/17 11:45 Dose: 10 mg Gabapentin (Neurontin) 300 mg PO TID SUZAN PRN Reason: Protocol Last Admin: 10/06/17 11:41 Dose: 300 mg Hydralazine HCl (Apresoline) 10 mg IVP Q6 [facility] Last Admin: 10/06/17 11:43 Dose: 10 mg Sodium Chloride (Sodium Chloride 0.9%) 1,000 mls @ 100 mls/hr IV .Q10H [facility] Last Admin: 10/06/17 11:43 Dose: 100 mls/hr Metoclopramide HCl (Reglan) 5 mg IVP Q6 [facility] Last Admin: 10/06/17 11:40 Dose: 5 mg Pantoprazole Sodium (Protonix Inj) 40 mg IVP DAILY [facility] Last Admin: 10/06/17 11:39 Dose: 40 mg Topiramate (Topamax) 200 mg PO BID SUZAN PRN Reason: Protocol Last Admin: 10/06/17 11:42 Dose: 200 mg Tramadol HCl (Ultram) 100 mg PO Q6 PRN PRN Reason: Pain, moderate (4-7) Last Admin: 10/06/17 11:41 Dose: 100 mg Vitamin A (Vitamin A & D Oint Ud Foilpak) 1 ea TOP Q2 PRN PRN Reason: Dry mouth - Labs Labs: 10/06/17 06:45 10/06/17 06:45 Attending/Attestation - Attestation I have personally seen and examined this patient.: Yes I have fully participated in the care of the patient.: Yes I have reviewed all pertinent clinical information, including history, physical exam and plan: Yes Notes (Text): 10/06/17 14:28 Patient was seen and examined with ophthalmic medical technologist. Agreed with assessment and plan. 47 year old female with a past medical history significant for HTN, Asthma, Chronic Migraines, Recurrent UTI's and Crohns disease who presented to [facility] [place] with a chief complaint of intractable left sided abdominal and suprapubic pain with intermittent radiation to left flank and with associated nausea, vomiting and diarrhea for a duration of two days. Patient found to have nonobstructing left renal stone, no ureteral stones, no hydronephrosis, and no acute solid visceral/ bowel abnormality on CT abdomen/pelvis .Patient was evaluated by GI and was started on Pulse steroid therapy.She is feeling better, we will start patient on liquid diet and will monitor closely.Patient is afebrile.Diarrhea has resolved.If she keeps improving, can be discharged home in 24 hour on oral prednisone.
[2017-10-05] MEDS ORDERED: Morphine 2 mg/ml ISec IVP STA (21:50)
[2017-10-05 22:19] VITALS: RESP 20
[2017-10-06] MEDS: Morphine 2 mg/ml ISec IVP PRN ×2 (02:29→06:33)
[2017-10-06] MEDS: Albuterol-Ipratrop 3 mg / 0.5 (3 ml) UD IH SCH ×4 (04:00→15:46)
[2017-10-06 06:16] VITALS: BP 161/93; PULSE 100
[2017-10-06 07:17] LABS: BASO # 0.01 K/mm3 (0.0-2.0); BASO % 0.2 % (0.0-3.0); EOS % 0.2 % (1.5-5.0); GRAN # 3.1 (1.4-6.5); GRAN % 59.1 % (50.0-68.0); HEMOGLOBIN 8.7 g/dL (12.0-16.0); LYMPH # 1.7 (1.2-3.4); LYMPH % 33.2 % (22.0-35.0); MEAN CELL VOLUME 82.7 fl (80.0-105.0); MEAN CORPUSCULAR HEMOGLOBIN 24.3 pg (25.0-35.0); MEAN CORPUSCULAR HGB CONC 29.4 g/dl (31.0-37.0); MEAN PLATELET VOLUME 9.3 fl (7.0-11.0); MONO # 0.4 (0.1-0.6); MONO % 7.3 % (1.0-6.0); RBC 3.58 10^6/uL (3.5-6.1); RED CELL DISTRIBUTION WIDTH 17.3 % (11.5-14.5); WHITE BLOOD COUNT 5.2 10^3/ul (4.5-11.0)
--- NOTE | 2017-10-06 07:36 | PN ---
DATE: 10/06/2018 SUBJECTIVE: I saw Ms. Soriano this morning. This is a 47-year-old white female, known to the consultants, past medical history of Crohn's disease, admitted for complaints of nausea, vomiting, abdominal pain, diarrhea. The patient was placed initially on Levaquin with no result; however, after initiation of pulse steroids yesterday in form of hydrocortisone, the patient made significant progress. She indicated at the bedside this morning that she has an extremely urgent neurology appointment at [facility] this morning and early afternoon. PHYSICAL EXAMINATION: VITAL SIGNS: I reviewed this patient's vital signs. HEENT: Noncontributory. LUNGS: Clear to auscultation. HEART: Regular rhythm. ABDOMEN: Soft while suspended. There is very mild tenderness in the right lower quadrant in the periumbilical area. crystalizer tender in the left upper quadrant, the left periumbilical and the left lower quadrant, but significantly less. ASSESSMENT: This is a 47-year-old white female with a history of inflammatory bowel disease, admitted for flare of the above. Also, noted to have an accessory stone in the urinary tract. Based on response, I do not think the latter is responsive for her clinical presentation. Because of her urgent neurology appointment, which she "absolutely must" have today, ordered the 2 pulse dose steroids both at 06:00 and 10:30 this morning. Afterwards, she was started tapering doses of prednisone as an outpatient starting at 35 mg daily with diet discretion. The patient will be followed up by the hospital for her neurology appointment in [place]. Dom Roberts DO
[2017-10-06 08:08] LABS: ALB/GLOB RATIO 1.4 (1.1-1.8); ALBUMIN 3.3 g/dL (3.0-4.8); ALT/SGPT 77 U/L (7-56); AST/SGOT 57 U/L (14-36); BLOOD UREA NITROGEN 6 mg/dL (7-21); CALCIUM 8.8 mg/dL (8.4-10.5); GFR AFRICAN-AMERICAN > 60; GFR NON-AFRICAN AMERICAN > 60
[2017-10-06 09:05] VITALS: TEMP 99; O2SAT 98
[2017-10-06] MEDS ORDERED: Potassium Chloride 40 mEq/30 ml LIQ UD PO ONE (09:07)
[2017-10-06] MEDS: Sodium Chloride 0.9% 1,000 ML IV SCH (11:43)
--- NOTE | 2017-10-06 20:24 | CP.PCM.DIS ---
<Jeramie Augustin - Last Filed: 10/06/17 21:58> Provider - Provider Date of Admission: 10/04/17 12:19 Attending physician: Juan Celeste MD Primary care physician: GI: Dr. Roberts Time Spent in preparation of Discharge (in minutes): 45 Diagnosis - Discharge Diagnosis (1) Crohn's disease Status: Chronic Priority: High (2) Chronic migraine Status: Chronic Priority: High (3) Chronic UTI Status: Chronic Priority: Medium (4) Asthma Status: Chronic Priority: Medium Hospital Course - Lab Results Lab Results: Most Recent Lab Values WBC 5.2 10^3/ul (4.5-11.0) 10/06/17 06:45 RBC 3.58 10^6/uL (3.5-6.1) 10/06/17 06:45 Hgb 8.7 g/dL (12.0-16.0) L 10/06/17 06:45 Hct 29.6 % (36.0-48.0) L 10/06/17 06:45 MCV 82.7 fl (80.0-105.0) 10/06/17 06:45 MCH 24.3 pg (25.0-35.0) L 10/06/17 06:45 MCHC 29.4 g/dl (31.0-37.0) L 10/06/17 06:45 RDW 17.3 % (11.5-14.5) H 10/06/17 06:45 Plt Count 331 10^3/uL (120.0-450.0) 10/06/17 06:45 MPV 9.3 fl (7.0-11.0) 10/06/17 06:45 Gran % 59.1 % (50.0-68.0) 10/06/17 06:45 Lymph % (Auto) 33.2 % (22.0-35.0) 10/06/17 06:45 [place] % (Auto) 7.3 % (1.0-6.0) H 10/06/17 06:45 Eos % (Auto) 0.2 % (1.5-5.0) L 10/06/17 06:45 Baso % (Auto) 0.2 % (0.0-3.0) 10/06/17 06:45 Gran # 3.10 (1.4-6.5) 10/06/17 06:45 Lymph # 1.7 (1.2-3.4) 10/06/17 06:45 [place] # 0.4 (0.1-0.6) 10/06/17 06:45 Eos # 0.0 (0.0-0.7) 10/06/17 06:45 Baso # 0.01 K/mm3 (0.0-2.0) 10/06/17 06:45 ESR 10 mm/hr (0.0-20.0) 10/04/17 07:00 Haptoglobin 94 mg/dL (43-212) 10/05/17 08:00 Sodium 142 mmol/L (132-148) 10/06/17 06:45 Potassium 3.1 mmol/L (3.6-5.0) L 10/06/17 06:45 Chloride 110 mmol/L (98-107) H 10/06/17 06:45 Carbon Dioxide 24 mmol/L (21-33) 10/06/17 06:45 Anion Gap 12 (10-20) 10/06/17 06:45 BUN 6 mg/dL (7-21) L 10/06/17 06:45 Creatinine 0.6 mg/dl (0.7-1.2) L 10/06/17 06:45 Est GFR ( Amer) > 60 10/06/17 06:45 Est GFR (Non-Af Amer) > 60 10/06/17 06:45 Random Glucose 108 mg/dL (70-110) 10/06/17 06:45 Calcium 8.8 mg/dL (8.4-10.5) 10/06/17 06:45 Phosphorus 3.6 mg/dL (2.5-4.5) 10/04/17 07:00 Magnesium 1.6 mg/dL (1.7-2.2) L 10/04/17 07:00 Iron 12 ug/dL (45-180) L 10/05/17 08:00 TIBC 288 ug/dL (265-497) 10/05/17 08:00 % Saturation 4 % (20-55) L 10/05/17 08:00 Transferrin 247.02 mg/dL (206-381) 10/05/17 08:00 Ferritin 5.2 ng/mL 10/04/17 07:00 Total Bilirubin 0.2 mg/dL (0.2-1.3) 10/06/17 06:45 AST 57 U/L (14-36) H D 10/06/17 06:45 ALT 77 U/L (7-56) H 10/06/17 06:45 Alkaline Phosphatase 53 U/L (38-126) 10/06/17 06:45 Total Protein 5.8 g/dL (5.8-8.3) 10/06/17 06:45 Albumin 3.3 g/dL (3.0-4.8) 10/06/17 06:45 Globulin 2.4 gm/dL 10/06/17 06:45 Albumin/Globulin Ratio 1.4 (1.1-1.8) 10/06/17 06:45 Vitamin B12 220 pg/mL (239-931) L 10/04/17 07:00 Folate 10.8 ng/mL 10/04/17 07:00 Procalcitonin 0.05 NG/ML (0.19-0.49) L 10/04/17 07:00 Urine Color Yellow (YELLOW) 10/03/17 12:15 Urine Appearance Sl cloudy (CLEAR) 10/03/17 12:15 Urine pH 6.0 (4.7-8.0) 10/03/17 12:15 Ur Specific [place] >= 1.030 (1.005-1.035) 10/03/17 12:15 Urine Protein Trace mg/dL (<30 mg/dL) H 10/03/17 12:15 Urine Glucose (UA) Negative mg/dL (NEGATIVE) 10/03/17 12:15 Urine Ketones Negative mg/dL (NEGATIVE) 10/03/17 12:15 Urine Blood Large (NEGATIVE) H 10/03/17 12:15 Urine Nitrate Negative (NEGATIVE) 10/03/17 12:15 Urine Bilirubin Negative (NEGATIVE) 10/03/17 12:15 Urine Urobilinogen 0.2 E.U./dL (<1 E.U./dL) 10/03/17 12:15 Ur Leukocyte Esterase Negative [place]/uL (NEGATIVE) 10/03/17 12:15 Urine RBC Tntc /hpf (0-2) 01/01/18 12:15 Urine WBC 5 - 10 /hpf (0-6) 10/03/17 12:15 Ur Epithelial Cells 6 - 8 /hpf (0-5) 10/03/17 12:15 Urine Bacteria Mod (NEG) 10/03/17 12:15 Urine Opiates Screen Positive (NEGATIVE) H 10/04/17 11:25 Urine Methadone Screen Negative (NEGATIVE) 10/04/17 11:25 Ur Barbiturates Screen Positive (NEGATIVE) H 10/04/17 11:25 Ur Phencyclidine Scrn Negative (NEGATIVE) 10/04/17 11:25 Ur Amphetamines Screen Negative (NEGATIVE) 10/04/17 11:25 U Benzodiazepines Scrn Negative (NEGATIVE) 10/04/17 11:25 U Oth Cocaine Metabols No result (NEGATIVE) 10/04/17 11:25 U Cannabinoids Screen Negative (NEGATIVE) 10/04/17 11:25 - Hospital Course Hospital Course: Ms. Soriano is a 47 year old female with a past medical history significant for HTN, Asthma, Chronic Migraines, Recurrent UTI's and Crohns disease who presented to [facility] with a chief complaint of intractable left sided abdominal and suprapubic pain with intermittent radiation to left flank and with associated nausea, vomiting and diarrhea for a duration of two days. Patient reported that two weeks ago (09/20/17) she was prescribed a two week course of Keflex for a which she had finished two days prior to being admitted. When patient was first evaluated she was observed in bed vomiting. She stated the nausea and vomiting was due to her migraines which at the time were not controlled. Patient states that she normally takes tramadol and vicodin which is prescribed by her neurologist. Patient was initially placed on zofran for nausea control however continued to experience nausea and vomiting. Zofran was discontinued and reglan was started. After being administered reglan patient stated her migraines and abdominal pain had improved, however was still adamant about receiving dilaudid for pain. GI was consulted and recommended patient receiving steroids inflammatory bowel disease flare up. By final day of hospital stay patient's symptoms had improved, patient was tolerating PO evidenced by lack of vomiting. The diarrhea, dysuria, and hematuria patient complained of upon admission had also resolved. Patient's neurology appointment was set for today and patient was adamant about being discharged since she could not miss the appointment. The neurologist's office had then called patient to reschedule for the following day due to inclement weather which prompted the patient to change her mind regarding her discharge. It was explained to patient that with her labs being stable, her symptoms improving, and overall improvement she was cleared for discharge and would have to follow up with her primary care physician and neurologist. Patient stated she could not deny that her symptoms did improve and that she would get her pain medication refills from her neurologist at her appointment the following day. Patient was instructed to get her prescription for prednisone which would be tapered starting at 35 mg for four days until she reached 5 mg and completing taper. Patient states she would be fine to walk the ten blocks from the hospital to the pharmacy to get her prescriptions. Femoral line was removed from patient with supervision of female nurse and patient was then discharged. Case reviewed and discussed with Dr. Bouchra Augustin PGY1 Discharge Exam - Head Exam Head Exam: ATRAUMATIC, NORMAL INSPECTION, NORMOCEPHALIC - Eye Exam Eye Exam: EOMI, Normal appearance Pupil Exam: NORMAL ACCOMODATION - ENT Exam ENT Exam: Mucous Membranes Moist - Respiratory Exam Respiratory Exam: NORMAL BREATHING PATTERN - Cardiovascular Exam Cardiovascular Exam: REGULAR RHYTHM, +S1, +S2 - GI/Abdominal Exam GI & Abdominal Exam: Normal Bowel Sounds, Unremarkable. absent: Distended, Firm , Guarding, Rigid - Neurological Exam Neurological exam: Alert, Oriented x3 - Psychiatric Exam Psychiatric exam: Normal Affect, Normal Mood - Skin Skin Exam: Intact, Normal Color, Warm Discharge Plan - Discharge Medications Prescriptions: Acetaminophen/Butalbital/Caf [Fioricet] 1 tab PO BID 7 Days #14 tab Omeprazole 40 mg PO DAILY 28 Days #28 capsule. Prednisone [Radha] See Taper PO DAILY 28 Days #28 tablet.dr - Follow Up Plan Condition: STABLE Disposition: HOME/ ROUTINE Instructions: Pneumococcal Vaccine for Adults (GEN), Influenza (GEN), Abdominal Pain (ED), Full Liquid Diet (DC) Additional Instructions: 1. Please follow up with your primary care physician within 3-5 days. 2. Please go to your pharmacy and take medication as prescribed; you have been described prednisone which is tapered; follow instructions as written. 3. Follow up with your Neurologist within 1 week. 4. Do not hesitate to go to the emergency department if symptoms worsen. <Shailesh Shook - Last Filed: 10/09/17 11:07> Provider - Provider Date of Admission: 10/04/17 12:19 Attending physician: Juan Celeste MD Hospital Course - Lab Results Lab Results: Most Recent Lab Values WBC 5.2 10^3/ul (4.5-11.0) 10/06/17 06:45 RBC 3.58 10^6/uL (3.5-6.1) 10/06/17 06:45 Hgb 8.7 g/dL (12.0-16.0) L 10/06/17 06:45 Hct 29.6 % (36.0-48.0) L 10/06/17 06:45 MCV 82.7 fl (80.0-105.0) 10/06/17 06:45 MCH 24.3 pg (25.0-35.0) L 10/06/17 06:45 MCHC 29.4 g/dl (31.0-37.0) L 10/06/17 06:45 RDW 17.3 % (11.5-14.5) H 10/06/17 06:45 Plt Count 331 10^3/uL (120.0-450.0) 10/06/17 06:45 MPV 9.3 fl (7.0-11.0) 10/06/17 06:45 Gran % 59.1 % (50.0-68.0) 10/06/17 06:45 Lymph % (Auto) 33.2 % (22.0-35.0) 10/06/17 06:45 [place] % (Auto) 7.3 % (1.0-6.0) H 10/06/17 06:45 Eos % (Auto) 0.2 % (1.5-5.0) L 10/06/17 06:45 Baso % (Auto) 0.2 % (0.0-3.0) 10/06/17 06:45 Gran # 3.10 (1.4-6.5) 10/06/17 06:45 Lymph # 1.7 (1.2-3.4) 10/06/17 06:45 [place] # 0.4 (0.1-0.6) 10/06/17 06:45 Eos # 0.0 (0.0-0.7) 10/06/17 06:45 Baso # 0.01 K/mm3 (0.0-2.0) 10/06/17 06:45 ESR 10 mm/hr (0.0-20.0) 10/04/17 07:00 Haptoglobin 94 mg/dL (43-212) 10/05/17 08:00 Sodium 142 mmol/L (132-148) 10/06/17 06:45 Potassium 3.1 mmol/L (3.6-5.0) L 10/06/17 06:45 Chloride 110 mmol/L (98-107) H 10/06/17 06:45 Carbon Dioxide 24 mmol/L (21-33) 10/06/17 06:45 Anion Gap 12 (10-20) 10/06/17 06:45 BUN 6 mg/dL (7-21) L 10/06/17 06:45 Creatinine 0.6 mg/dl (0.7-1.2) L 10/06/17 06:45 Est GFR ( Amer) > 60 10/06/17 06:45 Est GFR (Non-Af Amer) > 60 10/06/17 06:45 Random Glucose 108 mg/dL (70-110) 10/06/17 06:45 Calcium 8.8 mg/dL (8.4-10.5) 10/06/17 06:45 Phosphorus 3.6 mg/dL (2.5-4.5) 10/04/17 07:00 Magnesium 1.6 mg/dL (1.7-2.2) L 10/04/17 07:00 Iron 12 ug/dL (45-180) L 10/05/17 08:00 TIBC 288 ug/dL (265-497) 10/05/17 08:00 % Saturation 4 % (20-55) L 10/05/17 08:00 Transferrin 247.02 mg/dL (206-381) 10/05/17 08:00 Ferritin 5.2 ng/mL 10/04/17 07:00 Total Bilirubin 0.2 mg/dL (0.2-1.3) 10/06/17 06:45 AST 57 U/L (14-36) H D 10/06/17 06:45 ALT 77 U/L (7-56) H 10/06/17 06:45 Alkaline Phosphatase 53 U/L (38-126) 10/06/17 06:45 Total Protein 5.8 g/dL (5.8-8.3) 10/06/17 06:45 Albumin 3.3 g/dL (3.0-4.8) 10/06/17 06:45 Globulin 2.4 gm/dL 10/06/17 06:45 Albumin/Globulin Ratio 1.4 (1.1-1.8) 10/06/17 06:45 Vitamin B12 220 pg/mL (239-931) L 10/04/17 07:00 Folate 10.8 ng/mL 10/04/17 07:00 Procalcitonin 0.05 NG/ML (0.19-0.49) L 10/04/17 07:00 Urine Color Yellow (YELLOW) 10/03/17 12:15 Urine Appearance Sl cloudy (CLEAR) 10/03/17 12:15 Urine pH 6.0 (4.7-8.0) 10/03/17 12:15 Ur Specific [place] >= 1.030 (1.005-1.035) 10/03/17 12:15 Urine Protein Trace mg/dL (<30 mg/dL) H 10/03/17 12:15 Urine Glucose (UA) Negative mg/dL (NEGATIVE) 10/03/17 12:15 Urine Ketones Negative mg/dL (NEGATIVE) 10/03/17 12:15 Urine Blood Large (NEGATIVE) H 10/03/17 12:15 Urine Nitrate Negative (NEGATIVE) 10/03/17 12:15 Urine Bilirubin Negative (NEGATIVE) 10/03/17 12:15 Urine Urobilinogen 0.2 E.U./dL (<1 E.U./dL) 10/03/17 12:15 Ur Leukocyte Esterase Negative [place]/uL (NEGATIVE) 10/03/17 12:15 Urine RBC Tntc /hpf (0-2) 10/03/17 12:15 Urine WBC 5 - 10 /hpf (0-6) 10/03/17 12:15 Ur Epithelial Cells 6 - 8 /hpf (0-5) 10/03/17 12:15 Urine Bacteria Mod (NEG) 10/03/17 12:15 Urine Opiates Screen Positive (NEGATIVE) H 10/04/17 11:25 Urine Methadone Screen Negative (NEGATIVE) 10/04/17 11:25 Ur Barbiturates Screen Positive (NEGATIVE) H 10/04/17 11:25 Ur Phencyclidine Scrn Negative (NEGATIVE) 10/04/17 11:25 Ur Amphetamines Screen Negative (NEGATIVE) 10/04/17 11:25 U Benzodiazepines Scrn Negative (NEGATIVE) 10/04/17 11:25 U Oth Cocaine Metabols No result (NEGATIVE) 10/04/17 11:25 U Cannabinoids Screen Negative (NEGATIVE) 10/04/17 11:25 Attending/Attestation - Attestation I have personally seen and examined this patient.: Yes I have fully participated in the care of the patient.: Yes I have reviewed all pertinent clinical information, including history, physical exam and plan: Yes Notes (Text): 10/09/17 11:04 Patient was seen and examined with medical office manager. Agreed with assessment and plan. 47 year old female with a past medical history significant for HTN, Asthma, Chronic Migraines, Recurrent UTI's and Crohns disease was admitted to hospital with a chief complaint of intractable left sided abdominal and suprapubic pain with intermittent radiation to left flank and with associated nausea, vomiting and diarrhea for a duration of two days. Patient found to have nonobstructing left renal stone, no ureteral stones, no hydronephrosis, and no acute solid visceral/bowel abnormality on CT abdomen/pelvis .Patient was evaluated by GI and was started on Pulse steroid therapy. She has responded well to the treatment.Abdominal pain has improved.Patient is tolerating soft mechanical diet and is sleeping most of the time.Patient is afebrile.Diarrhea has resolved.Patient is ambulatory, case was discussed with GI.She will be discharged home on tapering dose of prednisone and will follow up with GI and PMD. Management plan was discussed in detail with patient Education was provided.
== END 2017-10-06 18:37 | disposition home or self-care (01) | DRG 321 ==
LOC: ED 10:24 → ERH 18:46 → 5RSO 21:23 → OBSVTOIN 10-04 12:19
PROVIDERS: ADMIT Hospitalist; ATTEND Hospitalist
DX: N12 Tubulo-interstitial nephritis, not specified as acute or chronic (principal); K50.90 Crohn's disease, unspecified, without complications; N18.9 Chronic kidney disease, unspecified; G43.909 Migraine, unspecified, not intractable, without status migrainosus; J45.909 Unspecified asthma, uncomplicated; I12.9 Hypertensive chronic kidney disease with stage 1 through stage 4 chronic kidney disease, or unspecified chronic kidney disease; N20.0 Calculus of kidney; Z80.3 Family history of malignant neoplasm of breast; Z82.49 Family history of ischemic heart disease and other diseases of the circulatory system; Z79.899 Other long term (current) drug therapy; Z87.01 Personal history of pneumonia (recurrent); Z87.11 Personal history of peptic ulcer disease; Z87.440 Personal history of urinary (tract) infections; Z87.442 Personal history of urinary calculi; Z87.891 Personal history of nicotine dependence; D64.9 Anemia, unspecified; M17.9 Osteoarthritis of knee, unspecified; M16.10 Unilateral primary osteoarthritis, unspecified hip; M19.019 Primary osteoarthritis, unspecified shoulder; Z87.892 Personal history of anaphylaxis; Z88.6 Allergy status to analgesic agent; Z88.1 Allergy status to other antibiotic agents; Z88.3 Allergy status to other anti-infective agents; Z91.010 Allergy to peanuts; Z91.018 Allergy to other foods; R40.2412 Glasgow coma scale score 13-15, at arrival to emergency department

== ENCOUNTER 2017-11-22 16:58 | Emergency (ER) | payer MEDICAID ==
[2017-11-22 17:03] VITALS: BMI 30.7
[2017-11-22 17:05] VITALS: RESP 16; TEMP 98.6
--- NOTE | 2017-11-22 17:40 | ED PDOC ---
Arrival/HPI - General Chief Complaint: Back Pain Time Seen by Provider: 11/22/17 17:09 Historian: Patient - History of Present Illness Narrative History of Present Illness (Text): 11/22/17 17:37 This 47 yo female with a history of Crohn's disease, htn, chronic back pain, presents to the ED complaining of diffuse abdominal pain, onset of 4 days ago. Patient denies sob, cp, nausea, vomiting, diarrhea, rectal bleeding, dysuria, or hematuria. I reviewed previous visit to ED charts, and previous labs, and imaging. Time/Duration: Other (see hpi) Context: Home Past Medical History - Provider Review Nursing Documentation Reviewed: Yes - Infectious Disease Hx of Infectious Diseases: None - Tetanus Immunization Tetanus Immunization: Unknown - Reproductive Menopause: Yes - Cardiac Hx Hypertension: Yes - Pulmonary Hx Asthma: Yes Hx Pneumonia: Yes - Neurological Hx Neurological Disorder: Yes Hx Migraine: Yes Hx Seizures: No - HEENT Hx HEENT Disorder: No - Renal Hx Renal Disorder: Yes Hx Kidney Stones: Yes - Endocrine/Metabolic Hx Endocrine Disorders: No Hx Systemic Lupus Erythematosus: Yes (As per pt) - Hematological/Oncological Hx Anemia: Yes - Integumentary Hx Dermatological Disorder: No - Musculoskeletal/Rheumatological Hx Arthritis: Yes (KNEE,HIP,SHOULDER) Hx Fractures: Yes (right hand 2009) - Gastrointestinal Hx Gastrointestinal Disorders: Yes Hx Crohn's Disease: Yes Hx Gastritis: Yes Hx Gastrointestinal Ulcer: Yes - Genitourinary/Gynecological Hx Genitourinary Disorders: No Hx Sexually Transmitted Diseases: No - Psychiatric Hx Anxiety: Yes Hx Depression: Yes Hx Substance Use: No - Surgical History Hx Section: Yes - Anesthesia Hx Anesthesia: Yes Hx Anesthesia Reactions: No Hx Malignant Hyperthermia: No - Suicidal Assessment Feels Threatened In Home Enviroment: No Family/Social History - Physician Review Nursing Documentation Reviewed: Yes Family/Social History: Other (noncontributory) Smoking Status: Never Smoked Hx Alcohol Use: No Hx Substance Use: No Hx Substance Use Treatment: No Allergies/Home Meds Allergies/Adverse Reactions: Allergies amoxicillin Allergy (Verified 11/22/17 17:02) RASH metronidazole [From Flagyl] Allergy (Verified 11/22/17 17:02) RASH NSAIDS (Non-Steroidal Anti-Inflamma Allergy (Verified 11/22/17 17:02) SWELLING peanut Allergy (Verified 11/22/17 17:02) ANAPHYLAXIS chickpeas Allergy (Uncoded 11/22/17 17:02) RASH Home Medications: Home Meds Medication Instructions Recorded Confirmed amLODIPine [Norvasc] 10 mg PO DAILY #0 10/01/14 11/22/17 Topiramate [Topamax] 200 mg PO BID 01/09/16 11/22/17 SUMAtriptan [Imitrex Tab] 50 mg PO PRN PRN 06/07/17 11/22/17 traMADol [Ultram] 100 mg PO Q6 PRN 06/29/17 11/22/17 Gabapentin [Neurontin] 600 mg PO TID 10/19/17 11/22/17 Home Med [Home Med] 1 tab PO Q6 PRN 10/19/17 11/22/17 Review of Systems - Review of Systems Constitutional: Normal. absent: Fatigue, Weight Change, Fevers, Night Sweats Eyes: Normal ENT: Normal. absent: Sore Throat Respiratory: Normal. absent: SOB, Cough Cardiovascular: Normal. absent: Chest Pain, Palpitations Gastrointestinal: Abdominal Pain, Other (denies rectal bleeding). absent: Constipation, Diarrhea, Nausea, Vomiting, Anorexia Genitourinary Female: Normal Musculoskeletal: Normal. absent: Back Pain, Neck Pain Skin: Normal. absent: Rash Neurological: Normal. absent: Headache, Dizziness, Focal Weakness, Gait Changes Endocrine: Normal Hemo/Lymphatic: Normal Psychiatric: Normal Physical Exam Vital Signs Temp Pulse Resp BP Pulse Ox 11/22/17 17:03 98.6 F 96 H 16 144/89 97 Temperature: Afebrile Blood Pressure: Normal Pulse: Regular Respiratory Rate: Normal Appearance: Positive for: Well-Appearing, Non-Toxic, Comfortable Pain Distress: None Mental Status: Positive for: Alert and Oriented X 3 - Systems Exam Head: Present: Atraumatic, Normocephalic Pupils: Present: PERRL Extroacular Muscles: Present: EOMI Conjunctiva: Present: Normal Mouth: Present: Moist Mucous Membranes Pharnyx: Present: Normal. No: ERYTHEMA, EXUDATE, TONSILS ENLARGED Neck: Present: Normal Range of Motion, Trachea Midline. No: Meningeal Signs Respiratory/Chest: Present: Clear to Auscultation, Good Air Exchange. No: Respiratory Distress, Accessory Muscle Use Cardiovascular: Present: Regular Rate and Rhythm, Normal S1, S2. No: Murmurs Abdomen: Present: Normal Bowel Sounds, Other (Abdomen is soft nt/nd). No: Tenderness, Distention, Peritoneal Signs, Rebound, Guarding Back: Present: Normal Inspection Upper Extremity: Present: Normal Inspection. No: Cyanosis, Edema Lower Extremity: Present: Normal Inspection. No: Edema Neurological: Present: GCS=15, CN II-XII Intact, Speech Normal Skin: Present: Warm, Dry, Normal Color. No: Rashes Psychiatric: Present: Alert, Oriented x 3, Normal Insight, Normal Concentration Medical Decision Making ED Course and Treatment: 11/22/17 21:17 Re-evaluation. Patient feels better. Discussed results and plan with patient who expresses understanding. All questions answered and there is agreement with the plan to discharge home with instructions. Patient stable for discharge. Return if symptoms persist or worsen. Patient feels she has a mild HOROWITZ, and she is requesting Imitrex. She stated she take Imitrex at home for migraines as needed. Re-evaluation Time: 21:18 Reassessment Condition: Re-examined, Improved - Lab Interpretations Lab Results: 11/22/17 19:30 11/22/17 19:30 Lab Results 11/22/17 19:30: Sodium 146, Potassium 3.6, Chloride 113 H, Carbon Dioxide 23, Anion Gap 13, BUN 10, Creatinine 0.6 L, Est GFR ( Amer) > 60, Est GFR ( Non-Af Amer) > 60, Random Glucose 93, Calcium 9.9, Total Bilirubin 0.1 L, AST 26 , ALT 40, Alkaline Phosphatase 81, Total Protein 6.6, Albumin 3.9, Globulin 2.7 , Albumin/Globulin Ratio 1.4 11/22/17 19:30: WBC 4.9, RBC 3.92, Hgb 9.1 L, Hct 31.0 L, MCV 79.1 L D, MCH 23.2 L, MCHC 29.4 L, RDW 15.7 H, Plt Count 325, MPV 9.4, Gran % 63.5, Lymph % ( Auto) 27.3, [place] % (Auto) 6.1 H, Eos % (Auto) 2.9, Baso % (Auto) 0.2, Gran # 3.11, Lymph # (Auto) 1.3, [place] # (Auto) 0.3, Eos # (Auto) 0.1, Baso # (Auto) 0.01 11/22/17 18:00: Urine Color Yellow, Urine Appearance Sl cloudy, Urine pH 7.0, Ur Specific [place] 1.020, Urine Protein Negative, Urine Glucose (UA) Negative, Urine Ketones Negative, Urine Blood Small H, Urine Nitrate Negative, Urine Bilirubin Negative, Urine Urobilinogen 0.2, Ur Leukocyte Esterase Small H, Urine RBC 0 - 2, Urine WBC 2 - 5, Ur Epithelial Cells 6 - 8, Urine Bacteria Few I have reviewed the lab results: Yes Interpretation: No clinic. lab abnormalty (possible UTI) - Medication Orders Current Medication Orders: Discontinued Medications Nitrofurantoin Macrocrystals (Macrobid) 100 mg PO STAT STA Stop: 11/22/17 20:36 Last Admin: 11/22/17 21:00 Dose: 100 mg Tramadol HCl (Ultram) 50 mg PO STAT STA Stop: 11/22/17 20:37 Last Admin: 11/22/17 21:00 Dose: 50 mg [facility] Pain Assessment Document 11/22/17 21:00 UT (Rec: 11/22/17 21:00 [facility]-[id number]) Pain Reassessment Is this a pain reassessment? No Disposition/Present on Arrival - Present on Arrival Any Indicators Present on Arrival: No History of DVT/PE: No History of Uncontrolled Diabetes: No Urinary Catheter: No History of Decub. Ulcer: No History Surgical Site Infection Following: None - Disposition Have Diagnosis and Disposition been Completed?: Yes Diagnosis: Nonspecific abdominal pain Disposition: HOME/ ROUTINE Disposition Time: 21:19 Patient Plan: Discharge Condition: IMPROVED Discharge Instructions (ExitCare): Low Back Pain (DC), Acute Abdomen (Belly Pain) Additional Instructions: Call private doctor for follow up visit in 1-2 days. Continue with home medication as instructed by your doctor. Return to emergency if symptoms worsen. Referrals: [employer], [Primary Care Provider] - Follow up with primary [facility] [Outside] - Follow up with primary [facility] [Outside] - Follow up with primary Forms: [facility] (Divehi)
[2017-11-22 18:16] LABS: URINE APPEARANCE SL CLOUDY (CLEAR); URINE BILIRUBIN NEGATIVE (NEGATIVE); URINE BLOOD SMALL (NEGATIVE); URINE COLOR YELLOW (YELLOW); URINE GLUCOSE (UA) NEGATIVE (NEGATIVE); URINE LEUKOCYTE ESTERASE SMALL Leu/uL (NEGATIVE); URINE NITRATE NEGATIVE (NEGATIVE); URINE PROTEIN NEGATIVE mg/dL (<30 mg/dL); URINE UROBILINOGEN 0.2 E.U./dL (<1 E.U./dL)
[2017-11-22 18:21] LABS: URINE BACTERIA FEW (NEG); URINE RBC 0 - 2 /hpf (0-2)
[2017-11-22 19:40] LABS: BASO # 0.01 K/mm3 (0.0-2.0); BASO % 0.2 % (0.0-3.0); EOS # 0.1 (0.0-0.7); EOS % 2.9 % (1.5-5.0); GRAN # 3.11 (1.4-6.5); GRAN % 63.5 % (50.0-68.0); HEMOGLOBIN 9.1 g/dL (12.0-16.0); LYMPH # 1.3 (1.2-3.4); LYMPH % 27.3 % (22.0-35.0); MEAN CELL VOLUME 79.1 fl (80.0-105.0); MEAN CORPUSCULAR HEMOGLOBIN 23.2 pg (25.0-35.0); MEAN CORPUSCULAR HGB CONC 29.4 g/dl (31.0-37.0); MEAN PLATELET VOLUME 9.4 fl (7.0-11.0); MONO # 0.3 (0.1-0.6); MONO % 6.1 % (1.0-6.0); RBC 3.92 10^6/uL (3.5-6.1); RED CELL DISTRIBUTION WIDTH 15.7 % (11.5-14.5); WHITE BLOOD COUNT 4.9 10^3/ul (4.5-11.0)
[2017-11-22 19:47] LABS: ALB/GLOB RATIO 1.4 (1.1-1.8); ALBUMIN 3.9 g/dL (3.0-4.8); ALT/SGPT 40 U/L (7-56); AST/SGOT 26 U/L (14-36); BLOOD UREA NITROGEN 10 mg/dL (7-21); CALCIUM 9.9 mg/dL (8.4-10.5); GFR AFRICAN-AMERICAN > 60; GFR NON-AFRICAN AMERICAN > 60
[2017-11-22 21:43] VITALS: BP 142/87; PULSE 85; O2SAT 98
== END 2017-11-22 21:42 | disposition home or self-care (01) ==
LOC: ED 16:58
DX: R10.9 Unspecified abdominal pain (principal); I10 Essential (primary) hypertension
CPT/HCPCS: 80053; 81001; 85025; 87086; 96372; 99283; J3030

== ENCOUNTER 2017-12-06 04:20 | Emergency (ER) | payer MEDICAID ==
[2017-12-06 04:21] VITALS: BMI 30.7
[2017-12-06] MEDS ORDERED: Sodium Chloride 0.9% 1,000 ML IV SCH (05:00)
--- NOTE | 2017-12-06 05:14 | ED PDOC ---
Arrival/HPI - General Chief Complaint: Abdominal Pain Historian: Patient - History of Present Illness Narrative History of Present Illness (Text): 12/06/17 05:05 47F pmhx significant for recurrent UTI, nephrolithiasis, Crohn's dsiease, HTN, chronic back pain, presents to [facility] ED w/ generalized abdominal pain, localized to the suprapubic region that started at the end of feburary. Patient has presented to this ER in 11/2017 w/ similar s/sx and dx w/ UTI sensitive to macrobid. Patient admits to having non-bloody diarrhea. States it feels "different from a Crohn's flair". + Subjective fevers Denies current: chills, unexplained sudden weight gain/loss, vomiting, chest pain, shortness of breath, blood in urine/bowel. PMH: stated above PSH: ALL: Amoxicillin, Metro, NSAIDs, Of Note: Patient was here on 11/22/17, diagnosed w/ a UTI was given Nitrofurantoin. Symptom Course: Improving Quality: Tightness, Stabbing Past Medical History - Provider Review Nursing Documentation Reviewed: Yes - Travel History Have you recently traveled outside [place] w/in the past 3 mons?: No - Infectious Disease Hx of Infectious Diseases: None - Tetanus Immunization Tetanus Immunization: Unknown - Reproductive Menopause: Yes - Cardiac Hx Hypertension: Yes - Pulmonary Hx Asthma: Yes Hx Pneumonia: Yes - Neurological Hx Neurological Disorder: Yes Hx Migraine: Yes Hx Seizures: No - HEENT Hx HEENT Disorder: No - Renal Hx Renal Disorder: Yes Hx Kidney Stones: Yes - Endocrine/Metabolic Hx Endocrine Disorders: No Hx Systemic Lupus Erythematosus: Yes (As per pt) - Hematological/Oncological Hx Anemia: Yes - Integumentary Hx Dermatological Disorder: No - Musculoskeletal/Rheumatological Hx Arthritis: Yes (KNEE,HIP,SHOULDER) Hx Fractures: Yes (right hand 2010) - Gastrointestinal Hx Gastrointestinal Disorders: Yes Hx Crohn's Disease: Yes Hx Gastritis: Yes Hx Gastrointestinal Ulcer: Yes - Genitourinary/Gynecological Hx Genitourinary Disorders: No Hx Sexually Transmitted Diseases: No - Psychiatric Hx Anxiety: Yes Hx Depression: Yes Hx Substance Use: No - Surgical History Hx Section: Yes Other/Comment: r wrist/sinus - Anesthesia Hx Anesthesia: Yes Hx Anesthesia Reactions: No Hx Malignant Hyperthermia: No - Suicidal Assessment Feels Threatened In Home Enviroment: No Family/Social History - Physician Review Nursing Documentation Reviewed: Yes Family/Social History: Other (non-contributory) Smoking Status: Never Smoked Hx Alcohol Use: No Hx Substance Use: No Hx Substance Use Treatment: No Allergies/Home Meds Allergies/Adverse Reactions: Allergies amoxicillin Allergy (Verified 12/06/17 04:27) RASH metronidazole [From Flagyl] Allergy (Verified 12/06/17 04:27) RASH NSAIDS (Non-Steroidal Anti-Inflamma Allergy (Verified 12/06/17 04:27) SWELLING peanut Allergy (Verified 12/06/17 04:27) ANAPHYLAXIS chickpeas Allergy (Uncoded 12/06/17 04:27) RASH Home Medications: Home Meds Medication Instructions Recorded Confirmed amLODIPine [Norvasc] 10 mg PO DAILY #0 10/01/14 11/22/17 Topiramate [Topamax] 200 mg PO BID 01/09/16 11/22/17 SUMAtriptan [Imitrex Tab] 50 mg PO PRN PRN 06/07/17 11/22/17 traMADol [Ultram] 100 mg PO Q6 PRN 06/29/17 11/22/17 Gabapentin [Neurontin] 600 mg PO TID 10/19/17 11/22/17 Phenazopyridine HCl [Pyridium] 200 mg PO TID 12/06/17 Review of Systems - Physician Review All systems were reviewed & negative as marked: Yes - Review of Systems Systems not reviewed;Unavailable: Acuity of Condition Constitutional: Normal Eyes: Normal ENT: Normal Respiratory: Normal Cardiovascular: Normal Gastrointestinal: Abdominal Pain, Diarrhea, Nausea. absent: Stool Changes, Constipation, Vomiting, Appetite Changes Skin: absent: Rash, Pruritis, Skin Lesions Neurological: Normal Endocrine: Normal Physical Exam Vital Signs Reviewed: Yes Vital Signs Temp Pulse Resp BP Pulse Ox 12/06/17 05:59 68 18 144/87 98 12/06/17 04:21 97.6 F 75 19 159/89 H 100 Temperature: Afebrile Blood Pressure: Hypertensive Pulse: Regular Respiratory Rate: Normal Appearance: Positive for: Well-Appearing, Non-Toxic, Comfortable Pain Distress: None Mental Status: Positive for: Alert and Oriented X 3 - Systems Exam Head: Present: Atraumatic Pupils: Present: PERRL Conjunctiva: Present: Normal Neck: Present: Normal Range of Motion Respiratory/Chest: Present: Clear to Auscultation, Good Air Exchange. No: Respiratory Distress, Accessory Muscle Use, Wheezes Cardiovascular: Present: Regular Rate and Rhythm, Normal S1, S2. No: Murmurs, Tachycardic, Bradycardic Abdomen: Present: Tenderness (supra-pubic tenderness; + lloyds). No: Peritoneal Signs Back: Present: Normal Inspection, CVA Tenderness Lower Extremity: Present: Normal Inspection, NORMAL PULSES. No: Edema, CALF TENDERNESS Neurological: Present: GCS=15, CN II-XII Intact Skin: Present: Warm, Dry Psychiatric: Present: Alert, Oriented x 3 Medical Decision Making ED Course and Treatment: 12/06/17 05:20 UA/Cx/UDS CBC/BMP IVF Metoclopromide Pain control Patient signed out to Dr. Hendricks CT scan and labs pending Started IV abx- cipro - Lab Interpretations Lab Results: 12/06/17 06:00 12/06/17 06:00 Lab Results 12/06/17 06:00: pO2 39, VBG pH 7.24 L, VBG pCO2 49.0, VBG HCO3 21.0, VBG Total CO2 22.5, VBG O2 Sat (Calc) 78.2 H, VBG Base Excess -6.6 L, VBG Potassium 3.7, Sodium 142.0, Chloride 116.0 H, Glucose 101, Lactate 1.4, FiO2 21.0, Venous Blood Potassium 3.7 12/06/17 06:00: APTT 26.8 12/06/17 06:00: Sodium 145, Chloride 113 H, Potassium 3.8, Carbon Dioxide 21, Anion Gap 15, BUN 12, Creatinine 0.7, Est GFR ( Amer) > 60, Est GFR (Non- Af Amer) > 60, Random Glucose 100, Calcium 9.9, Total Bilirubin 0.2, AST 22, ALT 24, Alkaline Phosphatase 79, Total Protein 7.1, Albumin 4.1, Globulin 3.0, Albumin/Globulin Ratio 1.4, Lipase 251 12/06/17 06:00: WBC 5.5, RBC 4.04, Hgb 9.2 L, Hct 32.1 L, MCV 79.5 L, MCH 22.8 L , MCHC 28.7 L, RDW 16.0 H, Plt Count 256, MPV 9.7, Gran % 57.0, Lymph % (Auto) 31.6, [place] % (Auto) 7.0 H, Eos % (Auto) 4.0, Baso % (Auto) 0.4, Gran # 3.11, Lymph # (Auto) 1.7, [place] # (Auto) 0.4, Eos # (Auto) 0.2, Baso # (Auto) 0.02 12/06/17 04:35: Urine Opiates Screen Negative, Urine Methadone Screen Negative, Ur Barbiturates Screen Positive H, Ur Phencyclidine Scrn Negative, Ur Amphetamines Screen Negative, U Benzodiazepines Scrn Negative, U Oth Cocaine Metabols Negative, U Cannabinoids Screen Negative 12/06/17 04:35: Urine Color Yellow, Urine Appearance Clear, Urine pH 7.0, Ur Specific [place] 1.020, Urine Protein Negative, Urine Glucose (UA) Negative, Urine Ketones Negative, Urine Blood Small H, Urine Nitrate Positive H, Urine Bilirubin Negative, Urine Urobilinogen 0.2, Ur Leukocyte Esterase Negative, Urine RBC 0 - 2, Urine WBC 0 - 2, Ur Epithelial Cells 0 - 2, Urine Bacteria Few - RAD Interpretation Radiology Orders: 12/06/17 05:54 ABD & PELVIS W/O PO OR IV CONT [CT] Stat - Medication Orders Current Medication Orders: Ciprofloxacin (Cipro 400mg/200ml Dsw) 400 mg in 200 mls @ 133.3 mls/hr IVPB STAT STA PRN Reason: Protocol Stop: 12/06/17 08:11 Last Admin: 12/06/17 07:04 Dose: 133.3 mls/hr Discontinued Medications Sodium Chloride (Sodium Chloride 0.9%) 1,000 mls @ 1,000 mls/hr IV .Q1H SUZAN Stop: 12/06/17 05:59 Last Admin: 12/06/17 05:52 Dose: 1,000 mls/hr Metoclopramide HCl (Reglan) 10 mg IVP STAT STA Stop: 12/06/17 04:56 Last Admin: 12/06/17 05:54 Dose: 10 mg Morphine Sulfate (Morphine) 2 mg IVP STAT STA Stop: 12/06/17 06:34 Last Admin: 12/06/17 06:37 Dose: 2 mg Disposition/Present on Arrival - Present on Arrival Any Indicators Present on Arrival: No History of DVT/PE: No History of Uncontrolled Diabetes: No Urinary Catheter: No History of Decub. Ulcer: No History Surgical Site Infection Following: None - Disposition Have Diagnosis and Disposition been Completed?: Yes Diagnosis: UTI (urinary tract infection) Disposition Time: 07:21 Condition: STABLE Forms: [employer] (Gambian)
[2017-12-06 05:36] LABS: URINE BILIRUBIN NEGATIVE (NEGATIVE); URINE BLOOD SMALL (NEGATIVE); URINE GLUCOSE (UA) NEGATIVE (NEGATIVE); URINE LEUKOCYTE ESTERASE NEGATIVE Leu/uL (NEGATIVE); URINE NITRATE POSITIVE (NEGATIVE); URINE PROTEIN NEGATIVE mg/dL (<30 mg/dL); URINE UROBILINOGEN 0.2 E.U./dL (<1 E.U./dL)
[2017-12-06 05:46] LABS: URINE APPEARANCE CLEAR (CLEAR); URINE COLOR YELLOW (YELLOW)
[2017-12-06] MEDS ORDERED: Morphine 2 mg/ml ISec IVP STA ×3 (05:52→07:47)
[2017-12-06 06:01] LABS: URINE BACTERIA FEW (NEG); URINE EPITHELIAL CELLS 0 - 2 /hpf (0-5); URINE RBC 0 - 2 /hpf (0-2); URINE WBC 0 - 2 /hpf (0-6)
[2017-12-06 06:24] LABS: BASO # 0.02 K/mm3 (0.0-2.0); BASO % 0.4 % (0.0-3.0); EOS # 0.2 (0.0-0.7); GRAN # 3.11 (1.4-6.5); HEMOGLOBIN 9.2 g/dL (12.0-16.0); LYMPH # 1.7 (1.2-3.4); LYMPH % 31.6 % (22.0-35.0); MEAN CELL VOLUME 79.5 fl (80.0-105.0); MEAN CORPUSCULAR HEMOGLOBIN 22.8 pg (25.0-35.0); MEAN CORPUSCULAR HGB CONC 28.7 g/dl (31.0-37.0); MEAN PLATELET VOLUME 9.7 fl (7.0-11.0); MONO # 0.4 (0.1-0.6); RBC 4.04 10^6/uL (3.5-6.1); WHITE BLOOD COUNT 5.5 10^3/ul (4.5-11.0)
[2017-12-06 06:39] LABS: VENOUS BLOOD GAS BASE EXCESS -6.6 mmol/L (0.0-2.0); VENOUS BLOOD GAS PO2 39 mm/Hg (30-55); VENOUS BLOOD PH 7.24 (7.32-7.43)
[2017-12-06] MEDS ORDERED: Ciprofloxacin 400mg/200ml D5W 400 MG/200 ML BAG IVPB STA (06:41)
[2017-12-06 06:42] LABS: ALB/GLOB RATIO 1.4 (1.1-1.8); ALBUMIN 4.1 g/dL (3.0-4.8); ALT/SGPT 24 U/L (7-56); AST/SGOT 22 U/L (14-36); BLOOD UREA NITROGEN 12 mg/dL (7-21); CALCIUM 9.9 mg/dL (8.4-10.5); GFR AFRICAN-AMERICAN > 60; GFR NON-AFRICAN AMERICAN > 60; LIPASE 251 U/L (23-300)
[2017-12-06 07:00] LABS: BARBITURATES, UR POSITIVE (NEGATIVE); BENZODIAZEPINES, UR NEGATIVE (NEGATIVE); OPIATES, UR NEGATIVE (NEGATIVE); PHENCYCLIDINE, UR NEGATIVE (NEGATIVE)
--- NOTE | 2017-12-06 07:29 | ED PDOC ---
Physical Exam Vital Signs Temp Pulse Resp BP Pulse Ox 12/06/17 07:50 97.9 F 68 18 155/100 H 100 12/06/17 05:59 68 18 144/87 98 12/06/17 04:21 97.6 F 75 19 159/89 H 100 Medical Decision Making ED Course and Treatment: 12/06/17 07:00 Case signed out to me by Dr. Yang. Patient is a 47 year old female, who presents to the emergency department complaining of abdominal pain, localized to the suprapubic region since one week ago. Currently pending CT abdomen and pelvis scan. 12/06/17 07:45 CT Abdomen and Pelvis: Creator : SAIMA KUMARI COMPARISON: 2017-10-03 18:14 FINDINGS: Lower thorax: Possible cardiomegaly. Moderate hiatal hernia with herniation of gastric fundus into the chest. There is delayed emptying versus gastroesophageal reflux. ABDOMEN:Limitations: Absence of IV contrast decreases sensitivity for detecting solid organ and vascular abnormality and injury. Liver: Unremarkable. Gallbladder and bile ducts: Unremarkable. No ductal dilation. Pancreas: Unremarkable. No ductal dilation. Spleen: Unremarkable. No splenomegaly. Adrenals: Unremarkable. No mass. Kidneys and ureters: Nonobstructive left lower pole renal stone. Faint densities in the medullary regions of both kidneys are somewhat nonspecific, perhaps reflecting dense solute, Dirk's plaque, tiny calcifications, or other debris. Stomach and bowel: Diverticulosis. Moderate amount of stool in the colon. Nonspecific colonic wall thickening. Correlation with patient's clinical history of constipation versus stool related colitis versus under distention is recommended. Appendix: Appendix is seen and is top normal in thickness measuring 6 to 7 mm with no periappendiceal stranding. PELVIS: Bladder: Partially distended bladder. Reproductive: Anteriorly displaced uterus. There is calcification involving the lower uterine segment on the right. ABDOMEN and PELVIS: Intraperitoneal space: Unremarkable. No free air. No significant fluid collection. Bones/joints: There is distention of endocervical canal seen on image 146 series 3.If clinically warranted, a pelvic ultrasound may be helpful for further assessment. No acute fracture. No dislocation. Soft tissues: Unremarkable. Vasculature: Right-sided phleboliths. No abdominal aortic aneurysm. Lymph nodes: Unremarkable. No enlarged lymph nodes. IMPRESSION: 1. No acute abnormality on this noncontrast CT examination of the abdomen and pelvis . Previous urine culture sensitive to macrobid with ANILA 16, now with flank pain, will change to Cipro, also sensitive. F/u PMD, return to ED for worsening pain, fever, dyspnea, vomiting, or any other problem. - Lab Interpretations Lab Results: 12/06/17 06:00 12/06/17 06:00 Lab Results 12/06/17 06:00: pO2 39, VBG pH 7.24 L, VBG pCO2 49.0, VBG HCO3 21.0, VBG Total CO2 22.5, VBG O2 Sat (Calc) 78.2 H, VBG Base Excess -6.6 L, VBG Potassium 3.7, Sodium 142.0, Chloride 116.0 H, Glucose 101, Lactate 1.4, FiO2 21.0, Venous Blood Potassium 3.7 12/06/17 06:00: APTT 26.8 12/06/17 06:00: Sodium 145, Chloride 113 H, Potassium 3.8, Carbon Dioxide 21, Anion Gap 15, BUN 12, Creatinine 0.7, Est GFR ( Amer) > 60, Est GFR (Non- Af Amer) > 60, Random Glucose 100, Calcium 9.9, Total Bilirubin 0.2, AST 22, ALT 24, Alkaline Phosphatase 79, Total Protein 7.1, Albumin 4.1, Globulin 3.0, Albumin/Globulin Ratio 1.4, Lipase 251 12/06/17 06:00: WBC 5.5, RBC 4.04, Hgb 9.2 L, Hct 32.1 L, MCV 79.5 L, MCH 22.8 L , MCHC 28.7 L, RDW 16.0 H, Plt Count 256, MPV 9.7, Gran % 57.0, Lymph % (Auto) 31.6, [place] % (Auto) 7.0 H, Eos % (Auto) 4.0, Baso % (Auto) 0.4, Gran # 3.11, Lymph # (Auto) 1.7, [place] # (Auto) 0.4, Eos # (Auto) 0.2, Baso # (Auto) 0.02 12/06/17 04:35: Urine Opiates Screen Negative, Urine Methadone Screen Negative, Ur Barbiturates Screen Positive H, Ur Phencyclidine Scrn Negative, Ur Amphetamines Screen Negative, U Benzodiazepines Scrn Negative, U Oth Cocaine Metabols Negative, U Cannabinoids Screen Negative 12/06/17 04:35: Urine Color Yellow, Urine Appearance Clear, Urine pH 7.0, Ur Specific [place] 1.020, Urine Protein Negative, Urine Glucose (UA) Negative, Urine Ketones Negative, Urine Blood Small H, Urine Nitrate Positive H, Urine Bilirubin Negative, Urine Urobilinogen 0.2, Ur Leukocyte Esterase Negative, Urine RBC 0 - 2, Urine WBC 0 - 2, Ur Epithelial Cells 0 - 2, Urine Bacteria Few - RAD Interpretation Radiology Orders: 12/06/17 05:54 ABD & PELVIS W/O PO OR IV CONT [CT] Stat - Medication Orders Current Medication Orders: Diphenhydramine HCl (Benadryl) 10 mg IVP STAT STA Stop: 12/06/17 08:00 Ciprofloxacin (Cipro 400mg/200ml Dsw) 400 mg in 200 mls @ 133.3 mls/hr IVPB STAT STA PRN Reason: Protocol Stop: 12/06/17 08:11 Last Admin: 12/06/17 07:04 Dose: 133.3 mls/hr eMAR Start Stop Document 12/06/17 07:04 RG (Rec: 12/06/17 07:05 [place] [id number]) Intravenous Solution Start Date 12/06/17 Start Time 07:05 Discontinued Medications Sodium Chloride (Sodium Chloride 0.9%) 1,000 mls @ 1,000 mls/hr IV .Q1H SUZAN Stop: 12/06/17 05:59 Last Admin: 12/06/17 05:52 Dose: 1,000 mls/hr eMAR Start Stop Document 12/06/17 05:52 RG (Rec: 12/06/17 05:54 [place] [id number]) Intravenous Solution Start Date 12/06/17 Start Time 05:52 End Date 12/06/17 End time 06:55 Total Infusion Time 63 Metoclopramide HCl (Reglan) 10 mg IVP STAT STA Stop: 12/06/17 04:56 Last Admin: 12/06/17 05:54 Dose: 10 mg IVP Administration Document 12/06/17 05:54 [place] (Rec: 12/06/17 05:54 [facility] [id number]) Charges for Administration # of IVP Administrations 1 Morphine Sulfate (Morphine) 2 mg IVP STAT STA Stop: 12/06/17 06:34 Last Admin: 12/06/17 06:37 Dose: 2 mg MAR Pain Assessment Document 12/06/17 06:37 RG (Rec: 12/06/17 06:40 RG [id number]) Pain Reassessment Is this a pain reassessment? Yes Sleep Is patient sleeping during reassessment? No Presence of Pain Presence of Pain Yes Pain Scale Used Pain Scale Used Numeric Location Upper or Lower Lower Pain Location Body Site Abdomen Description Description Constant Intensity of Pain at present 6 Pain Behavior Guarding Irritability Aggravating Factors Contant IVP Administration Document 12/06/17 06:37 RG (Rec: 12/06/17 06:40 RG [id number]) Charges for Administration # of IVP Administrations 1 Morphine Sulfate (Morphine) 2 mg IVP STAT STA Stop: 12/06/17 07:48 Last Admin: 12/06/17 07:53 Dose: 2 mg MAR Pain Assessment Document 12/06/17 07:53 [facility] (Rec: 12/06/17 07:54 [facility] [id number]) Pain Reassessment Is this a pain reassessment? Yes Sleep Is patient sleeping during reassessment? No Presence of Pain Presence of Pain Yes Pain Scale Used Pain Scale Used Numeric Location Left, Right or Bilateral Bilateral Pain Location Body Site Abdomen Description Description Constant Intensity of Pain at present 8 IVP Administration Document 12/06/17 07:53 [facility] (Rec: 12/06/17 07:54 [facility] [id number]) Charges for Administration # of IVP Administrations 1 - Scribe Statement The provider has reviewed the documentation as recorded by the Gurinder Anton Provider Scribe Attestation: All medical record entries made by the Scribe were at my direction and personally dictated by me. I have reviewed the chart and agree that the record accurately reflects my personal performance of the history, physical exam, medical decision making, and the department course for this patient. I have also personally directed, reviewed, and agree with the discharge instructions and disposition. Disposition/Present on Arrival - Present on Arrival Any Indicators Present on Arrival: No History of DVT/PE: No History of Uncontrolled Diabetes: No Urinary Catheter: No History of Decub. Ulcer: No History Surgical Site Infection Following: None - Disposition Have Diagnosis and Disposition been Completed?: Yes Diagnosis: UTI (urinary tract infection) Disposition: HOME/ ROUTINE Disposition Time: 08:01 Patient Plan: Discharge Patient Problems: Current Active Problems Problem Status Onset UTI (urinary tract infection) Acute Condition: STABLE Discharge Instructions (ExitCare): Kidney Infection (DC) Prescriptions: Ciprofloxacin [Cipro] 500 mg PO BID #14 tab Referrals: Salvatore Pollack MD [Primary Care Provider] - Follow up with primary Forms: [employer] (S[place]i)
--- NOTE | 2017-12-06 07:42 | CT ---
EXAM: CT Abdomen and Pelvis Without Intravenous Contrast CLINICAL HISTORY: 47 years old, female; Pain; Abdominal pain; Flank; Right; Additional info: Right flank pain; R/O nephrolithasis TECHNIQUE: Axial computed tomography images of the abdomen and pelvis without intravenous contrast. All CT scans at this facility use one or more dose reduction techniques, viz.: automated exposure control; ma/kV adjustment per patient size (including targeted exams where dose is matched to indication; i.e. head); or iterative reconstruction technique. 599 images are submitted. Coronal and sagittal reformatted images were created and reviewed. COMPARISON: CT - ABD PELVIS W/O PO OR IV CONT 2017-10-03 18:14 FINDINGS: Lower thorax: Possible cardiomegaly. Moderate hiatal hernia with herniation of gastric fundus into the chest. There is delayed emptying versus gastroesophageal reflux. ABDOMEN:Limitations: Absence of IV contrast decreases sensitivity for detecting solid organ and vascular abnormality and injury. Liver: Unremarkable. Gallbladder and bile ducts: Unremarkable. No ductal dilation. Pancreas: Unremarkable. No ductal dilation. Spleen: Unremarkable. No splenomegaly. Adrenals: Unremarkable. No mass. Kidneys and ureters: Nonobstructive left lower pole renal stone.Faint densities in the medullary regions of both kidneys are somewhat nonspecific, perhaps reflecting dense solute, Dirk's plaque, tiny calcifications, or other debris. Stomach and bowel: Diverticulosis. Moderate amount of stool in the colon. Nonspecific colonic wall thickening. Correlation with patient's clinical history of constipation versus stool related colitis versus under distention is recommended. Appendix: Appendix is seen and is top normal in thickness measuring 6 to 7 mm with no periappendiceal stranding. PELVIS: Bladder: Partially distended bladder. Reproductive: Anteriorly displaced uterus. There is calcification involving the lower uterine segment on the right. ABDOMEN and PELVIS: Intraperitoneal space: Unremarkable. No free air. No significant fluid collection. Bones/joints: There is distention of endocervical canal seen on image 146 series 3.If clinically warranted, a pelvic ultrasound may be helpful for further assessment. No acute fracture. No dislocation. Soft tissues: Unremarkable. Vasculature: Right-sided phleboliths. No abdominal aortic aneurysm. Lymph nodes: Unremarkable. No enlarged lymph nodes. IMPRESSION: 1. No acute abnormality on this noncontrast CT examination of the abdomen and pelvis .
[2017-12-06] MEDS ORDERED: DiphenhydrAMINE 50 mg/ml Inj IVP STA (07:59)
[2017-12-06 10:40] VITALS: O2SAT 98
[2017-12-06 10:41] VITALS: BP 138/84; PULSE 65; RESP 17; TEMP 98
== END 2017-12-06 10:41 | disposition home or self-care (01) ==
LOC: ED 04:20
DX: N39.0 Urinary tract infection, site not specified (principal); M32.9 Systemic lupus erythematosus, unspecified; I10 Essential (primary) hypertension
CPT/HCPCS: 74176; 80053; 80324; 80345; 80346; 80349; 80353; 80358; 80361; 81001; 82803; 83690; 83992; 85025; 85730; 87086; 96361; 96374; 96375; 96376; 99285; J0744; J1200; J2270; J2765; J7040

== ENCOUNTER 2017-12-11 20:25 | Observation (INO) | payer MEDICAID ==
[2017-12-11 20:26] VITALS: BMI 30.7
[2017-12-11] MEDS ORDERED: Sodium Chloride 0.9% 1,000 ML IV STA (20:56)
[2017-12-11] MEDS ORDERED: DiphenhydrAMINE 50 mg/ml Inj IVP ONE (20:56)
[2017-12-11] MEDS ORDERED: Morphine 2 mg/ml ISec IVP STA (20:56)
--- NOTE | 2017-12-11 21:00 | ED PDOC ---
Arrival/HPI - General Chief Complaint: Abdominal Pain Time Seen by Provider: 12/11/17 20:27 Historian: Patient - History of Present Illness Narrative History of Present Illness (Text): 12/11/17 20:55 Mable Soriano is a 47 year old female, whose past medical history includes Crohn's disease, kidney stones, UTI, and hypertension, who presents to the Emergency department complaining abdominal discomfort, which has been ongoing for the past month. Patient states she unsure is symptoms are secondary to her Crohn's disease, notes she does have some diarrhea. Patient was recently diagnosed with UTI following her visits to the Emergency room. Patient states she has been alternating Cipro and Macrobid, and is unsure if possible her UTI is causing symptoms. Patient denies any nausea, vomiting, fever, chills, chest pain, shortness of breath, headache, dizziness, or any other complaints. Patient states she was unable to get her Tramadol prescription filled. Symptom Onset: Gradual Symptom Course: Unchanged Activities at Onset: Light Context: Home Past Medical History - Provider Review Nursing Documentation Reviewed: Yes - Infectious Disease Hx of Infectious Diseases: None - Tetanus Immunization Tetanus Immunization: Unknown - Reproductive Menopause: Yes - Cardiac Hx Hypertension: Yes - Pulmonary Hx Asthma: Yes Hx Pneumonia: Yes - Neurological Hx Neurological Disorder: Yes Hx Migraine: Yes Hx Seizures: No - HEENT Hx HEENT Disorder: No - Renal Hx Renal Disorder: Yes Hx Kidney Stones: Yes - Endocrine/Metabolic Hx Endocrine Disorders: No Hx Systemic Lupus Erythematosus: Yes (As per pt) - Hematological/Oncological Hx Anemia: Yes - Integumentary Hx Dermatological Disorder: No - Musculoskeletal/Rheumatological Hx Arthritis: Yes (KNEE,HIP,SHOULDER) Hx Fractures: Yes (right hand 2009) - Gastrointestinal Hx Gastrointestinal Disorders: Yes Hx Crohn's Disease: Yes Hx Gastritis: Yes Hx Gastrointestinal Ulcer: Yes - Genitourinary/Gynecological Hx Genitourinary Disorders: No Hx Sexually Transmitted Diseases: No - Psychiatric Hx Anxiety: Yes Hx Depression: Yes Hx Substance Use: No - Surgical History Hx Section: Yes Other/Comment: r wrist/sinus - Anesthesia Hx Anesthesia: Yes Hx Anesthesia Reactions: No Hx Malignant Hyperthermia: No - Suicidal Assessment Feels Threatened In Home Enviroment: No Family/Social History - Physician Review Nursing Documentation Reviewed: Yes Family/Social History: Unknown Family HX Smoking Status: Never Smoked Hx Alcohol Use: No Hx Substance Use: No Hx Substance Use Treatment: No Allergies/Home Meds Allergies/Adverse Reactions: Allergies amoxicillin Allergy (Verified 12/06/17 04:27) RASH metronidazole [From Flagyl] Allergy (Verified 12/06/17 04:27) RASH NSAIDS (Non-Steroidal Anti-Inflamma Allergy (Verified 12/06/17 04:27) SWELLING peanut Allergy (Verified 12/06/17 04:27) ANAPHYLAXIS chickpeas Allergy (Uncoded 12/06/17 04:27) RASH Home Medications: Home Meds Medication Instructions Recorded Confirmed amLODIPine [Norvasc] 10 mg PO DAILY #0 10/01/14 12/11/17 Topiramate [Topamax] 200 mg PO BID 01/09/16 12/11/17 SUMAtriptan [Imitrex Tab] 50 mg PO PRN PRN 06/07/17 12/11/17 traMADol [Ultram] 100 mg PO Q6 PRN 06/29/17 12/11/17 Gabapentin [Neurontin] 600 mg PO TID 10/19/17 12/11/17 Phenazopyridine HCl [Pyridium] 200 mg PO TID 12/06/17 12/11/17 Review of Systems - Physician Review All systems were reviewed & negative as marked: Yes - Review of Systems Constitutional: Normal. absent: Fevers Eyes: Normal ENT: Normal Respiratory: Normal. absent: SOB, Cough Cardiovascular: Normal. absent: Chest Pain Gastrointestinal: Abdominal Pain, Diarrhea. absent: Nausea, Vomiting Musculoskeletal: Normal. absent: Back Pain, Neck Pain Skin: Normal. absent: Rash Neurological: Normal. absent: Headache, Dizziness Endocrine: Normal Hemo/Lymphatic: Normal Psychiatric: Normal Physical Exam Vital Signs Reviewed: Yes Vital Signs Temp Pulse Resp BP Pulse Ox 12/12/17 00:17 82 18 157/86 H 98 12/11/17 20:40 98.7 F 77 18 142/85 99 Temperature: Afebrile Blood Pressure: Normal Pulse: Regular Respiratory Rate: Normal Appearance: Positive for: Well-Appearing, Non-Toxic, Comfortable Pain Distress: None Mental Status: Positive for: Alert and Oriented X 3 - Systems Exam Head: Present: Atraumatic, Normocephalic Pupils: Present: PERRL Extroacular Muscles: Present: EOMI Conjunctiva: Present: Normal Mouth: Present: Moist Mucous Membranes Neck: Present: Normal Range of Motion Respiratory/Chest: Present: Clear to Auscultation, Good Air Exchange. No: Respiratory Distress, Accessory Muscle Use Cardiovascular: Present: Regular Rate and Rhythm, Normal S1, S2. No: Murmurs Abdomen: Present: Normal Bowel Sounds. No: Tenderness, Distention, Peritoneal Signs Back: Present: Normal Inspection Upper Extremity: Present: Normal Inspection. No: Cyanosis, Edema Lower Extremity: Present: Normal Inspection. No: Edema Neurological: Present: GCS=15, CN II-XII Intact, Speech Normal Skin: Present: Warm, Dry, Normal Color. No: Rashes Psychiatric: Present: Alert, Oriented x 3, Normal Insight, Normal Concentration Medical Decision Making ED Course and Treatment: 12/11/17 20:55 Impression: 47 year old female complaining of abdominal discomfort and diarrhea. Plan: -- Labs, lipase -- Urinalysis -- IV fluids -- Morphine -- Benadryl -- Reassess and disposition Prior Visits: Notes and results from previous visits were reviewed. Progress Notes: 12/12/17 02:56 CT Abdomen and Pelvis shows: Artifacts: Overlying clothing artifact. Lower thorax: Minimal infiltration in the right mid lobe lingula and bilateral lower lobes representing atelectasis. Moderate hiatal hernia with herniation of gastric fundus into the chest. ABDOMEN: Liver: Unremarkable. Gallbladder and bile ducts: Unremarkable. No ductal dilation. Pancreas: Unremarkable. No ductal dilation. Spleen: Unremarkable. No splenomegaly. Adrenals: Unremarkable. No mass. Kidneys and ureters: Nonobstructive left renal stone. Faint densities in the medullary regions of both kidneys are somewhat nonspecific, perhaps reflecting dense solute, Dirk' s plaque, tiny calcifications, or other debris. Stomach and bowel: Diverticulosis. Nonspecific colonic thickening likely due to under distention versus nonspecific colitis. Appendix: No findings to suggest acute appendicitis. PELVIS: Bladder: There is nonspecific bladder wall thickening. This may be related to incomplete distention. Reproductive: Anteriorly displaced uterus. High riding ovaries. Stable calcification in the lower uterine segment. ABDOMEN and PELVIS: Intraperitoneal space: Unremarkable. No free air. No significant fluid collection. Bones/joints: No acute fracture. No dislocation. Soft tissues: Unremarkable. Vasculature: Pelvic phleboliths. No abdominal aortic aneurysm. Lymph nodes: Unremarkable. No enlarged lymph nodes. IMPRESSION: 1.No acute abnormality on this noncontrast CT examination of the abdomen and pelvis . 12/12/17 03:19 Case discussed with medical referral coordinator furniture lumber production worker, who is aware and agrees with plan. 12/12/17 03:[address] Kateyln Celeste, who is aware and agrees with plan. Accepts pt in to hospitalist service. Pt will go to [facility] observation for intractable abdominal pain and Crohn's exacerbation. - Lab Interpretations Lab Results: 12/11/17 23:16 12/12/17 00:00 Lab Results 12/12/17 00:00: Sodium 146, Potassium 3.7, Chloride 114 H, Carbon Dioxide 22, Anion Gap 14, BUN 17, Creatinine 0.8, Est GFR ( Amer) > 60, Est GFR (Non- Af Amer) > 60, Random Glucose 84, Calcium 9.1, Total Bilirubin 0.1 L, AST 19, ALT 33, Alkaline Phosphatase 80, Total Protein 6.6, Albumin 3.7, Globulin 2.8, Albumin/Globulin Ratio 1.3, Lipase 149 12/11/17 23:16: WBC 5.3, RBC 3.83, Hgb 8.9 L, Hct 30.3 L, MCV 79.1 L, MCH 23.2 L , MCHC 29.4 L, RDW 16.2 H, Plt Count 262, MPV 9.6 12/11/17 22:20: Urine Color Light yellow, Urine Appearance Cloudy, Urine pH 7.5 , Ur Specific Dawson 1.020, Urine Protein Negative, Urine Glucose (UA) Negative , Urine Ketones Negative, Urine Blood Trace-intact H, Urine Nitrate Negative, Urine Bilirubin Negative, Urine Urobilinogen 0.2, Ur Leukocyte Esterase Trace H , Urine RBC 2 - 5, Urine WBC 0 - 2, Ur Epithelial Cells 1 - 3, Amorphous Sediment Moderate, Urine Bacteria Many, Urine HCG, Qual Negative - RAD Interpretation Radiology Orders: 12/12/17 01:58 ABD & PELVIS W/O PO OR IV CONT [CT] Stat Network Technical Analyst: Radiologist - Medication Orders Current Medication Orders: Discontinued Medications Diphenhydramine HCl (Benadryl) 25 mg IVP ONCE ONE Stop: 12/11/17 20:57 Last Admin: 12/11/17 23:29 Dose: 25 mg IVP Administration Document 12/11/17 23:29 RD (Rec: 12/11/17 23:31 RD [id number]) Charges for Administration # of IVP Administrations 1 Hydromorphone HCl (Dilaudid) 1 mg IVP STAT STA Stop: 12/12/17 00:48 Last Admin: 12/12/17 01:03 Dose: 1 mg MAR Pain Assessment Document 12/12/17 01:03 RD (Rec: 12/12/17 01:04 RD [id number]) Pain Reassessment Is this a pain reassessment? No Sleep Is patient sleeping during reassessment? No Presence of Pain Presence of Pain Yes Location Left, Right or Bilateral Bilateral Upper or Lower Lower Pain Location Body Site Back Description Description Intermittent Intensity of Pain at present 7 Alleviating Factors/Management Medication Techniques Alleviating Factors Medication IVP Administration Document 12/12/17 01:03 RD (Rec: 12/12/17 01:04 RD [id number]) Charges for Administration # of IVP Administrations 1 Sodium Chloride (Sodium Chloride 0.9%) 1,000 mls @ 999 mls/hr IV .Q1H1M STA Stop: 12/11/17 21:56 Last Admin: 12/11/17 23:30 Dose: 999 mls/hr eMAR Start Stop Document 12/11/17 23:30 RD (Rec: 12/11/17 23:31 RD [id number]) Intravenous Solution Start Date 12/11/17 Start Time 23:23 End Date 12/12/17 End time 00:23 Total Infusion Time 60 Morphine Sulfate (Morphine) 2 mg IVP STAT STA Stop: 12/11/17 20:57 Last Admin: 12/11/17 23:31 Dose: 2 mg MAR Pain Assessment Document 12/11/17 23:31 RD (Rec: 12/11/17 23:31 RD [id number]) Pain Reassessment Is this a pain reassessment? No Sleep Is patient sleeping during reassessment? No Presence of Pain Presence of Pain Yes IVP Administration Document 12/11/17 23:31 RD (Rec: 12/11/17 23:31 RD [id number]) Charges for Administration # of IVP Administrations 1 - Scribe Statement The provider has reviewed the documentation as recorded by the Scribe Lili Cooper All medical record entries made by the Scribe were at my direction and personally dictated by me. I have reviewed the chart and agree that the record accurately reflects my personal performance of the history, physical exam, medical decision making, and the department course for this patient. I have also personally directed, reviewed, and agree with the discharge instructions and disposition. Disposition/Present on Arrival - Present on Arrival Any Indicators Present on Arrival: No History of DVT/PE: No History of Uncontrolled Diabetes: No Urinary Catheter: No History of Decub. Ulcer: No History Surgical Site Infection Following: None - Disposition Have Diagnosis and Disposition been Completed?: Yes Diagnosis: Exacerbation of Crohn's disease, Intractable abdominal pain Disposition: HOSPITALIZED Disposition Time: 03:35 Patient Plan: Observation Condition: STABLE Referrals: Salvatore Pollack MD [Primary Care Provider] - Follow up with primary Forms: [employer] (Lao)
[2017-12-11 23:01] LABS: PH,URINE 7.5 (4.7-8.0); URINE BILIRUBIN NEGATIVE (NEGATIVE); URINE BLOOD TRACE-INTACT (NEGATIVE); URINE GLUCOSE (UA) NEGATIVE (NEGATIVE); URINE LEUKOCYTE ESTERASE TRACE Leu/uL (NEGATIVE); URINE PROTEIN NEGATIVE mg/dL (<30 mg/dL); URINE UROBILINOGEN 0.2 E.U./dL (<1 E.U./dL)
[2017-12-11 23:04] LABS: URINE APPEARANCE CLOUDY (CLEAR); URINE COLOR LIGHT YELLOW (YELLOW)
[2017-12-11 23:15] LABS: URINE AMORPHOUS SEDIMENT MODERATE; URINE BACTERIA MANY (NEG); URINE WBC 0 - 2 /hpf (0-6)
[2017-12-11 23:16] LABS: HCG,QUALITATIVE URINE NEGATIVE (NEGATIVE)
[2017-12-11 23:26] LABS: HEMOGLOBIN 8.9 g/dL (12.0-16.0); MEAN CELL VOLUME 79.1 fl (80.0-105.0); MEAN CORPUSCULAR HEMOGLOBIN 23.2 pg (25.0-35.0); MEAN CORPUSCULAR HGB CONC 29.4 g/dl (31.0-37.0); MEAN PLATELET VOLUME 9.6 fl (7.0-11.0); RBC 3.83 10^6/uL (3.5-6.1); RED CELL DISTRIBUTION WIDTH 16.2 % (11.5-14.5); WHITE BLOOD COUNT 5.3 10^3/ul (4.5-11.0)
[2017-12-12 00:29] LABS: ALB/GLOB RATIO 1.3 (1.1-1.8); ALBUMIN 3.7 g/dL (3.0-4.8); ALT/SGPT 33 U/L (7-56); AST/SGOT 19 U/L (14-36); BLOOD UREA NITROGEN 17 mg/dL (7-21); CALCIUM 9.1 mg/dL (8.4-10.5); GFR AFRICAN-AMERICAN > 60; GFR NON-AFRICAN AMERICAN > 60; LIPASE 149 U/L (23-300)
[2017-12-12] MEDS ORDERED: HYDROmorphone 1 mg/ml ISec IVP STA (00:47)
--- NOTE | 2017-12-12 02:53 | CT ---
EXAM: CT Abdomen and Pelvis Without Intravenous Contrast CLINICAL HISTORY: 47 years old, female; Pain; Abdominal pain; Generalized TECHNIQUE: Axial computed tomography images of the abdomen and pelvis without intravenous contrast. All CT scans at this facility use one or more dose reduction techniques, viz.: automated exposure control; ma/kV adjustment per patient size (including targeted exams where dose is matched to indication; i.e. head); or iterative reconstruction technique. 685 images are submitted. Coronal and sagittal reformatted images were created and reviewed. COMPARISON: CT - ABD PELVIS W/O PO OR IV CONT 2017-12-06 06:46 FINDINGS: Artifacts: Overlying clothing artifact. Lower thorax: Minimal infiltration in the right mid lobe lingula and bilateral lower lobes representing atelectasis. Moderate hiatal hernia with herniation of gastric fundus into the chest. ABDOMEN: Liver: Unremarkable. Gallbladder and bile ducts: Unremarkable. No ductal dilation. Pancreas: Unremarkable. No ductal dilation. Spleen: Unremarkable. No splenomegaly. Adrenals: Unremarkable. No mass. Kidneys and ureters: Nonobstructive left renal stone. Faint densities in the medullary regions of both kidneys are somewhat nonspecific, perhaps reflecting dense solute, Dirk's plaque, tiny calcifications, or other debris. Stomach and bowel: Diverticulosis. Nonspecific colonic thickening likely due to under distention versus nonspecific colitis. Appendix: No findings to suggest acute appendicitis. PELVIS: Bladder: There is nonspecific bladder wall thickening. This may be related to incomplete distention. Reproductive: Anteriorly displaced uterus. High riding ovaries. Stable calcification in the lower uterine segment. ABDOMEN and PELVIS: Intraperitoneal space: Unremarkable. No free air. No significant fluid collection. Bones/joints: No acute fracture. No dislocation. Soft tissues: Unremarkable. Vasculature: Pelvic phleboliths. No abdominal aortic aneurysm. Lymph nodes: Unremarkable. No enlarged lymph nodes. IMPRESSION: 1.No acute abnormality on this noncontrast CT examination of the abdomen and pelvis .
[2017-12-12] MEDS: Sodium Chloride 0.9% 1,000 ML IV SCH ×2 (04:28→20:18)
--- NOTE | 2017-12-12 04:44 | CP.PCM.HP ---
History of Present Illness - History of Present Illness History of Present Illness: Franky Grissom PGY1 H&P Note for Hospitalist Service cc: abdominal/flank pain Ms. Soriano is a 47 year old female with a past medical history significant for Crohn's disease, HTN, Asthma, Chronic Migraines, and recurrent UTI's with multiple admissions who presented to [facility] with a chief complaint of diffuse abdominal and suprapubic pain with intermittent radiation to right flank and with associated nausea and diarrhea but no vomiting. Patient states that she has been getting treatment for recurrent UTI's with no resolution and still experiences burning and discomfort with urination. She also states that she has 8-10 bowel movements that are neon yellow in nature a day. she states that she saw her GI Dr Nascimento 6-8 wks ago and had upper/lower endoscopy done and was told that she is fine and that she did not require to be started on any medications; she was also told that the next step for her would be capsule endoscopy. She states that she was diagnosed with Crohn's more than 15 years ago and that it is present in the family. she also states that she was worked up at [facility] recently and told she might have lupus. She does complain of fevers, facial rash and joint pain. She denies any chills, new/changes in headaches, changes in her vision, rhinorrhea, sore throat, dysphagia, chest pain, palpitations, SOB , cough, wheezing, hematemesis, hematochezia, melena, pyuria, vaginal discharge/ bleeding, or any numbness/tingling/weakness of any of her extremities. 12-pt ROS was reviewed and is otherwise unremarkable. PMH: HTN, Asthma, Chronic Migraines, and Crohns disease PSH: C- section, Sinus surgery, R wrist Family History: Breast Cancer, CAD, Crohn's Social History: Former tobacco smoker with 10 year pack smoking history and denies any alcohol or illicit drug use Allergies: NSAIDS (Hives), Nuts (Anaphylaxis), Flagyl, Amoxicillin Medications: Reviewed, as per [facility] PMD: Dr. Pollack GI: Dr. Nascimento Present on Admission - Present on Admission Any Indicators Present on Admission: No Review of Systems - Review of Systems All systems: reviewed and no additional remarkable complaints except (as per HPI ) Past Patient History - Infectious Disease Hx of Infectious Diseases: None - Tetanus Immunizations Tetanus Immunization: Unknown - Past Medical History & Family History Past Medical History?: Yes - Past Social History Smoking Status: Former Smoker Alcohol: None Drugs: Denies - CARDIAC Hx Hypertension: Yes - PULMONARY Hx Asthma: Yes Hx Pneumonia: Yes - NEUROLOGICAL Hx Neurological Disorder: Yes Hx Migraine: Yes Hx Seizures: No - HEENT Hx HEENT Problems: No - RENAL Hx Kidney Stones: Yes - ENDOCRINE/METABOLIC Hx Endocrine Disorders: No Hx Systemic Lupus Erythematosus: Yes (As per pt) - HEMATOLOGICAL/ONCOLOGICAL Hx Anemia: Yes - INTEGUMENTARY Hx Dermatological Problems: No - MUSCULOSKELETAL/RHEUMATOLOGICAL Hx Arthritis: Yes (KNEE,HIP,SHOULDER) Hx Fractures: Yes (right hand 2009) - GASTROINTESTINAL Hx Gastrointestinal Disorders: Yes Hx Crohn's Disease: Yes Hx Gastritis: Yes - GENITOURINARY/GYNECOLOGICAL Hx Genitourinary Disorders: No Hx Sexually Transmitted Disorders: No - PSYCHIATRIC Hx Anxiety: Yes Hx Depression: Yes Hx Substance Use: No - SURGICAL HISTORY Hx Section: Yes Other/Comment: r wrist/sinus - ANESTHESIA Hx Anesthesia: Yes Hx Anesthesia Reactions: No Hx Malignant Hyperthermia: No Meds Allergies/Adverse Reactions: Allergies Allergy/AdvReac Type Severity Reaction Status Date / Time amoxicillin Allergy RASH Verified 12/06/17 04:27 metronidazole [From Flagyl] Allergy RASH Verified 12/06/17 04:27 NSAIDS (Non-Steroidal Allergy SWELLING Verified 12/06/17 04:27 Anti-Inflamma peanut Allergy ANAPHYLAXIS Verified 12/06/17 04:27 chickpeas Allergy RASH Uncoded 12/06/17 04:27 Physical Exam - Constitutional Appears: Well, Non-toxic, No Acute Distress - Head Exam Head Exam: ATRAUMATIC, NORMAL INSPECTION - Eye Exam Eye Exam: EOMI, Normal appearance, PERRL - ENT Exam ENT Exam: Mucous Membranes Moist - Neck Exam Neck exam: Positive for: Normal Inspection - Respiratory Exam Respiratory Exam: Clear to Auscultation Bilateral, NORMAL BREATHING PATTERN. absent: Rales, Rhonchi, Wheezes - Cardiovascular Exam Cardiovascular Exam: RRR, +S1, +S2 - GI/Abdominal Exam GI & Abdominal Exam: Normal Bowel Sounds, Soft. absent: Distended, Guarding, Tenderness - Extremities Exam Extremities exam: Positive for: normal inspection - Back Exam Back exam: NORMAL INSPECTION - Neurological Exam Neurological exam: Alert, Oriented x3 - Psychiatric Exam Psychiatric exam: Normal Affect, Normal Mood - Skin Skin Exam: Normal Color, Warm Results - Vital Signs Recent Vital Signs: Last Vital Signs Temp 98.7 F 12/11/17 20:40 Pulse 82 12/12/17 00:17 Resp 18 12/12/17 00:17 BP 157/86 H 12/12/17 00:17 Pulse Ox 98 12/12/17 00:17 - Labs Result Diagrams: 12/11/17 23:16 12/12/17 00:00 Assessment & Plan - Assessment and Plan (Free Text) Assessment: 47 year old female with a past medical history significant for Crohn's disease, HTN, Asthma, Chronic Migraines, and recurrent UTI's with multiple admissions who presented to [facility] with a chief complaint of diffuse abdominal and suprapubic pain with intermittent radiation to right flank and with associated nausea and diarrhea but no vomiting. CT abdomen shows nonobstructive L renal stone, diverticulosis, possible nonspecific colitis. Plan: 1. Abdominal Pain with associated Nausea and Diarrhea - CT abdomen shows nonobstructive L renal stone, diverticulosis, possible nonspecific colitis - Etiologies Considered: Nonobstructing stone, Crohn's flare-up, C.Diff Colitis , or gastroenteritis - Levaquin started empirically - tylenol PRN for pain control - Zofran 4mg Q4H IVP PRN for N/V - NS at 100mls/hr - FOBT, Fecal Leukocytes, Stool Culture, Blood Culture, C. Diff Toxin/Antigen, ESR and CRP - NPO diet - Daily CBC and CMP - GI consulted, recs appreciated - stool and urine cultures ordered - MV supplement 2. History of Asthma -Duonebs 3ml IH Q4H PRN - O2 PRN 3. History of HTN - monitor VS at this time GI Prophylaxis: Protonix DVT Prophylaxis: SCD's Patient seen and case discussed with attending, Dr. Karoline Celeste.
[2017-12-12] MEDS ORDERED: Albuterol-Ipratrop 3 mg / 0.5 (3 ml) UD IH PRN (04:53)
[2017-12-12] MEDS ORDERED: Morphine 2 mg/ml ISec IVP ONE ×2 (05:40→13:10)
[2017-12-12] MEDS: Pantoprazole 40 mg EC Tab PO SCH (06:03)
[2017-12-12 07:04] LABS: HEMOGLOBIN 8.4 g/dL (12.0-16.0); MEAN CELL VOLUME 79.6 fl (80.0-105.0); MEAN CORPUSCULAR HEMOGLOBIN 22.6 pg (25.0-35.0); MEAN CORPUSCULAR HGB CONC 28.4 g/dl (31.0-37.0); MEAN PLATELET VOLUME 9.6 fl (7.0-11.0); RBC 3.72 10^6/uL (3.5-6.1); RED CELL DISTRIBUTION WIDTH 16.5 % (11.5-14.5); WHITE BLOOD COUNT 4.4 10^3/ul (4.5-11.0)
[2017-12-12 07:14] LABS: INR 0.97 (0.93-1.08); PROTHROMBIN TIME 11.2 SECONDS (9.4-12.5)
[2017-12-12 07:15] LABS: ALB/GLOB RATIO 1.3 (1.1-1.8); ALBUMIN 3.5 g/dL (3.0-4.8); ALT/SGPT 27 U/L (7-56); AST/SGOT 20 U/L (14-36); BLOOD UREA NITROGEN 14 mg/dL (7-21); CALCIUM 9.1 mg/dL (8.4-10.5); GFR AFRICAN-AMERICAN > 60; GFR NON-AFRICAN AMERICAN > 60
[2017-12-12] MEDS ORDERED: Potassium Chloride 20 mEq ER Tab PO SCH (09:30)
[2017-12-12] MEDS: Multivitamin With Minerals Tab PO SCH (10:03)
[2017-12-12] MEDS: levoFLOXacin 750 MG TAB PO SCH (10:03)
[2017-12-12] MEDS ORDERED: Albuterol-Ipratrop 3 mg / 0.5 (3 ml) UD IH ONE (11:08)
[2017-12-12] MEDS ORDERED: Apap-Butalbital-Caffeine 325-50-40mg Tab PO STA (12:36)
[2017-12-12] MEDS: Fluticasone Nasal 50 mcg/Spray NS SCH ×2 (12:47→19:58)
[2017-12-12] MEDS ORDERED: DiphenhydrAMINE 50 mg/ml Inj IVP PRN ×2 (13:23→15:41)
[2017-12-12 17:17] LABS: TROPONIN I < 0.01 ng/mL
[2017-12-12] MEDS: Morphine 2 mg/ml ISec IVP SCH (19:55)
[2017-12-12] MEDS: DiphenhydrAMINE 50 mg/ml Inj IVP PRN (19:56)
[2017-12-12] MEDS: Lactobacillus Acidophilus 500 MU Cap PO SCH (19:56)
[2017-12-12] MEDS: Apap-Butalbital-Caffeine 325-50-40mg Tab PO SCH (19:57)
--- NOTE | 2017-12-12 22:31 | CON ---
DATE: 12/12/2017 GASTROENTEROLOGY CONSULTATION REQUESTING PHYSICIAN: Dr. Celeste. REASON FOR CONSULTATION: I have been asked to see this 47-year-old female with chronic recurrent abdominal pain, recent urinary tract infection, history of Crohn disease, not on any medications, history of IBS, chronic migraines, hypertension, and asthma who comes to the hospital with several days of diffuse abdominal pain, suprapubic pain, and right flank pain associated with diarrhea. She admits to some nausea, but no vomiting. The patient has had numerous hospitalizations and ER visits to different [facility] including [facility], [facility], and [facility]. The patient's private demand planning manager is Dr. Nascimento in [place]. She had an endoscopy and colonoscopy performed 6 weeks ago which the patient states were both normal. She denies any weight loss, rectal bleeding, melena, fevers, chills, or hematemesis. PAST MEDICAL HISTORY: As above. Again, she has a history of chronic migraines, hypertension, asthma, recurrent urinary tract infections, question of Crohn disease, irritable bowel syndrome. PAST SURGICAL HISTORY: Notable for sinus surgery, wrist surgery, . FAMILY HISTORY: Noncontributory. SOCIAL HISTORY: The patient is a former cigarette smoker, having quit years ago. She smoked up to a pack of cigarettes for 10 years. She denies alcohol use. REVIEW OF SYSTEMS: Fourteen-point review of systems is notable for diffuse abdominal pain, nausea, diarrhea, suprapubic pain, and flank pain. MEDICATIONS: At home include tramadol, Norvasc 10 mg once a day, Topamax 200 mg twice a day, Imitrex 50 mg as needed, Pyridium 200 mg three times a day, omeprazole 40 mg daily, Macrobid 100 mg b.i.d., Neurontin 600 mg t.i.d., nasal fluticasone inhaled twice a day, Pepcid 20 mg b.i.d., Bentyl one tablet every 8 hours, Cipro 500 b.i.d., albuterol inhaler 2 puffs q. 6 hours, and Fioricet 1 tablet p.o. b.i.d. ALLERGIES: INCLUDE AMOXICILLIN, METRONIDAZOLE, AND NONSTEROIDALS WELL PEANUTS. PHYSICAL EXAMINATION: GENERAL: Well-developed female lying in bed, in no acute distress. VITAL SIGNS: Reveal temperature of 98.8, blood pressure 153/90, heart rate is 78. HEENT: Reveals sclerae to be white. Conjunctivae pink. NECK: Supple. CHEST: Lungs are clear. HEART: Reveals regular rate and rhythm. ABDOMEN: Soft, mild diffuse tenderness. No rebound or guarding. EXTREMITIES: Show no edema. LABORATORY DATA: Reveal white blood cell count 4.4, hemoglobin 8.4, platelet count 247,000. Chemistries reveal potassium 3.2, chloride 116, bicarb 20, lipase 149. Sed rate is 11, which is normal. IMPRESSION: 1. A 47-year-old female with chronic recurrent abdominal pain associated with diarrhea and nausea with CT scan of the abdomen and pelvis performed here at [facility] showing diverticulosis and nonspecific colon wall thickening, most likely secondary to under distention with a negative endoscopy, colonoscopy [address] Nascimento. The patient's abdominal pain is chronic. I do not believe that the patient has Crohn disease, although she was diagnosed over 15 years ago, she has not been on any medications. She has a normal sedimentation rate as well as normal colonoscopy and CAT scan. The patient may be exhibiting pain medication seeking behavior. 2. Anemia. 3. Rule out Clostridium difficile with diarrhea and recent antibiotic use for urinary tract infection. RECOMMENDATIONS: 1. Check stool for C. diff. 2. Advance diet as tolerated. 3. No further GI workup planned at this time. The patient can be followed up by Dr. Nascimento who is her demand planning manager as an outpatient. Tyrese Marks MD
[2017-12-13] MEDS: Morphine 2 mg/ml ISec IVP SCH ×2 (00:09→03:41)
[2017-12-13] MEDS: DiphenhydrAMINE 50 mg/ml Inj IVP PRN ×2 (03:39→10:29)
[2017-12-13] MEDS: Pantoprazole 40 mg EC Tab PO SCH ×2 (06:30→07:38)
[2017-12-13 06:37] LABS: HEMOGLOBIN 8.1 g/dL (12.0-16.0); MEAN CELL VOLUME 80.7 fl (80.0-105.0); MEAN CORPUSCULAR HEMOGLOBIN 22.7 pg (25.0-35.0); MEAN CORPUSCULAR HGB CONC 28.1 g/dl (31.0-37.0); MEAN PLATELET VOLUME 9.7 fl (7.0-11.0); RBC 3.57 10^6/uL (3.5-6.1); RED CELL DISTRIBUTION WIDTH 16.5 % (11.5-14.5); WHITE BLOOD COUNT 3.9 10^3/ul (4.5-11.0)
[2017-12-13 06:50] LABS: INR 0.97 (0.93-1.08); PARTIAL THROMBOPLASTIN TIME 26.2 Seconds (25.1-36.5); PROTHROMBIN TIME 11.2 SECONDS (9.4-12.5)
[2017-12-13 07:02] LABS: ALB/GLOB RATIO 1.3 (1.1-1.8); ALBUMIN 3.1 g/dL (3.0-4.8); ALT/SGPT 28 U/L (7-56); AST/SGOT 14 U/L (14-36); BLOOD UREA NITROGEN 8 mg/dL (7-21); CALCIUM 8.8 mg/dL (8.4-10.5); GFR AFRICAN-AMERICAN > 60; GFR NON-AFRICAN AMERICAN > 60
[2017-12-13] MEDS: Sodium Chloride 0.9% 1,000 ML IV SCH (08:03)
[2017-12-13] MEDS ORDERED: Morphine 2 mg/ml ISec IVP PRN (08:53)
[2017-12-13] MEDS ORDERED: Dextrose 5%/0.45% NS 1,000 ML IV SCH (09:00)
[2017-12-13] MEDS: levoFLOXacin 750 MG TAB PO SCH (09:35)
[2017-12-13] MEDS: Apap-Butalbital-Caffeine 325-50-40mg Tab PO SCH (09:35)
[2017-12-13] MEDS: Lactobacillus Acidophilus 500 MU Cap PO SCH (09:35)
[2017-12-13] MEDS: Multivitamin With Minerals Tab PO SCH (09:37)
[2017-12-13] MEDS: Fluticasone Nasal 50 mcg/Spray NS SCH (09:37)
--- NOTE | 2017-12-13 13:52 | PN ---
DATE: 12/13/2017 SUBJECTIVE: The patient remains lying in bed. She has not had any further diarrhea. She denies nausea. She is still experiencing some diffuse abdominal pain. PHYSICAL EXAMINATION: VITAL SIGNS: Reveal temperature 97.8, blood pressure 142/80, heart rate of 78. HEENT: Reveals sclerae to be white. Conjunctivae pale. NECK: Supple. CHEST: Reveal lungs to be clear. HEART: Reveals a regular rate and rhythm. ABDOMEN: Soft. Mild diffuse tenderness. No rebound. No guarding. EXTREMITIES: Show no edema. LABORATORY DATA: Reveals white blood cell count 3.9, hemoglobin of 8.1. Chemistries reveal chloride of 117, bicarb of 19. C-reactive protein from 12/12/2017 is 0.72. IMPRESSION: 1. Chronic abdominal pain. The patient has had multiple hospitalizations for this over the last several years. She recently had an endoscopy and colonoscopy by Dr. Nascimento in [place], which was unrevealing. CT scan of the abdomen and pelvis did not show any acute findings. 2. Chronic anemia. Her recent drop is probably related to IV fluids and dilution. 3. Diarrhea, which is resolved. No stool studies were sent. RECOMMENDATIONS: Advance diet as tolerated to a low-fat, lactose-free diet. The patient is stable from GI and can be discharged home and has been instructed to follow up with her conveyor attendant, Dr. Nascimento. Tyrese Marks MD
[2017-12-13 17:37] VITALS: BP 126/78; PULSE 84; RESP 19; TEMP 98.2; O2SAT 95
--- NOTE | 2017-12-13 18:10 | CP.PCM.DIS ---
<Frankie Mesa - Last Filed: 12/14/17 18:37> Provider - Provider Date of Admission: 12/12/17 03:23 Attending physician: Juan Celeste MD Primary care physician: Salvatore Pollack MD Consults: Dr. Kendrick REYES Time Spent in preparation of Discharge (in minutes): 45 Hospital Course - Lab Results Lab Results: Most Recent Lab Values WBC 3.9 10^3/ul (4.5-11.0) L 12/13/17 05:45 RBC 3.57 10^6/uL (3.5-6.1) 12/13/17 05:45 Hgb 8.1 g/dL (12.0-16.0) L 12/13/17 05:45 Hct 28.8 % (36.0-48.0) L 12/13/17 05:45 MCV 80.7 fl (80.0-105.0) 12/13/17 05:45 MCH 22.7 pg (25.0-35.0) L 12/13/17 05:45 MCHC 28.1 g/dl (31.0-37.0) L 12/13/17 05:45 RDW 16.5 % (11.5-14.5) H 12/13/17 05:45 Plt Count 236 10^3/uL (120.0-450.0) 12/13/17 05:45 MPV 9.7 fl (7.0-11.0) 12/13/17 05:45 ESR 11 mm/hr (0.0-20.0) 12/12/17 06:00 PT 11.2 SECONDS (9.4-12.5) 12/13/17 05:45 INR 0.97 (0.93-1.08) 12/13/17 05:45 APTT 26.2 Seconds (25.1-36.5) 12/13/17 05:45 Sodium 144 mmol/L (132-148) 12/13/17 05:45 Potassium 3.6 mmol/L (3.6-5.0) 12/13/17 05:45 Chloride 117 mmol/L (98-107) H 12/13/17 05:45 Carbon Dioxide 19 mmol/L (21-33) L 12/13/17 05:45 Anion Gap 12 (10-20) 12/13/17 05:45 BUN 8 mg/dL (7-21) 12/13/17 05:45 Creatinine 0.7 mg/dl (0.7-1.2) 12/13/17 05:45 Est GFR ( Amer) > 60 12/13/17 05:45 Est GFR (Non-Af Amer) > 60 12/13/17 05:45 Random Glucose 87 mg/dL (70-110) 12/13/17 05:45 Calcium 8.8 mg/dL (8.4-10.5) 12/13/17 05:45 Phosphorus 3.3 mg/dL (2.5-4.5) 12/12/17 06:00 Magnesium 2.1 mg/dL (1.7-2.2) 12/12/17 06:00 Total Bilirubin < 0.1 mg/dL (0.2-1.3) L 12/13/17 05:45 AST 14 U/L (14-36) D 12/13/17 05:45 ALT 28 U/L (7-56) 12/13/17 05:45 Alkaline Phosphatase 63 U/L (38-126) 12/13/17 05:45 Lactate Dehydrogenase 459 U/L (333-699) 12/12/17 16:51 Total Creatine Kinase 48 U/L (35-230) 12/12/17 16:51 Troponin I < 0.01 ng/mL 12/12/17 16:51 C-React Prot High Sens 0.72 mg/L (1.00-3.00) L 12/12/17 06:00 Total Protein 5.7 g/dL (5.8-8.3) L 12/13/17 05:45 Albumin 3.1 g/dL (3.0-4.8) 12/13/17 05:45 Globulin 2.5 gm/dL 12/13/17 05:45 Albumin/Globulin Ratio 1.3 (1.1-1.8) 12/13/17 05:45 Lipase 149 U/L (23-300) 12/12/17 00:00 Urine Color Light yellow (YELLOW) 12/11/17 22:20 Urine Appearance Cloudy (CLEAR) 12/11/17 22:20 Urine pH 7.5 (4.7-8.0) 12/11/17 22:20 Ur Specific [place] 1.020 (1.005-1.035) 12/11/17 22:20 Urine Protein Negative mg/dL (<30 mg/dL) 12/11/17 22:20 Urine Glucose (UA) Negative mg/dL (NEGATIVE) 12/11/17 22:20 Urine Ketones Negative mg/dL (NEGATIVE) 12/11/17 22:20 Urine Blood Trace-intact (NEGATIVE) H 12/11/17 22:20 Urine Nitrate Negative (NEGATIVE) 12/11/17 22:20 Urine Bilirubin Negative (NEGATIVE) 12/11/17 22:20 Urine Urobilinogen 0.2 E.U./dL (<1 E.U./dL) 12/11/17 22:20 Ur Leukocyte Esterase Trace Clarita/uL (NEGATIVE) H 12/11/17 22:20 Urine RBC 2 - 5 /hpf (0-2) 12/11/17 22:20 Urine WBC 0 - 2 /hpf (0-6) 12/11/17 22:20 Ur Epithelial Cells 1 - 3 /hpf (0-5) 12/11/17 22:20 Amorphous Sediment Moderate 12/11/17 22:20 Urine Bacteria Many (NEG) 12/11/17 22:20 Urine HCG, Qual Negative (NEGATIVE) 12/11/17 22:20 - Hospital Course Hospital Course: Ms. Soriano is a 47 year old female with a past medical history significant for Crohn's disease, HTN, Asthma, Chronic Migraines, and recurrent UTI's with multiple admissions who presented to [facility] with a chief complaint of diffuse abdominal and suprapubic pain with intermittent radiation to right flank and with associated nausea and diarrhea but no vomiting. Patient states that she has been getting treatment for recurrent UTI's with no resolution and still experiences burning and discomfort with urination. She also states that she has 8-10 bowel movements that are neon yellow in nature a day. she states that she saw her GI Dr Pily 6-8 wks ago and had upper/lower endoscopy done and was told that she is fine and that she did not require to be started on any medications; she was also told that the next step for her would be capsule endoscopy. She states that she was diagnosed with Crohn's more than 15 years ago and that it is present in the family. Patient was found to have abdominal pain with associated nausea and diarrhea, and CT abdomen showed nonobstructive L renal stone, diverticulosis, possible nonspecific colitis. With being kept NPO, pain management weaning down from Morphine to Motrin, and fluid resuscitation, patient started feeling better and had fewer bouts of diarrhea. Fecal leukocytes, C. Diff, and stool o/p were pending at time of discharge, but because her diarrhea was improving clinically , patient was deemed stable for discharge. GI Dr. Marks saw patient and on day of discharge recommended no further work up, and that patient should follow up outpatient with her GI physician. Discharge Exam - Head Exam Head Exam: ATRAUMATIC, NORMAL INSPECTION - Eye Exam Eye Exam: EOMI, Normal appearance, PERRL Pupil Exam: NORMAL ACCOMODATION, PERRL - GI/Abdominal Exam GI & Abdominal Exam: Normal Bowel Sounds - Neurological Exam Neurological exam: Alert, CN II-XII Intact, Normal Gait, Oriented x3, Reflexes Normal - Psychiatric Exam Psychiatric exam: Normal Affect, Normal Mood - Skin Skin Exam: Dry, Intact, Normal Color, Warm Discharge Plan - Follow Up Plan Condition: STABLE Disposition: HOME/ ROUTINE Instructions: Inflammatory Bowel Disease (DC), Crohn's Disease (DC) Additional Instructions: Please follow up with your GI Dr in one week Please follow up with your primary care doctor in one week Should your symptoms return please report to the Emergency department Referrals: Salvatore Pollack MD [Primary Care Provider] - Feliciano Nascimento Jr., MD [Medical Doctor] - <Juan Celeste - Last Filed: 12/15/17 15:40> Provider - Provider Date of Admission: 12/12/17 03:23 Attending physician: Juan Celeste MD Primary care physician: Salvatore Pollack MD Hospital Course - Lab Results Lab Results: Most Recent Lab Values WBC 3.9 10^3/ul (4.5-11.0) L 12/13/17 05:45 RBC 3.57 10^6/uL (3.5-6.1) 12/13/17 05:45 Hgb 8.1 g/dL (12.0-16.0) L 12/13/17 05:45 Hct 28.8 % (36.0-48.0) L 12/13/17 05:45 MCV 80.7 fl (80.0-105.0) 12/13/17 05:45 MCH 22.7 pg (25.0-35.0) L 12/13/17 05:45 MCHC 28.1 g/dl (31.0-37.0) L 12/13/17 05:45 RDW 16.5 % (11.5-14.5) H 12/13/17 05:45 Plt Count 236 10^3/uL (120.0-450.0) 12/13/17 05:45 MPV 9.7 fl (7.0-11.0) 12/13/17 05:45 ESR 11 mm/hr (0.0-20.0) 12/12/17 06:00 PT 11.2 SECONDS (9.4-12.5) 12/13/17 05:45 INR 0.97 (0.93-1.08) 12/13/17 05:45 APTT 26.2 Seconds (25.1-36.5) 12/13/17 05:45 Sodium 144 mmol/L (132-148) 12/13/17 05:45 Potassium 3.6 mmol/L (3.6-5.0) 12/13/17 05:45 Chloride 117 mmol/L (98-107) H 12/13/17 05:45 Carbon Dioxide 19 mmol/L (21-33) L 12/13/17 05:45 Anion Gap 12 (10-20) 12/13/17 05:45 BUN 8 mg/dL (7-21) 12/13/17 05:45 Creatinine 0.7 mg/dl (0.7-1.2) 12/13/17 05:45 Est GFR ( Amer) > 60 12/13/17 05:45 Est GFR (Non-Af Amer) > 60 12/13/17 05:45 Random Glucose 87 mg/dL (70-110) 12/13/17 05:45 Calcium 8.8 mg/dL (8.4-10.5) 12/13/17 05:45 Phosphorus 3.3 mg/dL (2.5-4.5) 12/12/17 06:00 Magnesium 2.1 mg/dL (1.7-2.2) 12/12/17 06:00 Total Bilirubin < 0.1 mg/dL (0.2-1.3) L 12/13/17 05:45 AST 14 U/L (14-36) D 12/13/17 05:45 ALT 28 U/L (7-56) 12/13/17 05:45 Alkaline Phosphatase 63 U/L (38-126) 12/13/17 05:45 Lactate Dehydrogenase 459 U/L (333-699) 12/12/17 16:51 Total Creatine Kinase 48 U/L (35-230) 12/12/17 16:51 Troponin I < 0.01 ng/mL 12/12/17 16:51 C-React Prot High Sens 0.72 mg/L (1.00-3.00) L 12/12/17 06:00 Total Protein 5.7 g/dL (5.8-8.3) L 12/13/17 05:45 Albumin 3.1 g/dL (3.0-4.8) 12/13/17 05:45 Globulin 2.5 gm/dL 12/13/17 05:45 Albumin/Globulin Ratio 1.3 (1.1-1.8) 12/13/17 05:45 Lipase 149 U/L (23-300) 12/12/17 00:00 Urine Color Light yellow (YELLOW) 12/11/17 22:20 Urine Appearance Cloudy (CLEAR) 12/11/17 22:20 Urine pH 7.5 (4.7-8.0) 12/11/17 22:20 Ur Specific [place] 1.020 (1.005-1.035) 12/11/17 22:20 Urine Protein Negative mg/dL (<30 mg/dL) 12/11/17 22:20 Urine Glucose (UA) Negative mg/dL (NEGATIVE) 12/11/17 22:20 Urine Ketones Negative mg/dL (NEGATIVE) 12/11/17 22:20 Urine Blood Trace-intact (NEGATIVE) H 12/11/17 22:20 Urine Nitrate Negative (NEGATIVE) 12/11/17 22:20 Urine Bilirubin Negative (NEGATIVE) 12/11/17 22:20 Urine Urobilinogen 0.2 E.U./dL (<1 E.U./dL) 12/11/17 22:20 Ur Leukocyte Esterase Trace Clarita/uL (NEGATIVE) H 12/11/17 22:20 Urine RBC 2 - 5 /hpf (0-2) 12/11/17 22:20 Urine WBC 0 - 2 /hpf (0-6) 12/11/17 22:20 Ur Epithelial Cells 1 - 3 /hpf (0-5) 12/11/17 22:20 Amorphous Sediment Moderate 12/11/17 22:20 Urine Bacteria Many (NEG) 12/11/17 22:20 Urine HCG, Qual Negative (NEGATIVE) 12/11/17 22:20 Attending/Attestation - Attestation I have personally seen and examined this patient.: Yes I have fully participated in the care of the patient.: Yes I have reviewed all pertinent clinical information, including history, physical exam and plan: Yes Notes (Text): I have seen and examined the patient at bedside. Agree with the above note with the following additions/ exceptions: Briefly this is 47 year old female with history of crohn's disease, HTN, asthma, chronic migraines, recurrent UTI's who came for evaluation of abdominal pain with associated nausea and diarrhea. Patient reports that she was diagnosed with cdiff many years ago however recently she had endoscopy and colonoscopy by Dr Nascimento which was normal. She is scheduled to have capsule endoscopy in few weeks. Patients symptoms got better. She exhibit some pain medication seeking behavior possibly. Probably her symptoms are secondary to gastroenteritis which has resolved now. Her dysuria also improved. GI cleared the patient for discharge. Advise the patient to follow up with PMD Dr Salvatore Pollack and Dr Nascimento. Dr Juan Celeste
== END 2017-12-13 19:01 | disposition home or self-care (01) ==
LOC: ED 20:25 → ERH 12-12 03:23 → 3RNO 12-12 04:52
PROVIDERS: ADMIT Internal Medicine; ATTEND Hospitalist
DX: R19.7 Diarrhea, unspecified (principal); K57.90 Diverticulosis of intestine, part unspecified, without perforation or abscess without bleeding; J45.909 Unspecified asthma, uncomplicated; I10 Essential (primary) hypertension; G43.909 Migraine, unspecified, not intractable, without status migrainosus; N20.0 Calculus of kidney; G89.29 Other chronic pain; D64.9 Anemia, unspecified; Z87.440 Personal history of urinary (tract) infections; Z87.891 Personal history of nicotine dependence
CPT/HCPCS: 36415; 74176; 80053; 81001; 82550; 83615; 83690; 83735; 84100; 84484; 84703; 85027; 85610; 85651; 85730; 86140; 87086; 94640; 96361; 96374; 96375; 99285; G0378; J1170; J1200; J1644; J2270; J3480; J7040; J7042

== ENCOUNTER 2017-12-24 00:14 | Emergency (ER) | payer MEDICAID ==
[2017-12-24 00:21] VITALS: BMI 29.8
[2017-12-24 00:25] VITALS: BP 169/89; PULSE 90; RESP 18; TEMP 97.5; O2SAT 100
[2017-12-24 00:50] LABS: URINE BILIRUBIN NEGATIVE (NEGATIVE); URINE BLOOD LARGE (NEGATIVE); URINE GLUCOSE (UA) NEGATIVE (NEGATIVE); URINE LEUKOCYTE ESTERASE TRACE Leu/uL (NEGATIVE); URINE PROTEIN 100 mg/dL (<30 mg/dL); URINE UROBILINOGEN >=8.0 E.U./dL (<1 E.U./dL)
[2017-12-24 00:54] LABS: URINE APPEARANCE CLOUDY (CLEAR); URINE COLOR RED (YELLOW)
--- NOTE | 2017-12-24 00:58 | ED PDOC ---
Arrival/HPI - General Chief Complaint: Back Pain Time Seen by Provider: 12/24/17 00:18 Historian: Patient - History of Present Illness Narrative History of Present Illness (Text): 12/24/17 00:55 47yo female with PMHx of Crohn's, Nephrolithiasis, recurrent UTI, chronic back pain present with complaint of suprapubic abdominal pain, urinary frequency, dysuria, left sided lower back pain since yesterday. Patient states she recently finished antibiotics for UTI, and her symptoms started again yesterday. States she took OTC Nikos, without relieve. She denies fever, nausea, vomiting, diarrhea, constipation, chest pain, vaginal discharge. Past Medical History - Provider Review Nursing Documentation Reviewed: Yes - Infectious Disease Hx of Infectious Diseases: None - Tetanus Immunization Tetanus Immunization: Unknown - Cardiac Hx Hypertension: Yes - Pulmonary Hx Asthma: Yes Hx Pneumonia: Yes - Neurological Hx Neurological Disorder: Yes Hx Migraine: Yes Hx Seizures: No - HEENT Hx HEENT Disorder: No - Renal Hx Kidney Stones: Yes - Endocrine/Metabolic Hx Endocrine Disorders: No Hx Systemic Lupus Erythematosus: Yes (As per pt) - Hematological/Oncological Hx Anemia: Yes - Integumentary Hx Dermatological Disorder: No - Musculoskeletal/Rheumatological Hx Arthritis: Yes (KNEE,HIP,SHOULDER) Hx Falls: No Hx Fractures: Yes (right hand 2009) - Gastrointestinal Hx Gastrointestinal Disorders: Yes Hx Crohn's Disease: Yes - Genitourinary/Gynecological Hx Genitourinary Disorders: No Hx Sexually Transmitted Diseases: No - Psychiatric Hx Anxiety: Yes Hx Depression: Yes Hx Substance Use: No - Surgical History Other/Comment: r wrist/sinus - Anesthesia Hx Anesthesia: Yes Hx Anesthesia Reactions: No Hx Malignant Hyperthermia: No - Suicidal Assessment Feels Threatened In Home Enviroment: No Family/Social History - Physician Review Nursing Documentation Reviewed: Yes Family/Social History: Unknown Family HX Smoking Status: Never Smoked Hx Alcohol Use: No Hx Substance Use: No Hx Substance Use Treatment: No Allergies/Home Meds Allergies/Adverse Reactions: Allergies amoxicillin Allergy (Verified 12/24/17 00:20) RASH metronidazole [From Flagyl] Allergy (Verified 12/24/17 00:20) RASH NSAIDS (Non-Steroidal Anti-Inflamma Allergy (Verified 12/24/17 00:20) SWELLING peanut Allergy (Verified 12/24/17 00:20) ANAPHYLAXIS chickpeas Allergy (Uncoded 12/24/17 00:20) RASH Home Medications: Home Meds Medication Instructions Recorded Confirmed amLODIPine [Norvasc] 10 mg PO DAILY #0 10/01/14 12/24/17 Topiramate [Topamax] 200 mg PO BID 01/09/16 12/24/17 SUMAtriptan [Imitrex Tab] 50 mg PO PRN PRN 06/07/17 12/24/17 traMADol [Ultram] 100 mg PO Q6 PRN 06/29/17 12/24/17 Gabapentin [Neurontin] 600 mg PO TID 10/19/17 12/24/17 Phenazopyridine HCl [Pyridium] 200 mg PO TID 12/06/17 12/24/17 Review of Systems - Physician Review All systems were reviewed & negative as marked: Yes - Review of Systems Constitutional: Normal Eyes: Normal ENT: Normal Respiratory: Normal Cardiovascular: Normal Gastrointestinal: Abdominal Pain. absent: Constipation, Diarrhea, Nausea, Vomiting, Hematochezia, Hematemesis Genitourinary Female: Dysuria, Frequency. absent: Hematuria Musculoskeletal: Normal Skin: Normal Neurological: Normal Endocrine: Normal Hemo/Lymphatic: Normal Psychiatric: Normal Physical Exam Vital Signs Reviewed: Yes Vital Signs Temp Pulse Resp BP Pulse Ox 12/24/17 00:24 97.5 F L 90 18 169/89 H 100 Temperature: Afebrile Blood Pressure: Normal Pulse: Regular Respiratory Rate: Normal Appearance: Positive for: Well-Appearing, Non-Toxic, Comfortable Pain Distress: None Mental Status: Positive for: Alert and Oriented X 3 - Systems Exam Head: Present: Atraumatic, Normocephalic Pupils: Present: PERRL Extroacular Muscles: Present: EOMI Conjunctiva: Present: Normal Mouth: Present: Moist Mucous Membranes Neck: Present: Normal Range of Motion Respiratory/Chest: Present: Clear to Auscultation, Good Air Exchange. No: Respiratory Distress, Accessory Muscle Use Cardiovascular: Present: Regular Rate and Rhythm, Normal S1, S2. No: Murmurs Abdomen: Present: Tenderness (Suprapubic tenderness), Normal Bowel Sounds, Other (soft). No: Distention, Peritoneal Signs, Rebound, Guarding, McBurney's Point Tender, Rovsing's Sign Present Back: Present: Normal Inspection Upper Extremity: Present: Normal Inspection. No: Cyanosis, Edema Lower Extremity: Present: Normal Inspection. No: Edema Neurological: Present: GCS=15, CN II-XII Intact, Speech Normal Skin: Present: Warm, Dry, Normal Color. No: Rashes Psychiatric: Present: Alert, Oriented x 3, Normal Insight, Normal Concentration Medical Decision Making ED Course and Treatment: 12/24/17 01:11 Pt in ED for stated history. She was afebrile and hemodynamically stable. Pt's charts from 12/06 and 12/11 was reviewed and abdominal CT was done both times , which was both negative. She was treated with Cipro and Macrobid for UTI. Admitted on her second visit and DC on 12/13 for UTI. She have no CVAT or any sign of pyelonephritis in ED. She was treated with Bactrim DS. Pt was exhibiting drug seeking behavior. She states she took Tramadol at home and asking for opiate in ED. She was advised that she does not need opiate. She was referred to the Urologist precision assembler bench and her PMD. - Lab Interpretations Lab Results: Lab Results 12/24/17 00:29: Urine Color Red, Urine Appearance Cloudy, Urine pH 5.0, Ur Specific [place] >= 1.030, Urine Protein 100 H, Urine Glucose (UA) Negative, Urine Ketones Trace H, Urine Blood Large H, Urine Nitrate Positive H, Urine Bilirubin Negative, Urine Urobilinogen >=8.0, Ur Leukocyte Esterase Trace H, Urine RBC Tntc, Urine WBC 2 - 5, Ur Epithelial Cells 0 - 2, Urine Bacteria Few - Medication Orders Current Medication Orders: Discontinued Medications Ketorolac Tromethamine (Toradol) 60 mg IM STAT STA Stop: 12/24/17 00:31 Last Admin: 12/24/17 00:46 Dose: Not Given Non-Admin Reason: Patient Refused Phenazopyridine HCl (Pyridium) 200 mg PO STAT STA Stop: 12/24/17 01:02 Last Admin: 12/24/17 01:13 Dose: 200 mg Tramadol HCl (Ultram) 50 mg PO STAT STA Stop: 12/24/17 00:48 Last Admin: 12/24/17 00:59 Dose: 50 mg MAR Pain Assessment Document 12/24/17 00:59 KAREN (Rec: 12/24/17 00:59 KAREN [id number]) Pain Reassessment Is this a pain reassessment? No Trimethoprim/Sulfamethoxazole (Bactrim Ds Tab) 1 tab PO STAT STA PRN Reason: Protocol Stop: 12/24/17 01:01 Last Admin: 12/24/17 01:13 Dose: 1 tab Disposition/Present on Arrival - Present on Arrival Any Indicators Present on Arrival: No History of DVT/PE: No History of Uncontrolled Diabetes: No Urinary Catheter: No History of Decub. Ulcer: No History Surgical Site Infection Following: None - Disposition Have Diagnosis and Disposition been Completed?: Yes Diagnosis: UTI (urinary tract infection) Disposition: HOME/ ROUTINE Disposition Time: 01:05 Patient Plan: Discharge Patient Problems: Current Active Problems Problem Status Onset UTI (urinary tract infection) Acute Condition: FAIR Discharge Instructions (ExitCare): Urinary Tract Infections in Adults Additional Instructions: Follow up with your Doctor/Urologist Return to ED for any new symptoms Prescriptions: Phenazopyridine [Phenazopyridine HCl] 200 mg PO TID #6 tab Sulfamethoxazole/Trimethoprim [Bactrim DS 800 mg-160 mg] 1 tab PO BID #14 tab Referrals: Salvatore Pollack MD [Primary Care Provider] - Follow up with primary Hakeem Rodriguez MD [Staff Provider] - Follow up with primary Forms: [employer] (Sen[place]alese)
[2017-12-24] MEDS ORDERED: Tmp-Smz 800 mg-160 mg DS Tab PO STA (01:00)
[2017-12-24 01:02] LABS: URINE BACTERIA FEW (NEG); URINE EPITHELIAL CELLS 0 - 2 /hpf (0-5); URINE RBC TNTC /hpf (0-2)
== END 2017-12-24 01:24 | disposition home or self-care (01) ==
LOC: ED 00:14
DX: N39.0 Urinary tract infection, site not specified (principal)

== ENCOUNTER 2017-12-24 01:36 | Emergency (ER) | payer MEDICAID ==
[2017-12-24 01:37] VITALS: BMI 29.8
== END 2017-12-24 01:53 | disposition left against medical advice (07) ==
LOC: ED 01:36
DX: Z02.89 Encounter for other administrative examinations (principal); N23 Unspecified renal colic

== ENCOUNTER 2018-03-27 07:58 | Emergency (ER) | payer MEDICAID ==
[2018-03-27 07:58] VITALS: BMI 29.8
[2018-03-27 08:16] VITALS: TEMP 97.3
[2018-03-27] MEDS ORDERED: Sodium Chloride 0.9% 1,000 ML IV STA (08:26)
--- NOTE | 2018-03-27 08:45 | ED PDOC ---
Arrival/HPI - General Chief Complaint: Abdominal Pain Time Seen by Provider: 03/27/18 07:59 Historian: Patient - History of Present Illness Narrative History of Present Illness (Text): 03/27/18 08:37 A 47 year old female, whose past medical history includes crohn's disease, presents to the emergency department complaining of abdominal pain for 1 week. Patient reports her pain is worse in epigastric region. She is unsure if pain is related to allergy medication she was given for a reaction to nuts 1 week ago. Patient denies any fever, chills, nausea, vomiting, diarrhea, chest pain, shortness of breath or any other complaints. Time/Duration: 1 week Symptom Course: Unchanged Quality: Other Context: Home Past Medical History - Provider Review Nursing Documentation Reviewed: Yes - Infectious Disease Hx of Infectious Diseases: None - Tetanus Immunization Tetanus Immunization: Unknown - Cardiac Hx Hypertension: Yes - Pulmonary Hx Asthma: Yes Hx Pneumonia: Yes - Neurological Hx Migraine: Yes Hx Seizures: No - HEENT Hx HEENT Disorder: No - Renal Hx Renal Disorder: Yes Hx Kidney Stones: Yes - Endocrine/Metabolic Hx Endocrine Disorders: No Hx Systemic Lupus Erythematosus: Yes (As per pt) - Hematological/Oncological Hx Anemia: Yes - Integumentary Hx Dermatological Disorder: No - Musculoskeletal/Rheumatological Hx Arthritis: Yes (KNEE,HIP,SHOULDER) Hx Fractures: Yes (right hand 2009) - Gastrointestinal Hx Crohn's Disease: Yes Hx Gastritis: Yes Hx Gastrointestinal Ulcer: Yes - Genitourinary/Gynecological Hx Sexually Transmitted Diseases: No - Psychiatric Hx Anxiety: Yes Hx Depression: Yes Hx Substance Use: No - Surgical History Other/Comment: r wrist/sinus - Anesthesia Hx Anesthesia: Yes Hx Anesthesia Reactions: No Hx Malignant Hyperthermia: No - Suicidal Assessment Feels Threatened In Home Enviroment: No Family/Social History - Physician Review Nursing Documentation Reviewed: Yes Family/Social History: No Known Family HX Smoking Status: Never Smoked Hx Alcohol Use: No Hx Substance Use: No Hx Substance Use Treatment: No Allergies/Home Meds Allergies/Adverse Reactions: Allergies amoxicillin Allergy (Verified 03/27/18 08:16) RASH metronidazole [From Flagyl] Allergy (Verified 03/27/18 08:16) RASH NSAIDS (Non-Steroidal Anti-Inflamma Allergy (Verified 03/27/18 08:16) SWELLING peanut Allergy (Verified 03/27/18 08:16) ANAPHYLAXIS chickpeas Allergy (Uncoded 03/27/18 08:16) RASH Home Medications: Home Meds Medication Instructions Recorded Confirmed amLODIPine [Norvasc] 10 mg PO DAILY #0 10/01/14 03/27/18 Topiramate [Topamax] 200 mg PO BID 01/09/16 03/27/18 SUMAtriptan [Imitrex Tab] 50 mg PO PRN PRN 06/07/17 03/27/18 traMADol [Ultram] 100 mg PO Q6 PRN 06/29/17 03/27/18 Gabapentin [Neurontin] 600 mg PO TID 10/19/17 03/27/18 Phenazopyridine HCl [Pyridium] 200 mg PO TID 12/06/17 03/27/18 Review of Systems - Physician Review All systems were reviewed & negative as marked: Yes - Review of Systems Constitutional: absent: Fevers, Night Sweats Respiratory: absent: SOB Cardiovascular: absent: Chest Pain Gastrointestinal: Abdominal Pain. absent: Diarrhea, Nausea, Vomiting Physical Exam Vital Signs Reviewed: Yes Vital Signs Temp Pulse Resp BP Pulse Ox 03/27/18 13:10 70 17 142/80 99 03/27/18 13:08 99 03/27/18 12:00 68 16 145/87 98 03/27/18 10:20 72 17 150/92 H 97 03/27/18 08:15 97.3 F L 74 18 154/106 H 98 Temperature: Afebrile Blood Pressure: Hypertensive Pulse: Regular Respiratory Rate: Normal Appearance: Positive for: Well-Appearing, Non-Toxic, Comfortable Pain Distress: None Mental Status: Positive for: Alert and Oriented X 3 - Systems Exam Head: Present: Atraumatic, Normocephalic Pupils: Present: PERRL Extroacular Muscles: Present: EOMI Conjunctiva: Present: Normal Mouth: Present: Moist Mucous Membranes Neck: Present: Normal Range of Motion Respiratory/Chest: Present: Clear to Auscultation, Good Air Exchange. No: Respiratory Distress, Accessory Muscle Use Cardiovascular: Present: Regular Rate and Rhythm, Normal S1, S2. No: Murmurs Abdomen: No: Tenderness, Distention, Peritoneal Signs Back: Present: Normal Inspection Upper Extremity: Present: Normal Inspection. No: Cyanosis, Edema Lower Extremity: Present: Normal Inspection. No: Edema Neurological: Present: GCS=15, CN II-XII Intact, Speech Normal Skin: Present: Warm, Dry, Normal Color. No: Rashes Psychiatric: Present: Alert, Oriented x 3, Normal Insight, Normal Concentration Medical Decision Making ED Course and Treatment: 03/27/18 08:37 Impression: A 47 year old female with abdominal pain ro gastrits colitis pud. Plan: -- Chest xray -- Labs -- Urinalysis -- Zofran, Protonix and IV fluids -- Reassess and disposition Progress Notes: Report Date : 03/27/2018 10:21:28 Procedure: Chest xray Dictator : Vira Henson MD IMPRESSION: No active pulmonary disease. 03/31/18 07:19 pt reassesed in nad. abd soft minimal elevated lipase, <3x upper limit normal. pain resolved. advise close outpt fu and return precautions pt states feels well for dc. - Lab Interpretations Microbiology Results: Microbiology Results 03/27/18 09:08 Urine,Clean Catch Urine Culture - Final Beta Hemolytic Strep Group B Lab Results: 03/27/18 09:16 03/27/18 09:16 Lab Results 03/27/18 09:16: Sodium 145, Potassium 3.9, Chloride 111 H, Carbon Dioxide 20 L, Anion Gap 17, BUN 9, Creatinine 0.7, Est GFR ( Amer) > 60, Est GFR (Non- Af Amer) > 60, Random Glucose 84, Calcium 9.2, Magnesium 2.1, Total Bilirubin 0.2, AST 21, ALT 30, Alkaline Phosphatase 76, Total Protein 7.4, Albumin 4.5, Globulin 3.0, Albumin/Globulin Ratio 1.5, Lipase 322 H 03/27/18 09:16: Urine Color Yellow, Urine Appearance Clear, Urine pH 7.0, Ur Specific Tea 1.015, Urine Protein Negative, Urine Glucose (UA) Negative, Urine Ketones Negative, Urine Blood Trace-intact H, Urine Nitrate Negative, Urine Bilirubin Negative, Urine Urobilinogen 0.2, Ur Leukocyte Esterase Small H , Urine RBC 0 - 2, Urine WBC 1 - 3, Ur Epithelial Cells 1 - 3, Urine Bacteria Few, Urine HCG, Qual Negative 03/27/18 09:16: PT 11.0, INR 0.96, APTT 25.6 03/27/18 09:16: WBC 4.0 L, RBC 4.26, Hgb 9.5 L, Hct 32.2 L, MCV 75.6 L D, MCH 22.3 L, MCHC 29.5 L, RDW 16.1 H, Plt Count 303, MPV 9.0, Gran % 53.4, Lymph % ( Auto) 31.8, [place] % (Auto) 9.3 H, Eos % (Auto) 5.0, Baso % (Auto) 0.5, Gran # 2.14, Lymph # (Auto) 1.3, [place] # (Auto) 0.4, Eos # (Auto) 0.2, Baso # (Auto) 0.02 I have reviewed the lab results: Yes - RAD Interpretation Radiology Orders: 03/27/18 08:26 CHEST PORTABLE [RAD] Stat 03/27/18 09:38 ABD & PELVIS IV CONTRAST ONLY [CT] Stat - Medication Orders Current Medication Orders: Discontinued Medications Al Hydrox/Mg Hydrox/Simethicone (Maalox Plus 30 Ml) 30 ml PO STAT STA Stop: 03/27/18 12:51 Last Admin: 03/27/18 13:12 Dose: 30 ml Diphenhydramine HCl (Benadryl) 50 mg IVP STAT STA Stop: 03/27/18 10:24 Last Admin: 03/27/18 10:33 Dose: 50 mg IVP Administration Document 03/27/18 10:33 SF (Rec: 03/27/18 10:33 [id number]) Charges for Administration # of IVP Administrations 1 Sodium Chloride (Sodium Chloride 0.9%) 1,000 mls @ 1,000 mls/hr IV .Q1H STA Stop: 03/27/18 09:25 Last Admin: 03/27/18 08:40 Dose: 1,000 mls/hr eMAR Start Stop Document 03/27/18 08:40 SF (Rec: 03/27/18 08:40 SF [id number]) Intravenous Solution Start Date 03/27/18 Start Time 08:40 End Date 03/27/18 End time 09:40 Total Infusion Time 60 Ondansetron HCl (Zofran Inj) 4 mg IVP STAT STA Stop: 03/27/18 08:27 Last Admin: 03/27/18 08:39 Dose: 4 mg IVP Administration Document 03/27/18 08:39 SF (Rec: 03/27/18 08:39 SF [id number]) Charges for Administration # of IVP Administrations 1 Pantoprazole Sodium (Protonix Inj) 40 mg IVP STAT STA Stop: 03/27/18 08:27 Last Admin: 03/27/18 08:39 Dose: 40 mg IVP Administration Document 03/27/18 08:39 SF (Rec: 03/27/18 08:39 [facility] [id number]) Charges for Administration # of IVP Administrations 1 - Scribe Statement The provider has reviewed the documentation as recorded by the Scribe Noreen Yee Provider Scribe Attestation: All medical record entries made by the Scribe were at my direction and personally dictated by me. I have reviewed the chart and agree that the record accurately reflects my personal performance of the history, physical exam, medical decision making, and the department course for this patient. I have also personally directed, reviewed, and agree with the discharge instructions and disposition. Disposition/Present on Arrival - Present on Arrival Any Indicators Present on Arrival: No History of DVT/PE: No History of Uncontrolled Diabetes: No Urinary Catheter: No History of Decub. Ulcer: No History Surgical Site Infection Following: None - Disposition Have Diagnosis and Disposition been Completed?: Yes Diagnosis: Abdominal pain, Elevated lipase Disposition: HOME/ ROUTINE Disposition Time: 01:00 Condition: STABLE Discharge Instructions (ExitCare): Acute Abdomen (Belly Pain) Additional Instructions: please followu p with your doctor. return to er with worsening symptoms or concerns. please discuss all your lab tests with your doctor and specialist. return immediately with any worsening symptoms or concerns. Prescriptions: Pantoprazole Sodium [Protonix] 40 mg PO DAILY #20 ect Referrals: [facility] [Outside] - Follow up with primary [facility] [Outside] - Follow up with primary Haider Goodman MD [Staff Provider] - Follow up with primary Forms: [employer] (Greenlandic)
[2018-03-27 09:20] LABS: URINE BILIRUBIN NEGATIVE (NEGATIVE); URINE BLOOD TRACE-INTACT (NEGATIVE); URINE GLUCOSE (UA) NEGATIVE (NEGATIVE); URINE LEUKOCYTE ESTERASE SMALL Leu/uL (NEGATIVE); URINE PROTEIN NEGATIVE mg/dL (<30 mg/dL); URINE UROBILINOGEN 0.2 E.U./dL (<1 E.U./dL)
[2018-03-27 09:22] LABS: BASO # 0.02 K/mm3 (0.0-2.0); BASO % 0.5 % (0.0-3.0); EOS # 0.2 (0.0-0.7); GRAN # 2.14 (1.4-6.5); GRAN % 53.4 % (50.0-68.0); HEMOGLOBIN 9.5 g/dL (12.0-16.0); LYMPH # 1.3 (1.2-3.4); LYMPH % 31.8 % (22.0-35.0); MEAN CELL VOLUME 75.6 fl (80.0-105.0); MEAN CORPUSCULAR HEMOGLOBIN 22.3 pg (25.0-35.0); MEAN CORPUSCULAR HGB CONC 29.5 g/dl (31.0-37.0); MONO # 0.4 (0.1-0.6); MONO % 9.3 % (1.0-6.0); RBC 4.26 10^6/uL (3.5-6.1); RED CELL DISTRIBUTION WIDTH 16.1 % (11.5-14.5)
[2018-03-27 09:25] LABS: URINE APPEARANCE CLEAR (CLEAR); URINE COLOR YELLOW (YELLOW)
[2018-03-27 09:26] LABS: HCG,QUALITATIVE URINE NEGATIVE (NEGATIVE)
[2018-03-27 09:29] LABS: INR 0.96 (0.93-1.08); PARTIAL THROMBOPLASTIN TIME 25.6 Seconds (25.1-36.5)
[2018-03-27 09:31] LABS: URINE RBC 0 - 2 /hpf (0-2)
[2018-03-27 09:32] LABS: ALB/GLOB RATIO 1.5 (1.1-1.8); ALBUMIN 4.5 g/dL (3.0-4.8); ALT/SGPT 30 U/L (7-56); AST/SGOT 21 U/L (14-36); BLOOD UREA NITROGEN 9 mg/dL (7-21); CALCIUM 9.2 mg/dL (8.4-10.5); GFR AFRICAN-AMERICAN > 60; GFR NON-AFRICAN AMERICAN > 60; LIPASE 322 U/L (23-300); URINE BACTERIA FEW (NEG)
[2018-03-27] MEDS ORDERED: Iohexol 350 MG/100 ML VIAL ONE (09:49)
[2018-03-27] MEDS ORDERED: DiphenhydrAMINE 50 mg/ml Inj IVP STA (10:23)
--- NOTE | 2018-03-27 10:23 | RAD ---
HISTORY: abd pain COMPARISON: No prior. FINDINGS: LUNGS: The lungs are well inflated. There is mild pulmonary venous congestion. No focal consolidation. PLEURA: No significant pleural effusion identified, no pneumothorax apparent. CARDIOVASCULAR: Normal. OSSEOUS STRUCTURES: No significant abnormalities. VISUALIZED UPPER ABDOMEN: Normal. OTHER FINDINGS: None. IMPRESSION: No active pulmonary disease.
--- NOTE | 2018-03-27 12:38 | CT ---
PROCEDURE: CT Abdomen and Pelvis with contrast HISTORY: Upper abdominal pain COMPARISON: 12/12/2017. TECHNIQUE: CT scan of the abdomen and pelvis was performed after administration of intravenous contrast. Oral contrast was not administered. Coronal and sagittal reformatted images were obtained. Contrast dose: 100 mL Omnipaque 350 Radiation dose: Total exam DLP = 623.12 mGy-cm. This CT exam was performed using one or more of the following dose reduction techniques: Automated exposure control, adjustment of the mA and/or kV according to patient size, and/or use of iterative reconstruction technique. FINDINGS: LOWER THORAX: There is a 4 mm nodule in the right anterior lung base. The left lung base is clear. LIVER: There is mild hepatomegaly and diffuse fatty infiltration in the liver. No gross lesion or ductal dilatation. GALLBLADDER AND BILE DUCTS: No calcified gallstones. PANCREAS: Normal in size with homogeneous enhancement. No gross lesion or ductal dilatation. SPLEEN: Normal in size and appearance. ADRENALS: No discrete nodule. KIDNEYS AND URETERS: Normal in size with homogeneous enhancement. There is a 2 mm nonobstructing stone in the lower pole of the left kidney. No hydronephrosis. No solid mass. VASCULATURE: No aortic aneurysm. BOWEL: The small bowel loops normal in caliber. There is moderate amount of stool in the colon. No bowel dilatation or obstruction APPENDIX: Normal appendix. PERITONEUM: No free fluid. No free air. LYMPH NODES: No enlarged lymph nodes. BLADDER: Grossly normal in appearance. REPRODUCTIVE: The uterus is normal in size. BONES: No acute fracture. Within normal limits for the patient's age. OTHER FINDINGS: There is a small sliding hiatal hernia. IMPRESSION: Mild hepatomegaly and fatty liver. No CT evidence for calcified gallstones. Small sliding hiatal hernia. 2 mm nonobstructing stone in the lower pole of the left kidney.
[2018-03-27] MEDS ORDERED: Alum-Mag Hydrox-Simethicone Susp (30 mL) PO STA (12:50)
[2018-03-27 13:10] VITALS: BP 142/80; PULSE 70; RESP 17; O2SAT 99
== END 2018-03-27 13:08 | disposition home or self-care (01) ==
LOC: ED 07:58
DX: R74.8 Abnormal levels of other serum enzymes (principal); R10.9 Unspecified abdominal pain; I10 Essential (primary) hypertension; M32.9 Systemic lupus erythematosus, unspecified
CPT/HCPCS: 71045; 74177; 80053; 81001; 83690; 83735; 84703; 85025; 85610; 85730; 87086; 87181; 96361; 96374; 96375; 99285; C9113; J1200; J2405; J7030; Q9967

== ENCOUNTER 2018-04-06 22:37 | Emergency (ER) | payer MEDICAID ==
[2018-04-06 22:37] VITALS: BMI 29.8
[2018-04-06 22:52] VITALS: TEMP 97.7; O2SAT 100
[2018-04-06] MEDS ORDERED: Sodium Chloride 0.9% 1,000 ML IV ONE (23:36)
--- NOTE | 2018-04-06 23:40 | ED PDOC ---
Arrival/HPI - General Chief Complaint: Headache Time Seen by Provider: 04/06/18 23:07 Historian: Patient - History of Present Illness Narrative History of Present Illness (Text): 04/06/18 23:34 Mable Puente is a 47 year old female, whose past medical history includes Crohn's disease, kidney stones, UTI, and hypertension, who presents to the Emergency department complaining of headache. Patient states she has been experiencing a migraine headache for the past 3 days and notes she is scheduled to see her neurologist on 04/10/2018 because she ran out of her Imitrex and Fioricet. Patient also complaining of high blood pressure and some chest discomfort located under her left breast. Patient reports she is supposed to take 2 tablets of Metoprolol 25mg a day, but has only been taking 1 tablet at day. Patient denies any fever, chills, shortness of breath, nausea, vomiting, diarrhea, urinary symptoms, back pain, neck pain, dizziness, or any other complaints. PMD: Dr. Yeni Pollack Neurologist: Dr. Elissa Gudino Symptom Onset: Gradual Symptom Course: Unchanged Activities at Onset: Light Context: Home Past Medical History - Provider Review Nursing Documentation Reviewed: Yes - Infectious Disease Hx of Infectious Diseases: None - Tetanus Immunization Tetanus Immunization: Unknown - Cardiac Hx Hypertension: Yes - Pulmonary Hx Asthma: Yes Hx Pneumonia: Yes - Neurological Hx Migraine: Yes Hx Seizures: No - HEENT Hx HEENT Disorder: No - Renal Hx Renal Disorder: Yes Hx Kidney Stones: Yes - Endocrine/Metabolic Hx Endocrine Disorders: No Hx Systemic Lupus Erythematosus: Yes (As per pt) - Hematological/Oncological Hx Anemia: Yes - Integumentary Hx Dermatological Disorder: No - Musculoskeletal/Rheumatological Hx Arthritis: Yes (KNEE,HIP,SHOULDER) Hx Fractures: Yes (right hand 2009) - Gastrointestinal Hx Crohn's Disease: Yes Hx Gastritis: Yes Hx Gastrointestinal Ulcer: Yes - Genitourinary/Gynecological Hx Sexually Transmitted Diseases: No - Psychiatric Hx Anxiety: Yes Hx Depression: Yes Hx Substance Use: No - Surgical History Other/Comment: r wrist/sinus - Anesthesia Hx Anesthesia: Yes Hx Anesthesia Reactions: No Hx Malignant Hyperthermia: No - Suicidal Assessment Feels Threatened In Home Enviroment: No Family/Social History - Physician Review Nursing Documentation Reviewed: Yes Family/Social History: Unknown Family HX Smoking Status: Never Smoked Hx Alcohol Use: No Hx Substance Use: No Hx Substance Use Treatment: No Allergies/Home Meds Allergies/Adverse Reactions: Allergies amoxicillin Allergy (Verified 03/27/18 08:16) RASH metronidazole [From Flagyl] Allergy (Verified 03/27/18 08:16) RASH NSAIDS (Non-Steroidal Anti-Inflamma Allergy (Verified 03/27/18 08:16) SWELLING peanut Allergy (Verified 03/27/18 08:16) ANAPHYLAXIS chickpeas Allergy (Uncoded 03/27/18 08:16) RASH Home Medications: Home Meds Medication Instructions Recorded Confirmed amLODIPine [Norvasc] 10 mg PO DAILY #0 10/01/14 03/27/18 Topiramate [Topamax] 200 mg PO BID 01/09/16 03/27/18 SUMAtriptan [Imitrex Tab] 50 mg PO PRN PRN 06/07/17 03/27/18 traMADol [Ultram] 100 mg PO Q6 PRN 06/29/17 03/27/18 Gabapentin [Neurontin] 600 mg PO TID 10/19/17 03/27/18 Phenazopyridine HCl [Pyridium] 200 mg PO TID 12/06/17 03/27/18 Review of Systems - Physician Review All systems were reviewed & negative as marked: Yes - Review of Systems Constitutional: Normal. absent: Fevers Eyes: Normal ENT: Normal Respiratory: Normal. absent: SOB, Cough Cardiovascular: Chest Pain, Other (+high blood pressure) Gastrointestinal: Normal. absent: Abdominal Pain, Diarrhea, Vomiting Genitourinary Female: Normal. absent: Dysuria, Frequency, Urine Output Changes Musculoskeletal: Normal. absent: Back Pain Skin: Normal. absent: Rash Neurological: Headache. absent: Dizziness Endocrine: Normal Hemo/Lymphatic: Normal Psychiatric: Normal Physical Exam Vital Signs Reviewed: Yes Vital Signs Temp Pulse Resp BP Pulse Ox 04/07/18 01:08 88 19 179/107 H 100 04/06/18 22:51 97.7 F 85 18 181/117 H 100 Temperature: Afebrile Blood Pressure: Normal Pulse: Regular Respiratory Rate: Normal Appearance: Positive for: Well-Appearing, Non-Toxic, Comfortable Pain Distress: None Mental Status: Positive for: Alert and Oriented X 3 - Systems Exam Head: Present: Atraumatic, Normocephalic Pupils: Present: PERRL Extroacular Muscles: Present: EOMI Conjunctiva: Present: Normal Mouth: Present: Moist Mucous Membranes Neck: Present: Normal Range of Motion. No: Meningeal Signs, MIDLINE TENDERNESS , Paraspinal Tenderness Respiratory/Chest: Present: Clear to Auscultation, Good Air Exchange. No: Respiratory Distress, Accessory Muscle Use Cardiovascular: Present: Regular Rate and Rhythm, Normal S1, S2. No: Murmurs Abdomen: No: Tenderness, Distention, Peritoneal Signs Back: Present: Normal Inspection. No: CVA Tenderness, Midline Tenderness, Paraspinal Tenderness Upper Extremity: Present: Normal Inspection. No: Cyanosis, Edema Lower Extremity: Present: Normal Inspection. No: Edema Neurological: Present: GCS=15, CN II-XII Intact, Speech Normal, Motor Func Grossly Intact, Normal Sensory Function, Normal Cerebellar Funct, Memory Normal Skin: Present: Warm, Dry, Normal Color. No: Rashes Psychiatric: Present: Alert, Oriented x 3, Normal Insight, Normal Concentration Medical Decision Making ED Course and Treatment: 04/06/18 23:35 Impression: 47 year old female complaining of migraine headache, high blood pressure, and chest discomfort. Plan: -- EKG -- Labs, cardiac enzymes -- IV fluids -- Lopressor -- Reglan -- Reassess and disposition Prior Visits: Notes and results from previous visits were reviewed. On 03/27/2018, pt was seen in the Emergency department for abdominal pain for 1 week. Pt was d/c home. Progress Notes: 04/07/18 00:04 reviewed EKG, NSR at [address]-segment elevations or depressions, no T-wave inversions, normal axis, normal intervals. 04/07/18 00:20 Pt refusing Reglan, requesting Imitrex. Pt also refusing any bloodwork. 04/07/18 00:40 Spoke with pt, pt continues to refuse any bloodwork. Pt requesting Imitrex and states she will sign out against medical advice. This patient is choosing to leave against medical advice. I have personally explained to the patient that choosing to do so may result in permanent bodily harm or . I have discussed at great length that without further evaluation and monitoring there may be unforeseen circumstances and/or deterioration causing permanent bodily harm or as a result of their choice. The patient is alert, oriented, and shows the mental capacity to make clear decisions regarding the patients health care at this time. The patient continues to wish to leave against medical advice. In light of the patients decision to leave AMA , patient is aware of the importance of following up as instructed. The patient has been advised that they should return to the ED immediately if they change their mind at any time, or if their condition begins to change or worsen in any way. - EKG Interpretation Interpreted by ED Physician: Yes Type: 12 lead EKG - Medication Orders Current Medication Orders: Discontinued Medications Sodium Chloride (Sodium Chloride 0.9%) 1,000 mls @ 250 mls/hr IV .Q4H ONE Stop: 04/07/18 03:35 Last Admin: 04/07/18 01:06 Dose: Not Given Non-Admin Reason: Patient Refused Metoclopramide HCl 20 mg/ (Sodium Chloride) 54 mls @ 108 mls/hr IVPB .Q30M STA Stop: 04/07/18 00:09 Last Admin: 04/07/18 01:06 Dose: Not Given Non-Admin Reason: Patient Refused Metoprolol Tartrate (Lopressor) 25 mg PO STAT STA Stop: 04/06/18 23:39 Last Admin: 04/07/18 01:06 Dose: Not Given Non-Admin Reason: Patient Refused Sumatriptan Succinate (Imitrex Tab) 50 mg PO STAT STA Stop: 04/07/18 00:39 Last Admin: 04/07/18 01:06 Dose: 50 mg - Scribe Statement The provider has reviewed the documentation as recorded by the Gurinder Cooper Provider Scribe Attestation: All medical record entries made by the Gurinder were at my direction and personally dictated by me. I have reviewed the chart and agree that the record accurately reflects my personal performance of the history, physical exam, medical decision making, and the department course for this patient. I have also personally directed, reviewed, and agree with the discharge instructions and disposition. Disposition/Present on Arrival - Present on Arrival Any Indicators Present on Arrival: No History of DVT/PE: No History of Uncontrolled Diabetes: No Urinary Catheter: No History of Decub. Ulcer: No History Surgical Site Infection Following: None - Disposition Have Diagnosis and Disposition been Completed?: Yes Diagnosis: Migraine Disposition: AGAINST MEDICAL ADVICE Disposition Time: 00:55 Condition: UNKNOWN Discharge Instructions (ExitCare): Migraine Headaches in Adults Additional Instructions: MABLE PUENTE, thank you for letting us take care of you today. The emergency medical care you received today was directed at your acute symptoms. If you were prescribed any medication, please fill it and take as directed. It may take several days for your symptoms to resolve. Return to the Emergency Department if your symptoms worsen, do not improve, or if you have any other problems. Please contact your doctor or call one of the physicians/clinics you have been referred to that are listed on the Patient Visit Information form that is included in your discharge packet. Bring any paperwork you were given at discharge with you along with any medications you are taking to your follow up visit. Our treatment cannot replace ongoing medical care by a primary care provider outside of the emergency department. Thank you for allowing the [facility] team to be part of your care today. YOU SIGNED OUT AGAINST MEDICAL ADVICE. FOLLOW UP WITH YOUR PRIMARY DOCTOR IN 1-2 DAYS FOR RE-EVALUATION AND FURTHER MANAGEMENT. RETURN TO THE EMERGENCY ROOM IF YOU HAVE ANY CONCERNS. Prescriptions: SUMAtriptan [Imitrex Tab] 25 mg PO Q6 PRN #20 tab PRN Reason: Migraine Headache Referrals: Salvatore Pollack MD [Primary Care Provider] - Follow up with primary Forms: [employer] (Mongolian)
[2018-04-07 01:09] VITALS: BP 179/107; PULSE 88; RESP 19
--- NOTE | 2018-04-07 09:26 | CARD ---
APPROVED REPORT EKG Measurement Heart [id number] <Conclusion> Normal sinus rhythm Nonspecific intraventricular conduction delay Small inferior q waves No change
== END 2018-04-07 01:08 | disposition left against medical advice (07) ==
LOC: ED 22:37
DX: G43.909 Migraine, unspecified, not intractable, without status migrainosus (principal); I10 Essential (primary) hypertension; M32.9 Systemic lupus erythematosus, unspecified

== ENCOUNTER 2018-04-25 10:38 | Emergency (ER) | payer MEDICAID ==
[2018-04-25 10:39] VITALS: BMI 29.8
[2018-04-25 11:07] VITALS: RESP 18; TEMP 98.6
[2018-04-25] MEDS ORDERED: Apap-Butalbital-Caffeine 325-50-40mg Tab PO ONE (11:18)
--- NOTE | 2018-04-25 11:21 | ED PDOC ---
Arrival/HPI - General Chief Complaint: Headache Time Seen by Provider: 04/25/18 11:17 Historian: Patient - History of Present Illness Narrative History of Present Illness (Text): 04/25/18 11:17 47 year old female, whose past medical history includes chronic migraines, hypertension, and Crohn's disease, who presents to the ED complaining of migraines. Patient notes associated nausea and vomiting. Patient notes she ran out of [employer] for her migraines. Patient states she called her PMD and neurologist, but they had no appointment for her today so they sent her the ED. Patient also notes tooth ache on tooth number 22. Patient states she has a dentist appointment tomorrow. Patient denies any fever, chills, cough, chest pain, back pain, neck pain, or any other complaints. Time/Duration: Prior to Arrival Symptom Onset: Gradual Symptom Course: Unchanged Activities at Onset: Light Context: Home Past Medical History - Provider Review Nursing Documentation Reviewed: Yes - Infectious Disease Hx of Infectious Diseases: None - Tetanus Immunization Tetanus Immunization: Unknown - Reproductive Menopause: Yes - Cardiac Hx Hypertension: Yes - Pulmonary Hx Asthma: Yes Hx Pneumonia: Yes - Neurological Hx Migraine: Yes Hx Seizures: No - HEENT Hx HEENT Disorder: No - Renal Hx Renal Disorder: Yes Hx Kidney Stones: Yes - Endocrine/Metabolic Hx Endocrine Disorders: No Hx Systemic Lupus Erythematosus: Yes (As per pt) - Hematological/Oncological Hx Anemia: Yes - Integumentary Hx Dermatological Disorder: No - Musculoskeletal/Rheumatological Hx Arthritis: Yes (KNEE,HIP,SHOULDER) Hx Fractures: Yes (right hand 2010) - Gastrointestinal Hx Crohn's Disease: Yes Hx Gastritis: Yes Hx Gastrointestinal Ulcer: Yes - Genitourinary/Gynecological Hx Sexually Transmitted Diseases: No - Psychiatric Hx Anxiety: Yes Hx Depression: Yes Hx Substance Use: No - Surgical History Other/Comment: r wrist/sinus - Anesthesia Hx Anesthesia: Yes Hx Anesthesia Reactions: No Hx Malignant Hyperthermia: No - Suicidal Assessment Feels Threatened In Home Enviroment: No Family/Social History - Physician Review Nursing Documentation Reviewed: Yes Family/Social History: Unknown Family HX Smoking Status: Never Smoked Hx Alcohol Use: No Hx Substance Use: No Hx Substance Use Treatment: No Allergies/Home Meds Allergies/Adverse Reactions: Allergies amoxicillin Allergy (Verified 04/25/18 11:07) RASH metronidazole [From Flagyl] Allergy (Verified 04/25/18 11:07) RASH NSAIDS (Non-Steroidal Anti-Inflamma Allergy (Verified 04/25/18 11:07) SWELLING peanut Allergy (Verified 04/25/18 11:07) ANAPHYLAXIS chickpeas Allergy (Uncoded 03/27/18 08:16) RASH Home Medications: Home Meds Medication Instructions Recorded Confirmed amLODIPine [Norvasc] 10 mg PO DAILY #0 10/01/14 03/27/18 Topiramate [Topamax] 200 mg PO BID 01/09/16 03/27/18 SUMAtriptan [Imitrex Tab] 50 mg PO PRN PRN 06/07/17 03/27/18 traMADol [Ultram] 100 mg PO Q6 PRN 06/29/17 03/27/18 Gabapentin [Neurontin] 600 mg PO TID 10/19/17 03/27/18 Phenazopyridine HCl [Pyridium] 200 mg PO TID 12/06/17 03/27/18 Review of Systems - Physician Review All systems were reviewed & negative as marked: Yes - Review of Systems Constitutional: Normal Eyes: Normal ENT: Other (Pain to tooth number 22) Respiratory: Normal. absent: SOB, Cough Cardiovascular: Normal. absent: Chest Pain Gastrointestinal: Nausea, Vomiting. absent: Abdominal Pain, Diarrhea Genitourinary Female: Normal. absent: Dysuria, Frequency Musculoskeletal: Normal. absent: Back Pain, Neck Pain Skin: Normal. absent: Rash Neurological: Other (Migraine) Endocrine: Normal Hemo/Lymphatic: Normal Psychiatric: Normal Physical Exam Vital Signs Reviewed: Yes Vital Signs Temp Pulse Resp BP Pulse Ox 04/25/18 12:41 98.6 F 71 18 168/94 H 100 04/25/18 11:47 77 176/108 H 04/25/18 11:44 77 18 176/108 H 100 04/25/18 11:03 98.6 F 85 18 184/121 H 98 Temperature: Afebrile Blood Pressure: Hypertensive Pulse: Regular Respiratory Rate: Normal Appearance: Positive for: Well-Appearing, Non-Toxic, Comfortable Pain Distress: None Mental Status: Positive for: Alert and Oriented X 3 - Systems Exam Head: Present: Atraumatic, Normocephalic Pupils: Present: PERRL Extroacular Muscles: Present: EOMI Conjunctiva: Present: Normal Mouth: Present: Moist Mucous Membranes. No: Normal Teeth (tooth 22 is chewed down and black; whole back section of teeth are gone) Neck: Present: Normal Range of Motion Respiratory/Chest: Present: Clear to Auscultation, Good Air Exchange. No: Respiratory Distress, Accessory Muscle Use Cardiovascular: Present: Regular Rate and Rhythm, Normal S1, S2. No: Murmurs Abdomen: No: Tenderness, Distention, Peritoneal Signs Back: Present: Normal Inspection Upper Extremity: Present: Normal Inspection. No: Cyanosis, Edema Lower Extremity: Present: Normal Inspection. No: Edema Neurological: Present: GCS=15, CN II-XII Intact, Speech Normal Skin: Present: Warm, Dry, Normal Color. No: Rashes Psychiatric: Present: Alert, Oriented x 3, Normal Insight, Normal Concentration Medical Decision Making ED Course and Treatment: 04/25/18 11:23 Impression: 47 year old female presents to the emergency department complaining of migraines. Plan: -- Fioricet -- Norvasc -- Toprol -- Zofran -- Reassess and disposition Progress Notes: 04/25/18 12:44 Upon reevaluation, pt feels better and is requesting Tylenol 4. Pt will be d/c with prescription for Tylenol 3. - Medication Orders Current Medication Orders: Discontinued Medications Acetaminophen/Butalbital/Caffeine (Fioricet) 1 tab PO ONCE ONE Stop: 04/25/18 11:19 Last Admin: 04/25/18 11:47 Dose: 1 tab MAR Pain Assessment Document 04/25/18 11:47 GMD (Rec: 04/25/18 11:47 GMD [id number]) Pain Reassessment Is this a pain reassessment? No Amlodipine Besylate (Norvasc) 10 mg PO STAT STA Stop: 04/25/18 11:22 Last Admin: 04/25/18 11:47 Dose: 10 mg MAR Blood Pressure Document 04/25/18 11:47 GMD (Rec: 04/25/18 11:48 GMD [id number]) Blood Pressure Blood Pressure (100/60-150/90 mm Hg) 176/108 Metoprolol Succinate (Toprol Xl) 25 mg PO STAT STA Stop: 04/25/18 11:23 Last Admin: 04/25/18 11:47 Dose: 25 mg MAR Pulse and Blood Pressure Document 04/25/18 11:47 GMD (Rec: 04/25/18 11:47 GMD [id number]) Pulse Pulse Rate (60-90 beats/min) 77 Blood Pressure Blood Pressure (100/60-150/90 mm Hg) 176/108 Ondansetron HCl (Zofran Tab) 4 mg PO STAT STA Stop: 04/25/18 11:18 Last Admin: 04/25/18 11:47 Dose: 4 mg Tramadol HCl (Ultram) 50 mg PO STAT STA Stop: 04/25/18 11:55 Last Admin: 04/25/18 12:12 Dose: 50 mg MAR Pain Assessment Document 04/25/18 12:12 HI (Rec: 04/25/18 12:13 HI [email or web address]) Pain Reassessment Is this a pain reassessment? No Sleep Is patient sleeping during reassessment? No Presence of Pain Presence of Pain Yes Description Description Constant Intensity of Pain at present 7 Acceptable Level of Pain 2 Pain Behavior Facial Grimacing - Scribe Statement The provider has reviewed the documentation as recorded by the Scribsoledad Pritchett All medical record entries made by the Juliannaibe were at my direction and personally dictated by me. I have reviewed the chart and agree that the record accurately reflects my personal performance of the history, physical exam, medical decision making, and the department course for this patient. I have also personally directed, reviewed, and agree with the discharge instructions and disposition. Disposition/Present on Arrival - Present on Arrival Any Indicators Present on Arrival: No History of DVT/PE: No History of Uncontrolled Diabetes: No Urinary Catheter: No History of Decub. Ulcer: No History Surgical Site Infection Following: None - Disposition Have Diagnosis and Disposition been Completed?: Yes Diagnosis: Migraine, Toothache Disposition: HOME/ ROUTINE Disposition Time: 12:56 Patient Plan: Discharge Patient Problems: Current Active Problems Problem Status Onset Migraine Acute Toothache Acute Condition: GOOD Prescriptions: Acetaminophen/Codeine [Tylenol/Codeine 300 MG/30 MG] 2 ea PO Q4 #8 tab Referrals: [facility] [Outside] - Follow up with primary [facility] at [facility] [Outside] - Follow up with primary [facility] [place] [Outside] - Follow up with primary Forms: [employer] (Senegalese)
[2018-04-25] MEDS ORDERED: Metoprolol Succinate 25 mg XL Tab PO STA (11:22)
[2018-04-25 11:46] VITALS: O2SAT 100
[2018-04-25 12:46] VITALS: BP 168/94; PULSE 71
== END 2018-04-25 12:41 | disposition home or self-care (01) ==
LOC: ED 10:38
DX: G43.909 Migraine, unspecified, not intractable, without status migrainosus (principal); K08.89 Other specified disorders of teeth and supporting structures; I10 Essential (primary) hypertension; M32.9 Systemic lupus erythematosus, unspecified

== ENCOUNTER 2018-05-10 12:53 | Emergency (ER) | payer MEDICAID ==
[2018-05-10 12:59] VITALS: BMI 30.7
[2018-05-10] MEDS ORDERED: Alum-Mag Hydrox-Simethicone Susp (30 mL) PO STA (13:03)
[2018-05-10] MEDS ORDERED: Sodium Chloride 0.9% 1,000 ML IV STA (13:04)
--- NOTE | 2018-05-10 13:13 | ED PDOC ---
Arrival/HPI - General Chief Complaint: Abdominal Pain Time Seen by Provider: 05/10/18 12:55 Historian: Patient - History of Present Illness Narrative History of Present Illness (Text): 05/10/18 13:07 Patient is a 47 year old female whose past medical history includes Crohn's disease and hiatal hernia, who presents to the emergency department complaining of abdominal pain and diarrhea, which started over a week ago. Patient reports that her abdominal pain is worse in the epigastric area. She has tried taking Imodium for her diarrhea with no alleviation. Patient states that she was at [facility] a few days ago and had a CT and blood work done which were normal. She was subsequently discharged from the hospital. She admits to having a fever of 101F yesterday and has experienced episodes of vomiting. She denies any recent travel or antibiotic use. She also denies any chest pain or shortness of breath. She had an EGD and colonoscopy a year ago and notes that her colonoscopy was normal and her EGD showed ulcers. Patient denies any sore throat, cough, shortness of breath, chest pain, nausea, hematuria, dysuria, urinary, back pain, new rashes, headache, depression, or any other associated symptoms. Time/Duration: > week Symptom Onset: Sudden Symptom Course: Unchanged Context: Home Past Medical History - Provider Review Nursing Documentation Reviewed: Yes - Infectious Disease Hx of Infectious Diseases: None - Tetanus Immunization Tetanus Immunization: Unknown - Cardiac Hx Cardiac Disorders: Yes Hx Hypertension: Yes - Pulmonary Hx Respiratory Disorders: Yes Hx Asthma: Yes Hx Pneumonia: Yes - Neurological Hx Neurological Disorder: Yes Hx Migraine: Yes - HEENT Hx HEENT Disorder: No - Renal Hx Renal Disorder: Yes Hx Kidney Stones: Yes - Endocrine/Metabolic Hx Endocrine Disorders: Yes Hx Systemic Lupus Erythematosus: Yes (As per pt) - Hematological/Oncological Hx Blood Disorders: Yes Hx Anemia: Yes - Integumentary Hx Dermatological Disorder: No - Musculoskeletal/Rheumatological Hx Musculoskeletal Disorders: Yes Hx Arthritis: Yes (KNEE,HIP,SHOULDER) Hx Fractures: Yes (right hand 2010) - Gastrointestinal Hx Gastrointestinal Disorders: Yes Hx Crohn's Disease: Yes Hx Gastritis: Yes Hx Gastrointestinal Ulcer: Yes - Genitourinary/Gynecological Hx Genitourinary Disorders: No - Psychiatric Hx Psychophysiologic Disorder: Yes Hx Anxiety: Yes Hx Depression: Yes Hx Substance Use: No - Surgical History Other/Comment: r wrist/sinus - Anesthesia Hx Anesthesia: Yes Hx Anesthesia Reactions: No Hx Malignant Hyperthermia: No - Suicidal Assessment Feels Threatened In Home Enviroment: No Family/Social History - Physician Review Nursing Documentation Reviewed: Yes Family/Social History: No Known Family HX Smoking Status: Never Smoked Hx Alcohol Use: No Hx Substance Use: No Hx Substance Use Treatment: No Allergies/Home Meds Allergies/Adverse Reactions: Allergies amoxicillin Allergy (Verified 05/10/18 12:59) RASH metronidazole [From Flagyl] Allergy (Verified 05/10/18 12:59) RASH NSAIDS (Non-Steroidal Anti-Inflamma Allergy (Verified 05/10/18 12:59) SWELLING peanut Allergy (Verified 05/10/18 12:59) ANAPHYLAXIS chickpeas Allergy (Uncoded 05/10/18 12:59) RASH Home Medications: Home Meds Medication Instructions Recorded Confirmed amLODIPine [Norvasc] 10 mg PO DAILY #0 10/01/14 05/10/18 Topiramate [Topamax] 200 mg PO BID 01/09/16 05/10/18 SUMAtriptan [Imitrex Tab] 50 mg PO PRN PRN 06/07/17 05/10/18 traMADol [Ultram] 100 mg PO Q6 PRN 06/29/17 05/10/18 Gabapentin [Neurontin] 600 mg PO TID 10/19/17 05/10/18 Review of Systems - Review of Systems Constitutional: Fevers ENT: absent: Sore Throat Respiratory: absent: SOB, Cough Cardiovascular: absent: Chest Pain Gastrointestinal: Diarrhea, Vomiting. absent: Nausea Genitourinary Female: absent: Dysuria, Hematuria, Urine Output Changes Musculoskeletal: absent: Back Pain Skin: absent: Rash Neurological: absent: Headache Psychiatric: absent: Depression Physical Exam Vital Signs Reviewed: Yes Vital Signs Temp Pulse Resp BP Pulse Ox 05/10/18 19:39 18 05/10/18 18:30 98.7 F 77 18 157/91 H 98 05/10/18 17:00 80 18 158/91 H 99 05/10/18 15:35 78 18 158/93 H 98 05/10/18 13:42 153/101 H 05/10/18 13:08 97.8 F 75 19 153/101 H 99 Temperature: Afebrile Blood Pressure: Hypertensive Pulse: Regular Appearance: Positive for: Well-Appearing Mental Status: Positive for: Alert and Oriented X 3 - Systems Exam Head: Present: Atraumatic, Normocephalic Pupils: Present: PERRL Extroacular Muscles: Present: EOMI Conjunctiva: Present: Normal Mouth: Present: Moist Mucous Membranes Neck: Present: Normal Range of Motion Respiratory/Chest: Present: Clear to Auscultation, Good Air Exchange. No: Respiratory Distress, Accessory Muscle Use Cardiovascular: Present: Regular Rate and Rhythm, Normal S1, S2. No: Murmurs Abdomen: Present: Tenderness (Generalized abdominal tenderness worse in epigastric area. Right flank tenderness.). No: Distention, Peritoneal Signs Back: Present: Normal Inspection Upper Extremity: Present: Normal Inspection. No: Cyanosis, Edema Lower Extremity: Present: Normal Inspection. No: Edema Neurological: Present: GCS=15, CN II-XII Intact, Speech Normal Skin: Present: Warm, Dry, Normal Color. No: Rashes Psychiatric: Present: Alert, Oriented x 3, Normal Insight, Normal Concentration Medical Decision Making ED Course and Treatment: 05/10/18 13:18 Impression: Patient is a 47 year old female who presents to the emergency department complaining of abdominal pain and diarrhea, which started over a week ago. Differential Diagnosis included but are not limited to: Gastritis vs. Diverticulitis vs. UTI vs. Pancreatitis vs. Crohn's flare vs. Small bowel obstruction Plan: --Abdominal and pelvic CT with IV contrast. --Labs --Blood work --Urinalysis --Maalox --Norvasc --Pepcid --Toradol --IV fluids -- Reassess and disposition Prior Visits: Notes and results from previous visits were reviewed. Progress Notes: 05/10/18 17:56 Unable to get IV access and due to hematuria will get non contrast pelvic CT to evaluate for renal stones. Patient reported uncontrolled pain after tylenol ( refusing toradol due to allergy) and given morphine. CT Abdomen and Pelvis Without Intravenous Contrast: FINDINGS: Limitations: Limited evaluation due to lack of IV contrast. Lung bases: Unremarkable. No mass. No consolidation. Mediastinum: Moderate hiatal hernia. ABDOMEN: Liver: Unremarkable. Gallbladder and bile ducts: Unremarkable. No calcified stones. No ductal dilation. Pancreas: Pancreas evaluation is limited. No ductal dilation. Spleen: Unremarkable. No splenomegaly. Adrenals: Unremarkable. No mass. Kidneys and ureters: Nonobstructing tiny calculus in the left kidney. Stomach and bowel: Bowel evaluation is limited due to lack of distention. No mucosal thickening. PELVIS: Appendix: No findings to suggest acute appendicitis. Bladder: Unremarkable. No stones. Reproductive: Unremarkable as visualized. ABDOMEN and PELVIS: Intraperitoneal space: Unremarkable. No free air. No significant fluid collection. Bones/joints: No acute fracture. No dislocation. Soft tissues: Unremarkable. Vasculature: Unremarkable. No abdominal aortic aneurysm. Lymph nodes: Unremarkable. No enlarged lymph nodes. IMPRESSION: No acute findings. Thank you for allowing us to participate in the care of your patient. Dictated and Authenticated by: Paty Raymond MD 05/10/18 19:19 [facility] was reviewed. Patient had prescription for 60 tabs of Tylenol with codeine on 04/28/18. She was prescribed 120 tab of Tramadol on 04/27/18, and 90 tabs of Gabapentin on 04/27/18. 10 tabs of Tylenol and codeine on 04/26/18. 8 tabs of Tylenol and codeine on 04/25/18. 04/13/18 had 60 tabs of Tylenol and Codeine. 120 tabs of Tramadol on 04/13/18. Prescriptions from 3 prescribers with multiple doses of narcotics. I am concerned for opiod dependence. 05/10/18 19:26 I explained to patient that her CT was normal and that she needed to follow-up with GI. Her labs show baseline anemia. Her CMP showed low electrolytes that were repleted with po medication which the patient tolerated. Her UA shows hematuria which she has a history of. She was made aware of this and instructed to follow-up with her PMD. She denied dysuria, but due to abdominal pain, with ua showing 2-5 wbc and trace leukocytes will treat as uti. Patient is well appearing with soft abdomen on reevaluation and has been tolerating po. Patient is angry and agitated that she isn't being kept in the hospital. She is requesting ultram or additional dose of narcotics. I informed patient that i could not give her more narcotics. She became more agitated and refused ekg. She was again instructed on importance of following up with GI - Lab Interpretations Lab Results: 05/10/18 13:30 05/10/18 13:30 Lab Results 05/10/18 13:30: Sodium 143, Potassium 3.2 L, Chloride 110 H, Carbon Dioxide 21, Anion Gap 16, BUN 5 L, Creatinine 0.6 L, Est GFR ( Amer) > 60, Est GFR ( Non-Af Amer) > 60, Random Glucose 138 H, Calcium 9.1, Phosphorus 2.2 L, Magnesium 1.8, Total Bilirubin 0.3, AST 39 H D, ALT 55, Alkaline Phosphatase 81 , Total Protein 7.2, Albumin 4.1, Globulin 3.1, Albumin/Globulin Ratio 1.3, Lipase 87 05/10/18 13:30: Urine Color Yellow, Urine Appearance Turbid, Urine pH 7.0, Ur Specific [place] 1.010, Urine Protein Negative, Urine Glucose (UA) Negative, Urine Ketones Negative, Urine Blood Moderate H, Urine Nitrate Negative, Urine Bilirubin Negative, Urine Urobilinogen 0.2, Ur Leukocyte Esterase Moderate H, Urine RBC 0 - 2, Urine WBC 2 - 5, Ur Epithelial Cells 3 - 4, Urine Bacteria Trace 05/10/18 13:30: WBC 3.6 L, RBC 4.10, Hgb 9.0 L, Hct 30.4 L, MCV 74.1 L, MCH 22.0 L, MCHC 29.6 L, RDW 16.4 H, Plt Count 270, MPV 9.7, Gran % 62.3, Lymph % ( Auto) 26.6, [place] % (Auto) 7.8 H, Eos % (Auto) 3.0, Baso % (Auto) 0.3, Gran # 2.25, Lymph # (Auto) 1.0 L, [place] # (Auto) 0.3, Eos # (Auto) 0.1, Baso # (Auto) 0.01 I have reviewed the lab results: Yes - RAD Interpretation Radiology Orders: 05/10/18 17:55 ABD & PELVIS W/O PO OR IV CONT [CT] Stat - Medication Orders Current Medication Orders: Discontinued Medications Acetaminophen (Tylenol 325mg Tab) 650 mg PO STAT STA Stop: 05/10/18 13:44 Last Admin: 05/10/18 13:53 Dose: 650 mg MAR Pain/Vitals Document 05/10/18 13:53 SHIVANI (Rec: 05/10/18 13:53 SHIVANI [id number]) Pain Reassessment Is This A Pain ReAssessment? No Sleep Is patient sleeping during reassessment? No Presence of Pain Presence of Pain Yes Re-Assess: MAR Pain/Vitals Document 05/10/18 14:53 SHIVANI (Rec: 05/10/18 19:13 SHIVANI [id number]) Pain Reassessment Is This A Pain ReAssessment? No Sleep Is patient sleeping during reassessment? No Presence of Pain Presence of Pain Yes Pain Scale Used Pain Scale Used Numeric Location Intensity 6 Scale Used Numeric Al Hydrox/Mg Hydrox/Simethicone (Maalox Plus 30 Ml) 30 ml PO STAT STA Stop: 05/10/18 13:04 Last Admin: 05/10/18 13:42 Dose: 30 ml Amlodipine Besylate (Norvasc) 10 mg PO STAT STA Stop: 05/10/18 13:11 Last Admin: 05/10/18 13:42 Dose: 10 mg [facility] Blood Pressure Document 05/10/18 13:42 SHIVANI (Rec: 05/10/18 13:42 SHIVANI [id number]) Blood Pressure Blood Pressure (100/60-150/90) 153/101 Famotidine (Pepcid) 20 mg IVP STAT STA Stop: 05/10/18 13:04 Last Admin: 05/10/18 13:41 Dose: 20 mg IVP Administration Document 05/10/18 13:41 SHIVANI (Rec: 05/10/18 13:41 SHIVANI [id number]) Charges for Administration # of IVP Administrations 1 Sodium Chloride (Sodium Chloride 0.9%) 1,000 mls @ 999 mls/hr IV .Q1H1M STA Stop: 05/10/18 14:04 Last Admin: 05/10/18 13:41 Dose: 999 mls/hr eMAR Start Stop Document 05/10/18 13:41 SHIVANI (Rec: 05/10/18 13:41 SHIVANI [id number]) Intravenous Solution Start Date 05/10/18 Start Time 13:41 End Date 05/10/18 End time 14:41 Total Infusion Time 60 Ketorolac Tromethamine (Toradol) 30 mg IVP STAT STA Stop: 05/10/18 13:04 Last Admin: 05/10/18 13:43 Dose: Not Given Non-Admin Reason: Patient Lethargic Morphine Sulfate (Morphine) 2 mg IVP STAT STA Stop: 05/10/18 15:08 Last Admin: 05/10/18 15:29 Dose: 2 mg MAR Pain Assessment Document 05/10/18 15:29 SHIVANI (Rec: 05/10/18 15:29 SZA [id number]) Pain Reassessment Is this a pain reassessment? No Sleep Is patient sleeping during reassessment? No Presence of Pain Presence of Pain Yes Pain Scale Used Pain Scale Used Numeric Description Description Intermittent Intensity of Pain at present 6 IVP Administration Document 05/10/18 15:29 SHANTA (Rec: 05/10/18 15:29 SZA [id number]) Charges for Administration # of IVP Administrations 1 Re-Assess: MAR Pain Assessment Document 05/10/18 16:29 SZConrad (Rec: 05/10/18 17:22 SZA [id number]) Pain Reassessment Is this a pain reassessment? Yes Sleep Is patient sleeping during reassessment? No Presence of Pain Presence of Pain Yes Pain Scale Used Pain Scale Used Numeric Description Description Intermittent Intensity of Pain at present 3 Ondansetron HCl (Zofran Inj) 4 mg IVP STAT STA Stop: 05/10/18 13:47 Last Admin: 05/10/18 13:54 Dose: 4 mg IVP Administration Document 05/10/18 13:54 SHIVANI (Rec: 05/10/18 13:54 SZA [id number]) Charges for Administration # of IVP Administrations 1 Potassium Chloride (K-Dur 20 Meq Er Tab) 20 meq PO STAT STA Stop: 05/10/18 14:12 Last Admin: 05/10/18 14:58 Dose: 20 meq Potassium Phos/Sodium Phos (Neutra-Phos) 1 pkt PO STAT STA Stop: 05/10/18 14:12 Last Admin: 05/10/18 14:58 Dose: 1 pkt - Scribe Statement The provider has reviewed the documentation as recorded by the Juliannaibsoledad Wiggins Provider Scribe Attestation: All medical record entries made by the Scribe were at my direction and personally dictated by me. I have reviewed the chart and agree that the record accurately reflects my personal performance of the history, physical exam, medical decision making, and the department course for this patient. I have also personally directed, reviewed, and agree with the discharge instructions and disposition. Disposition/Present on Arrival - Present on Arrival Any Indicators Present on Arrival: No History of DVT/PE: No History of Uncontrolled Diabetes: No Urinary Catheter: No History of Decub. 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 Return to ED if condition worsens. Take full course of antibiotics for uti. Prescriptions: Aluminum Hydroxide/Magnesium H [Maalox 30 ml] 30 ml PO Q6 #1 bottle Famotidine [Pepcid] 40 mg PO DAILY #30 tab Nitrofurantoin Macrocrystals [Macrobid] 100 mg PO BID #14 cap Referrals: Salvatore Pollack MD [Primary Care Provider] - Follow up with primary Dom Roberts DO [Staff Provider] - Follow up with primary Forms: [employer] (Uzbek)
[2018-05-10 13:59] LABS: BASO # 0.01 K/mm3 (0.0-2.0); BASO % 0.3 % (0.0-3.0); EOS # 0.1 (0.0-0.7); GRAN # 2.25 (1.4-6.5); GRAN % 62.3 % (50.0-68.0); LYMPH % 26.6 % (22.0-35.0); MEAN CELL VOLUME 74.1 fl (80.0-105.0); MEAN CORPUSCULAR HGB CONC 29.6 g/dl (31.0-37.0); MEAN PLATELET VOLUME 9.7 fl (7.0-11.0); MONO # 0.3 (0.1-0.6); MONO % 7.8 % (1.0-6.0); RBC 4.1 10^6/uL (3.5-6.1); RED CELL DISTRIBUTION WIDTH 16.4 % (11.5-14.5); URINE BILIRUBIN NEGATIVE (NEGATIVE); URINE BLOOD MODERATE (NEGATIVE); URINE GLUCOSE (UA) NEGATIVE (NEGATIVE); URINE LEUKOCYTE ESTERASE MODERATE Leu/uL (NEGATIVE); URINE PROTEIN NEGATIVE mg/dL (<30 mg/dL); URINE UROBILINOGEN 0.2 E.U./dL (<1 E.U./dL); WHITE BLOOD COUNT 3.6 10^3/ul (4.5-11.0)
[2018-05-10 14:00] LABS: URINE APPEARANCE TURBID (CLEAR); URINE COLOR YELLOW (YELLOW)
[2018-05-10 14:01] LABS: URINE RBC 0 - 2 /hpf (0-2)
[2018-05-10 14:02] LABS: URINE BACTERIA TRACE (NEG)
[2018-05-10 14:08] LABS: ALB/GLOB RATIO 1.3 (1.1-1.8); ALBUMIN 4.1 g/dL (3.0-4.8); ALT/SGPT 55 U/L (7-56); AST/SGOT 39 U/L (14-36); BLOOD UREA NITROGEN 5 mg/dL (7-21); CALCIUM 9.1 mg/dL (8.4-10.5); GFR AFRICAN-AMERICAN > 60; GFR NON-AFRICAN AMERICAN > 60; LIPASE 87 U/L (23-300)
[2018-05-10] MEDS ORDERED: Potassium & Sodium Phosphate PO STA (14:11)
[2018-05-10] MEDS ORDERED: Potassium Chloride 20 mEq ER Tab PO STA (14:11)
[2018-05-10] MEDS ORDERED: Morphine 2 mg/ml ISec IVP STA (15:07)
[2018-05-10 15:36] VITALS: RESP 18
[2018-05-10] MEDS ORDERED: Iohexol 350 MG/100 ML VIAL ONE (16:19)
[2018-05-10 18:53] VITALS: BP 157/91; PULSE 77; TEMP 98.7; O2SAT 98
--- NOTE | 2018-05-11 07:50 | CT ---
Date of service: 05/10/2018 PROCEDURE: CT Abdomen and Pelvis without intravenous contrast HISTORY: hematuria, abdominal pain COMPARISON: None. TECHNIQUE: Without contrast. Contrast dose: Radiation dose: Total exam DLP = 583 mGy-cm. This CT exam was performed using one or more of the following dose reduction techniques: Automated exposure control, adjustment of the mA and/or kV according to patient size, and/or use of iterative reconstruction technique. FINDINGS: LOWER THORAX: Unremarkable. LIVER: Unremarkable. No gross lesion or ductal dilatation. GALLBLADDER AND BILE DUCTS: Unremarkable. PANCREAS: Unremarkable. No gross lesion or ductal dilatation. SPLEEN: Unremarkable. ADRENALS: Unremarkable. No mass. KIDNEYS AND URETERS: Unremarkable. No hydronephrosis. No solid mass. Tiny nonobstructing stone in the left kidney VASCULATURE: Unremarkable. No aortic aneurysm. BOWEL: Unremarkable. No obstruction. No gross mural thickening. APPENDIX: Unremarkable. Normal appendix. PERITONEUM: Unremarkable. No free fluid. No free air. LYMPH NODES: Unremarkable. No enlarged lymph nodes. BLADDER: Unremarkable. REPRODUCTIVE: Unremarkable. BONES: No acute fracture. OTHER FINDINGS: The report concurs with the preliminary [facility] report IMPRESSION: No acute findings
== END 2018-05-10 19:39 | disposition home or self-care (01) ==
LOC: ED 12:53
DX: N39.0 Urinary tract infection, site not specified (principal); D64.9 Anemia, unspecified; R31.9 Hematuria, unspecified; E87.6 Hypokalemia; E83.39 Other disorders of phosphorus metabolism; R10.9 Unspecified abdominal pain; I10 Essential (primary) hypertension; M32.9 Systemic lupus erythematosus, unspecified
CPT/HCPCS: 74176; 80053; 81001; 83690; 83735; 84100; 85025; 87086; 96361; 96374; 96375; 99285; J2270; J2405; J7030

== ENCOUNTER 2018-06-02 21:03 | Inpatient (IN) | payer MEDICAID ==
[2018-06-02 21:13] VITALS: BMI 29.8
--- NOTE | 2018-06-02 22:14 | ED PDOC ---
Arrival/HPI - General Chief Complaint: Abdominal Pain Time Seen by Provider: 06/02/18 21:18 Historian: Patient - History of Present Illness Narrative History of Present Illness (Text): 06/02/18 22:14 Patient is a 47 year old female, whose past medical history of crohn's disease, diabetes, and a UTI, presents to the emergency department complaining of abdominal pain, nausea, and multiple episodes of diarrhea ~4 since yesterday. Patient reports she has experienced associated dysuria, back pain, and diaphoresis. Patient notes she had trouble ambulating and has trouble walking due to pain. Patient reports she has not had her period. Patient denies any vaginal discharge, fever, chills, shortness of breath, chest pain, neck pain, headache and dizziness. PMD: Salvatore Pollack GI: Dr. Nascimento 06/03/18 03:30 Time/Duration: 24 hours Symptom Onset: Gradual Symptom Course: Unchanged Activities at Onset: Light Context: Home Past Medical History - Provider Review Nursing Documentation Reviewed: Yes - Infectious Disease Hx of Infectious Diseases: None - Tetanus Immunization Tetanus Immunization: Unknown - Cardiac Hx Cardiac Disorders: Yes Hx Hypertension: Yes - Pulmonary Hx Respiratory Disorders: Yes Hx Asthma: Yes Hx Pneumonia: Yes - Neurological Hx Neurological Disorder: Yes Hx Migraine: Yes - HEENT Hx HEENT Disorder: No - Renal Hx Renal Disorder: Yes Hx Kidney Stones: Yes - Endocrine/Metabolic Hx Endocrine Disorders: Yes Hx Systemic Lupus Erythematosus: Yes (As per pt) - Hematological/Oncological Hx Blood Disorders: Yes Hx Anemia: Yes - Integumentary Hx Dermatological Disorder: No - Musculoskeletal/Rheumatological Hx Musculoskeletal Disorders: Yes Hx Arthritis: Yes (KNEE,HIP,SHOULDER) Hx Fractures: Yes (right hand 2009) - Gastrointestinal Hx Gastrointestinal Disorders: Yes Hx Crohn's Disease: Yes Hx Gastritis: Yes Hx Gastrointestinal Ulcer: Yes - Genitourinary/Gynecological Hx Genitourinary Disorders: No - Psychiatric Hx Psychophysiologic Disorder: Yes Hx Anxiety: Yes Hx Depression: Yes Hx Substance Use: No - Surgical History Other/Comment: r wrist/sinus - Anesthesia Hx Anesthesia: Yes Hx Anesthesia Reactions: No Hx Malignant Hyperthermia: No - Suicidal Assessment Feels Threatened In Home Enviroment: No Family/Social History - Physician Review Nursing Documentation Reviewed: Yes Family/Social History: Unknown Family HX Smoking Status: Never Smoked Hx Alcohol Use: No Hx Substance Use: No Hx Substance Use Treatment: No Allergies/Home Meds Allergies/Adverse Reactions: Allergies amoxicillin Allergy (Verified 05/10/18 12:59) RASH metronidazole [From Flagyl] Allergy (Verified 05/10/18 12:59) RASH NSAIDS (Non-Steroidal Anti-Inflamma Allergy (Verified 05/10/18 12:59) SWELLING peanut Allergy (Verified 05/10/18 12:59) ANAPHYLAXIS chickpeas Allergy (Uncoded 05/10/18 12:59) RASH Home Medications: Home Meds Medication Instructions Recorded Confirmed amLODIPine [Norvasc] 10 mg PO DAILY #0 10/01/14 06/03/18 Topiramate [Topamax] 100 mg PO BID 01/09/16 06/03/18 SUMAtriptan [Imitrex Tab] 50 mg PO PRN PRN 06/07/17 06/03/18 traMADol [Ultram] 100 mg PO Q6 PRN 06/29/17 06/03/18 Gabapentin [Neurontin] 600 mg PO TID 10/19/17 06/03/18 Acetaminophen/Butalbital/Caf 1 tab PO Q6 PRN 06/03/18 06/03/18 [Fioricet] Review of Systems - Physician Review All systems were reviewed & negative as marked: Yes - Review of Systems Constitutional: Night Sweats Respiratory: absent: SOB Cardiovascular: absent: Chest Pain Gastrointestinal: Abdominal Pain, Diarrhea (+many times), Nausea. absent: Stool Changes, Constipation, Vomiting, Appetite Changes, Hematochezia, Hematemesis, Anorexia, Food Intolerance Genitourinary Female: Dysuria Musculoskeletal: Back Pain. absent: Neck Pain Neurological: absent: Headache, Dizziness Physical Exam Vital Signs Reviewed: Yes Vital Signs Temp Pulse Resp BP Pulse Ox 06/03/18 03:20 98.2 F 60 18 179/78 H 100 06/03/18 01:46 66 18 173/116 H 100 06/02/18 23:50 61 18 181/106 H 100 06/02/18 21:18 97.8 F 66 16 160/107 H 99 Temperature: Afebrile Blood Pressure: Hypertensive Pulse: Regular Respiratory Rate: Normal Appearance: Positive for: Well-Appearing, Non-Toxic, Comfortable Pain Distress: None Mental Status: Positive for: Alert and Oriented X 3 - Systems Exam Head: Present: Atraumatic, Normocephalic Pupils: Present: PERRL Extroacular Muscles: Present: EOMI Conjunctiva: Present: Normal Mouth: Present: Moist Mucous Membranes Neck: Present: Normal Range of Motion Respiratory/Chest: Present: Clear to Auscultation, Good Air Exchange. No: Respiratory Distress, Accessory Muscle Use Cardiovascular: Present: Regular Rate and Rhythm, Normal S1, S2. No: Murmurs Abdomen: Present: Tenderness (+diffused tenderness). No: Distention, Normal Bowel Sounds, Peritoneal Signs, Rebound, Guarding, McBurney's Point Tender, Rovsing's Sign Present, Hernias, Feeding Tubes, Ostomy Tubes, Mass/Organomegaly , Scars Back: No: Normal Inspection, CVA Tenderness (+left and right CVA tenderness), Midline Tenderness, Paraspinal Tenderness, Pain with Leg Raise, Decubitus Ulcer Upper Extremity: Present: Normal Inspection. No: Cyanosis, Edema Lower Extremity: Present: Normal Inspection. No: Edema Neurological: Present: GCS=15, CN II-XII Intact, Speech Normal Skin: Present: Warm, Dry, Normal Color. No: Rashes Psychiatric: Present: Alert, Oriented x 3, Normal Insight, Normal Concentration Medical Decision Making ED Course and Treatment: 06/02/18 22:17 Impression: 47 year old female presenting to the emergency department complaining of abdominal pain, nausea, and diarrhea. Given recent hx of abx, cdiff possible. Given recent hx of UTI, recurrent UTI possible. pt has hx of crohns, will seek imaging for hx of crohns as well as diffuse abdominal pain. Plan: -- Venous blood gas -- CT of abdomen & Pelvis and IV contrast -- Labs -- CBC -- Morphine -- Zofran -- Urinalysis -- Reassess and disposition Prior Visits: Notes and results from previous visits were reviewed. Patient was last seen here in the emergency department on 05/10/18 for abdominal pain and diarrhea and was discharged when symptoms improved. Progress Notes: 06/03/18 01:[address] and Lab and UA results are unremarkable. Pending C. diff assay 06/03/18 02:03 Upon reassessment, patient is still experiencing contractible pain. paged Dr. Pavon (hospitalist)- to see 06/03/18 02:37 Procedure: XR Left Ribs and AP Chest, 3 or More Views Impression:No acute fracture. Dictator: Malika Tillman MD Procedure: XR Right Hand Complete, 3 or More Views Impression:No acute fracture. No dislocation. Degenerative changes in the proximal and distal interphalangeal joints Dictator: Malika Tillman MD 06/03/18 03:[address] Pavon for intractable pain - Lab Interpretations Lab Results: 06/02/18 22:45 06/02/18 22:45 Lab Results 06/02/18 23:30: Urine Color Yellow, Urine Appearance Clear, Urine pH 6.0, Ur Specific [place] >= 1.030, Urine Protein Trace H, Urine Glucose (UA) Negative, Urine Ketones Negative, Urine Blood Negative, Urine Nitrate Negative, Urine Bilirubin Negative, Urine Urobilinogen 0.2, Ur Leukocyte Esterase Negative, Urine RBC Negative, Urine WBC 0 - 2, Ur Epithelial Cells 0 - 2, Urine Bacteria Few 06/02/18 22:45: Sodium 145, Chloride 116 H, Potassium 3.6, Carbon Dioxide 19 L, Anion Gap 14, BUN 10, Creatinine 0.8, Est GFR ( Amer) > 60, Est GFR (Non- Af Amer) > 60, Random Glucose 86, Calcium 8.9, Total Bilirubin 0.3, AST 22, ALT 32, Alkaline Phosphatase 83, Total Protein 6.5, Albumin 3.6, Globulin 2.9, Albumin/Globulin Ratio 1.2, Lipase 169 06/02/18 22:45: pO2 41, VBG pH 7.35, VBG pCO2 37.0 L, VBG HCO3 20.4 L, VBG Total CO2 21.5 L, VBG O2 Sat (Calc) 78.6 H, VBG Base Excess -4.7 L, VBG Potassium 3.5 L, Sodium 143.0, Chloride 117.0 H, Glucose 85, Lactate 1.0, FiO2 21.0, Venous Blood Potassium 3.5 L 06/02/18 22:45: WBC 4.3 L, RBC 4.05, Hgb 8.9 L, Hct 30.3 L, MCV 74.8 L, MCH 22.0 L, MCHC 29.4 L, RDW 17.6 H, Plt Count 294, MPV 9.2, Gran % 51.5, Lymph % ( Auto) 37.4 H, Gray % (Auto) 6.0, Eos % (Auto) 4.6, Baso % (Auto) 0.5, Gran # 2.23, Lymph # (Auto) 1.6, Gray # (Auto) 0.3, Eos # (Auto) 0.2, Baso # (Auto) 0.02 - RAD Interpretation Radiology Orders: 06/02/18 22:19 ABD PELVIS PO & IV CONTRAST [CT] Stat - Medication Orders Current Medication Orders: Discontinued Medications Morphine Sulfate (Morphine) 4 mg IVP STAT STA Stop: 06/02/18 22:20 Last Admin: 06/03/18 00:40 Dose: 4 mg MAR Pain Assessment Document 06/03/18 00:40 CNR (Rec: 06/03/18 00:40 CNR [id number]) Pain Reassessment Is this a pain reassessment? No IVP Administration Document 06/03/18 00:40 CNR (Rec: 06/03/18 00:40 CNR [id number]) Charges for Administration # of IVP Administrations 1 Ondansetron HCl (Zofran Inj) 4 mg IVP STAT STA Stop: 06/02/18 22:20 Last Admin: 06/03/18 00:40 Dose: 4 mg IVP Administration Document 06/03/18 00:40 CNR (Rec: 06/03/18 00:40 CNR [id number]) Charges for Administration # of IVP Administrations 1 - Scribe Statement The provider has reviewed the documentation as recorded by the Gurinder Rose All medical record entries made by the Gurinder were at my direction and personally dictated by me. I have reviewed the chart and agree that the record accurately reflects my personal performance of the history, physical exam, medical decision making, and the department course for this patient. I have also personally directed, reviewed, and agree with the discharge instructions and disposition. Disposition/Present on Arrival - Present on Arrival Any Indicators Present on Arrival: No History of DVT/PE: No History of Uncontrolled Diabetes: No Urinary Catheter: No History of Decub. Ulcer: No History Surgical Site Infection Following: None - Disposition Have Diagnosis and Disposition been Completed?: Yes Diagnosis: Abdominal pain, Diarrhea Disposition: HOSPITALIZED Disposition Time: 01:50 Patient Problems: Current Active Problems Problem Status Onset Abdominal pain Acute Diarrhea Acute Condition: GOOD Discharge Instructions (ExitCare): Diarrhea in Adolescents and Adults, Acute Abdomen (Belly Pain) Additional Instructions: BERNA PUENTE, thank you for letting us take care of you today. Your provider was Keshav Higuera and you were treated for ABDOMINAL/ REAR FLANK PAIN. The emergency medical care you received today was directed at your acute symptoms. If you were prescribed any medication, please fill it and take as directed. It may take several days for your symptoms to resolve. Return to the Emergency Department if your symptoms worsen, do not improve, or if you have any other problems. Please contact your doctor or call one of the physicians/clinics you have been referred to that are listed on the Patient Visit Information form that is included in your discharge packet. Bring any paperwork you were given at discharge with you along with any medications you are taking to your follow up visit. Our treatment cannot replace ongoing medical care by a primary care provider outside of the emergency department. Thank you for allowing the [facility] team to be part of your care today. If you had an X-Ray or CT scan: A Radiologist will review the ED reading if any change in treatment is needed we will contact you. If you had a blood, urine, or wound culture: It will take several days for the results, if any change in treatment is needed we will contact you. If you had an STI test: It will take 48 hours for the results. Please call after 1 week if you have not heard back. Referrals: Salvatore Pollack MD [Primary Care Provider] - Follow up with primary Dom Roberts DO [Staff Provider] - Follow up with primary Forms: [employer] (Divehi)
[2018-06-02] MEDS ORDERED: Morphine 4 mg/ml ISec IVP STA (22:19)
[2018-06-02] MEDS ORDERED: Iohexol 240 (50 ml) ONE (22:23)
[2018-06-02 23:43] LABS: BASO # 0.02 K/mm3 (0.0-2.0); BASO % 0.5 % (0.0-3.0); EOS # 0.2 (0.0-0.7); EOS % 4.6 % (1.5-5.0); GRAN # 2.23 (1.4-6.5); GRAN % 51.5 % (50.0-68.0); HEMOGLOBIN 8.9 g/dL (12.0-16.0); LYMPH # 1.6 (1.2-3.4); LYMPH % 37.4 % (22.0-35.0); MEAN CELL VOLUME 74.8 fl (80.0-105.0); MEAN CORPUSCULAR HGB CONC 29.4 g/dl (31.0-37.0); MEAN PLATELET VOLUME 9.2 fl (7.0-11.0); MONO # 0.3 (0.1-0.6); RBC 4.05 10^6/uL (3.5-6.1); RED CELL DISTRIBUTION WIDTH 17.6 % (11.5-14.5); WHITE BLOOD COUNT 4.3 10^3/ul (4.5-11.0)
[2018-06-02 23:44] LABS: VENOUS BLOOD GAS BASE EXCESS -4.7 mmol/L (0.0-2.0); VENOUS BLOOD GAS PO2 41 mm/Hg (30-55); VENOUS BLOOD PH 7.35 (7.32-7.43)
[2018-06-02 23:58] LABS: URINE BILIRUBIN NEGATIVE (NEGATIVE); URINE BLOOD NEGATIVE (NEGATIVE); URINE GLUCOSE (UA) NEGATIVE (NEGATIVE); URINE LEUKOCYTE ESTERASE NEGATIVE Leu/uL (NEGATIVE); URINE PROTEIN TRACE mg/dL (<30 mg/dL); URINE UROBILINOGEN 0.2 E.U./dL (<1 E.U./dL)
[2018-06-03 00:01] LABS: ALB/GLOB RATIO 1.2 (1.1-1.8); ALBUMIN 3.6 g/dL (3.0-4.8); ALT/SGPT 32 U/L (7-56); AST/SGOT 22 U/L (14-36); BLOOD UREA NITROGEN 10 mg/dL (7-21); CALCIUM 8.9 mg/dL (8.4-10.5); GFR NON-AFRICAN AMERICAN > 60; LIPASE 169 U/L (23-300)
[2018-06-03 00:15] LABS: URINE COLOR YELLOW (YELLOW)
[2018-06-03 00:16] LABS: URINE APPEARANCE CLEAR (CLEAR)
[2018-06-03] MEDS ORDERED: Iohexol 350 MG/100 ML VIAL ONE (00:40)
[2018-06-03 00:50] LABS: URINE BACTERIA FEW (NEG); URINE EPITHELIAL CELLS 0 - 2 /hpf (0-5); URINE RBC NEGATIVE /hpf (0-2); URINE WBC 0 - 2 /hpf (0-6)
[2018-06-03] MEDS ORDERED: Morphine 4 mg/ml ISec IVP STA (03:47)
--- NOTE | 2018-06-03 04:29 | CP.PCM.HP ---
<Dale Das - Last Filed: 06/03/18 05:14> History of Present Illness - History of Present Illness History of Present Illness: PGY-1 H & P for Dr. Pavon's service CC: ton of stomach pain HPI: Patient is a 47 yo female with PMH of Crohn's disease, HTN, asthma, chronic migraines, recurrent UTIs, hx of kidney stones, stomach ulcers, arthritis, avascular necrosis of R hip presents with abdominal pain. Patient states the pain is primarily located in the abdomen diffusely with radiation to suprapubic region and back with right side greater than left. She says the stomach pain is a sharp pain while the pain in her back is described as achy. The patient says the pain started yesterday a/w episodes of diarrhea which she noted to have blood with the bowel movements. Patient reports that also noted her urine to be red tinged with a burning sensation and increased frequency. Patient states the pain continued to today with no relief from her home medications of tramadol and tylenol. Patient rates her pain currently at a 8/ 10. She took imodium yesterday and had no episodes of diarrhea today. Recently, she was in [facility] and discharged with a followup call from ED to have a positive urine culture sensitive to Vanc/PCN. She took amoxicillin as she was prescribed to her by her dentist for a dental procedure due to a broken tooth and no longer had an allergic reaction to it. However, she continues to have suprapubic tenderness and burning sensation when she urinates. Patient continues to have abdominal pain s/p 3 doses of morphine. PMH- Crohn, HTN, asthma, chronic migraines, recurrent UTIs, hx of kidney stones , stomach ulcers, arthritis, avascular necrosis PSH- Csection, sinus surgery, right wrist surgery (screws in- No MRI) FH- Dad (HTN, Crohn, stomach ulcers); Mom (CAD); GM (breast cancer) Meds- Norvasc 10mg daily, Metoprolol 25mg po daily; Fioricet, Topamax 100mg bid ; Imitrex 50mg bid prn; neurontin 600mg tid; albuterol prn; tramadol 50mg q6h, tylenol 4; pepcid 40mg daily, protonix 40mg daily, wellbutrin Allergies: peanut (anaphylaxis), NSAIDS + flagyl (hives, throat closes) Social: quit smoking 10 years ago- 4 cigs/to pack daily until then; denies alcohol or drug use PMD: Dr. Chang Code: Full Code Present on Admission - Present on Admission Any Indicators Present on Admission: No Review of Systems - Constitutional Constitutional: absent: Chills, Fever, Headache - EENT Eyes: absent: Blurred Vision, Change in Vision Ears: absent: Dizziness - Cardiovascular Cardiovascular: absent: Chest Pain, Diaphoresis, Lightheadedness, Palpitations - Respiratory Respiratory: absent: Cough, Dyspnea - Gastrointestinal Gastrointestinal: Abdominal Pain, Diarrhea, Nausea. absent: Constipation, Vomiting - Genitourinary Genitourinary: Dysuria, Hematuria, Urinary Frequency. absent: Change in Urinary Stream, Difficulty Urinating - Neurological Neurological: Headaches. absent: Dizziness, Weakness Past Patient History - Infectious Disease Hx of Infectious Diseases: None - Tetanus Immunizations Tetanus Immunization: Unknown - Past Medical History & Family History Past Medical History?: Yes - Past Social History Smoking Status: Never Smoked - CARDIAC Hx Cardiac Disorders: Yes Hx Hypertension: Yes - PULMONARY Hx Respiratory Disorders: Yes Hx Asthma: Yes Hx Pneumonia: Yes - NEUROLOGICAL Hx Neurological Disorder: Yes Hx Migraine: Yes - HEENT Hx HEENT Problems: No - RENAL Hx Chronic Kidney Disease: Yes Hx Kidney Stones: Yes - ENDOCRINE/METABOLIC Hx Endocrine Disorders: Yes Hx Systemic Lupus Erythematosus: Yes (As per pt) - HEMATOLOGICAL/ONCOLOGICAL Hx Blood Disorders: Yes Hx Anemia: Yes - INTEGUMENTARY Hx Dermatological Problems: No - MUSCULOSKELETAL/RHEUMATOLOGICAL Hx Musculoskeletal Disorders: Yes Hx Arthritis: Yes (KNEE,HIP,SHOULDER) Hx Fractures: Yes (right hand 2009) - GASTROINTESTINAL Hx Gastrointestinal Disorders: Yes Hx Crohn's Disease: Yes Hx Gastritis: Yes - GENITOURINARY/GYNECOLOGICAL Hx Genitourinary Disorders: No - PSYCHIATRIC Hx Psychophysiologic Disorder: Yes Hx Anxiety: Yes Hx Depression: Yes Hx Substance Use: No - SURGICAL HISTORY Other/Comment: r wrist/sinus - ANESTHESIA Hx Anesthesia: Yes Hx Anesthesia Reactions: No Hx Malignant Hyperthermia: No Meds Allergies/Adverse Reactions: Allergies Allergy/AdvReac Type Severity Reaction Status Date / Time amoxicillin Allergy RASH Verified 06/03/18 04:48 metronidazole [From Flagyl] Allergy RASH Verified 06/03/18 04:48 NSAIDS (Non-Steroidal Allergy SWELLING Verified 06/03/18 04:48 Anti-Inflamma peanut Allergy ANAPHYLAXIS Verified 06/03/18 04:48 chickpeas Allergy RASH Uncoded 06/03/18 04:48 Physical Exam - Constitutional Appears: Non-toxic, No Acute Distress - Head Exam Head Exam: NORMAL INSPECTION, NORMOCEPHALIC - Eye Exam Eye Exam: EOMI, Normal appearance. absent: Nystagmus, Scleral icterus Pupil Exam: NORMAL ACCOMODATION - ENT Exam ENT Exam: Mucous Membranes Moist - Neck Exam Neck exam: Positive for: Full Rom, Normal Inspection. Negative for: Lymphadenopathy, Thyromegaly - Respiratory Exam Respiratory Exam: Clear to Auscultation Bilateral, NORMAL BREATHING PATTERN. absent: Rales, Rhonchi, Wheezes - Cardiovascular Exam Cardiovascular Exam: REGULAR RHYTHM, +S1, +S2. absent: Tachycardia - GI/Abdominal Exam GI & Abdominal Exam: Normal Bowel Sounds, Soft, Tenderness. absent: Distended, Firm, Guarding, Organomegaly Additional comments: diffuse abdominal tenderness suprapubic tenderness - Extremities Exam Extremities exam: Positive for: normal inspection. Negative for: calf tenderness, pedal edema - Back Exam Back exam: NORMAL INSPECTION, tenderness - Neurological Exam Neurological exam: Alert, Oriented x3 - Psychiatric Exam Psychiatric exam: Normal Affect, Normal Mood - Skin Skin Exam: Intact, Normal Color Results - Vital Signs Recent Vital Signs: Last Vital Signs Temp 98.2 F 06/03/18 03:20 Pulse 60 06/03/18 03:20 Resp 18 06/03/18 03:20 BP 179/78 H 06/03/18 03:20 Pulse Ox 100 06/03/18 03:20 - Labs Result Diagrams: 06/02/18 22:45 06/02/18 22:45 Assessment & Plan - Assessment and Plan (Free Text) Assessment: Patient is a 47 year old female who presents to the hospital for evaluation of abdominal pain, suprapubic tenderness, and back pain Plan: Abdominal Pain GI consulted: Dr Roberts- recommendations appreciated CT abdomen pelvis- full read pending- possible crohn flare will wait for full read C diff studies pending Zofran 4mg IVP q6h prn; Morphine 2mg IVP q4h prn Pepcid 40mg po HS NPO; NS @ 100mls/hr U/A clean Will repeat U/A tomorrow Anemia Repeat CBC in AM GI consulted- recommendations appreciated MCV- 74.8; likely iron deficiency anemia possibly due to GI and blood loss HTN Norvasc 10mg po dialy Neuropathy Gabapentin 600mg po tid Hx of migraines Wellbutrin 75mg po bid Fioricet 1tab po q4h prn Topamax 100mg po bid Imitrex 1 tab po q4h prn Tramadol 50mg po tid Hx of asthma Duonebs q6h prn PPx: DVT ppx: SCDs GI ppx: Protonix 40mg po daily <Tiburcio Pavon - Last Filed: 06/06/18 06:14> Results - Vital Signs Recent Vital Signs: Last Vital Signs Temp 98 F 06/05/18 21:43 Pulse 63 06/05/18 21:43 Resp 18 06/05/18 21:43 BP 158/91 H 06/05/18 21:43 Pulse Ox 98 06/05/18 21:43 - Labs Result Diagrams: 06/04/18 10:30 06/04/18 10:30
[2018-06-03] MEDS ORDERED: Apap-Butalbital-Caffeine 325-50-40mg Tab PO PRN (04:43)
[2018-06-03] MEDS ORDERED: Albuterol-Ipratrop 3 mg / 0.5 (3 ml) UD IH PRN (04:43)
[2018-06-03] MEDS: Pantoprazole 40 mg EC Tab PO SCH (04:56)
[2018-06-03] MEDS: Sodium Chloride 0.9% 1,000 ML IV SCH ×2 (04:57→14:51)
[2018-06-03 08:03] LABS: BASO # 0.01 K/mm3 (0.0-2.0); BASO % 0.3 % (0.0-3.0); EOS # 0.2 (0.0-0.7); EOS % 4.6 % (1.5-5.0); GRAN # 1.89 (1.4-6.5); GRAN % 48.6 % (50.0-68.0); HEMOGLOBIN 9.2 g/dL (12.0-16.0); LYMPH # 1.5 (1.2-3.4); LYMPH % 39.3 % (22.0-35.0); MEAN CELL VOLUME 75.2 fl (80.0-105.0); MEAN CORPUSCULAR HGB CONC 29.2 g/dl (31.0-37.0); MEAN PLATELET VOLUME 9.4 fl (7.0-11.0); MONO # 0.3 (0.1-0.6); MONO % 7.2 % (1.0-6.0); RBC 4.19 10^6/uL (3.5-6.1); RED CELL DISTRIBUTION WIDTH 17.4 % (11.5-14.5); WHITE BLOOD COUNT 3.9 10^3/ul (4.5-11.0)
[2018-06-03 08:23] LABS: ALB/GLOB RATIO 1.3 (1.1-1.8); ALBUMIN 3.7 g/dL (3.0-4.8); ALT/SGPT 25 U/L (7-56); AST/SGOT 19 U/L (14-36); BLOOD UREA NITROGEN 8 mg/dL (7-21); CALCIUM 8.7 mg/dL (8.4-10.5); GFR NON-AFRICAN AMERICAN > 60
--- NOTE | 2018-06-03 10:40 | CT ---
PROCEDURE: CT Abdomen and Pelvis with oral and IV contrast. HISTORY: hx of crohns, diffuse abd pain COMPARISON: CT abdomen and pelvis without oral or IV contrast performed 05/10/18 TECHNIQUE: Contiguous axial images of the abdomen and pelvis. Oral and IV contrast was administered. Coronal and Sagittal reformats generated and reviewed. Contrast dose: 100 mL Omnipaque 350 IV Radiation dose: Total exam DLP = 598.18 mGy-cm. This CT exam was performed using one or more of the following dose reduction techniques: Automated exposure control, adjustment of the mA and/or kV according to patient size, and/or use of iterative reconstruction technique. FINDINGS: LOWER THORAX: Bibasilar atelectasis. No visible pleural effusion or pneumothorax. Moderate to large hiatal hernia. Sub cm paraesophageal lymph nodes, nonspecific. Punctate left lower lobe calcified granuloma. LIVER: Hepatomegaly. Hypoattenuation of the liver compatible with hepatic steatosis. GALLBLADDER AND BILE DUCTS: Unremarkable. PANCREAS: Unremarkable. SPLEEN: Unremarkable. ADRENALS: Unremarkable. KIDNEYS AND URETERS: The kidneys enhance symmetrically. No hydronephrosis or obstructing renal calculus. Nonobstructing punctate left lower pole renal calculus. BLADDER: The urinary bladder appears unremarkable. REPRODUCTIVE: Uterus is present. APPENDIX: The appendix appears within normal limits of caliber. No secondary signs of acute appendicitis. BOWEL: The stomach is nondistended. The bowel loops appear within normal limits of caliber without evidence of intestinal obstruction. Diverticulosis without CT evidence of acute diverticulitis. Moderate constipation. PERITONEUM: No significant free fluid. No definite free air. LYMPH NODES: No bulky lymphadenopathy identified. VASCULATURE: No aortic aneurysm. BONES: No acute osseous abnormality is detected. OTHER FINDINGS: None. IMPRESSION: Hepatomegaly. Hypoattenuation of the liver compatible with hepatic steatosis. Moderate to large hiatal hernia. Diverticulosis without CT evidence of acute diverticulitis. Moderate constipation. Additional findings as above. Preliminary impression was provided by virtual radiologic.
--- NOTE | 2018-06-03 15:33 | CON ---
Copied To: Dom Roberts DO Attending MD: Dom Roberts DO DATE: 06/03/2018 HISTORY OF PRESENT ILLNESS: I saw Ms. Soriano this morning. She is a 47-year-old white female known to organization development consultant with a past medical history of Crohn disease, diabetes and recurrent urinary tract infections. Patient was admitted with complaints of diffuse abdominal pain, dysuria, nausea, vomiting, and diarrhea over several weeks. Patient noted that because of recurrent diarrhea, she had taken multiple doses Imodium over several days. Patient has a known diagnosis of Crohn enterocolitis. She has usually responded well in the past to doses of steroid during flares in the hospital. She was advised to utilize Pentasa for prophylactic control for symptoms; however, she continues to be noncompliant, she was seen by GI organization development consultant in [place]. PHYSICAL EXAMINATION: VITAL SIGNS: I reviewed the patient's vital signs. HEENT: Noncontributory. LUNGS: Clear to auscultation. HEART: Regular rhythm. ABDOMEN: Mildly distended. She is a tender diffusely, but there is marked tenderness in the area of the right lower quadrant to the right of the umbilicus as well as the right upper quadrant as well as above the umbilicus. LABORATORY DATA: Reviewed the patient's laboratory data, white count of 4.3 with H and H of 8.9 and 30, platelet count of 294. Note that the patient has denied rectal bleeding. Chemistry is reviewed, which is noncontributory. Reviewed the patient's CT scan images as the CT is currently uninterpreted at 05:30 in the morning. From my view, the thorax is noncontributory. She has substantial amount of stool noted in the ascending colon extending up to the proximal transverse. The gallbladder appears prominent. There does not appear to be any evidence of hydronephrosis with either kidney. The left colon and sigmoid is decompressed. OVERALL ASSESSMENT: This is a 47-year-old white female, known to consultants, admitted with complaints of nausea, vomiting, diarrhea, and pain. This is probably due to flare of enterocolitis and she has been noncompliant with medication control, I ordered two doses of hydrocortisone today. I will check response. Note that there may be a pain component due to proximal colon impaction. Note that a stool sample for Clostridium difficile is also pending. Patient will be followed up by the respective consultants later on today. I will order a small volume clear liquid diet to the patient assuming nausea and vomiting cleared. Dom Roberts DO, PhD MTDAlee
[2018-06-03] MEDS: Morphine 2 mg/ml ISec IVP PRN ×2 (15:53→18:00)
[2018-06-03] MEDS: HYDROmorphone 2 mg/ml ISec IVP PRN (23:26)
--- NOTE | 2018-06-04 05:09 | CARD ---
APPROVED REPORT Date of service: 06/03/2018 EKG Measurement Heart [id number] <Conclusion> Normal sinus rhythm Normal ECG
[2018-06-04] MEDS: Sodium Chloride 0.9% 1,000 ML IV SCH ×2 (05:30→09:54)
[2018-06-04] MEDS: HYDROmorphone 2 mg/ml ISec IVP PRN ×4 (05:31→22:58)
[2018-06-04] MEDS: Pantoprazole 40 mg EC Tab PO SCH (05:31)
--- NOTE | 2018-06-04 07:13 | CP.PCM.PN ---
Addendum entered and electronically signed by Frankie Mesa DO 13:01: Addendum to A/P, Vaginal discomfort: Will not add Monostat at this time. Original Note: <Frankie Mesa - Last Filed: 06/04/18 12:06> Subjective - Date & Time of Evaluation Date of Evaluation: 06/04/18 Time of Evaluation: 07:12 - Subjective Subjective: Medicine progress note for Dr. Mateo Mesa, PGY - 2, IM Resident Patient seen and examined at bedside. Pt complained of pain in lower abdomen at 23:26, dilaudid given; Zofran at 1:48A; 5:30A Dr. Roberts saw her. Currently, patient still complaining of pain but is sleeping comfortably when I walk into the room. Patient also still complaining of intermittent nausea but no bouts of emesis or diarrhea. Patient apparently also has new complaint of vaginal irritation, but does not want me director of search engine marketing to examine her. No chest pain, shortness of breath. Objective - Vital Signs/Intake and Output Vital Signs (last 24 hours): Temp Pulse Resp BP Pulse Ox 97.9 F 61 18 153/94 H 98 06/03/18 21:47 06/03/18 21:47 06/03/18 21:47 06/03/18 21:47 06/03/18 21:47 Intake and Output: 06/04/18 06/04/18 06:59 18:59 Intake Total 2280 Balance 2280 - Medications Medications: Current Medications Acetaminophen/Butalbital/Caffeine (Fioricet) 1 tab PO Q4H PRN PRN Reason: Headache Albuterol/Ipratropium (Duoneb 3 Mg/0.5 Mg (3 Ml) Ud) 3 ml IH [id number] PRN PRN Reason: Shortness of Breath Amlodipine Besylate (Norvasc) 10 mg PO DAILY [facility] Last Admin: 06/03/18 10:02 Dose: 10 mg Bupropion HCl (Wellbutrin) 75 mg PO BID [facility] Last Admin: 06/03/18 19:29 Dose: 75 mg Docusate Sodium (Colace) 100 mg PO TID [facility] Last Admin: 06/03/18 19:26 Dose: 100 mg Famotidine (Pepcid) 40 mg PO HS [facility] Last Admin: 06/03/18 23:25 Dose: 40 mg Gabapentin (Neurontin) 600 mg PO TID [facility] PRN Reason: Protocol Last Admin: 06/03/18 19:31 Dose: 600 mg Hydrocortisone Sodium Succinate (Solu-Cortef) 100 mg IVP Q12 [facility] Stop: 06/05/18 23:59 Last Admin: 06/03/18 23:25 Dose: 100 mg Hydromorphone HCl (Dilaudid) 2 mg IVP Q6H PRN PRN Reason: Pain, severe (8-10) Last Admin: 06/04/18 05:31 Dose: 2 mg Sodium Chloride (Sodium Chloride 0.9%) 1,000 mls @ 100 mls/hr IV .Q10H [facility] Last Admin: 06/04/18 05:30 Dose: 100 mls/hr Metoprolol Tartrate (Lopressor) 25 mg PO BID [facility] Last Admin: 06/03/18 19:27 Dose: 25 mg Ondansetron HCl (Zofran Inj) 4 mg IVP Q6H PRN PRN Reason: Nausea/Vomiting Last Admin: 06/04/18 01:48 Dose: 4 mg Pantoprazole Sodium (Protonix Ec Tab) 40 mg PO 0600 [facility] Last Admin: 06/04/18 05:31 Dose: 40 mg Sumatriptan Succinate (Imitrex Tab) 25 mg PO DAILY PRN PRN Reason: Headache Topiramate (Topamax) 100 mg PO BID [facility] PRN Reason: Protocol Last Admin: 06/03/18 19:27 Dose: 100 mg Tramadol HCl (Ultram) 50 mg PO TID [facility] Last Admin: 06/03/18 19:28 Dose: 50 mg - Labs Labs: 06/03/18 07:00 06/03/18 07:00 - Constitutional Appears: Well - Head Exam Head Exam: ATRAUMATIC, NORMAL INSPECTION, NORMOCEPHALIC - Eye Exam Eye Exam: EOMI, Normal appearance, PERRL Pupil Exam: NORMAL ACCOMODATION, PERRL - ENT Exam ENT Exam: Mucous Membranes Moist, Normal Exam - Neck Exam Neck Exam: Full ROM, Normal Inspection. absent: Lymphadenopathy - Respiratory Exam Respiratory Exam: Clear to Ausculation Bilateral, NORMAL BREATHING PATTERN - Cardiovascular Exam Cardiovascular Exam: REGULAR RHYTHM, +S1, +S2. absent: Murmur - GI/Abdominal Exam GI & Abdominal Exam: Soft, Normal Bowel Sounds. absent: Tenderness Additional comments: Tenderness to palpation diffusely throughout abdomen, but patient does not react when bed is shaken or leg is flexed and extended - Extremities Exam Extremities Exam: Full ROM, Normal Capillary Refill, Normal Inspection. absent : Joint Swelling, Pedal Edema - Back Exam Back Exam: NORMAL INSPECTION - Neurological Exam Neurological Exam: Alert, Awake, CN II-XII Intact, Normal Gait, Oriented x3 - Psychiatric Exam Psychiatric exam: Normal Affect, Normal Mood - Skin Skin Exam: Dry, Intact, Normal Color, Warm Assessment and Plan - Assessment and Plan (Free Text) Assessment: 47 year old female admitted for abdominal pain. Patient has history of non- compliance with medications and outpatient follow up. CT abdomen pelvis shows diverticulosis, hepatic steatosis, and constipation. Findings are consistent with previous studies in March, but the hepatomegaly is new since 12/12/17. LFTs are within normal limits, however. Given these findings, including leukopenia and without RUQ abdominal pain, patient's symptoms are likely 2/2 colitis flare up. Patient's lipase is within normal limits. Plan: Abdominal Pain - GI consulted: Dr Roberts - Julio-cortef 2 doses given, will wait to see how patient responds - CLD - Zofran 4mg IVP q6h prn; Dilaudid 2 q6 PRN - Stool cultures, C. diff, Stool leukocytes pending - IVF at 100 mls/hr Acute Vaginal Discomfort - UCx ordered - Will start Monastat Hx Anemia - Monitor right now Hx HTN - Norvasc 10mg po dialy Neuropathy - Gabapentin 600mg po tid Hx of migraines - Wellbutrin 75mg po bid - Fioricet 1tab po q4h prn - Topamax 100mg po bid - Imitrex 1 tab po q4h prn - Tramadol 50mg po tid Hx of asthma - Duonebs q6h prn PPx: - SCDs/Protonix 40 <Casandra Galindo - Last Filed: 06/04/18 22:06> Objective - Vital Signs/Intake and Output Vital Signs (last 24 hours): Temp Pulse Resp BP Pulse Ox 98.3 F 65 20 135/79 97 06/04/18 14:00 06/04/18 14:00 06/04/18 14:00 06/04/18 14:00 06/04/18 14:00 Intake and Output: 06/04/18 06/05/18 18:59 06:59 Intake Total 1100 Balance 1100 - Medications Medications: Current Medications Acetaminophen/Butalbital/Caffeine (Fioricet) 1 tab PO Q4H PRN PRN Reason: Headache Albuterol/Ipratropium (Duoneb 3 Mg/0.5 Mg (3 Ml) Ud) 3 ml IH [id number] PRN PRN Reason: Shortness of Breath Amlodipine Besylate (Norvasc) 10 mg PO DAILY [facility] Last Admin: 06/04/18 09:54 Dose: 10 mg Bupropion HCl (Wellbutrin) 75 mg PO BID [facility] Last Admin: 06/04/18 17:18 Dose: 75 mg Cephalexin Monohydrate (Keflex) 500 mg PO BID [facility] PRN Reason: Protocol Last Admin: 06/04/18 18:37 Dose: 500 mg Docusate Sodium (Colace) 100 mg PO TID [facility] Last Admin: 06/04/18 17:16 Dose: Not Given Famotidine (Pepcid) 40 mg PO HS [facility] Last Admin: 06/04/18 22:00 Dose: 40 mg Gabapentin (Neurontin) 600 mg PO TID [facility] PRN Reason: Protocol Last Admin: 06/04/18 17:15 Dose: 600 mg Hydrocortisone Sodium Succinate (Solu-Cortef) 100 mg IVP Q12 [facility] Stop: 06/05/18 23:59 Last Admin: 06/04/18 22:00 Dose: 100 mg Hydromorphone HCl (Dilaudid) 2 mg IVP Q6H PRN PRN Reason: Pain, severe (8-10) Last Admin: 06/04/18 17:18 Dose: 2 mg Sodium Chloride (Sodium Chloride 0.9%) 1,000 mls @ 100 mls/hr IV .Q10H [facility] Last Admin: 06/04/18 09:54 Dose: 100 mls/hr Metoprolol Tartrate (Lopressor) 25 mg PO BID [facility] Last Admin: 06/04/18 17:16 Dose: 25 mg Ondansetron HCl (Zofran Inj) 4 mg IVP Q6H PRN PRN Reason: Nausea/Vomiting Last Admin: 06/04/18 09:51 Dose: 4 mg Pantoprazole Sodium (Protonix Ec Tab) 40 mg PO 0600 [facility] Last Admin: 06/04/18 05:31 Dose: 40 mg Sumatriptan Succinate (Imitrex Tab) 25 mg PO DAILY PRN PRN Reason: Headache Topiramate (Topamax) 100 mg PO BID [facility] PRN Reason: Protocol Last Admin: 06/04/18 17:18 Dose: 100 mg Tramadol HCl (Ultram) 50 mg PO TID [facility] Last Admin: 06/04/18 17:16 Dose: 50 mg Attending/Attestation - Attestation I have personally seen and examined this patient.: Yes I have fully participated in the care of the patient.: Yes I have reviewed all pertinent clinical information, including history, physical exam and plan: Yes Notes (Text): 06/04/18 22:06 Patient seen and examined at bedside. labs, vitals noted. She feels improvement in her symptoms.GI follow up appreciated. Agree with the plan as discussed and outlined by the resident.
--- NOTE | 2018-06-04 09:44 | PN ---
Copied To: Dom Roberts DO Attending MD: Dom Roberts DO DATE: 06/04/2018 SUBJECTIVE: I saw Ms. Soriano this morning. She is a 47-year-old white female known to this care consultant with a past medical history of enterocolitis. The patient was admitted with nausea, vomiting, abdominal pain, diarrhea. Patient has made progress over the past 24 hours. Pain is still significant, but slightly improved related to the day of admission. The abdomen is also less distended. She notes that the pain pattern is moving, now more prominent in the area of the right upper quadrant above the umbilicus. The patient is slightly nauseous. PHYSICAL EXAMINATION: VITAL SIGNS: I reviewed the patient's vital signs. HEENT: Noncontributory. LUNGS: Clear to auscultation. HEART: Regular rhythm. ABDOMEN: Softer, less distended. The fullness noted in the right lower quadrant as well as right periumbilical has decreased substantially. It is now present more in the area of the right upper quadrant and above the umbilicus. Still mildly tender in the area of the left paraumbilical and left lower quadrant and periumbilical area. LABORATORY DATA: Reviewed the patient's laboratory data from yesterday. This includes the CBC as well as chemistry which are noncontributory. Interpretation of the CT scan consistent with my interpretation yesterday that is hepatic steatosis with no hepatobiliary issues no stones etc. Does have significant amount of stool still present at least clinically in the area of the proximal colon. OVERALL ASSESSMENT: This is a 47-year-old female, history of enterocolitis. The patient has been noncompliant with medications in the past, admitted with flare, nausea, vomiting, abdominal pain and diarrhea. The patient responded to a dose of hydrocortisone yesterday which will be repeated today. The significant impaction she had on the right side is currently shifting . She is passing some gas rectally. She is currently on analgesics every 6 hours which appears to be adequate. She is still on pantoprazole for acid reflux issues. Maintain current diet which consists of clear liquids. I will discuss with the nurse as possible addition of crackers at the patient's request. Dom Roberts DO, PhD FIDELIA
[2018-06-04 10:42] LABS: URINE BILIRUBIN NEGATIVE (NEGATIVE); URINE BLOOD SMALL (NEGATIVE); URINE GLUCOSE (UA) NEGATIVE (NEGATIVE); URINE LEUKOCYTE ESTERASE SMALL Leu/uL (NEGATIVE); URINE PROTEIN TRACE mg/dL (<30 mg/dL); URINE UROBILINOGEN 0.2 E.U./dL (<1 E.U./dL)
[2018-06-04 10:42] LABS: BASO # 0.01 K/mm3 (0.0-2.0); BASO % 0.2 % (0.0-3.0); EOS # 0.1 (0.0-0.7); EOS % 1.1 % (1.5-5.0); GRAN # 3.57 (1.4-6.5); GRAN % 63.9 % (50.0-68.0); HEMOGLOBIN 8.9 g/dL (12.0-16.0); LYMPH # 1.6 (1.2-3.4); LYMPH % 27.8 % (22.0-35.0); MEAN CELL VOLUME 75.5 fl (80.0-105.0); MEAN CORPUSCULAR HEMOGLOBIN 21.8 pg (25.0-35.0); MEAN CORPUSCULAR HGB CONC 28.9 g/dl (31.0-37.0); MEAN PLATELET VOLUME 9.6 fl (7.0-11.0); MONO # 0.4 (0.1-0.6); RBC 4.08 10^6/uL (3.5-6.1); RED CELL DISTRIBUTION WIDTH 17.6 % (11.5-14.5); WHITE BLOOD COUNT 5.6 10^3/ul (4.5-11.0)
[2018-06-04 10:44] LABS: URINE APPEARANCE SL CLOUDY (CLEAR); URINE COLOR YELLOW (YELLOW)
[2018-06-04 10:49] LABS: URINE BACTERIA MOD (NEG); URINE RBC 0 - 2 /hpf (0-2); URINE WBC TNTC /hpf (0-6)
[2018-06-04 11:08] LABS: ALB/GLOB RATIO 1.3 (1.1-1.8); ALBUMIN 3.6 g/dL (3.0-4.8); ALT/SGPT 23 U/L (7-56); AST/SGOT 18 U/L (14-36); BLOOD UREA NITROGEN 11 mg/dL (7-21); CALCIUM 8.8 mg/dL (8.4-10.5); GFR NON-AFRICAN AMERICAN > 60
[2018-06-05] MEDS: HYDROmorphone 2 mg/ml ISec IVP PRN ×4 (05:04→22:12)
[2018-06-05] MEDS: Pantoprazole 40 mg EC Tab PO SCH (05:05)
--- NOTE | 2018-06-05 05:42 | CP.PCM.PN ---
<BulmaroBetoivy Apodaca - Last Filed: 06/05/18 15:32> Subjective - Date & Time of Evaluation Date of Evaluation: 06/05/18 Time of Evaluation: 05:30 - Subjective Subjective: Pt seen and examined this morning at bedside. Pt reports she still has abdominal pain, more on the right. Denies diarrhea, vomiting, admits to nausea. Pt reports burning with urination. Objective - Vital Signs/Intake and Output Vital Signs (last 24 hours): Temp Pulse Resp BP Pulse Ox 98.3 F 67 20 116/66 96 06/04/18 22:00 06/04/18 22:00 06/04/18 22:00 06/04/18 22:00 06/04/18 22:00 Intake and Output: 06/04/18 06/05/18 18:59 06:59 Intake Total 1100 Balance 1100 - Medications Medications: Current Medications Acetaminophen/Butalbital/Caffeine (Fioricet) 1 tab PO Q4H PRN PRN Reason: Headache Albuterol/Ipratropium (Duoneb 3 Mg/0.5 Mg (3 Ml) Ud) 3 ml IH [id number] PRN PRN Reason: Shortness of Breath Amlodipine Besylate (Norvasc) 10 mg PO DAILY [facility] Last Admin: 06/04/18 09:54 Dose: 10 mg Bupropion HCl (Wellbutrin) 75 mg PO BID [facility] Last Admin: 06/04/18 17:18 Dose: 75 mg Cephalexin Monohydrate (Keflex) 500 mg PO BID [facility] PRN Reason: Protocol Last Admin: 06/04/18 18:37 Dose: 500 mg Docusate Sodium (Colace) 100 mg PO TID [facility] Last Admin: 06/04/18 17:16 Dose: Not Given Famotidine (Pepcid) 40 mg PO HS [facility] Last Admin: 06/04/18 22:00 Dose: 40 mg Gabapentin (Neurontin) 600 mg PO TID [facility] PRN Reason: Protocol Last Admin: 06/04/18 17:15 Dose: 600 mg Hydrocortisone Sodium Succinate (Solu-Cortef) 100 mg IVP Q12 [facility] Stop: 06/05/18 23:59 Last Admin: 06/04/18 22:00 Dose: 100 mg Hydromorphone HCl (Dilaudid) 2 mg IVP Q6H PRN PRN Reason: Pain, severe (8-10) Last Admin: 06/05/18 05:04 Dose: 2 mg Sodium Chloride (Sodium Chloride 0.9%) 1,000 mls @ 100 mls/hr IV .Q10H [facility] Last Admin: 06/04/18 09:54 Dose: 100 mls/hr Metoprolol Tartrate (Lopressor) 25 mg PO BID [facility] Last Admin: 06/04/18 17:16 Dose: 25 mg Ondansetron HCl (Zofran Inj) 4 mg IVP Q6H PRN PRN Reason: Nausea/Vomiting Last Admin: 06/04/18 09:51 Dose: 4 mg Pantoprazole Sodium (Protonix Ec Tab) 40 mg PO 0600 [facility] Last Admin: 06/05/18 05:05 Dose: 40 mg Sumatriptan Succinate (Imitrex Tab) 25 mg PO DAILY PRN PRN Reason: Headache Topiramate (Topamax) 100 mg PO BID [facility] PRN Reason: Protocol Last Admin: 06/04/18 17:18 Dose: 100 mg Tramadol HCl (Ultram) 50 mg PO TID [facility] Last Admin: 06/04/18 17:16 Dose: 50 mg - Constitutional Appears: No Acute Distress - Head Exam Head Exam: ATRAUMATIC, NORMOCEPHALIC - Eye Exam Eye Exam: EOMI - ENT Exam ENT Exam: Mucous Membranes Moist - Neck Exam Neck Exam: Full ROM - Respiratory Exam Respiratory Exam: Clear to Ausculation Bilateral, NORMAL BREATHING PATTERN. absent: Wheezes, Stridor - Cardiovascular Exam Cardiovascular Exam: REGULAR RHYTHM, RRR, +S1, +S2. absent: Diastolic murmur, Irregular Rhythm, JVD, Murmur - GI/Abdominal Exam GI & Abdominal Exam: Soft, Tenderness, Normal Bowel Sounds. absent: Distended, Firm, Guarding, Rigid Additional comments: mild abdominal/ suprapubic tenderness to palpation - Back Exam Back Exam: Full ROM. absent: CVA tenderness (L), CVA tenderness (R) Additional comments: mild flank tenderness - Neurological Exam Neurological Exam: Alert, Awake, Oriented x3 - Psychiatric Exam Psychiatric exam: Normal Affect, Normal Mood - Skin Skin Exam: Dry, Normal Color, Warm Assessment and Plan - Assessment and Plan (Free Text) Assessment: Pt is a 47 yo female admitted for abdominal pain, likely due to colitis. Plan: Abdominal pain, likely due to colitis - spoke with pt about the importance of collecting a stool sample, and urine sample - stool cultures, c diff, stool leukocytes, pending sample collection - continue Zofran as needed for nausea - continue Keflex Vaginal discomfort - diflucan ordered Leukopenia - resolved, WBC 5.6 Anemia - continue to monitor, Hgb 8.9 HTN - continue amlodipine - continue to monitor Migraine - continue wellbutrin, tramadol, fioricet, topamax, and imitrex Neuropathy - continue gabapentin Asthma - continue duoneb prn Ppx - continue SCD - continue Protonix Pt seen, examined, and assessment/plan discussed with Dr Bouchra Chamberlain PGY1 Internal Medicine Resident <Shailesh Shook - Last Filed: 06/06/18 15:21> Objective - Vital Signs/Intake and Output Vital Signs (last 24 hours): Temp Pulse Resp BP Pulse Ox 97.9 F 63 20 136/75 98 06/06/18 08:35 06/06/18 08:35 06/06/18 08:35 06/06/18 09:35 06/06/18 08:35 Intake and Output: 06/06/18 06/06/18 06:59 18:59 Intake Total 720 Balance 720 - Labs Labs: 06/06/18 07:30 06/06/18 07:30 Attending/Attestation - Attestation I have personally seen and examined this patient.: Yes I have fully participated in the care of the patient.: Yes I have reviewed all pertinent clinical information, including history, physical exam and plan: Yes Notes (Text): 06/06/18 15:18 Medical record note made by the resident after discussion with my direction and input after the patient was personally seen and examined by me. I have reviewed the chart and agree that the record accurately reflects by personal performance of the history, physical exam, data review, and medical decision-making, in the course for the patient. I have also personally directed the plan of care. 47 F was admitted with acute exacerbation of chron disease, on IV steroid. Diarrhea is improving.Abdominal pain is better.Diet is advanced.Patient is tolerating diet. C/O dysurea, will order repeat UA. Management plan was discussed in detail with patient. Education was provided.
[2018-06-05] MEDS: Sodium Chloride 0.9% 1,000 ML IV SCH (10:05)
--- NOTE | 2018-06-05 11:44 | PN ---
Copied To: Dom Roberts DO Attending MD: Dom Roberts DO DATE: 06/05/2018 SUBJECTIVE: I examined Mrs. Soriano this morning. She is a 47-year-old white female known to this internal audit consultant with a past medical history of Crohn's disease. Patient was admitted with nausea, vomiting, abdominal pain, diarrhea, probably secondary to enterocolitis flare. Note that the patient has been noncompliant with mesalamine therapy in the past. At the bedside this morning, patient feels a lot more comfortable with a decrease in pain and decrease in abdominal distention. There was no more diarrhea. She was able to handle clear liquid diet yesterday with no problem. Patient still notes diffuse tenderness, but relative to a 10/10 on the day of admission, the pain was rated by the patient as roughly about 4/10. PHYSICAL EXAMINATION: VITAL SIGNS: I reviewed this patient's vital signs. HEENT: Noncontributory. LUNGS: Clear to auscultation. HEART: Regular rhythm. ABDOMEN: Soft. Significantly decreased distention. Still mildly tender in the area of the right lower quadrant and right upper quadrant. Tenderness is still roughly about 6-7/10 in the area above the umbilicus and in the left upper quadrant. She is sttill mildly tender in the left paraumbilical as well as left lower quadrant. I reviewed the respective notes of Dr. Leon as well as Dr. Larsen. ASSESSMENT: This is a 47-year-old female admitted with probable enterocolitis flare and also associated frequent impaction of the ascending and proximal transverse colon. Patient made progress on her current therapeutic regimen which consists of analgesics in form of Dilaudid two every 6 hours, gabapentin, pantoprazole as well as two doses of hydrocortisone. If I assume that the patient will be here for 1 more day, hydrocortisone will continue today that is two doses of 100 mg twice today. Patient's discharge later in the day today, I advised her to start a prednisone taper 5 mg tablet starting at 25 mg to off over a period of several weeks. Note that she was on prednisone taper off on multiple occasions, so she is very familiar with the clinical scenario. I advised her to follow up with the GI person in [place] if she is discharged today. In order to avoid recurrent flares as on multiple occasions, I advised her to continue Pentasa, continue with some on a prophylactic basis to avoid decreasing levels and subsequent flaring. I am not sure if her insurance will permit this, however, other options include 6-MP or possible Humira therapy. At the patient's request, we increased her diet to small portions of very soft today and patient will be evaluated later on this morning by the house staff who will make a decision on her disposition. Dom Roberts DO, PhD MTDAlee
[2018-06-05 21:44] VITALS: PULSE 63; O2SAT 98
[2018-06-06] MEDS: HYDROmorphone 2 mg/ml ISec IVP PRN ×2 (03:58→10:19)
--- NOTE | 2018-06-06 05:29 | CP.PCM.DIS ---
<BulmaroBeto Paulie - Last Filed: 06/06/18 16:28> Provider - Provider Date of Admission: 06/04/18 18:09 Attending physician: Alis Sykes DO Primary care physician: Salvatore Pollack MD Consults: GI Time Spent in preparation of Discharge (in minutes): 45 Diagnosis - Discharge Diagnosis (1) Colitis Status: Acute Priority: High (2) UTI (urinary tract infection) Status: Acute Priority: High (3) Crohn's colitis Status: Chronic Priority: Medium Hospital Course - Lab Results Lab Results: Most Recent Lab Values WBC 5.6 10^3/ul (4.5-11.0) D 06/04/18 10:30 RBC 4.08 10^6/uL (3.5-6.1) 06/04/18 10:30 Hgb 8.9 g/dL (12.0-16.0) L 06/04/18 10:30 Hct 30.8 % (36.0-48.0) L 06/04/18 10:30 MCV 75.5 fl (80.0-105.0) L 06/04/18 10:30 MCH 21.8 pg (25.0-35.0) L 06/04/18 10:30 MCHC 28.9 g/dl (31.0-37.0) L 06/04/18 10:30 RDW 17.6 % (11.5-14.5) H 06/04/18 10:30 Plt Count 290 10^3/uL (120.0-450.0) 06/04/18 10:30 MPV 9.6 fl (7.0-11.0) 06/04/18 10:30 Gran % 63.9 % (50.0-68.0) 06/04/18 10:30 Lymph % (Auto) 27.8 % (22.0-35.0) 06/04/18 10:30 [place] % (Auto) 7.0 % (1.0-6.0) H 06/04/18 10:30 Eos % (Auto) 1.1 % (1.5-5.0) L 06/04/18 10:30 Baso % (Auto) 0.2 % (0.0-3.0) 06/04/18 10:30 Gran # 3.57 (1.4-6.5) 06/04/18 10:30 Lymph # (Auto) 1.6 (1.2-3.4) 06/04/18 10:30 [place] # (Auto) 0.4 (0.1-0.6) 06/04/18 10:30 Eos # (Auto) 0.1 (0.0-0.7) 06/04/18 10:30 Baso # (Auto) 0.01 K/mm3 (0.0-2.0) 06/04/18 10:30 pO2 41 mm/Hg (30-55) 06/02/18 22:45 VBG pH 7.35 (7.32-7.43) 06/02/18 22:45 VBG pCO2 37.0 (40-60) L 06/02/18 22:45 VBG HCO3 20.4 mmol/l (21-28) L 06/02/18 22:45 VBG Total CO2 21.5 mmol.L (22-28) L 06/02/18 22:45 VBG O2 Sat (Calc) 78.6 % (40-65) H 06/02/18 22:45 VBG Base Excess -4.7 mmol/L (0.0-2.0) L 06/02/18 22:45 VBG Potassium 3.5 mmol/L (3.6-5.2) L 06/02/18 22:45 Sodium 143.0 mmol/L (132-148) 06/02/18 22:45 Chloride 117.0 mmol/L (98-107) H 06/02/18 22:45 Glucose 85 mg/dl (65-105) 06/02/18 22:45 Lactate 1.0 mmol/L (0.7-2.1) 06/02/18 22:45 FiO2 21.0 % 06/02/18 22:45 Sodium 141 mmol/L (132-148) 06/04/18 10:30 Potassium 3.6 mmol/L (3.6-5.0) 06/04/18 10:30 Chloride 109 mmol/L (98-107) H 06/04/18 10:30 Carbon Dioxide 21 mmol/L (21-33) 06/04/18 10:30 Anion Gap 14 (10-20) 06/04/18 10:30 BUN 11 mg/dL (7-21) 06/04/18 10:30 Creatinine 0.6 mg/dl (0.7-1.2) L 06/04/18 10:30 Est GFR ( Amer) > 60 06/04/18 10:30 Est GFR (Non-Af Amer) > 60 06/04/18 10:30 Random Glucose 129 mg/dL (70-110) H 06/04/18 10:30 Calcium 8.8 mg/dL (8.4-10.5) 06/04/18 10:30 Phosphorus 3.3 mg/dL (2.5-4.5) 06/04/18 10:30 Magnesium 1.9 mg/dL (1.7-2.2) 06/04/18 10:30 Total Bilirubin 0.1 mg/dL (0.2-1.3) L 06/04/18 10:30 AST 18 U/L (14-36) 06/04/18 10:30 ALT 23 U/L (7-56) 06/04/18 10:30 Alkaline Phosphatase 72 U/L (38-126) 06/04/18 10:30 Total Protein 6.4 g/dL (5.8-8.3) 06/04/18 10:30 Albumin 3.6 g/dL (3.0-4.8) 06/04/18 10:30 Globulin 2.8 gm/dL 06/04/18 10:30 Albumin/Globulin Ratio 1.3 (1.1-1.8) 06/04/18 10:30 Lipase 169 U/L (23-300) 06/02/18 22:45 Venous Blood Potassium 3.5 mmol/L (3.6-5.2) L 06/02/18 22:45 Urine Color Yellow (YELLOW) 06/04/18 10:20 Urine Appearance Sl cloudy (CLEAR) 06/04/18 10:20 Urine pH 6.0 (4.7-8.0) 06/04/18 10:20 Ur Specific [place] >= 1.030 (1.005-1.035) 06/04/18 10:20 Urine Protein Trace mg/dL (<30 mg/dL) H 06/04/18 10:20 Urine Glucose (UA) Negative mg/dL (NEGATIVE) 06/04/18 10:20 Urine Ketones Negative mg/dL (NEGATIVE) 06/04/18 10:20 Urine Blood Small (NEGATIVE) H 06/04/18 10:20 Urine Nitrate Negative (NEGATIVE) 06/04/18 10:20 Urine Bilirubin Negative (NEGATIVE) 06/04/18 10:20 Urine Urobilinogen 0.2 E.U./dL (<1 E.U./dL) 06/04/18 10:20 Ur Leukocyte Esterase Small Clarita/uL (NEGATIVE) H 06/04/18 10:20 Urine RBC 0 - 2 /hpf (0-2) 06/04/18 10:20 Urine WBC Tntc /hpf (0-6) 06/04/18 10:20 Ur Epithelial Cells 1 - 3 /hpf (0-5) 06/04/18 10:20 Urine Bacteria Mod (NEG) 06/04/18 10:20 - Hospital Course Hospital Course: Pt is a 47 yo female with a PMH of Crohn's disease, HTN, migraines, asthma, UTI , gastric ulcers, avascular necrosis of the right hip who presented to the ED complaining of abdominal pain. Pt stated that she had the pain is diffusely located in the abdomen and radiates to the suprapubic region. The achy pain also radiated to her back, with the right being worse being worse than the left. At the time of admission, pt reported sharp stomach pain. The pt states that she began experiencing these symptoms the day before admission, along with associated diarrhea and blood with the bowel movements. Pt reported that her urine was blood tinged and that she had been experiencing burning with urination. Pt tried tramadol and tylenol at home but it did not help to alleviated her symptoms. She rated her pain as an 8/10 at that time. She reported that she tried imodium for the diarrhea which helped her symptoms. During her evaluation in the hospital, the pt was found to be leukopenic, which has since resolved. Pt nausea was treated with nausea while she was here. She experienced migraine headaches which were treated with the regimen she uses at home, wellbutrin, tramadol, fioricet, topamax, and imitrex. Pt was unable to provide a stool sample during the visit, but her symptoms resolved clinically. Pt to be discharged with Omnicef for her UTI, a steroid taper for her crohns, and Miralax PRN if she experiences constipation. Pt give a prescription for percocet for pain control. Pt given a presciption for P[place]. Pt advised to follow up with her GI doctor as an out pt. She was also advised to return to the nearest emergency department if symptoms worsen. - Date & Time of H&P Date of H&P: 06/06/18 Time of H&P: 05:20 Discharge Exam - Head Exam Head Exam: ATRAUMATIC, NORMOCEPHALIC - Eye Exam Eye Exam: EOMI - ENT Exam ENT Exam: Mucous Membranes Moist - Neck Exam Neck exam: Full Rom - Respiratory Exam Respiratory Exam: NORMAL BREATHING PATTERN, UNREMARKABLE. absent: Accessory Muscle Use, Wheezes, Respiratory Distress, Stridor - Cardiovascular Exam Cardiovascular Exam: REGULAR RHYTHM, RRR, +S1, +S2. absent: Diastolic murmur, JVD, Systolic Murmur - GI/Abdominal Exam GI & Abdominal Exam: Normal Bowel Sounds, Unremarkable. absent: Distended, Firm , Guarding, Hernia, Rebound, Rigid - Back Exam Back exam: FULL ROM. absent: CVA tenderness (L), CVA tenderness (R) - Neurological Exam Neurological exam: Alert, Oriented x3 - Psychiatric Exam Psychiatric exam: Normal Affect, Normal Mood - Skin Skin Exam: Dry, Normal Color, Warm Discharge Plan - Discharge Medications Prescriptions: Cefdinir [Omnicef] 300 mg PO Q12 #10 cap Hydrocortisone See Taper PO DAILY #20 tablet Mesalamine ER Cap [Pentasa] 2,000 mg PO BID #112 cer oxyCODONE/Acetaminophen [Percocet 5/325 mg Tab] 1 tab PO Q6H PRN 2 Days #8 tab PRN Reason: Pain, Severe (8-10) - Follow Up Plan Condition: GOOD Disposition: HOME/ ROUTINE Instructions: Crohn's Disease in Adults, Crohn's Disease (DC), Urinary Tract Infection in Women (DC) Additional Instructions: 1.Please follow up with your PMD Dr. Pollack within 3-5 days 2.Please follow up with gastroenterology clinic in [place] as discussed with Dr. Roberts within 2 weeks 3.Continue your Pentasa prophylactically to avoid recurrent flares 4.Take prednisone taper as prescribed 5.If symptoms worsen or return please go to your nearest emergency department Referrals: Salvatore Pollack MD [Primary Care Provider] - <Shailesh Shook - Last Filed: 06/07/18 08:29> Provider - Provider Date of Admission: 06/04/18 18:09 Attending physician: Shailesh Shook MD Primary care physician: Salvatore Pollack MD Hospital Course - Lab Results Lab Results: Most Recent Lab Values WBC 5.6 10^3/ul (4.5-11.0) 06/06/18 07:30 RBC 3.63 10^6/uL (3.5-6.1) 06/06/18 07:30 Hgb 8.1 g/dL (12.0-16.0) L 06/06/18 07:30 Hct 27.5 % (36.0-48.0) L 06/06/18 07:30 MCV 75.8 fl (80.0-105.0) L 06/06/18 07:30 MCH 22.3 pg (25.0-35.0) L 06/06/18 07:30 MCHC 29.5 g/dl (31.0-37.0) L 06/06/18 07:30 RDW 17.5 % (11.5-14.5) H 06/06/18 07:30 Plt Count 251 10^3/uL (120.0-450.0) 06/06/18 07:30 MPV 9.6 fl (7.0-11.0) 06/06/18 07:30 Gran % 63.9 % (50.0-68.0) 06/04/18 10:30 Lymph % (Auto) 27.8 % (22.0-35.0) 06/04/18 10:30 [place] % (Auto) 7.0 % (1.0-6.0) H 06/04/18 10:30 Eos % (Auto) 1.1 % (1.5-5.0) L 06/04/18 10:30 Baso % (Auto) 0.2 % (0.0-3.0) 06/04/18 10:30 Gran # 3.57 (1.4-6.5) 06/04/18 10:30 Lymph # (Auto) 1.6 (1.2-3.4) 06/04/18 10:30 [place] # (Auto) 0.4 (0.1-0.6) 06/04/18 10:30 Eos # (Auto) 0.1 (0.0-0.7) 06/04/18 10:30 Baso # (Auto) 0.01 K/mm3 (0.0-2.0) 06/04/18 10:30 pO2 41 mm/Hg (30-55) 06/02/18 22:45 VBG pH 7.35 (7.32-7.43) 06/02/18 22:45 VBG pCO2 37.0 (40-60) L 06/02/18 22:45 VBG HCO3 20.4 mmol/l (21-28) L 06/02/18 22:45 VBG Total CO2 21.5 mmol.L (22-28) L 06/02/18 22:45 VBG O2 Sat (Calc) 78.6 % (40-65) H 06/02/18 22:45 VBG Base Excess -4.7 mmol/L (0.0-2.0) L 06/02/18 22:45 VBG Potassium 3.5 mmol/L (3.6-5.2) L 06/02/18 22:45 Sodium 143.0 mmol/L (132-148) 06/02/18 22:45 Chloride 117.0 mmol/L (98-107) H 06/02/18 22:45 Glucose 85 mg/dl (65-105) 06/02/18 22:45 Lactate 1.0 mmol/L (0.7-2.1) 06/02/18 22:45 FiO2 21.0 % 06/02/18 22:45 Sodium 139 mmol/L (132-148) 06/06/18 07:30 Potassium 3.8 mmol/L (3.6-5.0) 06/06/18 07:30 Chloride 109 mmol/L (98-107) H 06/06/18 07:30 Carbon Dioxide 24 mmol/L (21-33) 06/06/18 07:30 Anion Gap 9 (10-20) L 06/06/18 07:30 BUN 8 mg/dL (7-21) 06/06/18 07:30 Creatinine 0.5 mg/dl (0.7-1.2) L 06/06/18 07:30 Est GFR ( Amer) > 60 06/06/18 07:30 Est GFR (Non-Af Amer) > 60 06/06/18 07:30 Random Glucose 95 mg/dL (70-110) 06/06/18 07:30 Calcium 8.5 mg/dL (8.4-10.5) 06/06/18 07:30 Phosphorus 3.3 mg/dL (2.5-4.5) 06/04/18 10:30 Magnesium 1.9 mg/dL (1.7-2.2) 06/04/18 10:30 Total Bilirubin < 0.1 mg/dL (0.2-1.3) L 06/06/18 07:30 AST 32 U/L (14-36) 06/06/18 07:30 ALT 42 U/L (7-56) 06/06/18 07:30 Alkaline Phosphatase 73 U/L (38-126) 06/06/18 07:30 Total Protein 5.8 g/dL (5.8-8.3) 06/06/18 07:30 Albumin 3.1 g/dL (3.0-4.8) 06/06/18 07:30 Globulin 2.6 gm/dL 06/06/18 07:30 Albumin/Globulin Ratio 1.2 (1.1-1.8) 06/06/18 07:30 Lipase 169 U/L (23-300) 06/02/18 22:45 Venous Blood Potassium 3.5 mmol/L (3.6-5.2) L 06/02/18 22:45 Urine Color Yellow (YELLOW) 06/04/18 10:20 Urine Appearance Sl cloudy (CLEAR) 06/04/18 10:20 Urine pH 6.0 (4.7-8.0) 06/04/18 10:20 Ur Specific [place] >= 1.030 (1.005-1.035) 06/04/18 10:20 Urine Protein Trace mg/dL (<30 mg/dL) H 06/04/18 10:20 Urine Glucose (UA) Negative mg/dL (NEGATIVE) 06/04/18 10:20 Urine Ketones Negative mg/dL (NEGATIVE) 06/04/18 10:20 Urine Blood Small (NEGATIVE) H 06/04/18 10:20 Urine Nitrate Negative (NEGATIVE) 06/04/18 10:20 Urine Bilirubin Negative (NEGATIVE) 06/04/18 10:20 Urine Urobilinogen 0.2 E.U./dL (<1 E.U./dL) 06/04/18 10:20 Ur Leukocyte Esterase Small [place]/uL (NEGATIVE) H 06/04/18 10:20 Urine RBC 0 - 2 /hpf (0-2) 06/04/18 10:20 Urine WBC Tntc /hpf (0-6) 06/04/18 10:20 Ur Epithelial Cells 1 - 3 /hpf (0-5) 06/04/18 10:20 Urine Bacteria Mod (NEG) 06/04/18 10:20 Attending/Attestation - Attestation I have personally seen and examined this patient.: Yes I have fully participated in the care of the patient.: Yes I have reviewed all pertinent clinical information, including history, physical exam and plan: Yes Notes (Text): 06/07/18 08:27 Medical record note made by the resident after discussion with my direction and input after the patient was personally seen and examined by me. I have reviewed the chart and agree that the record accurately reflects by personal performance of the history, physical exam, data review, and medical decision-making, in the course for the patient. I have also personally directed the plan of care. 47 F was admitted with acute exacerbation of chron disease, she was treated with IV steroid. Diarrhea has improved.Abdominal pain is better.Patient is tolerating Diet .She will be discharged home on tapering dose of steroid as recommended by GI.She will follow up with PCP and GI. UTI, patient is afebrile, symptoms are improved will be discharged home on 5 days of oral Omnicef. Management plan was discussed in detail with patient. Education was provided.
[2018-06-06] MEDS: Pantoprazole 40 mg EC Tab PO SCH (06:16)
[2018-06-06 07:51] LABS: HEMOGLOBIN 8.1 g/dL (12.0-16.0); MEAN CELL VOLUME 75.8 fl (80.0-105.0); MEAN CORPUSCULAR HEMOGLOBIN 22.3 pg (25.0-35.0); MEAN CORPUSCULAR HGB CONC 29.5 g/dl (31.0-37.0); MEAN PLATELET VOLUME 9.6 fl (7.0-11.0); RBC 3.63 10^6/uL (3.5-6.1); RED CELL DISTRIBUTION WIDTH 17.5 % (11.5-14.5); WHITE BLOOD COUNT 5.6 10^3/ul (4.5-11.0)
[2018-06-06 08:08] LABS: ALB/GLOB RATIO 1.2 (1.1-1.8); ALBUMIN 3.1 g/dL (3.0-4.8); ALT/SGPT 42 U/L (7-56); AST/SGOT 32 U/L (14-36); BLOOD UREA NITROGEN 8 mg/dL (7-21); CALCIUM 8.5 mg/dL (8.4-10.5); GFR NON-AFRICAN AMERICAN > 60
[2018-06-06] MEDS: Sodium Chloride 0.9% 1,000 ML IV SCH (08:11)
[2018-06-06 08:36] VITALS: RESP 20; TEMP 97.9
[2018-06-06 09:37] VITALS: BP 136/75
--- NOTE | 2018-06-06 09:52 | PN ---
Copied To: Dom Roberts DO Attending MD: Dom Roberts DO DATE: 06/06/2018 SUBJECTIVE: I examined Ms. Soriano this morning. She is a 47-year-old white female, known to the talent acquisition consultant with past medical history of enterocolitis. Note that she has been noncompliant with medication in the past. The patient was admitted with complaints of nausea, vomiting, abdominal pain and diarrhea. At bedside this morning, the patient complains of dissipated. Symptoms are significantly improved after several days of double dose of hydrocortisone. The abdomen is decompressed and soft. She still has mild diffuse tenderness, but rating of may be 3-4/10 relative to 10/10 on admission. There is no hematemesis or rectal bleeding noted. PHYSICAL EXAMINATION: VITAL SIGNS: I reviewed this patient's vital signs. HEENT: Noncontributory. LUNGS: Clear to auscultation. There is no wheezing noted. HEART: Regular rhythm. ABDOMEN: Soft, not distended. Mild tenderness over supraumbilical area in the right lower quadrant. There is some fullness in the area of the left upper quadrant and the proximal left periumbilical. This may correlate to the significant amount of stool she had in the ascending colon and proximal transverse, which subsequently has shifted. There is mild tenderness in the left lower quadrant. LABORATORY DATA: I reviewed this patient's laboratory data. OVERALL ASSESSMENT: This is a 47-year-old white female with history enterocolitis, admitted with flare of the latter in addition to fecal impaction noted in the proximal colon. Note that the symptoms have resolved to a significant extent, but she still has to pass the hard stool, which can still be felt on palpation. She is passing gas and was able to handle small volume of soft low-residue diet yesterday. It was advised the patient be discharged today after receiving first dose of IV prednisone, after which she will be on a prednisone taper starting roughly around 25 mg prednisone daily to off over several weeks. She is well aware how to taper the prednisone off. Also advised is to resume her Pentasa that is 500 mg tablet b.i.d. on a prophylactic basis to prevent flares. suggested that she maintain significant amount of fluid intake as well as a soft low-residue diet small portions until she is well into her prednisone taper. I will sign off the case today. Dom Roberts DO
[2018-06-06] MEDS ORDERED: Oxycodone/Acetaminophen 5/325 mg Tab PO STA (13:14)
== END 2018-06-06 14:11 | disposition home or self-care (01) | DRG 179 ==
LOC: ED 21:03 → ERH 06-03 03:19 → 5RSO 06-03 04:35 → OBSVTOIN 06-04 18:09
PROVIDERS: ADMIT Hospitalist; ATTEND Internal Medicine
DX: K50.10 Crohn's disease of large intestine without complications (principal); N39.0 Urinary tract infection, site not specified; E11.40 Type 2 diabetes mellitus with diabetic neuropathy, unspecified; I10 Essential (primary) hypertension; D64.9 Anemia, unspecified; J45.909 Unspecified asthma, uncomplicated; G43.909 Migraine, unspecified, not intractable, without status migrainosus; K76.0 Fatty (change of) liver, not elsewhere classified; K21.9 Gastro-esophageal reflux disease without esophagitis; D72.819 Decreased white blood cell count, unspecified; K57.90 Diverticulosis of intestine, part unspecified, without perforation or abscess without bleeding; K59.00 Constipation, unspecified; Z91.19 Patient's noncompliance with other medical treatment and regimen; Z91.14 Patient's other noncompliance with medication regimen; Z87.440 Personal history of urinary (tract) infections; Z87.442 Personal history of urinary calculi; Z87.891 Personal history of nicotine dependence

== ENCOUNTER 2018-06-18 19:44 | Emergency (ER) | payer MEDICAID ==
[2018-06-18 19:45] VITALS: BMI 29.8
[2018-06-18] MEDS ORDERED: Sodium Chloride 0.9% 1,000 ML IV SCH (20:45)
[2018-06-18 21:21] LABS: BASO # 0.02 K/mm3 (0.0-2.0); BASO % 0.3 % (0.0-3.0); EOS # 0.1 (0.0-0.7); EOS % 2.4 % (1.5-5.0); GRAN # 3.46 (1.4-6.5); GRAN % 59.9 % (50.0-68.0); HEMOGLOBIN 8.1 g/dL (12.0-16.0); LYMPH # 1.8 (1.2-3.4); LYMPH % 30.8 % (22.0-35.0); MEAN CELL VOLUME 77.1 fl (80.0-105.0); MEAN CORPUSCULAR HEMOGLOBIN 22.1 pg (25.0-35.0); MEAN CORPUSCULAR HGB CONC 28.6 g/dl (31.0-37.0); MEAN PLATELET VOLUME 9.2 fl (7.0-11.0); MONO # 0.4 (0.1-0.6); MONO % 6.6 % (1.0-6.0); RBC 3.67 10^6/uL (3.5-6.1); RED CELL DISTRIBUTION WIDTH 17.9 % (11.5-14.5); WHITE BLOOD COUNT 5.8 10^3/ul (4.5-11.0)
--- NOTE | 2018-06-18 21:22 | ED PDOC ---
Arrival/HPI - General Time Seen by Provider: 06/18/18 19:46 Historian: Patient - History of Present Illness Narrative History of Present Illness (Text): 06/18/18 20:31 47 year old female, whose past medical history includes Crohn's disease, hypertension, asthma, chronic migraines, recurrent UTIs, hx of kidney stones, stomach ulcers, arthritis, and avascular necrosis of right hip , presents to the emergency department complaining of right side flank pain and chest pain that began today. Patient reports some dysuria, but denies any fever, chills, shortness of breath, nausea, vomiting, diarrhea, neck pain, headache, dizziness , or any other complaints. Time/Duration: Other (today) Symptom Onset: Gradual Symptom Course: Unchanged Activities at Onset: Light Context: Home Past Medical History - Provider Review Nursing Documentation Reviewed: Yes - Infectious Disease Hx of Infectious Diseases: None - Tetanus Immunization Tetanus Immunization: Unknown - Cardiac Hx Hypertension: Yes - Pulmonary Hx Asthma: Yes Hx Pneumonia: Yes - Neurological Hx Migraine: Yes Hx Seizures: No - HEENT Hx HEENT Disorder: No - Renal Hx Renal Disorder: Yes Hx Kidney Stones: Yes - Endocrine/Metabolic Hx Endocrine Disorders: Yes Hx Systemic Lupus Erythematosus: Yes (As per pt) - Hematological/Oncological Hx Anemia: Yes - Integumentary Hx Dermatological Disorder: No - Musculoskeletal/Rheumatological Hx Arthritis: Yes (KNEE,HIP,SHOULDER) Hx Fractures: Yes (right hand 2009) - Gastrointestinal Hx Crohn's Disease: Yes Hx Gastritis: Yes Hx Gastrointestinal Ulcer: Yes - Genitourinary/Gynecological Hx Sexually Transmitted Diseases: No - Psychiatric Hx Anxiety: Yes Hx Depression: Yes Hx Substance Use: No - Surgical History Other/Comment: r wrist/sinus - Anesthesia Hx Anesthesia: Yes Hx Anesthesia Reactions: No Hx Malignant Hyperthermia: No - Suicidal Assessment Feels Threatened In Home Enviroment: No Family/Social History - Physician Review Nursing Documentation Reviewed: Yes Family/Social History: No Known Family HX Smoking Status: Never Smoked Hx Alcohol Use: No Hx Substance Use: No Hx Substance Use Treatment: No Allergies/Home Meds Allergies/Adverse Reactions: Allergies amoxicillin Allergy (Verified 06/18/18 20:05) RASH metronidazole [From Flagyl] Allergy (Verified 06/18/18 20:05) RASH NSAIDS (Non-Steroidal Anti-Inflamma Allergy (Verified 06/18/18 20:05) SWELLING peanut Allergy (Verified 06/18/18 20:05) ANAPHYLAXIS chickpeas Allergy (Uncoded 06/18/18 20:05) RASH Home Medications: Home Meds Medication Instructions Recorded Confirmed traMADol [Ultram] 100 mg PO Q6 PRN 06/29/17 06/18/18 Acetaminophen/Butalbital/Caf 1 tab PO Q6 PRN 06/03/18 06/18/18 [Fioricet] Metoprolol Tartrate [Lopressor] 25 mg PO BID 06/18/18 06/18/18 Review of Systems - Physician Review All systems were reviewed & negative as marked: Yes - Review of Systems Constitutional: absent: Fevers, Other (Chills) Respiratory: absent: SOB Cardiovascular: Chest Pain Gastrointestinal: Abdominal Pain (right side flank pain). absent: Diarrhea, Nausea, Vomiting Genitourinary Female: Dysuria. absent: Frequency, Hematuria Musculoskeletal: absent: Neck Pain Neurological: absent: Headache, Dizziness Physical Exam Vital Signs Reviewed: Yes Vital Signs Temp Pulse Resp BP Pulse Ox 06/19/18 00:00 75 18 146/79 100 06/18/18 20:15 97.4 F L 77 18 152/97 H 100 Appearance: Positive for: Well-Appearing, Non-Toxic, Comfortable Pain Distress: None Mental Status: Positive for: Alert and Oriented X 3 - Systems Exam Head: Present: Atraumatic, Normocephalic Pupils: Present: PERRL Extroacular Muscles: Present: EOMI Conjunctiva: Present: Normal Mouth: Present: Moist Mucous Membranes Neck: Present: Normal Range of Motion Respiratory/Chest: Present: Clear to Auscultation, Good Air Exchange. No: Respiratory Distress, Accessory Muscle Use Cardiovascular: Present: Regular Rate and Rhythm, Normal S1, S2. No: Murmurs Abdomen: No: Tenderness, Distention, Peritoneal Signs Back: Present: CVA Tenderness (right-sided) Upper Extremity: Present: Normal Inspection. No: Cyanosis, Edema Lower Extremity: Present: Normal Inspection. No: Edema Neurological: Present: GCS=15, CN II-XII Intact, Speech Normal Skin: Present: Warm, Dry, Normal Color. No: Rashes Psychiatric: Present: Alert, Oriented x 3, Normal Insight, Normal Concentration Medical Decision Making ED Course and Treatment: 06/18/18 21:23 Impression: 47 year old female presents complaining of right-sided flank pain and chest pain associated with some dysuria that began today. Plan: -- Abd & Pelvis w/o PO or IV Contrast -- EKG -- Labs -- IV Fluids -- Urine Culture -- Urinalysis -- Reassess and disposition Prior Visit: Notes and results from pervious visits were reviewed. Progress Notes: 06/18/18 19:55 EKG shows NSR at 77 BPM. Normal EKG. Interpreted by me. EXAM: CT Abdomen and Pelvis Without Intravenous Contrast Dictated and Authenticated by: Cayetano Mason MD 06/18/2018 10:28 PM IMPRESSION: Hiatal hernia. Small nonobstructing left kidney stone 06/19/18 00:41 Patient requested pain medication prescription, but informed patient she had some pain medication at home. On re-evaluation, patient feels better and is in no acute distress. I have discussed the results and plan with the patient, who expresses understanding. Patient in agreement with plan to be discharged home. Patient is stable for discharge. Patient was instructed to follow up with physician or return if symptoms worsen or new concerning symptoms arise. - Lab Interpretations Lab Results: 06/18/18 21:03 06/18/18 21:03 Lab Results 06/18/18 21:25: Urine Color Yellow, Urine Appearance Sl cloudy, Urine pH 7.5, Ur Specific [place] 1.020, Urine Protein Trace H, Urine Glucose (UA) Negative, Urine Ketones Negative, Urine Blood Large H, Urine Nitrate Negative, Urine Bilirubin Negative, Urine Urobilinogen 0.2, Ur Leukocyte Esterase Trace H, Urine RBC Tntc, Urine WBC 5 - 10, Ur Epithelial Cells 6 - 8, Amorphous Sediment Few, Urine Bacteria Many 06/18/18 21:03: Sodium 143, Potassium 4.1, Chloride 113 H, Carbon Dioxide 23, Anion Gap 11, BUN 16, Creatinine 0.8, Est GFR ( Amer) > 60, Est GFR (Non- Af Amer) > 60, Random Glucose 84, Calcium 8.8, Total Bilirubin < 0.1 L, AST 25, ALT 36, Alkaline Phosphatase 74, Lactate Dehydrogenase 570, Total Creatine Kinase 71, Troponin I < 0.01, Total Protein 6.5, Albumin 3.9, Globulin 2.7, Albumin/Globulin Ratio 1.4, Amylase 76, Lipase 162 06/18/18 21:03: PT 11.3, INR 0.99, APTT 27.0 06/18/18 21:03: WBC 5.8, RBC 3.67, Hgb 8.1 L, Hct 28.3 L, MCV 77.1 L, MCH 22.1 L , MCHC 28.6 L, RDW 17.9 H, Plt Count 279, MPV 9.2, Gran % 59.9, Lymph % (Auto) 30.8, Hood % (Auto) 6.6 H, Eos % (Auto) 2.4, Baso % (Auto) 0.3, Gran # 3.46, Lymph # (Auto) 1.8, Hood # (Auto) 0.4, Eos # (Auto) 0.1, Baso # (Auto) 0.02 I have reviewed the lab results: Yes - RAD Interpretation Radiology Orders: 06/18/18 20:31 ABD & PELVIS W/O PO OR IV CONT [CT] Stat - EKG Interpretation Interpreted by ED Physician: Yes Type: 12 lead EKG - Medication Orders Current Medication Orders: Discontinued Medications Sodium Chloride (Sodium Chloride 0.9%) 1,000 mls @ 1,000 mls/hr IV .Q1H SUZAN Last Admin: 06/18/18 20:57 Dose: 1,000 mls/hr eMAR Start Stop Document 06/18/18 20:57 AD (Rec: 06/18/18 20:57 [email or web address] Intravenous Solution Start Date 06/18/18 Start Time 20:57 Aztreonam (Azactam 1 Gm) 100 mls @ 100 mls/hr IVPB STAT STA PRN Reason: Protocol Stop: 06/18/18 23:42 Last Admin: 06/18/18 23:05 Dose: 100 mls/hr eMAR Start Stop Document 06/18/18 23:05 AD (Rec: 06/18/18 23:09 AD [email or web address] Intravenous Solution Start Date 06/18/18 Start Time 23:09 Morphine Sulfate (Morphine) 2 mg IVP STAT STA Stop: 06/18/18 22:42 Last Admin: 06/18/18 23:09 Dose: 2 mg MAR Pain Assessment Document 06/18/18 23:09 AD (Rec: 06/18/18 23:09 AD [email or web address] Pain Reassessment Is this a pain reassessment? No Presence of Pain Presence of Pain Yes Pain Scale Used Pain Scale Used Numeric Description Intensity of Pain at present 8 IVP Administration Document 06/18/18 23:09 AD (Rec: 06/18/18 23:09 AD [email or web address] Charges for Administration # of IVP Administrations 1 Nitrofurantoin Macrocrystals (Macrobid) 100 mg PO STAT STA PRN Reason: Protocol Stop: 06/18/18 23:28 Last Admin: 06/18/18 23:45 Dose: 100 mg Oxycodone/Acetaminophen (Percocet 5/325 Mg Tab) 1 tab PO STAT STA Stop: 06/18/18 23:27 Last Admin: 06/18/18 23:45 Dose: 1 tab MAR Pain Assessment Document 06/18/18 23:45 AD (Rec: 06/18/18 23:45 AD [email or web address] Pain Reassessment Is this a pain reassessment? No Presence of Pain Presence of Pain Yes Pain Scale Used Pain Scale Used Numeric Description Pain Behavior Facial Grimacing - Scribe Statement The provider has reviewed the documentation as recorded by the Gurinder Michaels Provider Scribe Attestation: All medical record entries made by the Gurinder were at my direction and personally dictated by me. I have reviewed the chart and agree that the record accurately reflects my personal performance of the history, physical exam, medical decision making, and the department course for this patient. I have also personally directed, reviewed, and agree with the discharge instructions and disposition. Disposition/Present on Arrival - Present on Arrival Any Indicators Present on Arrival: No History of DVT/PE: No History of Uncontrolled Diabetes: No Urinary Catheter: No History Surgical Site Infection Following: None - Disposition Have Diagnosis and Disposition been Completed?: Yes Diagnosis: UTI (urinary tract infection), Chest pain of uncertain etiology Disposition: HOME/ ROUTINE Disposition Time: 00:00 Condition: GOOD Discharge Instructions (ExitCare): Urinary Tract Infection, Adult (DC), Chest Pain (ED) Prescriptions: Nitrofurantoin Macrocrystals [Macrobid] 100 mg PO BID #14 cap Forms: [employer] (Congolese)
[2018-06-18 21:28] LABS: INR 0.99; PROTHROMBIN TIME 11.3 SECONDS (9.4-12.5)
[2018-06-18 21:34] LABS: PH,URINE 7.5 (4.7-8.0); URINE BILIRUBIN NEGATIVE (NEGATIVE); URINE BLOOD LARGE (NEGATIVE); URINE GLUCOSE (UA) NEGATIVE (NEGATIVE); URINE LEUKOCYTE ESTERASE TRACE Leu/uL (NEGATIVE); URINE PROTEIN TRACE mg/dL (<30 mg/dL); URINE UROBILINOGEN 0.2 E.U./dL (<1 E.U./dL)
[2018-06-18 21:37] LABS: URINE COLOR YELLOW (YELLOW)
[2018-06-18 21:38] LABS: URINE APPEARANCE SL CLOUDY (CLEAR)
[2018-06-18 21:40] LABS: TROPONIN I < 0.01 ng/mL
[2018-06-18 21:45] LABS: URINE RBC TNTC /hpf (0-2)
[2018-06-18 21:46] LABS: URINE AMORPHOUS SEDIMENT FEW; URINE BACTERIA MANY (NEG)
[2018-06-18 21:55] VITALS: RESP 18; TEMP 97.4; O2SAT 100
[2018-06-18 21:57] LABS: ALB/GLOB RATIO 1.4 (1.1-1.8); ALBUMIN 3.9 g/dL (3.0-4.8); ALT/SGPT 36 U/L (7-56); AMYLASE 76 U/L (35-125); AST/SGOT 25 U/L (14-36); BLOOD UREA NITROGEN 16 mg/dL (7-21); CALCIUM 8.8 mg/dL (8.4-10.5); GFR NON-AFRICAN AMERICAN > 60; LIPASE 162 U/L (23-300)
[2018-06-18] MEDS ORDERED: Morphine 2 mg/ml ISec IVP STA (22:41)
[2018-06-18] MEDS ORDERED: Aztreonam 1 Gm in NS 100mL 100 ML IVPB STA (22:43)
[2018-06-18] MEDS ORDERED: Oxycodone/Acetaminophen 5/325 mg Tab PO STA (23:26)
[2018-06-19 00:05] VITALS: BP 146/79; PULSE 75
--- NOTE | 2018-06-19 10:35 | CT ---
Date of service: 06/18/2018 PROCEDURE: CT Abdomen and Pelvis without intravenous contrast HISTORY: rt flank pain COMPARISON: 06/03/2018 TECHNIQUE: Without contrast.. Contrast dose: Radiation dose: Total exam DLP = 658 mGy-cm. This CT exam was performed using one or more of the following dose reduction techniques: Automated exposure control, adjustment of the mA and/or kV according to patient size, and/or use of iterative reconstruction technique. FINDINGS: LOWER THORAX: Small hiatal hernia LIVER: Unremarkable. No gross lesion or ductal dilatation. GALLBLADDER AND BILE DUCTS: Unremarkable. PANCREAS: Unremarkable. No gross lesion or ductal dilatation. SPLEEN: Unremarkable. ADRENALS: Unremarkable. No mass. KIDNEYS AND URETERS: Unremarkable. No hydronephrosis. No solid mass. Small nonobstructing stone in the left kidney VASCULATURE: Unremarkable. No aortic aneurysm. BOWEL: Unremarkable. No obstruction. No gross mural thickening. APPENDIX: Unremarkable. Normal appendix. PERITONEUM: Unremarkable. No free fluid. No free air. LYMPH NODES: Unremarkable. No enlarged lymph nodes. BLADDER: Unremarkable. REPRODUCTIVE: Unremarkable. BONES: No acute fracture. OTHER FINDINGS: The report concurs with the preliminary [facility] report IMPRESSION: No acute intra-abdominal findings
--- NOTE | 2018-06-19 15:24 | CARD ---
APPROVED REPORT Date of service: 06/18/2018 EKG Measurement Heart [id number] NC [id number] <Conclusion> Normal sinus rhythm Normal ECG
== END 2018-06-19 | disposition home or self-care (01) ==
LOC: ED 19:44
DX: N39.0 Urinary tract infection, site not specified (principal); R07.9 Chest pain, unspecified; I10 Essential (primary) hypertension; K50.90 Crohn's disease, unspecified, without complications; Z87.442 Personal history of urinary calculi
CPT/HCPCS: 74176; 80053; 81001; 82150; 82550; 83615; 83690; 84484; 85025; 85610; 85730; 87086; 93005; 96374; 99283; J2270; J7030

== ENCOUNTER 2018-07-03 05:48 | Emergency (ER) | payer MEDICAID ==
[2018-07-03 05:48] VITALS: BMI 29.8
--- NOTE | 2018-07-03 07:21 | ED PDOC ---
Arrival/HPI - General Chief Complaint: Dental Pain Time Seen by Provider: 07/03/18 07:09 Historian: Patient - History of Present Illness Narrative History of Present Illness (Text): 07/03/18 07:20 47 year old female, well known to the ER, with past medical history of migraines and Crohn's disease, presents to the Emergency department complaining of right sided tooth ache since yesterday. Patient states she had her tooth extracted yesterday and has been in pain since then. Patient additionally informs chronic bilateral flank pain, unimproved with Tylenol at home. Patient reports narcotic medication at home for her pain. Patient presented to the Emergency department with similar complaints and had 20+ visits in 2018. Patient denies any other somatic complaints. Patient denies any chest pain, shortness of breath, neck loretta n, back pain or any other complaints. Time/Duration: 4-6 hours Symptom Onset: Gradual Symptom Course: Unchanged Quality: Aching Activities at Onset: Light Context: Home Past Medical History - Provider Review Nursing Documentation Reviewed: Yes - Infectious Disease Hx of Infectious Diseases: None - Tetanus Immunization Tetanus Immunization: Unknown - Cardiac Hx Cardiac Disorders: Yes Hx Hypertension: Yes - Pulmonary Hx Respiratory Disorders: Yes Hx Asthma: Yes Hx Pneumonia: Yes - Neurological Hx Neurological Disorder: Yes Hx Migraine: Yes Hx Seizures: No - HEENT Hx HEENT Disorder: No - Renal Hx Renal Disorder: Yes Hx Kidney Stones: Yes - Endocrine/Metabolic Hx Endocrine Disorders: Yes Hx Systemic Lupus Erythematosus: Yes (As per pt) - Hematological/Oncological Hx Blood Disorders: Yes Hx Anemia: Yes - Integumentary Hx Dermatological Disorder: No - Musculoskeletal/Rheumatological Hx Musculoskeletal Disorders: Yes Hx Arthritis: Yes (KNEE,HIP,SHOULDER) Hx Fractures: Yes (right hand 2009) - Gastrointestinal Hx Gastrointestinal Disorders: Yes Hx Crohn's Disease: Yes Hx Gastritis: Yes Hx Gastrointestinal Ulcer: Yes - Genitourinary/Gynecological Hx Sexually Transmitted Diseases: No - Psychiatric Hx Psychophysiologic Disorder: Yes Hx Anxiety: Yes Hx Depression: Yes Hx Substance Use: No - Surgical History Other/Comment: r wrist/sinus - Anesthesia Hx Anesthesia: Yes Hx Anesthesia Reactions: No Hx Malignant Hyperthermia: No - Suicidal Assessment Feels Threatened In Home Enviroment: No Family/Social History - Physician Review Nursing Documentation Reviewed: Yes Family/Social History: No Known Family HX Smoking Status: Never Smoked Hx Alcohol Use: No Hx Substance Use: No Hx Substance Use Treatment: No Allergies/Home Meds Allergies/Adverse Reactions: Allergies amoxicillin Allergy (Verified 06/18/18 20:05) RASH metronidazole [From Flagyl] Allergy (Verified 06/18/18 20:05) RASH NSAIDS (Non-Steroidal Anti-Inflamma Allergy (Verified 06/18/18 20:05) SWELLING peanut Allergy (Verified 06/18/18 20:05) ANAPHYLAXIS chickpeas Allergy (Uncoded 06/18/18 20:05) RASH Home Medications: Home Meds Medication Instructions Recorded Confirmed RX: traMADol [Ultram] 100 mg PO Q6 PRN 06/29/17 07/03/18 RX: Acetaminophen/Butalbital/Caf 1 tab PO Q6 PRN 06/03/18 07/03/18 [Fioricet] RX: Metoprolol Tartrate [Lopressor] 25 mg PO BID 06/18/18 07/03/18 Review of Systems - Physician Review All systems were reviewed & negative as marked: Yes - Review of Systems Constitutional: absent: Fevers ENT: Other (toothache ) Respiratory: absent: SOB Cardiovascular: absent: Chest Pain Gastrointestinal: Abdominal Pain (chronic bilateral flank pain) Musculoskeletal: absent: Back Pain, Neck Pain Neurological: absent: Dizziness Physical Exam Vital Signs Reviewed: Yes Vital Signs Temp Pulse Resp BP Pulse Ox 07/03/18 05:54 98.7 F 86 18 165/97 H 99 Temperature: Afebrile Blood Pressure: Hypertensive Pulse: Regular Respiratory Rate: Normal Appearance: Positive for: Well-Appearing, Non-Toxic, Comfortable Pain Distress: None Mental Status: Positive for: Alert and Oriented X 3 - Systems Exam Head: Present: Atraumatic, Normocephalic Pupils: Present: PERRL Extroacular Muscles: Present: EOMI Conjunctiva: Present: Normal Mouth: Present: Moist Mucous Membranes, Other (Upper incisor tooth extraction noted.) Neck: Present: Normal Range of Motion Respiratory/Chest: Present: Clear to Auscultation, Good Air Exchange. No: Respiratory Distress, Accessory Muscle Use Cardiovascular: Present: Regular Rate and Rhythm, Normal S1, S2. No: Murmurs Abdomen: No: Tenderness, Distention, Peritoneal Signs Back: Present: Normal Inspection Upper Extremity: Present: Normal Inspection. No: Cyanosis, Edema Lower Extremity: Present: Normal Inspection. No: Edema Neurological: Present: GCS=15, CN II-XII Intact, Speech Normal Skin: Present: Warm, Dry, Normal Color. No: Rashes Psychiatric: Present: Alert, Oriented x 3, Normal Insight, Normal Concentration Medical Decision Making ED Course and Treatment: 07/03/18 07:10 Impression: 47 year old female presents to the Emergency department complaining of right sided tooth ache since yesterday. Prior Visits: Notes and results from previous visits were reviewed. Progress Notes: 07/03/18 07:10 Upon assessment, patient informs of multiple drug allergies including NSAIDs. Patient was offered high dose Tylenol, which patient denied and became agitated. Patient began yelling at the Emergency department staff and immediately eloped from the ER. 07/03/18 11:45 06/22/2018 1 06/22/2018 ACETAMINOPHEN-COD #4 TABLET 60.0 15 [place] MARIANNE [id number] [facility] (5248) 0 36.0 [place] 06/22/2018 1 06/22/2018 TRAMADOL HCL 50 MG TABLET 120.0 15 [place] MARIANNE [id number] [facility] (5248) 0 40.0 [place] 06/22/2018 1 06/22/2018 GABAPENTIN 600 MG TABLET 90.0 30 [place] MARIANNE [id number] [facility] (5248) 0 [place] 06/17/2018 1 06/17/2018 OXYCODONE-ACETAMINOPHEN 5-325 10.0 2 CA FELICIA [id number] [facility] (5248) 0 37.5 [place] 06/08/2018 1 06/08/2018 ACETAMINOPHEN-COD #4 TABLET 60.0 15 RA TIK [id number] [facility] (5248) 0 36.0 [place] 06/08/2018 1 06/08/2018 TRAMADOL HCL 50 MG TABLET 120.0 15 RA TIK [id number] [facility] (5248) 0 40.0 [place] 06/06/2018 1 06/06/2018 OXYCODONE-ACETAMINOPHEN 5-325 8.0 2 [place] IRF [id number] [facility] (5248) 0 30.0 [place] 05/25/2018 1 05/25/2018 ACETAMINOPHEN-COD #4 TABLET 60.0 15 RA TIK [id number] [facility] (5248) 0 36.0 [place] 05/25/2018 1 05/25/2018 TRAMADOL HCL 50 MG TABLET 120.0 15 RA TIK [id number] [facility] (5248) 0 40.0 [place] 05/25/2018 1 05/25/2018 GABAPENTIN 600 MG TABLET 90.0 30 RA TIK [id number] [facility] (5248) 0 [place] 05/18/2018 1 05/18/2018 PROMETHAZINE-CODEINE SYRUP 100.0 5 NA BAR [id number] [facility] (5248) 0 6.0 [place] 05/11/2018 1 05/11/2018 ACETAMINOPHEN-COD #3 TABLET 60.0 15 MA MAR [id number] [facility] (5248) 0 18.0 [place] 05/11/2018 1 05/11/2018 TRAMADOL HCL 50 MG TABLET 120.0 15 MA MAR [id number] [facility] (5248) 0 40.0 [place] 04/28/2018 1 04/27/2018 ACETAMINOPHEN-COD #3 TABLET 60.0 15 MA MAR [id number] [facility] (5248) 0 18.0 [place] 04/27/2018 1 04/27/2018 TRAMADOL HCL 50 MG TABLET 120.0 15 [place] MAR [id number] [facility] (5248) 0 40.0 [place] 04/27/2018 1 04/27/2018 GABAPENTIN 600 MG TABLET 90.0 30 MA MAR [id number] [facility] (5248) 0 [place] 04/26/2018 1 04/26/2018 ACETAMINOPHEN-COD #3 TABLET 10.0 2 HOROWITZ PAT [id number] [facility] (5248) 0 22.5 [place] 04/25/2018 1 04/25/2018 ACETAMINOPHEN-COD #3 TABLET 8.0 1 JE JAMES [id number] [facility] (5248) 0 36.0 [place] 04/13/2018 1 04/13/2018 ACETAMINOPHEN-COD #3 TABLET 60.0 15 MA MAR [id number] [facility] (5248) 0 18.0 [place] 04/13/2018 1 04/13/2018 TRAMADOL HCL 50 MG TABLET 120.0 15 MA MAR [id number] [facility] (5248) 0 40.0 [place] 03/30/2018 1 03/30/2018 ACETAMINOPHEN-COD #3 TABLET 60.0 15 MA MAR [id number] [facility] (5248) 0 18.0 [place] 03/30/2018 1 03/30/2018 TRAMADOL HCL 50 MG TABLET 120.0 15 [place] MAR [id number] [facility] (5248) 0 40.0 [place] 03/30/2018 1 03/30/2018 GABAPENTIN 600 MG TABLET 90.0 30 MA MAR [id number] [facility] (5248) 0 [place] 03/16/2018 1 03/16/2018 ACETAMINOPHEN-COD #3 TABLET 60.0 15 MA MAR [id number] [facility] (5248) 0 18.0 [place] 03/16/2018 1 03/16/2018 TRAMADOL HCL 50 MG TABLET 120.0 15 [place] MAR [id number] [facility] (5248) 0 40.0 [place] 03/12/2018 1 03/12/2018 ACETAMINOPHEN-COD #4 TABLET 20.0 5 DA CHAN [id number] [facility] (5248) 0 36.0 [place] 03/03/2018 1 03/02/2018 TRAMADOL HCL 50 MG TABLET 120.0 15 MA MAR [id number] [facility] (5248) 0 40.0 [place] 03/02/2018 1 03/02/2018 ACETAMINOPHEN-COD #3 TABLET 60.0 15 MA MAR [id number] [facility] (5248) 0 18.0 [place] 02/18/2018 1 02/16/2018 TRAMADOL HCL 50 MG TABLET 120.0 15 MA MAR [id number] [facility] (5248) 0 40.0 [place] 02/16/2018 1 02/16/2018 ACETAMINOPHEN-COD #3 TABLET 60.0 15 MA MAR [id number] [facility] (5248) 0 18.0 [place] 02/05/2018 1 02/02/2018 TRAMADOL HCL 50 MG TABLET 120.0 15 RA TIK [id number] [facility] (5248) 0 40.0 [place] 02/02/2018 1 02/02/2018 ACETAMINOPHEN-COD #3 TABLET 60.0 15 RA TIK [id number] [facility] (5248) 0 18.0 [place] 01/23/2018 1 01/19/2018 TRAMADOL HCL 50 MG TABLET 120.0 15 RA TIK [id number] [facility] (5248) 0 40.0 [place] 01/19/2018 1 01/19/2018 ACETAMINOPHEN-COD #3 TABLET 60.0 15 RA TIK [id number] [facility] (5248) 0 18.0 [place] 01/10/2018 1 01/06/2018 TRAMADOL HCL 50 MG TABLET 120.0 15 MA MAR [id number] [facility] (5248) 0 40.0 [place] 01/05/2018 1 01/05/2018 ACETAMINOPHEN-COD #3 TABLET 30.0 15 MA MAR [id number] [facility] (5248) 0 9.0 [facility] 12/28/2017 1 12/22/2017 TRAMADOL HCL 50 MG TABLET 120.0 15 JE GOL [id number] [facility] (5248) 0 40.0 [place] 12/22/2017 1 12/22/2017 ACETAMINOPHEN-COD #3 TABLET 30.0 15 JE GOL [id number] [facility] (5248) 0 9.0 [place] 12/15/2017 1 12/15/2017 TRAMADOL HCL 50 MG TABLET 120.0 15 RA TIK [id number] [facility] (5248) 0 40.0 [place] 12/13/2017 1 12/13/2017 TRAMADOL HCL 50 MG TABLET 8.0 1 IR DILCIA [id number] [facility] (5248) 0 40.0 [place] 12/08/2017 1 12/08/2017 ACETAMINOPHEN-COD #3 TABLET 30.0 15 MA MAR [id number] [facility] (5248) 0 9.0 [place] 11/30/2017 1 11/30/2017 OXYCODONE-ACETAMINOPHEN 5-325 12.0 3 KA KOS [id number] [facility] (5248) 0 30.0 [facility] [place] 11/24/2017 1 11/24/2017 TRAMADOL HCL 50 MG TABLET 120.0 30 MA MAR [id number] [facility] (5248) 0 20.0 [facility] 11/10/2017 1 11/10/2017 TRAMADOL HCL 50 MG TABLET 120.0 15 MA MAR [id number] [facility] (5248) 0 40.0 [facility] 11/10/2017 1 11/10/2017 HYDROCODON-ACETAMINOPHN 10-325 60.0 15 MA MAR [id number] [facility] (5248) 0 40.0 [facility] 10/28/2017 1 10/27/2017 TRAMADOL HCL 50 MG TABLET 120.0 15 GOL [id number] [facility] (5248) 0 40.0 [place] 10/27/2017 1 10/27/2017 HYDROCODON-ACETAMINOPHN 10-325 60.0 10 GOL [id number] [facility] (5248) 0 60.0 [place] 10/23/2017 1 10/23/2017 PROMETHAZINE-CODEINE SYRUP 240.0 8 RONNY PIN [id number] [facility] (5248) 0 9.0 [facility] 10/23/2017 1 10/23/2017 TRAMADOL HCL 50 MG TABLET 50.0 13 RONNY PIN [id number] [facility] (5248) 0 19.23 [facility] 10/23/2017 1 10/23/2017 HYDROCODON-ACETAMINOPHN 10-325 32.0 8 RONNY PIN [id number] [facility] (5248) 0 40.0 [place] 10/07/2017 1 10/07/2017 TRAMADOL HCL 50 MG TABLET 120.0 15 RA TIK [id number] [facility] (5248) 0 40.0 [place] 10/07/2017 1 10/07/2017 HYDROCODON-ACETAMINOPHN 10-325 60.0 15 RA TIK [id number] [facility] (5248) 0 40.0 [place] 09/22/2017 1 09/22/2017 TRAMADOL HCL 50 MG TABLET 120.0 15 [place] HWA [id number] [facility] (5248) 0 40.0 [place] 09/22/2017 1 09/22/2017 HYDROCODON-ACETAMINOPHN 10-325 60.0 15 [place] HWA [id number] [facility] (5248) 0 40.0 [place] 09/21/2017 1 09/20/2017 OXYCODONE-ACETAMINOPHEN 5-325 12.0 3 HE DEONDRE [id number] [facility] (5248) 0 30.0 [place] 09/08/2017 1 09/08/2017 HYDROCODON-ACETAMINOPHN 10-325 60.0 15 [place] HWA [id number] [facility] (5248) 0 40.0 [place] 09/08/2017 1 09/08/2017 TRAMADOL HCL 50 MG TABLET 120.0 15 [place] HWA [id number] [facility] (5248) 0 40.0 [place] 08/24/2017 1 08/23/2017 TRAMADOL HCL 50 MG TABLET 120.0 15 RA TIK [id number] [facility] (5248) 0 40.0 [place] 08/24/2017 1 08/23/2017 HYDROCODON-ACETAMINOPHN 10-325 60.0 15 RA TIK [id number] [facility] (5248) 0 40.0 [place] 08/21/2017 1 08/21/2017 DIPHENOXYLATE-ATROP 2.5-0.025 8.0 1 REJI [id number] [facility] (5248) 0 [place] 08/11/2017 1 08/11/2017 HYDROCODON-ACETAMINOPHN 10-325 60.0 15 [place] HWA [id number] [facility] (5248) 0 40.0 [place] 08/11/2017 1 08/11/2017 TRAMADOL HCL 50 MG TABLET 120.0 15 [place] HWA [id number] [facility] (5248) 0 40.0 [place] 07/28/2017 1 07/28/2017 TRAMADOL HCL 50 MG TABLET 120.0 15 [place] HWA [id number] [facility] (5248) 0 40.0 [place] 07/28/2017 1 07/28/2017 HYDROCODON-ACETAMINOPHN 10-325 60.0 15 [place] HWA [id number] [facility] (5248) 0 40.0 [place] 07/14/2017 1 07/14/2017 TRAMADOL HCL 50 MG TABLET 120.0 15 [place] HWA [id number] [facility] (5248) 0 40.0 [place] 07/14/2017 1 07/14/2017 HYDROCODON-ACETAMINOPHN 10-325 60.0 15 [place] HWA [id number] [facility] (5248) 0 40.0 [facility] 07/04/2017 1 06/30/2017 TRAMADOL HCL 50 MG TABLET 120.0 15 [place] HWA [id number] [facility] (5248) 0 40.0 [place] - Scribe Statement The provider has reviewed the documentation as recorded by the Juliannaibe Stephani Aquino. All medical record entries made by the Scribe were at my direction and personally dictated by me. I have reviewed the chart and agree that the record accurately reflects my personal performance of the history, physical exam, medical decision making, and the department course for this patient. I have also personally directed, reviewed, and agree with the discharge instructions and disposition. Disposition/Present on Arrival - Present on Arrival Any Indicators Present on Arrival: No History of DVT/PE: No History of Uncontrolled Diabetes: No Urinary Catheter: No History of Decub. Ulcer: No History Surgical Site Infection Following: None - Disposition Have Diagnosis and Disposition been Completed?: Yes Diagnosis: Drug-seeking behavior, Toothache, Flank pain Disposition: ELOPEMENT - ER ONLY Disposition Time: 07:20 Condition: UNKNOWN Referrals: Salvatore Pollack MD [Primary Care Provider] - Follow up with primary Forms: [employer] (Nepalese)
[2018-07-03 07:22] VITALS: BP 0/0; PULSE 0; RESP 0; TEMP 0; O2SAT 0
== END 2018-07-03 07:22 | disposition left against medical advice (07) ==
LOC: ED 05:48
DX: K08.89 Other specified disorders of teeth and supporting structures (principal); R10.9 Unspecified abdominal pain; Z76.5 Malingerer [conscious simulation]

== ENCOUNTER 2018-12-09 11:11 | Emergency (ER) | payer MEDICAID | END 2018-12-09 14:46 | disposition home or self-care (01) | LOC: ED 11:11 ==

== ENCOUNTER 2018-12-23 10:02 | Emergency (ER) | payer MEDICAID ==
[2018-12-23 10:02] VITALS: BMI 29.0
[2018-12-23] MEDS ORDERED: Albuterol-Ipratrop 3 mg / 0.5 (3 ml) UD IH STA (10:43)
--- NOTE | 2018-12-23 10:59 | ED PDOC ---
Arrival/HPI - General Historian: Patient - Critical Care Critical Care Minutes: 45 minutes - History of Present Illness Narrative History of Present Illness (Text): 12/23/18 10:47 48 year old female with a past medical history of hypertension, asthma, migraines, recurrent utis, nephrolithiasis, PUD, chronic iron defeiciency anemia, arthrtitis and gastritis presents to the hospital for shortness of breath for the past week. Patient states taking her Albuterol inhaler and Advair with some improvement in symptoms. Patient reports it being aggravated by the weather change. Patient also reports lower left quadrant pain for the past three days. Patient states its throbbing in nature with no radiation. Patient denies any alleviating or modifying factors. Patient denies any bloody stools, chest pain, fevers, chills, vomiting, syncopal episodes, or any other complaints. Medical history: see HPI Surgical history: , R wrist surgery, Sinus surgery Allergies: NSAIDS, amoxicillin, flagyl Social history: Denies alcohol or drug use. Lives in [place] Time/Duration: 1 week Symptom Onset: Gradual Symptom Course: Improving Quality: Throbbing Severity Level: 4 Activities at Onset: Rest Context: Sitting, Standing, Walking <Winston Franklin - Last Filed: 12/23/18 16:05> Past Medical History - Provider Review Nursing Documentation Reviewed: Yes - Infectious Disease Hx of Infectious Diseases: None - Tetanus Immunization Tetanus Immunization: Unknown - Cardiac Hx Hypertension: Yes Hx Pacemaker: No - Pulmonary Hx Asthma: Yes Hx Pneumonia: Yes - Neurological Hx Migraine: Yes Hx Seizures: No - HEENT Hx HEENT Disorder: No - Renal Hx Renal Disorder: Yes Hx Kidney Stones: Yes - Endocrine/Metabolic Hx Endocrine Disorders: Yes Hx Systemic Lupus Erythematosus: Yes - Hematological/Oncological Hx Anemia: Yes - Integumentary Hx Dermatological Disorder: No - Musculoskeletal/Rheumatological Hx Arthritis: Yes (KNEE,HIP,SHOULDER) Hx Fractures: Yes (right hand 2009) - Gastrointestinal Hx Crohn's Disease: Yes Hx Gastritis: Yes Hx Gastrointestinal Ulcer: Yes - Genitourinary/Gynecological Hx Sexually Transmitted Diseases: No - Psychiatric Hx Anxiety: Yes Hx Depression: Yes Hx Substance Use: No - Surgical History Other/Comment: Patient stated: , Right wrist surgery, and Sinus surgery - Anesthesia Hx Anesthesia: Yes Hx Anesthesia Reactions: No Hx Malignant Hyperthermia: No - Suicidal Assessment Feels Threatened In Home Enviroment: No <Winston Franklin - Last Filed: 12/23/18 16:05> Family/Social History - Physician Review Nursing Documentation Reviewed: Yes Family/Social History: No Known Family HX Smoking Status: Former Smoker Hx Alcohol Use: No Hx Substance Use: No Hx Substance Use Treatment: No <Winston Franklin - Last Filed: 12/23/18 16:05> Allergies/Home Meds <Winston Franklin - Last Filed: 12/23/18 16:05> <Salty Hendricks - Last Filed: 12/23/18 16:30> Allergies/Adverse Reactions: Allergies amoxicillin Allergy (Verified 12/23/18 10:11) RASH metronidazole [From Flagyl] Allergy (Verified 12/23/18 10:11) RASH NSAIDS (Non-Steroidal Anti-Inflamma Allergy (Verified 12/23/18 10:11) SWELLING nut - unspecified Allergy (Verified 12/23/18 10:11) ANAPHYLAXIS peanut Allergy (Verified 12/23/18 10:11) ANAPHYLAXIS chickpeas Allergy (Uncoded 12/23/18 10:11) RASH Home Medications: Home Meds Medication Instructions Recorded Confirmed Metoprolol Tartrate [Lopressor] 25 mg PO BID 06/18/18 12/01/18 Gabapentin [Neurontin] 600 mg PO TID 12/01/18 12/01/18 amLODIPine [Norvasc] 10 mg PO DAILY 12/01/18 12/01/18 Review of Systems - Physician Review All systems were reviewed & negative as marked: Yes - Review of Systems Constitutional: Normal. absent: Weight Change Eyes: Vision Changes. absent: Normal, Photophobia ENT: absent: Normal, Rhinorrhea Respiratory: SOB, Cough, Wheezing Cardiovascular: Normal Gastrointestinal: Abdominal Pain, Nausea. absent: Vomiting, Food Intolerance Genitourinary Female: Normal. absent: Dysuria Musculoskeletal: Normal. absent: Back Pain Skin: Normal Psychiatric: Normal. absent: Anxiety, Depression <Winston Franklin - Last Filed: 12/23/18 16:05> Physical Exam Vital Signs Reviewed: Yes - Systems Exam Head: Present: Atraumatic. No: Abrasion Pupils: Present: PERRL. No: Sluggish Extroacular Muscles: Present: EOMI Conjunctiva: Present: Normal. No: Injected Mouth: Present: Moist Mucous Membranes. No: Normal Teeth Neck: Present: Normal Range of Motion. No: Meningeal Signs, JVD Respiratory/Chest: Present: Wheezes Cardiovascular: Present: Regular Rate and Rhythm, Normal S1, S2. No: Murmurs, Tachycardic Abdomen: Present: Tenderness, Normal Bowel Sounds Upper Extremity: Present: Normal Inspection. No: Edema Lower Extremity: Present: Normal Inspection. No: Edema Neurological: Present: CN II-XII Intact, Speech Normal Skin: Present: Dry, Normal Color Psychiatric: Present: Alert, Oriented x 3, Normal Insight <Winston Franklin - Last Filed: 12/23/18 16:05> Vital Signs Temp Pulse Resp BP Pulse Ox 12/23/18 11:30 89 18 146/89 97 12/23/18 11:20 98.6 F 82 18 160/96 H 100 <Salty Hendricks - Last Filed: 12/23/18 16:30> Medical Decision Making ED Course and Treatment: 12/23/18 11:05 48 year old female presents with shortness of breath for a week and lower left quadrant pain for three days. Plan: CBC/CMP CXR Ab/pelvis ct U/A Solumedrol Duoneb Tylenol 12/23/18 11:30 K. 2.4 IV kcl ordered .Patient refused. 12/23/18 15:15 Abdomen/pelvis ct: Apparent mild segment branch mural thickening in the sigmoid colon is nonspecific and could be related to underdistention however early segmental nonspecific acute infectious/inflammatory colitis is also a consideration. Clinical follow-up is advised. Constipation and chronic stasis in the small bowel loops. Mild hepatosplenomegaly and fatty liver. CXR:Blunting of the right costophrenic angle may represent small effusion or thickening. No lobar pneumonia. Patient re-evaluated and stable for discharge. 12/23/18 15:42 12/23/18 16:05 Patient states "this is why I have to go to different cities for medication". Patient became verbally abusive to Nurse Whitney Lees during discharge. Security was called as a result. - RAD Interpretation Radiology Orders: 12/23/18 10:41 ABDOMEN & PELVIS [ABD & PELVIS IV CONTRAST ONLY] [CT] Stat CHEST PORTABLE [RAD] Stat - Medication Orders Current Medication Orders: Acetaminophen (Tylenol 325mg Tab) 650 mg PO STAT STA Stop: 12/23/18 10:46 Discontinued Medications Albuterol/Ipratropium (Duoneb 3 Mg/0.5 Mg (3 Ml) Ud) 3 ml IH STAT STA Stop: 12/23/18 10:44 Methylprednisolone (Solu-Medrol) 125 mg IVP STAT STA Stop: 12/23/18 10:43 <Winston Franklin - Last Filed: 12/23/18 16:05> ED Course and Treatment: Seen and examined with resident. 48 y/o F p/w dyspnea and LLQ pain. On exam, LLQ tenderness. No leukocytosis. Baseline anemia. CT shows questionable sigmoid colitis but likely under distention. UA shows some WBC/leuks with squamous epithelial cells. Cipro prescribed. - Lab Interpretations Lab Results: Urine Color Light yellow (YELLOW) 12/23/18 12:10 Urine Appearance Cloudy (CLEAR) 12/23/18 12:10 Urine pH 7.5 (4.7-8.0) 12/23/18 12:10 Ur Specific [place] 1.020 (1.005-1.035) 12/23/18 12:10 Urine Protein Negative mg/dL (<30 mg/dL) 12/23/18 12:10 Urine Glucose (UA) Negative mg/dL (NEGATIVE) 12/23/18 12:10 Urine Ketones Negative mg/dL (NEGATIVE) 12/23/18 12:10 Urine Blood Large (NEGATIVE) H 12/23/18 12:10 Urine Nitrate Negative (NEGATIVE) 12/23/18 12:10 Urine Bilirubin Negative (NEGATIVE) 12/23/18 12:10 Urine Urobilinogen 0.2 E.U./dL (<1 E.U./dL) 12/23/18 12:10 Ur Leukocyte Esterase Trace [place]/uL (NEGATIVE) H 12/23/18 12:10 Urine RBC 25 - 30 /hpf (0-2) H 12/23/18 12:10 Urine WBC 5 - 10 /hpf (0-6) H 12/23/18 12:10 Ur Epithelial Cells 3 - 4 /hpf (0-5) 12/23/18 12:10 Amorphous Sediment Moderate /hpf (NONE) 12/23/18 12:10 Urine Bacteria Many /hpf (NONE) 12/23/18 12:10 Urine Other Uyeast /hpf 12/23/18 12:10 - RAD Interpretation Radiology Orders: 12/23/18 10:41 ABDOMEN & PELVIS [ABD & PELVIS IV CONTRAST ONLY] [CT] Stat CHEST PORTABLE [RAD] Stat - Medication Orders Current Medication Orders: Discontinued Medications Acetaminophen (Tylenol 325mg Tab) 650 mg PO STAT STA Stop: 12/23/18 10:46 Last Admin: 12/23/18 11:22 Dose: 650 mg MAR Pain/Vitals Document 12/23/18 11:22 EAR (Rec: 12/23/18 11:23 EAR [facility] [id number] Pain Reassessment Is This A Pain ReAssessment? No Sleep Is patient sleeping during reassessment? No Presence of Pain Presence of Pain No Albuterol/Ipratropium (Duoneb 3 Mg/0.5 Mg (3 Ml) Ud) 3 ml IH STAT STA Stop: 12/23/18 10:44 Last Admin: 12/23/18 11:23 Dose: 3 ml Methylprednisolone (Solu-Medrol) 125 mg IVP STAT STA Stop: 12/23/18 10:43 <Salty Hendricks - Last Filed: 12/23/18 16:30> Disposition/Present on Arrival - Present on Arrival Any Indicators Present on Arrival: No History of DVT/PE: No History of Uncontrolled Diabetes: No Urinary Catheter: No History of Decub. Ulcer: No History Surgical Site Infection Following: None - Disposition Have Diagnosis and Disposition been Completed?: Yes Disposition Time: 15:18 Patient Plan: Discharge <Winston Franklin - Last Filed: 12/23/18 16:05> <Salty Hendricks - Last Filed: 12/23/18 16:30> - Disposition Diagnosis: UTI (urinary tract infection), Colitis Disposition: HOME/ ROUTINE Condition: IMPROVED Additional Instructions: 1.F/u with pmd within 5 days of discharge. 2.Return to hospital for any new or worsening symptoms. Prescriptions: Ciprofloxacin [Cipro] 500 mg PO Q12 #20 tab Forms: [employer] (Guatemalan)
[2018-12-23 11:21] VITALS: RESP 18; TEMP 98.6
[2018-12-23 12:13] LABS: PH,URINE 7.5 (4.7-8.0); URINE BILIRUBIN NEGATIVE (NEGATIVE); URINE BLOOD LARGE (NEGATIVE); URINE GLUCOSE (UA) NEGATIVE (NEGATIVE); URINE LEUKOCYTE ESTERASE TRACE Leu/uL (NEGATIVE); URINE PROTEIN NEGATIVE mg/dL (<30 mg/dL); URINE UROBILINOGEN 0.2 E.U./dL (<1 E.U./dL)
[2018-12-23 12:14] LABS: URINE APPEARANCE CLOUDY (CLEAR); URINE COLOR LIGHT YELLOW (YELLOW)
[2018-12-23 12:18] LABS: URINE AMORPHOUS SEDIMENT MODERATE /hpf; URINE BACTERIA MANY /hpf; URINE RBC 25 - 30 /hpf (0-2)
[2018-12-23 13:07] LABS: BASO # 0.01 K/mm3 (0.0-2.0); BASO % 0.2 % (0.0-3.0); EOS # 0.1 (0.0-0.7); EOS % 1.5 % (1.5-5.0); HEMOGLOBIN 8.4 g/dL (12.0-16.0); LYMPH # 1.5 (1.2-3.4); LYMPH % 33.3 % (22.0-35.0); MEAN CELL VOLUME 78.3 fl (80.0-105.0); MEAN CORPUSCULAR HEMOGLOBIN 22.2 pg (25.0-35.0); MEAN CORPUSCULAR HGB CONC 28.4 g/dl (31.0-37.0); MEAN PLATELET VOLUME 9.3 fl (7.0-11.0); MONO # 0.4 (0.1-0.6); MONO % 7.7 % (1.0-6.0); RBC 3.78 10^6/uL (3.5-6.1); RED CELL DISTRIBUTION WIDTH 20.3 % (11.5-14.5); WHITE BLOOD COUNT 4.5 10^3/uL (4.5-11.0)
[2018-12-23] MEDS ORDERED: Iohexol 350 MG/100 ML VIAL ONE (13:20)
--- NOTE | 2018-12-23 13:51 | RAD ---
Date of service: 12/23/2018 HISTORY: Shortness of breath COMPARISON: 12/09/2018. FINDINGS: LUNGS: The lungs are well inflated and clear. PLEURA: There is blunting of the right costophrenic angle. Left costophrenic angle is clear. CARDIOVASCULAR: The heart is normal in size. No aortic atherosclerotic calcifications present. OSSEOUS STRUCTURES: Within normal limits for the patient's age. VISUALIZED UPPER ABDOMEN: Normal. OTHER FINDINGS: None. IMPRESSION: Blunting of the right costophrenic angle may represent small effusion or thickening. No lobar pneumonia.
[2018-12-23 13:56] LABS: ALB/GLOB RATIO 1.1 (1.1-1.8); ALBUMIN 3.4 g/dL (3.0-4.8); ALT/SGPT 28 U/L (7-56); AST/SGOT 27 U/L (14-36); BLOOD UREA NITROGEN 10 mg/dL (7-21); CALCIUM 8.7 mg/dL (8.4-10.5); GFR NON-AFRICAN AMERICAN > 60
[2018-12-23] MEDS ORDERED: Potassium Chloride 20 mEq ER Tab PO STA (14:07)
--- NOTE | 2018-12-23 14:27 | CT ---
Date of service: 12/23/2018 PROCEDURE: CT Abdomen and Pelvis with contrast HISTORY: r/o diverticulitis COMPARISON: 06/18/2018. TECHNIQUE: CT scan of the abdomen and pelvis was performed after administration of intravenous contrast. Oral contrast was not administered. Coronal and sagittal reformatted images were obtained. Contrast dose: 100 mL Omnipaque 350 Radiation dose: Total exam DLP = 540.98 mGy-cm. This CT exam was performed using one or more of the following dose reduction techniques: Automated exposure control, adjustment of the mA and/or kV according to patient size, and/or use of iterative reconstruction technique. FINDINGS: LOWER THORAX: The visualized lungs are clear. LIVER: Mild hepatomegaly and fatty liver. Normal homogeneous enhancement. No gross lesion or ductal dilatation. GALLBLADDER AND BILE DUCTS: The gallbladder is partially contracted. No calcified gallstones, wall thickening or pericholecystic fluid. PANCREAS: Normal in size with homogeneous enhancement. No gross lesion or ductal dilatation. SPLEEN: Mild splenomegaly. Normal homogeneous enhancement. ADRENALS: No discrete nodule. KIDNEYS AND URETERS: Normal in size with homogeneous enhancement. No hydronephrosis. No solid mass. VASCULATURE: No aortic aneurysm. There are no aortic atherosclerotic calcifications or mural plaque present. BOWEL: Evaluation of the bowel is limited in the absence of oral contrast. The small bowel loops are normal in caliber. There is fecalization of small bowel contents and fluid in the distal small bowel loops. There is moderate amount of stool scattered throughout the colon. There is apparent mild circumferential mural thickening in the sigmoid colon. No bowel wall thickening or obstruction. APPENDIX: Normal appendix. PERITONEUM: No free fluid. No free air. LYMPH NODES: No enlarged lymph nodes. BLADDER: Well distended and normal in appearance. REPRODUCTIVE: The uterus is normal in size. BONES: No acute fracture. Within normal limits for the patient's age. OTHER FINDINGS: None. IMPRESSION: Apparent mild segment branch mural thickening in the sigmoid colon is nonspecific and could be related to underdistention however early segmental nonspecific acute infectious/inflammatory colitis is also a consideration. Clinical follow-up is advised. Constipation and chronic stasis in the small bowel loops. Mild hepatosplenomegaly and fatty liver.
[2018-12-23 14:35] VITALS: BP 148/69; PULSE 88; O2SAT 98
== END 2018-12-23 15:30 | disposition home or self-care (01) ==
LOC: ED 10:02
DX: N39.0 Urinary tract infection, site not specified (principal); K52.9 Noninfective gastroenteritis and colitis, unspecified; I10 Essential (primary) hypertension; M32.9 Systemic lupus erythematosus, unspecified
CPT/HCPCS: 71045; 74177; 80053; 81001; 81025; 85025; 87086; 96374; 99285; J2930; Q9967